=== PATIENT | male | born 1950 | race Caucasian/White ===

== ENCOUNTER 2019-03-30 11:37 | Emergency (ER) | payer MEDICARE, OTHER, SELFPAY ==
[2019-03-30 11:43] VITALS: BP 136/87; PULSE 103; RESP 16; TEMP 36.3; O2SAT 99; BMI 23.7
--- NOTE | 2019-03-30 11:50 | RAD_ITS ---
STUDY: X-RAY CHEST REASON FOR EXAM: Male, 68 years old. Right-sided chest pain with diminished breath sounds. History of pneumothorax. TECHNIQUE: AP portable upright inspiratory and expiratory. COMPARISON: None. FINDINGS: The lungs are clear and expanded. No effusion or pneumothorax. Normal cardiomediastinal silhouette, suhail and pleural margins. No acute osseous or upper abdominal process. RAD/Chest Insp/Exp 2 View IMPRESSION: No acute cardiopulmonary process. Electronically Signed: Delfin Ngo MD at 12:40 EDT Tel , Service support ,
--- NOTE | 2019-03-30 11:51 | ED.VIS.GEN ---
History of Present Illness Chief Complaint: Shortness of Breath Detail of Chief Complaint: Right-sided chest pain since Saturday Informant: Patient Onset: Days - Onset Saturday Context: Sudden Onset Timing: Continuous - burning sensation right side of chest lateral sternum Quality: Burning Location: Right Current Severity: Mild Maximum Severity: Moderate Worsened by: Activity Relieved by: Nothing Associated Symptoms: Dyspnea Narrative: Patient is an elderly gentleman who presents because of right-sided chest pain that started abruptly on Saturday. Patient now complains of a burning sensation which he localizes to the fourth fifth intercostal space on the right. He does report shortness of breath with dyspnea on exertion. He has history of 100% pneumothorax in the left 1982 and more recently 40% pneumothorax on the right. He has not seen a cardiothoracic surgeon for either pneumothorax. There is no history of trauma. Patient states he coughed and reports coughing prior to pneumothorax on left and prior on right. He does report rhinorrhea, which is chronic secondary to allergies. He denies leg pain, swelling discoloration. He denies history of PE or DVT. He denies constitutional symptoms. He denies GI symptoms. He denies rash. Prior similar symptoms: Yes - Pneumothorax Recent Illness/Hospitalization: No - Past Medical History (1) History of pneumothorax Status: Acute Past Medical History - Allergies and Home Meds Allergies/Adverse Reactions: Allergies amoxapine Allergy (Verified 03/30/19 11:43) Other albuterol Adverse Reaction (Verified 03/30/19 11:43) Other amitriptyline [From Elavil] Adverse Reaction (Verified 03/30/19 11:43) Other buspirone Adverse Reaction (Verified 03/30/19 11:43) Other duloxetine [From Cymbalta] Adverse Reaction (Verified 03/30/19 11:43) Other fluticasone [From Advair Diskus] Adverse Reaction (Verified 03/30/19 11:40) Other HEART PALPITATIONS gabapentin Adverse Reaction (Verified 03/30/19 11:43) Other gemfibrozil Adverse Reaction (Verified 03/30/19 11:43) Other hydroxyzine Adverse Reaction (Verified 03/30/19 11:43) Other naproxen Adverse Reaction (Verified 03/30/19 11:43) Other nortriptyline Adverse Reaction (Verified 03/30/19 11:43) Other salmeterol [From Advair Diskus] Adverse Reaction (Verified 03/30/19 11:40) Other HEART PALPITATIONS sertraline [From Zoloft] Adverse Reaction (Verified 03/30/19 11:43) Other tiotropium [From Spiriva with HandiHaler] Adverse Reaction (Verified 03/30/19 11:43) Other trazodone Adverse Reaction (Verified 03/30/19 11:43) Other zolpidem [From Ambien] Adverse Reaction (Verified 03/30/19 11:43) Other SLEEP WALKING Primary Care Physician: Juvenal Chatman MD [Primary Care Provider] - Prior records reviewed: No Surgical History: noncontributory Lives: Spouse/ Significant Other Smoking Status: Former smoker Alcohol: None Review of Systems General: Denies: Chills, Fever, Subjective, Sweats Eyes: Denies: Visual changes - bilaterally, Diplopia ENT: Reports: Rhinorrhea. Denies: Bilateral ear pain, Sore throat Cardiovascular: Reports: Chest pain. Denies: Palpitations, Heart racing Respiratory: Reports: Dyspnea, Cough, Dyspnea on exertion. Denies: Sputum, Orthopnea, Paroxysmal nocturnal dyspnea Gastrointestinal: Denies: Abdominal pain, Nausea, Vomiting, Diarrhea, Melena, Hematochezia Genitourinary: Denies: Dysuria, Hematuria, Frequency Musculoskeletal: Denies: Back pain, Extremity Pain Skin: Denies: Rash, Wounds Neurological: Denies: Headache, Weakness, Numbness Allergy: Denies: Uticaria, Swelling of the mouth Physical Exam Vital Signs/Narrative: Vital Signs Temp Pulse Resp BP Pulse Ox 03/30/19 11:43 97.4 F L 103 H 16 136/87 H 99 General: Well nourished, Well developed, No Acute Distress Head: Normocephalic, Atraumatic Eyes: Perrl, EOMI. Negative for: Pale conjunctiva, Scleral icterus, - ENT: Moist mucous membranes, No rhinorrhea Neck: Supple, Nontender, No lymphadenopathy, No JVD Cardiovascular: Regular rate, Regular rhythm, No murmurs, Normal S1, Normal S2 Respiratory: No distress, CTA bilaterally, Chest nontender, Diminished - Breath sounds diminished on the right especially apex. Abdomen: Soft, Nontender, Nondistended, Normal bowel sounds, No masses. Negative for: Hepatomegaly, Splenomegaly Extremities: Nontender, No edema Skin: Normal color, No rash Neurological: Alert, Oriented x3, Cranial nerves II-XII grossly intact, Normal Strength, Normal Sensation Psychological: Normal affect, Normal Mood Diagnostic/Tx/Re-eval Chest X-Ray - ED: 2 View, Read by ED Physician Inspiratory and expiratory views were obtained. There is no evidence of pneumothorax per my interpretation on the inspiratory expiratory view. Therefore will discharge to home Impressions Chest X-Ray 03/30/19 11:50 IMPRESSION: No acute cardiopulmonary process. Electronically Signed: Delfin Ngo MD at 12:40 EDT Tel , Service support , 03/30/19 11:50 Chest Insp/Exp 2 View [RAD] Routine 03/30/19 14:46 CTA Chest W/WO Contrast [CT] Stat Laboratory Results 03/30/19 03/30/19 13:15 14:16 D-Dimer Quant (PE/DVT) Cancelled 2.46 H* - Medical Decision Making With prior history of pneumothorax, dyspnea with decreased breath sounds on the right and expiratory next Tory x-ray was obtained to evaluate for pneumothorax. Since there is no oxygenation for his chest discomfort or shortness of breath a d-dimer was obtained because he is tachycardic and is not PERC negative. D-dimer is elevated even after correction for age. Therefore CTA was ordered to evaluate for pulmonary embolus. ED Disposition - Plan for ED Patient: Diagnosis: Dyspnea, Sinus tachycardia seen on cardiac monitor technician, Right-sided chest pain Referrals: Juvenal Chatman MD [Primary Care Provider] -
--- NOTE | 2019-03-30 11:55 | ED.DCSUM_ITS ---
History of Present Illness Chief Complaint: Shortness of Breath Detail of Chief Complaint: Right-sided chest pain since Saturday Informant: Patient Onset: Days - Onset Saturday Context: Sudden Onset Timing: Continuous - burning sensation right side of chest lateral sternum Quality: Burning Location: Right Current Severity: Mild Maximum Severity: Moderate Worsened by: Activity Relieved by: Nothing Associated Symptoms: Dyspnea Narrative: Patient is an elderly gentleman who presents because of right-sided chest pain that started abruptly on Saturday. Patient now complains of a burning sensation which he localizes to the fourth fifth intercostal space on the right. He does report shortness of breath with dyspnea on exertion. He has history of 100% pneumothorax in the left 1982 and more recently 40% pneumothorax on the right. He has not seen a cardiothoracic surgeon for either pneumothorax. There is no history of trauma. Patient states he coughed and reports coughing prior to pneumothorax on left and prior on right. He does report rhinorrhea, which is chronic secondary to allergies. He denies leg pain, swelling discoloration. He denies history of PE or DVT. He denies constitutional symptoms. He denies GI symptoms. He denies rash. Prior similar symptoms: Yes - Pneumothorax Recent Illness/Hospitalization: No - Past Medical History (1) History of pneumothorax Status: Acute Past Medical History - Allergies and Home Meds Allergies/Adverse Reactions: Allergies amoxapine Allergy (Verified 03/30/19 11:43) Other albuterol Adverse Reaction (Verified 03/30/19 11:43) Other amitriptyline [From Elavil] Adverse Reaction (Verified 03/30/19 11:43) Other buspirone Adverse Reaction (Verified 03/30/19 11:43) Other duloxetine [From Cymbalta] Adverse Reaction (Verified 03/30/19 11:43) Other fluticasone [From Advair Diskus] Adverse Reaction (Verified 03/30/19 11:40) Other HEART PALPITATIONS gabapentin Adverse Reaction (Verified 03/30/19 11:43) Other gemfibrozil Adverse Reaction (Verified 03/30/19 11:43) Other hydroxyzine Adverse Reaction (Verified 03/30/19 11:43) Other naproxen Adverse Reaction (Verified 03/30/19 11:43) Other nortriptyline Adverse Reaction (Verified 03/30/19 11:43) Other salmeterol [From Advair Diskus] Adverse Reaction (Verified 03/30/19 11:40) Other HEART PALPITATIONS sertraline [From Zoloft] Adverse Reaction (Verified 03/30/19 11:43) Other tiotropium [From Spiriva with HandiHaler] Adverse Reaction (Verified 03/30/19 11:43) Other trazodone Adverse Reaction (Verified 03/30/19 11:43) Other zolpidem [From Ambien] Adverse Reaction (Verified 03/30/19 11:43) Other SLEEP WALKING Primary Care Physician: Juvenal Chatman MD [Primary Care Provider] - Prior records reviewed: No Surgical History: noncontributory Lives: Spouse/ Significant Other Smoking Status: Former smoker Alcohol: None Review of Systems General: Denies: Chills, Fever, Subjective, Sweats Eyes: Denies: Visual changes - bilaterally, Diplopia ENT: Reports: Rhinorrhea. Denies: Bilateral ear pain, Sore throat Cardiovascular: Reports: Chest pain. Denies: Palpitations, Heart racing Respiratory: Reports: Dyspnea, Cough, Dyspnea on exertion. Denies: Sputum, Orthopnea, Paroxysmal nocturnal dyspnea Gastrointestinal: Denies: Abdominal pain, Nausea, Vomiting, Diarrhea, Melena, Hematochezia Genitourinary: Denies: Dysuria, Hematuria, Frequency Musculoskeletal: Denies: Back pain, Extremity Pain Skin: Denies: Rash, Wounds Neurological: Denies: Headache, Weakness, Numbness Allergy: Denies: Uticaria, Swelling of the mouth Physical Exam Vital Signs/Narrative: Vital Signs Temp Pulse Resp BP Pulse Ox 03/30/19 11:43 97.4 F L 103 H 16 136/87 H 99 General: Well nourished, Well developed, No Acute Distress Head: Normocephalic, Atraumatic Eyes: Perrl, EOMI. Negative for: Pale conjunctiva, Scleral icterus, - ENT: Moist mucous membranes, No rhinorrhea Neck: Supple, Nontender, No lymphadenopathy, No JVD Cardiovascular: Regular rate, Regular rhythm, No murmurs, Normal S1, Normal S2 Respiratory: No distress, CTA bilaterally, Chest nontender, Diminished - Breath sounds diminished on the right especially apex. Abdomen: Soft, Nontender, Nondistended, Normal bowel sounds, No masses. Negative for: Hepatomegaly, Splenomegaly Extremities: Nontender, No edema Skin: Normal color, No rash Neurological: Alert, Oriented x3, Cranial nerves II-XII grossly intact, Normal Strength, Normal Sensation Psychological: Normal affect, Normal Mood Diagnostic/Tx/Re-eval Chest X-Ray - ED: 2 View, Read by ED Physician Inspiratory and expiratory views were obtained. There is no evidence of pneumothorax per my interpretation on the inspiratory expiratory view. Therefore will discharge to home Impressions Chest X-Ray 03/30/19 11:50 IMPRESSION: No acute cardiopulmonary process. Electronically Signed: Delfin Ngo MD at 12:40 EDT Tel , Service support , 03/30/19 11:50 Chest Insp/Exp 2 View [RAD] Routine 03/30/19 14:46 CTA Chest W/WO Contrast [CT] Stat Laboratory Results 03/30/19 03/30/19 13:15 14:16 D-Dimer Quant (PE/DVT) Cancelled 2.46 H* - Medical Decision Making With prior history of pneumothorax, dyspnea with decreased breath sounds on the right and expiratory next Tory x-ray was obtained to evaluate for pneumothorax. Since there is no oxygenation for his chest discomfort or shortness of breath a d-dimer was obtained because he is tachycardic and is not PERC negative. D- dimer is elevated even after correction for age. Therefore CTA was ordered to evaluate for pulmonary embolus. ED Disposition - Plan for ED Patient: Diagnosis: Dyspnea, Sinus tachycardia seen on surveillance system monitor, Right-sided chest pain Referrals: Juvenal Chatman MD [Primary Care Provider] -
[2019-03-30 14:27] VITALS: BP 154/89; PULSE 70; O2SAT 99
[2019-03-30 14:44] LABS: D-Dimer Quantitative (DVT/PE) 2.46 FEU/ug/m (0.27-0.49)
--- NOTE | 2019-03-30 14:46 | CT_ITS ---
We are attempting to reach Cornel Kaye MD to discuss findings. An addendum with communication details will be sent when the communication is complete. STUDY: CTA CHEST REASON FOR EXAM: Male, 68 years old. SOB, elevated d-dimer. COPD, emphysema. RADIATION DOSAGE (If Supplied By Facility): CTDIvol = ( 8.28 ) mGy, DLP = ( 381.35 ) mGycm TECHNIQUE: The examination was performed with the intravenous administration of 100mL IV Isovue 370. Post-processing of the angiographic images was performed, with multiplanar reformation and 3D reconstruction. Individualized dose optimization techniques were used for this CT. COMPARISON: None. FINDINGS: The heart and pericardium are normal. The aorta is normal in caliber, with no aneurysm or dissection. There is no mediastinal mass or adenopathy. There is no hilar or axillary adenopathy. Acute pulmonary emboli are demonstrated in segmental and subsegmental arteries of the right middle and lower lobes. Acute emboli are demonstrated in subsegmental arteries of the left lower lobe. There is no pleural effusion. There is mild apical pleural thickening, greater on the right. There is no pulmonary consolidation. Minimal cystic changes are noted in the right lung base. Mild paraseptal emphysema is noted in the lung apices. There is moderate pancreatic atrophy. The visualized abdomen is otherwise unremarkable. There is no osseous abnormality. CT/CTA Chest W/WO Contrast IMPRESSION: 1. Moderate bilateral pulmonary emboli, greater on the right. 2. Mild chronic changes are noted above. Electronically Signed: Kellie Garcia MD at 17:14 EDT Tel , Service support ,
[2019-03-30 16:10] LABS: Anion Gap 4 (5-15); BUN 12 mg/dL (7-18); BUN/Creat Ratio 9.8 RATIO (10-20); Calcium,Total 8.9 mg/dL (8.5-10.1); Chloride 106 mmol/L (98-107); Creatinine, Serum 1.22 mg/dL (0.70-1.30); EST Glomerular Filtration Rate 63 mL/min (>60); Est Glom Filt Rate - Afr Amer 76 mL/min (>60); Estimated Creatinine Clearance 68.31 ml/min; Glucose 93 mg/dL (74-106); Potassium 4.2 mmol/L (3.5-5.1); Sodium Level 140 mmol/L (136-145)
[2019-03-30 16:37] VITALS: BP 132/61; PULSE 87; O2SAT 99
--- NOTE | 2019-03-30 16:48 | EKG12_ITS ---
Test Reason : CP Blood Pressure : / mmHG Vent. Rate : 102 BPM Atrial Rate : 102 BPM P-R Int : 150 ms QRS Dur : 092 ms QT Int : 362 ms P-R-T Axes : 047 019 068 degrees QTc Int : 471 ms Sinus tachycardia Nonspecific ST and T wave abnormality Abnormal ECG Confirmed by RD QUIGLEY ([id number]), editor map RUY ZHANG ([id number]) on 04/03/2019 10:51:33 AM Referred By: ARLENE Confirmed By:RD QUIGLEY
[2019-03-30] MEDS: Rivaroxaban 15 MG Tablet PO (17:10)
[2019-03-30 17:13] LABS: Absolute Neutrophil Count 6.7 X10^3/uL (2.0-7.7); Basophil# 0.02 X10^3/uL; Basophil% 0.2 % (0-1); Eosinophil# 0.17 X10^3/uL; Eosinophils% 1.8 % (0-5); Hematocrit 40.1 % (40-54); Hemoglobin 13.2 g/dl (13.0-16.5); Lymphocyte % 20.5 % (19-41); Mean Corp Hgb Conc 32.9 g/gl (32-36); Mean Corpuscular Hgb 29.9 pg (27.0-32.0); Mean Corpuscular Volume 90.7 fL (80-94); Mean Platelet Vol. 10.2 fl (6.2-12.0); Monocyte% 5.4 % (0-10); Neutrophil # 6.65 X10^3/uL (2.7-7.7); Platelet Count 239 K/mm3 (150-450); RBC Distribution Width CV 13.7 % (11.6-14.6); RBC Distribution Width SD 45.3 fl (35.1-43.9); Red Blood Count 4.42 M/mm3 (4.6-6.2); White Blood Count 9.3 K/mm3 (4.4-11.0)
[2019-03-30 17:14] LABS: POSITIVE COUNT NO; POSITIVE DIFFERENTIAL NO; POSITIVE MORPHOLOGY NO
--- NOTE | 2019-03-30 17:41 | ED.DEP ---
ED Disposition - Plan for ED Patient: Disposition: Home or Assisted Living Diagnosis: Dyspnea, Sinus tachycardia seen on laboratory monitor, Right-sided chest pain Instructions: Discharge Instructions for Pulmonary Embolism Prescriptions: Rivaroxaban [Xarelto] 15 mg PO BID #42 tablet Referrals: Juvenal Chatman MD [Primary Care Provider] - 1 Week
[2019-03-30 17:54] VITALS: BP 149/78; PULSE 80; O2SAT 97
--- NOTE | 2019-04-01 12:15 | CASEMGMT ---
Case Management ER DC F/u Call: Called patient on listed cell to follow up, answered and states that he is currently in the hospital as he returned d/t not feeling good. CC: CP, Michele Alvaradot PE DC'd on Xarelto. Jessica Mcmullen, ISABELCM
[2019-04-06 16:06] LABS: Protein C Antigen 108 % (60-150); Protein C, Functional 114 % (73-180)
[2019-04-07 10:04] LABS: Anti-Cardiolipin Ab, IgG, Qn < 9 GPL U/mL (0-14); Anti-Cardiolipin Ab, IgM, Qn < 9 MPL U/mL (0-12); Anti-Thrombin 3 AG, Immunol 115 % (72-124); Antithrombin 3 Function 110 % (75-135); Beta-2-Glycoprotein I IgA <9 (0-25); Beta-2-Glycoprotein I IgG <9 (0-20); Beta-2-Glycoprotein I IgM <9 (0-32)
== END 2019-03-30 17:54 | disposition home or self-care (01) ==
PROVIDERS: Emergency Medicine; Emergency Provider Emergency Medicine; Family Provider Family Medicine; PCP Family Medicine
DX: R06.00 Dyspnea, unspecified (principal); R00.0 Tachycardia, unspecified; R07.89 Other chest pain; Z87.891 Personal history of nicotine dependence
CPT/HCPCS: 71046; 71275; 80048; 81240; 81241; 84484; 85025; 85300; 85301; 85302; 85303; 85379; 86146; 86147; 93005; 96360; 96361; 99284; J7030; Q9967

== ENCOUNTER 2019-04-01 07:37 | Inpatient (IN) | payer MEDICARE, OTHER, SELFPAY ==
[2019-04-01] VITALS (12 sets, daily range): BP systolic 117–181; BP diastolic 62–110; PULSE 60–103; RESP 12–32; TEMP 36.5–37.3; O2SAT 94–99; BMI 24.1; BMI 23.1
--- NOTE | 2019-04-01 07:43 | EKG12_ITS ---
Test Reason : SOB Blood Pressure : / mmHG Vent. Rate : 087 BPM Atrial Rate : 087 BPM P-R Int : 176 ms QRS Dur : 094 ms QT Int : 388 ms P-R-T Axes : 062 -02 049 degrees QTc Int : 466 ms Normal sinus rhythm Normal ECG Confirmed by RD QUIGLEY [id number]), film editor supervisor RUY ZHANG ([id number]) on 04/03/2019 11:15:49 AM Referred By: SOM Confirmed By:RD QUIGLEY
--- NOTE | 2019-04-01 07:43 | RAD_ITS ---
STUDY: X-RAY CHEST REASON FOR EXAM: Male, 68 years old. Chest pain. TECHNIQUE: Single AP portable view of the chest. COMPARISON: Comparison is made with prior study dated March 30, 2019. FINDINGS: EKG electrodes are seen. There now is evidence of increased markings at the lung bases with areas of confluence suggestive of bibasilar atelectasis and/or early infiltrates. Blunting of both costophrenic angles. Normal size heart. Normal mediastinum and suhail. Normal visualized pulmonary arteries. There is atherosclerotic tortuosity of the aortic arch and descending thoracic aorta. Normal visualized thoracic spine. Normal visualized ribs, clavicles, and shoulders. There is no demonstrated abnormality of the visualized soft tissue structures of the upper abdomen. RAD/Chest 1 View (Portable) IMPRESSION: Increased markings at the lung bases suggestive of bibasilar atelectasis and/or early infiltrates. Blunting of both costophrenic angles. Electronically Signed: John Dao, at 8:24 EDT , Service support ,
--- NOTE | 2019-04-01 07:46 | ED.VISSUMM ---
- ER Visit Summary Date of Service: 04/01/19 Chief Complaint: Right-sided chest pain, recent PE diagnosis History of Present Illness: The patient is a 68 M who presents with right-sided chest pain. 2 days ago he was seen here and was diagnosed with bilateral pulmonary emboli. He was started on Xarelto and was discharged home. For the last 18 hours he has had an increase of pain on the right side. This pain is worse with breathing. He does admit to some shortness of breath with this. [place] at home did not help with his pain. He does have a history of a pneumothorax remotely. Physical Examination: Vital signs reviewed. HEENT exam unremarkable. Heart is regular rhythm and tachycardic. Lungs are clear bilaterally with equal sounds. He does have right-sided chest tenderness to palpation. Abdomen soft nontender. Extremities reveal no edema. Peripheral pulses are equal. His neurologic exam is normal. Test Results: EKG sinus rhythm with rate of 102. No ST changes. Chest x-ray reveals bilateral atelectasis. His white blood count is 11.6, hemoglobin 12.8. Creatinine is 1.37 with a GFR 55. Troponin is still less than 0.015 Emergency Department Course and Treatment: The patient was given morphine and he feels improved. I feel he should be admitted for pain control today. I will give him a dose of Lovenox in the emergency department as well. Patient will be admitted to observation for pain control Treatment Plan: [] Disposition: Admit Impression: Bilateral pulmonary emboli, chest pain This note was generated with [employer] dictation software. It may contain incorrect words, spelling, and punctuation that were not noted in review of the chart prior to signing ED Disposition - Plan for ED Patient: Referrals: Juvenal Chatman MD [Primary Care Provider] -
[2019-04-01] MEDS: Ondansetron 4 MG/2 ML Vial IV (07:50)
[2019-04-01] MEDS: Morphine 4 MG/ML Syringe IV ×3 (07:52→19:27)
[2019-04-01 07:54] LABS: Absolute Lymphocyte Count 3.04 X10^3/ul (0.83-4.51); Absolute Neutrophil Count 7.3 X10^3/uL (2.0-7.7); Basophil# 0.03 X10^3/uL; Basophil% 0.3 % (0-1); Eosinophil# 0.27 X10^3/uL; Eosinophils% 2.3 % (0-5); Hematocrit 39.5 % (40-54); Hemoglobin 12.8 g/dl (13.0-16.5); Lymphocyte # 3.04 X10^3/ul (4.0); Lymphocyte % 26.3 % (19-41); Mean Corp Hgb Conc 32.4 g/gl (32-36); Mean Corpuscular Hgb 29.4 pg (27.0-32.0); Mean Corpuscular Volume 90.6 fL (80-94); Mean Platelet Vol. 9.4 fl (6.2-12.0); Monocyte# 0.95 X10^3/uL; Monocyte% 8.2 % (0-10); Neutrophil # 7.26 X10^3/uL (2.7-7.7); Neutrophil % 62.8 % (47-70); Platelet Count 264 K/mm3 (150-450); RBC Distribution Width CV 13.8 % (11.6-14.6); RBC Distribution Width SD 45.2 fl (35.1-43.9); Red Blood Count 4.36 M/mm3 (4.6-6.2); White Blood Count 11.6 K/mm3 (4.4-11.0)
[2019-04-01 07:59] LABS: POSITIVE COUNT NO; POSITIVE DIFFERENTIAL NO; POSITIVE MORPHOLOGY NO
[2019-04-01 08:09] LABS: Anion Gap 7 (5-15); BUN 15 mg/dL (7-18); BUN/Creat Ratio 10.9 RATIO (10-20); Calcium,Total 8.7 mg/dL (8.5-10.1); Chloride 106 mmol/L (98-107); Creatinine, Serum 1.37 mg/dL (0.70-1.30); EST Glomerular Filtration Rate 55 mL/min (>60); Est Glom Filt Rate - Afr Amer 67 mL/min (>60); Estimated Creatinine Clearance 60.83 ml/min; Glucose 118 mg/dL (74-106); Potassium 3.5 mmol/L (3.5-5.1); Sodium Level 140 mmol/L (136-145)
[2019-04-01] MEDS: Enoxaparin 100 MG/ML Syringe 85 MG SC (08:48)
--- NOTE | 2019-04-01 08:50 | HP.PCM_ITS ---
Problem List (1) Bilateral pulmonary embolism Status: Acute (2) GERD (gastroesophageal reflux disease) Status: Chronic (3) Allergic rhinitis Status: Chronic (4) Essential (primary) hypertension Status: Chronic (5) History of pneumothorax Status: Chronic History of Present Illness Date of Admission: 04/01/19 Chief Complaint: Chest discomfort The patient is a 68 year old M diagnosed with bilateral pulmonary embolism 2 days prior to his admission who presented with chest discomfort. Patient was apparently discharged from the emergency department on Xarelto after he presented with chest discomfort imaging studies demonstrated bilateral pulmonary embolism. Patient states since being discharged he has continued to experience chest pain which is worsened with breathing in both lungs. He also felt that his breathing was labored. He was scheduled to follow-up with his primary care physician on the morning of his presentation however in view of his persistent discomfort and difficulty breathing he presented to the emergency department. In the ED imaging studies obtained demonstrated Increased markings at the lung bases suggestive of bibasilar atelectasis and/or early infiltrates. Blunting of both costophrenic angles. Decision was made to admit patient for symptomatic treatment in the hospital. Past Medical History Past Medical History (Chronic Problems): Chronic Problems History of pneumothorax (Chronic) GERD (gastroesophageal reflux disease) (Chronic) Allergic rhinitis (Chronic) Essential (primary) hypertension (Chronic) Allergies amoxapine Allergy (Verified 04/01/19 07:42) Other albuterol Adverse Reaction (Verified 04/01/19 07:42) Other amitriptyline [From Elavil] Adverse Reaction (Verified 04/01/19 07:42) Other buspirone Adverse Reaction (Verified 04/01/19 07:42) Other duloxetine [From Cymbalta] Adverse Reaction (Verified 04/01/19 07:42) Other fluticasone [From Advair Diskus] Adverse Reaction (Verified 04/01/19 07:42) Other HEART PALPITATIONS gabapentin Adverse Reaction (Verified 04/01/19 07:42) Other gemfibrozil Adverse Reaction (Verified 04/01/19 07:42) Other hydroxyzine Adverse Reaction (Verified 04/01/19 07:42) Other naproxen Adverse Reaction (Verified 04/01/19 07:42) Other nortriptyline Adverse Reaction (Verified 04/01/19 07:42) Other salmeterol [From Advair Diskus] Adverse Reaction (Verified 04/01/19 07:42) Other HEART PALPITATIONS sertraline [From Zoloft] Adverse Reaction (Verified 04/01/19 07:42) Other tiotropium [From Spiriva with HandiHaler] Adverse Reaction (Verified 04/01/19 07:42) Other trazodone Adverse Reaction (Verified 04/01/19 07:42) Other zolpidem [From Ambien] Adverse Reaction (Verified 04/01/19 07:42) Other SLEEP WALKING Home Medications: Ambulatory Orders Medication Instructions Recorded Rivaroxaban [Xarelto] 15 mg PO BID #42 tablet 03/30/19 Cholecalciferol (VIT D3) [Vitamin 1,000 unit PO DAILY 04/01/19 D] Diltiazem HCl [Diltiazem 24Hr ER] 180 mg PO DAILY 04/01/19 Folic Acid 1 mg PO DAILY 04/01/19 Hydrocodone/Acetaminophen [[place] 1 each PO Q4H PRN 04/01/19 5-325 Tablet] Loratadine [Claritin] 10 mg PO DAILY 04/01/19 Montelukast [Singulair] 10 mg PO DAILY 04/01/19 [place]-3 Fatty Acids/Fish Oil [Fish 1 cap PO DAILY 04/01/19 Oil 1,000 mg Capsule] Ranitidine [Zantac] 150 mg PO BID 04/01/19 Saw [place] 500 mg PO DAILY 04/01/19 Surgical History: noncontributory Smoking Status: Never smoker - *Family History Paternal History Items: DVT Review of Systems Constitutional: Reports: Fatigue. Denies: Anorexia, Chills, Fever, Night Sweats, Weight Change HEENT: Denies: Head Aches, Sinus Congestion, Sinus Drainage Cardiovascular: Reports: Chest Pain. Denies: Orthopnea Respiratory: Reports: Pleuritic Pain, Shortness of Breath. Denies: Shortness of breath at rest Gastrointestinal: Denies: Abdominal Pain, Hematemesis, Hematochezia, Nausea, Melena, Vomiting Genitourinary: Denies: Dysuria, Frequency, Hematuria, Urgency Musculoskeletal: Denies: Joint Pain, Joint Tenderness Skin: Denies: Rash Neurological: Denies: Focal weakness, Numbness, Tingling Psychiatric: Denies: Homicidal Ideations, Suicidal Ideations Hematologic/ Lymphatic: Denies: Easy Bruising, Easy Bleeding VTE Information - Inpt Only VTE Present on Admission: No VTE Mechan Device Prophylaxis: Knee High KARSON Hose VTE Pharm Prophylaxis ordered?: Yes Patient Problems: Active and Suspected Problems Bilateral pulmonary embolism (Acute) Objective: GENERAL: Appears to be in some discomfort HEENT: Atraumatic; moist oral mucosa EYES; Anicteric, Normal Conjunctiva NECK; supple, normal thyroid, no distended JVD. RESPIRATORY: Diminished to auscultation bilaterally, CARDIOVASCULAR: Regular S1 S2, no audible murmurs GI: soft, non-tender, normoactive bowel sounds, : No Renal angle tenderness; EXTREMITIES: No edema, no clubbing, no cyanosis. MUSCULOSKELETAL: No Joint Tenderness; no muscle waisting NEURO: Awake; no lateralizing signs. SKIN: No Rash PSYCH; Normal affect - Physical Exam Vital Signs Temp Pulse Resp BP Pulse Ox 97.7 F L 91 17 151/92 H 98 04/01/19 07:38 04/01/19 08:35 04/01/19 08:35 04/01/19 08:35 04/01/19 08:35 Oxygen Flow Rate (L/min) 2 Oxygen Delivery Method Nasal Cannula Weight: 85.275 kg Body Mass Index (BMI) 24.1 Laboratory Tests Past 24 Hrs 04/01/19 04/01/19 07:45 07:45 WBC 11.6 H RBC 4.36 L Hgb 12.8 L Hct 39.5 L MCV 90.6 MCH 29.4 MCHC 32.4 RDW 13.8 RDW Differential 45.2 H Plt Count 264 MPV 9.4 Immature Gran % (Auto) 0.100 Neut % (Auto) 62.8 Lymph % (Auto) 26.3 [place] % (Auto) 8.2 Eos % (Auto) 2.3 Baso % (Auto) 0.3 Absolute Neuts (auto) 7.3 Absolute Lymphs (auto) 3.04 Total Counted Not Reportable Sodium 140 Potassium 3.5 Chloride 106 Carbon Dioxide 27.0 Anion Gap 7 BUN 15 Creatinine 1.37 H Estim Creat Clear Calc 60.83 Est GFR (MDRD) Af Amer 67 Est GFR (MDRD) Non-Af 55 L BUN/Creatinine Ratio 10.9 Glucose 118 H Calcium 8.7 Troponin I < 0.015 Assessment/Plan All Active Problems Bilateral pulmonary embolism (Acute) Patient is a 68-year-old gentleman diagnosed bilateral pulmonary embolism 2 days prior to his admission resented with significant pleuritic chest pain 1. Pleuritic chest pain do suspect pulmonary infarction from patient bilateral pulmonary embolism. Patient has been admitted to monitored bed did continue with his systemic anticoagulation Xarelto initiated following his diagnosis 2 days prior to his admission. In addition patient was placed on supplemental oxygen titrated to keep saturation greater than 90 and did encourage the use of incentive spirometry. Did discuss with the patient that since his PE was unprovoked he will need to be on systemic anticoagulation indefinitely. Patient also stated he is up-to-date with with his age-appropriate cancer screening 2. Recently diagnosed bilateral pulmonary embolism. Did request for echo to assess for RV function 3. GERD patient is on PPI 4. Hypertension patient is on Cardizem 5. Allergic rhinitis Code Visit OBS E&M: 04253 Initial observation care L3
--- NOTE | 2019-04-01 08:50 | PCM.PN.HOSP ---
Vitals/I&O's: Vital Signs Temp Pulse Resp BP Pulse Ox 97.7 F L 91 17 151/92 H 98 04/01/19 07:38 04/01/19 08:35 04/01/19 08:35 04/01/19 08:35 04/01/19 08:35 Oxygen Flow Rate (L/min) 2 Oxygen Delivery Method Nasal Cannula Weight: 85.275 kg Body Mass Index (BMI) 24.1 Laboratory Results 04/01/19 07:45: WBC 11.6 H, RBC 4.36 L, Hgb 12.8 L, Hct 39.5 L, MCV 90.6, MCH 29.4, MCHC 32.4, RDW 13.8, RDW Differential 45.2 H, Plt Count 264, MPV 9.4, Immature Gran % (Auto) 0.100, Neut % (Auto) 62.8, Lymph % (Auto) 26.3, [place] % (Auto) 8.2, Eos % (Auto) 2.3, Baso % (Auto) 0.3, Absolute Neuts (auto) 7.3, Absolute Lymphs (auto) 3.04, Total Counted Not Reportable 04/01/19 07:45: Sodium 140, Potassium 3.5, Chloride 106, Carbon Dioxide 27.0, Anion Gap 7, BUN 15, Creatinine 1.37 H, Estim Creat Clear Calc 60.83, Est GFR (MDRD) Af Amer 67, Est GFR (MDRD) Non-Af 55 L, BUN/Creatinine Ratio 10.9, Glucose 118 H, Calcium 8.7, Troponin I < 0.015 Medical Necessity - Tobacco Use Smoking Status: Never smoker Assessment/Plan All Active Problems History of pneumothorax (Acute)
--- NOTE | 2019-04-01 09:40 | ECHOD_ITS ---
Reason For Study: Emboli Procedure This was a 2D Doppler, Color Flow transthoracic echocardiogram. Technically difficult study, Patient was unable to lay flat or on left side for testing due to pain. Patient was scanned sitting up. Exam performed portable in patient room. Left Ventricle Mild concentric left ventricular hypertrophy. The estimated ejection fraction is 50 %. Unable to assess diastolic dysfunction due to arrhythmia. There is mild global hypokinesis of the left ventricle. Right Ventricle Normal size and thickness. Normal systolic function. Mitral Valve The mitral valve is structurally normal. No prolapse or stenosis seen. Tricuspid Valve Normal tricuspid valve. Trivial tricuspid valve insufficiency. Unable to estimate RV systolic pressure/pulmonary artery pressure due to technically difficult study. Aortic Valve Trisinus/trileaflet aortic valve. Trivial aortic valve insufficiency. Pulmonic Valve Normal pulmonic valve. Great Vessels Normal aortic root. Normal arch. Inferior vena cava collapse with sniff. Normal inferior vena cava. Pericardium/Pleural No pericardial effusion. MMode/2D Measurements & Calculations LVIDd: 4.7 cm IVSd: 1.5 cm LVIDs: 3.5 cm LVPWd: 1.3 cm FS: 24.8 % Time Measurements MV dec time: 0.20 sec Doppler Measurements & Calculations MV E max abran: 46.2 cm/sec Lat Peak E' Abran: 10.1 cm/sec Med Peak E' Abran: 7.4 cm/sec MV A max abran: 52.1 cm/sec E/E' lat: 4.6 E/E' med: 6.2 MV E/A: 0.89 Ao V2 max: 132.2 cm/sec LV V1 max: 87.8 cm/sec PA V2 max: 51.8 cm/sec Ao max P.0 mmHg LV V1 max P.3 mmHg Ao V2 mean: 86.5 cm/sec LV V1 mean P.5 mmHg Ao mean P.5 mmHg LV V1 mean: 55.0 cm/sec Ao V2 VTI: 20.9 cm LV V1 VTI: 15.4 cm Interpretation Summary Mild concentric left ventricular hypertrophy. The estimated ejection fraction is 50 %. Unable to assess diastolic dysfunction due to arrhythmia. There is mild global hypokinesis of the left ventricle. Trivial tricuspid valve insufficiency. Unable to estimate RV systolic pressure/pulmonary artery pressure due to technically difficult study. Trivial aortic valve insufficiency. There is no comparison study available. The study was technically difficult. Ordering Physician: Christopher Epperson Performed By: Earl Valdez RCS
[2019-04-01] MEDS: Ketorolac 15 MG/ML Vial IV ×2 (11:00→18:26)
[2019-04-01] MEDS: 0.9% NaCl Peripheral Flush Adult/Peds IV ×2 (18:26→19:27)
[2019-04-01] MEDS: Rivaroxaban 15 MG Tablet PO (18:26)
[2019-04-01] MEDS: Famotidine 20 MG Tablet PO (21:20)
[2019-04-02] VITALS (9 sets, daily range): BP systolic 123–132; BP diastolic 67–74; PULSE 57–80; RESP 16–18; TEMP 36.7–37.3; O2SAT 93–97
[2019-04-02] MEDS: Ketorolac 15 MG/ML Vial IV ×5 (00:10→23:03)
[2019-04-02] MEDS: 0.9% NaCl Peripheral Flush Adult/Peds IV ×8 (00:11→23:05)
[2019-04-02 06:48] LABS: Hematocrit 34.5 % (40-54); Mean Corp Hgb Conc 31.9 g/gl (32-36); Mean Corpuscular Hgb 29.1 pg (27.0-32.0); Mean Corpuscular Volume 91.3 fL (80-94); Platelet Count 199 K/mm3 (150-450); RBC Distribution Width CV 13.7 % (11.6-14.6); RBC Distribution Width SD 44.9 fl (35.1-43.9); Red Blood Count 3.78 M/mm3 (4.6-6.2); White Blood Count 7.9 K/mm3 (4.4-11.0)
[2019-04-02 06:50] LABS: Scan Indicated on CBC? Y/N NO
[2019-04-02 06:56] LABS: Anion Gap 7 (5-15); BUN 16 mg/dL (7-18); BUN/Creat Ratio 13.8 RATIO (10-20); Calcium,Total 8.3 mg/dL (8.5-10.1); Chloride 107 mmol/L (98-107); Creatinine, Serum 1.16 mg/dL (0.70-1.30); EST Glomerular Filtration Rate 67 mL/min (>60); Est Glom Filt Rate - Afr Amer 81 mL/min (>60); Estimated Creatinine Clearance 71.23 ml/min; Glucose 104 mg/dL (74-106); Potassium 3.9 mmol/L (3.5-5.1); Sodium Level 141 mmol/L (136-145)
[2019-04-02] MEDS: Morphine 2 MG/ML Syringe IV (07:23)
[2019-04-02] MEDS: Famotidine 20 MG Tablet PO ×2 (09:03→21:21)
[2019-04-02] MEDS: dilTIAZem CD 180 MG Capsule PO (09:04)
[2019-04-02] MEDS: Montelukast 10 MG Tablet PO (09:04)
[2019-04-02] MEDS: Loratadine 10 MG Tablet PO (09:04)
[2019-04-02] MEDS: Rivaroxaban 15 MG Tablet PO ×2 (09:04→18:17)
[2019-04-02] MEDS: Folic Acid 1 MG Tablet PO (09:04)
--- NOTE | 2019-04-02 09:21 | PCM.PN.HOSP ---
Patient Problems: Active and Suspected Problems Bilateral pulmonary embolism (Acute) Subjective: Patient is a 68-year-old gentleman diagnosed bilateral pulmonary embolism 2 days prior to his admission presented with significant pleuritic chest pain. Patient admitted to monitored bed where he has since been managed. Seen this a.m. still complains of significant pleuritic chest pain. Did discuss with patient the plan to wean off morphine and transition to oral pain meds Objective: GENERAL: Patient is cooperative HEENT: Atraumatic; moist oral mucosa EYES; Anicteric, Normal Conjunctiva NECK; supple, normal thyroid, no distended JVD. RESPIRATORY: Diminished to auscultation bilaterally, CARDIOVASCULAR: Regular S1 S2, no audible murmurs GI: soft, non-tender, normoactive bowel sounds, : No Renal angle tenderness; EXTREMITIES: No edema, no clubbing, no cyanosis. MUSCULOSKELETAL: No Joint Tenderness; no muscle waisting NEURO: Awake; no lateralizing signs. SKIN: No Rash PSYCH; Normal affect Vitals/I&O's: Vital Signs Temp Pulse Resp BP Pulse Ox 98.1 F 71 16 123/67 H 97 04/02/19 09:01 04/02/19 09:01 04/02/19 09:01 04/02/19 09:01 04/02/19 09:01 Oxygen Flow Rate (L/min) 2 Oxygen Delivery Method Nasal Cannula Weight: 81.5 kg Body Mass Index (BMI) 23.1 Intake and Output for Last 24 Hours 03/31/19 04/01/19 04/02/19 23:59 23:59 23:59 Intake Total 960 / 960 240 / 240 Balance 960 / 960 240 / 240 Laboratory Results 04/01/19 10:35: Troponin I < 0.015 04/01/19 13:40: Troponin I < 0.015 04/02/19 06:20: Sodium 141, Potassium 3.9, Chloride 107, Carbon Dioxide 27.0, Anion Gap 7, BUN 16, Creatinine 1.16, Estim Creat Clear Calc 71.23, Est GFR (MDRD) Af Amer 81, Est GFR (MDRD) Non-Af 67, BUN/Creatinine Ratio 13.8, Glucose 104, Calcium 8.3 L 04/02/19 06:20: WBC 7.9, RBC 3.78 L, Hgb 11.0 L, Hct 34.5 L, MCV 91.3, MCH 29.1, MCHC 31.9 L, RDW 13.7, RDW Differential 44.9 H, Plt Count 199, MPV 10.0 Current Medications Acetaminophen (Tylenol) 650 mg PO Q6H PRN PRN PRN Reason: Mild Pain (scale 0-3)/T>100.7 Al Hydroxide/Mg Hydroxide (Mylanta Ii) 30 ml PO Q6H PRN PRN PRN Reason: Gastric Burning Cholecalciferol (Vitamin D) 1,000 unit PO DAILY [facility] Last Admin: 04/02/19 09:04 Dose: 1,000 unit Diltiazem HCl (Cardizem Cd) 180 mg PO DAILY [facility] Last Admin: 04/02/19 09:04 Dose: 180 mg Docusate Sodium (Colace) 200 mg PO BID PRN PRN PRN Reason: Constipation Famotidine (Pepcid) 20 mg PO BID [facility] Last Admin: 04/02/19 09:03 Dose: 20 mg [facility] ([facility]) [facility] Last Admin: 04/02/19 09:04 Dose: 1 mg Guaifenesin (Robitussin) 20 ml PO Q4H PRN PRN PRN Reason: COUGH Ketorolac Tromethamine (Toradol) 15 mg IV Q6 [facility] Stop: 04/06/19 10:14 Last Admin: 04/02/19 06:20 Dose: 15 mg Loratadine (Claritin) 10 mg PO DAILY [facility] Last Admin: 04/02/19 09:04 Dose: 10 mg Melatonin (Melatonin) 3 mg PO QHS PRN PRN PRN Reason: INSOMNIA Montelukast Sodium (Singulair) 10 mg PO DAILY [facility] Last Admin: 04/02/19 09:04 Dose: 10 mg Morphine Sulfate () 2 - 4 mg IV Q3H PRN PRN PRN Reason: Severe Pain (pain scale 6-10) Last Admin: 04/02/19 07:23 Dose: 4 mg Morphine Sulfate () 2 - 4 mg IV Q3H PRN PRN PRN Reason: Severe Pain (pain scale 6-10) Last Admin: 04/01/19 19:27 Dose: 4 mg Ondansetron HCl (Zofran) 4 mg IV Q8H PRN PRN PRN Reason: Nausea Oxycodone HCl (Oxyir) 5 mg PO Q4H PRN PRN PRN Reason: Moderate Pain (pain scale 4-5) Rivaroxaban (Xarelto) 15 mg PO BIDCM [facility] Last Admin: 04/02/19 09:04 Dose: 15 mg Sodium Chloride () 5 - 15 ml IV UD PRN PRN Reason: SALINE FLUSH Last Admin: 04/02/19 07:24 Dose: 10 ml Medical Necessity - Tobacco Use Smoking Status: Never smoker Assessment/Plan All Active Problems Bilateral pulmonary embolism (Acute) Patient is a 68-year-old gentleman diagnosed bilateral pulmonary embolism 2 days prior to his admission presented with significant pleuritic chest pain 1. Pleuritic chest pain do suspect pulmonary infarction from patient bilateral pulmonary embolism. Patient has been admitted to monitored bed did continue with his systemic anticoagulation Xarelto initiated following his diagnosis 2 days prior to his admission. In addition patient was placed on supplemental oxygen titrated to keep saturation greater than 90 and did encourage the use of incentive spirometry. Did discuss with the patient that since his PE was unprovoked he will need to be on systemic anticoagulation indefinitely. Patient also stated he is up-to-date with with his age-appropriate cancer screening 2. Recently diagnosed bilateral pulmonary embolism. Did request for echo to assess for RV function echo demonstrated EF of 50% with no RV dysfunction 3. GERD patient is on PPI 4. Hypertension patient is on Cardizem 5. Allergic rhinitis Code Visit Inpatient E&M: 20750 Subs Hosp L2
--- NOTE | 2019-04-02 09:39 | CASEMGMT ---
SW let patient know his Healthcare LW is not on file. He does not have a Healthcare POA and is not interested in completing one at this time. Amita LEÓN MSW
[2019-04-02] MEDS: HYDROcodone Bitartrate/Apap 5/325 Tablet PO (18:18)
[2019-04-03 03:00] VITALS: BP 122/70; PULSE 62; PULSE 65; RESP 16; TEMP 36.6; O2SAT 95
[2019-04-03] MEDS: 0.9% NaCl Peripheral Flush Adult/Peds IV ×3 (05:47→05:50)
[2019-04-03] MEDS: Ketorolac 15 MG/ML Vial IV (05:47)
[2019-04-03 08:03] VITALS: PULSE 84
[2019-04-03] MEDS: HYDROcodone Bitartrate/Apap 5/325 Tablet PO (08:33)
[2019-04-03] MEDS: Folic Acid 1 MG Tablet PO (08:35)
[2019-04-03] MEDS: Rivaroxaban 15 MG Tablet PO (08:35)
[2019-04-03] MEDS: Famotidine 20 MG Tablet PO (08:35)
[2019-04-03] MEDS: Loratadine 10 MG Tablet PO (08:36)
[2019-04-03] MEDS: dilTIAZem CD 180 MG Capsule PO (08:36)
[2019-04-03] MEDS: Montelukast 10 MG Tablet PO (08:36)
[2019-04-03 09:00] VITALS: BP 147/79; PULSE 78; RESP 18; TEMP 36.8; O2SAT 95
--- NOTE | 2019-04-03 09:41 | PCM.DC ---
- Discharge Diagnoses Current Active Problems: Current Active and Chronic Problems Bilateral pulmonary embolism (Acute) GERD (gastroesophageal reflux disease) (Chronic) Allergic rhinitis (Chronic) Essential (primary) hypertension (Chronic) You will use the following diet at home:: No restrictions Allergies/Adverse Reactions: Allergies amoxapine Allergy (Verified 04/01/19 07:42) Other albuterol Adverse Reaction (Verified 04/01/19 11:01) palpitations amitriptyline [From Elavil] Adverse Reaction (Verified 04/01/19 07:42) Other buspirone Adverse Reaction (Verified 04/01/19 07:42) Other duloxetine [From Cymbalta] Adverse Reaction (Verified 04/01/19 07:42) Other fluticasone [From Advair Diskus] Adverse Reaction (Verified 04/01/19 07:42) Other HEART PALPITATIONS gabapentin Adverse Reaction (Verified 04/01/19 07:42) Other gemfibrozil Adverse Reaction (Verified 04/01/19 07:42) Other hydroxyzine Adverse Reaction (Verified 04/01/19 07:42) Other naproxen Adverse Reaction (Verified 04/01/19 07:42) Other nortriptyline Adverse Reaction (Verified 04/01/19 07:42) Other salmeterol [From Advair Diskus] Adverse Reaction (Verified 04/01/19 07:42) Other HEART PALPITATIONS sertraline [From Zoloft] Adverse Reaction (Verified 04/01/19 07:42) Other tiotropium [From Spiriva with HandiHaler] Adverse Reaction (Verified 04/01/19 07:42) Other trazodone Adverse Reaction (Verified 04/01/19 07:42) Other zolpidem [From Ambien] Adverse Reaction (Verified 04/01/19 07:42) Other SLEEP WALKING Medications to take at Discharge Rivaroxaban [Xarelto] 15 mg PO BID #42 tablet 03/30/19 Cholecalciferol (VIT D3) [Vitamin D3] 1,000 unit PO DAILY 04/01/19 Diltiazem HCl [Diltiazem 24Hr ER] 180 mg PO DAILY 04/01/19 Folic Acid 1 mg PO DAILY 04/01/19 Hydrocodone/Acetaminophen [[place] 5-325 Tablet] 1 each PO Q4H PRN 04/01/19 Loratadine [Claritin] 10 mg PO DAILY 04/01/19 Montelukast [Singulair] 10 mg PO DAILY 04/01/19 [place]-3 Fatty Acids/Fish Oil [Fish Oil 1,000 mg Capsule] 1 cap PO DAILY 04/01/19 Ranitidine [Zantac] 150 mg PO BID 04/01/19 Saw [place] 500 mg PO DAILY 04/01/19 Primary Care Physician: Juvenal Chatman MD [Primary Care Provider] - Please follow up with your Primary Care Physician in: in 3-5 days Test Results: Test results from this visit will be discussed in further detail at your follow-up appointment, if applicable. Proposed Discharge Date: 04/03/19
--- NOTE | 2019-04-03 09:45 | DS.PCM_ITS ---
Discharge Date and Diagnosis - Problem List Patient Problems: Active and Suspected Problems Bilateral pulmonary embolism (Acute) Date of Admission: 04/01/19 Date of Discharge: 04/03/19 - Primary Discharge Diagnosis Active and Suspected Problems Bilateral pulmonary embolism (Acute) - Secondary Discharge Diagnosis Chronic Problems History of pneumothorax (Chronic) GERD (gastroesophageal reflux disease) (Chronic) Allergic rhinitis (Chronic) Essential (primary) hypertension (Chronic) Hospital Course and Treatment Imaging Results: Clinical Impression(s) from Imaging Studies Chest X-Ray 04/01/19 07:43 IMPRESSION: Increased markings at the lung bases suggestive of bibasilar atelectasis and/or early infiltrates. Blunting of both costophrenic angles. Electronically Signed: John Ayalaneelima, at 8:24 EDT , Service support , Summary of Care Provided: Patient is a 68-year-old gentleman diagnosed bilateral pulmonary embolism 2 days prior to his admission presented with significant pleuritic chest pain 1. Pleuritic chest pain do suspect pulmonary infarction from patient bilateral pulmonary embolism. Patient has been admitted to monitored bed did continue with his systemic anticoagulation Xarelto initiated following his diagnosis 2 days prior to his admission. In addition patient was placed on supplemental oxygen titrated to keep saturation greater than 90 and did encourage the use of incentive spirometry. Did discuss with the patient that since his PE was unprovoked he will need to be on systemic anticoagulation indefinitely. Patient also stated he is up-to-date with with his age-appropriate cancer screening. Patient was discharged home after improvement in his symptoms. He was instructed to follow-up with his primary care physician within 3 to 5 days for subsequent care. 2. Recently diagnosed bilateral pulmonary embolism. Did request for echo to assess for RV function echo demonstrated EF of 50% with no RV dysfunction 3. GERD patient is on PPI 4. Hypertension patient is on Cardizem 5. Allergic rhinitis Patient Problems: Active and Suspected Problems Bilateral pulmonary embolism (Acute) Objective: GENERAL: Patient is cooperative HEENT: Atraumatic; moist oral mucosa EYES; Anicteric, Normal Conjunctiva NECK; supple, normal thyroid, no distended JVD. RESPIRATORY: Diminished to auscultation bilaterally, CARDIOVASCULAR: Regular S1 S2, no audible murmurs GI: soft, non-tender, normoactive bowel sounds, NEURO: Awake; no lateralizing signs. SKIN: No Rash PSYCH; Normal affect - Physical Exam Vital Signs Temp Pulse Resp BP Pulse Ox 98 F 84 16 122/70 H 95 04/03/19 03:00 04/03/19 08:03 04/03/19 03:00 04/03/19 03:00 04/03/19 03:00 Oxygen Flow Rate (L/min) 2 Oxygen Delivery Method Room Air Weight: 81.5 kg Body Mass Index (BMI) 23.1 Intake and Output for Last 24 Hours 04/01/19 04/02/19 04/03/19 23:59 23:59 23:59 Intake Total 960 / 960 240 / 240 Balance 960 / 960 240 / 240 Discharge Diet: No Restrictions Discharge Activity: May not drive while taking narcotic pain medications. Home Medications: Medications to take at Discharge Rivaroxaban [Xarelto] 15 mg PO BID #42 tablet 03/30/19 Cholecalciferol (VIT D3) [Vitamin D3] 1,000 unit PO DAILY 04/01/19 Diltiazem HCl [Diltiazem 24Hr ER] 180 mg PO DAILY 04/01/19 Folic Acid 1 mg PO DAILY 04/01/19 Hydrocodone/Acetaminophen [[place] 5-325 Tablet] 1 each PO Q4H PRN 04/01/19 Loratadine [Claritin] 10 mg PO DAILY 04/01/19 Montelukast [Singulair] 10 mg PO DAILY 04/01/19 [place]-3 Fatty Acids/Fish Oil [Fish Oil 1,000 mg Capsule] 1 cap PO DAILY 04/01/19 Ranitidine [Zantac] 150 mg PO BID 04/01/19 Saw [place] 500 mg PO DAILY 04/01/19 Primary Care Physician: Juvenal Chatman MD [Primary Care Provider] - Please follow up with your Primary Care Physician in: in 3-5 days Disposition: Home Minutes spent on discharge:: 35 Patient Condition:: Stable Medical Necessity - Tobacco Use Smoking Status: Never smoker Meaningful Use Info Meaningful Use Diagnoses (Choose all that apply): VTE - VTE Anticoag overlap given w/in hospital stay or rx'd at dc?: No Pt receive overlap for 5 days?: No Reason overlap not ordered, prescribed, or given for 5 days: Treatment Not Indicated Code Visit Inpatient E&M: 05620 Disch Hosp
--- NOTE | 2019-04-03 09:45 | CASEMGMT ---
RN CM VBA DEVELOPER CM to room to meet with patient for initial transition planning/care coordination assessment. RN TEDDY introduced self and role at [facility]. Pt voices understanding and consents to assessment at this time. Pt resting in bed in no distress at this time. Pt is A/O at this time and answers all questions appropriately. Care providers, pharmacy, and demographics verified/updated at this time. PCP: Compa Specialists: Agata--pulmonology, Knapic-ortho, Johanne, Rodneyl Preferred Pharmacy: [facility] Claudia Insurance: [facility], MMO Prescription Benefit: [employer] Rx. Was just started on Xarelto a couple days prior to admission. States utilized the Xarelto prescription savings card. Denies concers with [id number] cost. Living Will/HPOA: Pt states he thinks he has completed these but he is not sure, as he does not recall having the paperwork for it @ home. Made aware SW can assist with completing new paperwork, but he declines at this time. Provided Social Service rac card with number to call if chooses in the future to utilize [facility] social work for advanced directive completion. Educated patient that, if patient so chooses, can come back to [facility] and meet with a SW as an outpatient to complete health care advanced directives. Patient expresses understanding. LNOK: Living Arrangements: Lives with in ranch-style home. States is independent w/ADL's. and pt share home mgmt tasks. Transportation: Pt states drives self and states no transportation concerns at this time. can transport d/c. DME: States does have an old portable oxygen tank from years ago but does not have current order for oxygen. Denies needs for DME. HHC/SNF: Denies history of either. Denies needs for HHC and no needs identified. Pt wishes to return home and states has no concerns with going home at time of discharge. CM to follow for discharge planning/needs. Pt voices no further concerns/needs at this time. Advised pt to ask for CM if any further questions/concerns/needs arise. Voices understanding. PLAN: Home with spousal support and discharge plans in place. Chrissie FOSTER RN, CM
== END 2019-04-03 10:56 | disposition home or self-care (01) | DRG 176 ==
LOC: ED 08:13 → PCU 08:56
PROVIDERS: Student in an Organized Health Care Education/Training Program; Admitting Provider Internal Medicine; Emergency Provider Emergency Medicine; Family Provider Family Medicine; PCP Family Medicine; Visit Provider Internal Medicine
DX: I26.99 Other pulmonary embolism without acute cor pulmonale (principal); K21.9 Gastro-esophageal reflux disease without esophagitis; J30.9 Allergic rhinitis, unspecified; I10 Essential (primary) hypertension; Z79.01 Long term (current) use of anticoagulants
CPT/HCPCS: 36415; 71045; 71046; 71275; 80048; 81240; 81241; 84484; 85025; 85027; 85300; 85301; 85302; 85303; 85379; 86146; 86147; 93005; 93306; 96360; 96361; 99251; 99283; 99284; J7030; Q9957; Q9967; A4216; G0463; J2405

== ENCOUNTER 2019-09-11 12:14 | Emergency (ER) | payer MEDICARE, OTHER, SELFPAY ==
[2019-05-07 13:06] VITALS: BMI 23.7
[2019-09-11 12:15] VITALS: BP 132/88; PULSE 95; RESP 16; TEMP 36.9; O2SAT 100; BMI 23.1
--- NOTE | 2019-09-11 12:48 | CT_ITS ---
STUDY: CTA CHEST REASON FOR EXAM: Male, 69 years old. Shortness of breath, pulmonary embolus RADIATION DOSAGE (If Supplied By Facility): CTDIvol = ( 8.66 ) mGy, DLP = ( 270.97 ) mGycm TECHNIQUE: The examination was performed with the intravenous administration of IV Isovue 370 100. Post-processing of the angiographic images was performed, with multiplanar reformation and 3D reconstruction. Individualized dose optimization techniques were used for this CT. COMPARISON: 03/30/2019 FINDINGS: Normal enhancement of the main pulmonary artery and right and left pulmonary arteries. Normal enhancement of the bilateral peripheral pulmonary arteries. There is no demonstrated pulmonary embolism. Normal thoracic aorta and visualized great vessels. There is no demonstrated aortic dissection. Normal heart and pericardium. Normal mediastinum. Normal hilar regions. Normal visualized trachea and bronchi. The lungs are well expanded. Mild bilateral apical scarring. Mild emphysematous changes. No noncalcified nodule or mass. Normal pleura. Normal chest wall structures. Normal osseous structures. Normal visualized upper abdomen. CT/CTA Chest W/WO Contrast IMPRESSION: Normal CTA chest examination, without a demonstrated pulmonary embolism or arterial dissection. Electronically Signed: Delfin Carlson MD at 14:49 EDT Tel , Service support ,
--- NOTE | 2019-09-11 12:48 | EKG12_ITS ---
Test Reason : SOB Blood Pressure : / mmHG Vent. Rate : 076 BPM Atrial Rate : 076 BPM P-R Int : 166 ms QRS Dur : 094 ms QT Int : 400 ms P-R-T Axes : 059 013 065 degrees QTc Int : 450 ms Normal sinus rhythm Normal ECG Confirmed by SILVINA BROWN, SERGEI ([id number]), film and video editor TERRY COLINDRES ([id number]) on 09/18/2019 11:15:22 AM Referred By: SUGAR Confirmed By:SERGEI COOL MD
[2019-09-11 13:16] LABS: Absolute Lymphocyte Count 2.27 X10^3/uL (0.83-4.51); Absolute Neutrophil Count 4.9 X10^3/uL (2.0-7.7); Basophil# 0.04 X10^3/uL; Basophil% 0.5 % (0-1); Eosinophil# 0.17 X10^3/uL; Eosinophils% 2.2 % (0-5); Hematocrit 38.5 % (40-54); Hemoglobin 12.4 g/dL (13.0-16.5); Lymphocyte # 2.27 X10^3/ul (4.0); Lymphocyte % 29.5 % (19-41); Mean Corp Hgb Conc 32.2 g/dL (32-36); Mean Corpuscular Hgb 29.5 pg (27.0-32.0); Mean Corpuscular Volume 91.7 fL (80-94); Mean Platelet Vol. 9.5 fl (6.2-12.0); Monocyte# 0.33 X10^3/uL; Monocyte% 4.3 % (0-10); NRBC Flagged by Analyzer 0 % (0-5); Neutrophil # 4.88 X10^3/uL (2.7-7.7); Neutrophil % 63.4 % (47-70); Platelet Count 219 K/mm3 (150-450); RBC Distribution Width CV 13.8 % (11.6-14.6); RBC Distribution Width SD 46.3 fl (35.1-43.9); White Blood Count 7.7 K/mm3 (4.4-11.0)
--- NOTE | 2019-09-11 13:21 | ED.DCSUM_ITS ---
- ER Visit Summary Date of Service: 09/11/19 Chief Complaint: Pain History of Present Illness: The patient is a 69 M with right anterior and inferior chest pain. Symptoms have been going on for about 5 days. Associated with shortness of breath. He had similar pain in March when he was diagnosed with a pulmonary embolism. He has been compliant with Xarelto. He denies any history of cardiac disease. He has a remote history of collapsed lungs. No other chest procedures or surgeries. No history of aortic disease. Physical Examination: Afebrile vital signs unremarkable. Patient alert and oriented. No acute distress. Speaking, sitting, moving comfortably. Heart regular rate and rhythm. Lungs clear. Right anterior and inferior chest wall tender to palpation without other abnormalities. Abdomen is soft and nontender. Skin appears unremarkable. Test Results: EKG shows sinus rhythm at a rate of 76. No sign of acute ischemia or infarction pattern. Laboratory studies and CT are pending. Emergency Department Course and Treatment: Patient was referred to the ED by his PCP for concern of recurrent or refractory PE. Patient does not have trauma. Does not have ACS symptoms. Nothing to suggest aortic disease. Nothing to suggest GI or pathology. Will check EKG, labs, CT. He declined pain meds while awaiting results. Hemoglobin 12.4, potassium 5.5. This was hemolyzed. His potassiums have always been normal and he has no EKG changes. Troponin normal. CTA normal. Patient has atypical chest wall pain. No evidence of PE or aortic disease. No symptoms of ACS. I believe he is appropriate for outpatient care. Is given a short course of [place]. Follow-up with his doctor. Treatment Plan: As above Disposition: Discharge Impression: 1. Chest wall pain This note was generated with [employer] software. It may contain incorrect words, spelling, and punctuation that were not noted in review of the chart prior to signing ED Disposition - Plan for ED Patient: Referrals: Juvenal Chatman MD [Primary Care Provider] -
[2019-09-11 13:27] VITALS: BP 135/74; PULSE 72; RESP 20; O2SAT 98
[2019-09-11 13:28] LABS: International Normalized Ratio 1.9; Prothrombin Time (Protime)PT. 21.5 SECONDS (11.7-14.9)
[2019-09-11 13:29] LABS: Partial Thromboplast Time 36.4 Seconds (24.1-36.2)
[2019-09-11 13:37] LABS: Anion Gap 4 (5-15); BUN 16 mg/dL (7-18); BUN/Creat Ratio 13.1 RATIO (10-20); Chloride 107 mmol/L (98-107); Creatinine, Serum 1.22 mg/dL (0.70-1.30); EST Glomerular Filtration Rate 63 mL/min (>60); Est Glom Filt Rate - Afr Amer 76 mL/min (>60); Estimated Creatinine Clearance 66.92 ml/min; Glucose 103 mg/dL (74-106); Potassium 5.5 mmol/L (3.5-5.1); Sodium Level 139 mmol/L (136-145)
--- NOTE | 2019-09-11 15:05 | DCINST.ED_ITS ---
ED Disposition - Plan for ED Patient: Instructions: CHEST PAIN, Uncertain Cause Prescriptions: Hydrocodone Bitart/Apap 5-325 [[place] 5MG-325MG] 1 tab PO Q6H PRN PRN 3 Days #12 tab PRN Reason: Pain Prescription Printed Referrals: Juvenal Chatman MD [Primary Care Provider] -
[2019-09-11 15:23] VITALS: BP 172/92; PULSE 74; RESP 16; O2SAT 98
== END 2019-09-11 15:28 | disposition home or self-care (01) ==
LOC: ED 12:57
PROVIDERS: Emergency Provider Emergency Medicine; Family Provider Family Medicine; PCP Family Medicine
DX: R07.89 Other chest pain (principal); R06.00 Dyspnea, unspecified; J44.9 Chronic obstructive pulmonary disease, unspecified; I48.91 Unspecified atrial fibrillation; Z86.711 Personal history of pulmonary embolism; Z79.01 Long term (current) use of anticoagulants; Z79.899 Other long term (current) drug therapy; Z87.891 Personal history of nicotine dependence
CPT/HCPCS: 71275; 80048; 84484; 85025; 85610; 85730; 93005; 99283; Q9967; A4216

== ENCOUNTER 2020-07-06 19:27 | Emergency (ER) | payer MEDICARE, OTHER, SELFPAY ==
[2019-11-26 13:15] VITALS: BMI 23.8
[2020-07-06 19:29] VITALS: BP 138/95; PULSE 90; RESP 18; TEMP 36.5; O2SAT 100; BMI 23.0
--- NOTE | 2020-07-06 20:37 | CT_ITS ---
STUDY: CTA CHEST REASON FOR EXAM: Male, 69 years old. SOB, HX PE, ELEVATED D-DIMER, AFIB, ASTHMA, COPD RADIATION DOSAGE (If Supplied By Facility): CTDIvol = ( 11.65 ) mGy, DLP = ( 356.23 ) mGycm TECHNIQUE: The examination was performed with the intravenous administration of 100 ML ISOVUE 370. Post-processing of the angiographic images was performed, with multiplanar reformation and 3D reconstruction. Individualized dose optimization techniques were used for this CT. COMPARISON: 09/11/2019 FINDINGS: Normal enhancement of the main pulmonary artery and right and left pulmonary arteries. Normal enhancement of the bilateral peripheral pulmonary arteries. There is no demonstrated pulmonary embolism. Minor atherosclerotic changes of the aorta without evidence for aneurysm There is no demonstrated aortic dissection. Normal heart and pericardium. Normal mediastinum. Normal hilar regions. Normal visualized trachea and bronchi. The lungs are well expanded. There are minor emphysematous changes. There is no focal infiltration or pulmonary nodule There is pleural parenchymal scarring in the right upper lobe with calcification and to lesser extent in left pulmonary apex. There is no pleural effusion or pneumothorax. Normal chest wall structures. Normal osseous structures. Normal visualized upper abdomen. No significant change since prior exam CT/CTA Chest W/WO Contrast IMPRESSION: Chronic pleural parenchymal scarring in the pulmonary apices more severe on the right. Minor emphysematous changes. No focal infiltration. No evidence for pulmonary embolus Electronically Signed: Juvenal Ocasio MD at 22:06 EDT , Service support ,
[2020-07-06 21:25] LABS: Absolute Lymphocyte Count 2.79 X10^3/uL (0.83-4.51); Absolute Neutrophil Count 4.7 X10^3/uL (2.0-7.7); Basophil# 0.05 X10^3/uL; Basophil% 0.6 % (0-1); Eosinophil# 0.26 X10^3/uL; Eosinophils% 3.2 % (0-5); Hematocrit 34.2 % (40-54); Lymphocyte # 2.79 X10^3/ul (4.0); Lymphocyte % 33.9 % (19-41); Mean Corp Hgb Conc 32.2 g/dL (32-36); Mean Corpuscular Hgb 30.5 pg (27.0-32.0); Mean Corpuscular Volume 94.7 fL (80-94); Mean Platelet Vol. 10.2 fl (6.2-12.0); Monocyte# 0.44 X10^3/uL; Monocyte% 5.3 % (0-10); NRBC Flagged by Analyzer 0 % (0-5); Neutrophil # 4.66 X10^3/uL (2.7-7.7); Neutrophil % 56.6 % (47-70); Platelet Count 238 K/mm3 (150-450); RBC Distribution Width CV 13.6 % (11.6-14.6); RBC Distribution Width SD 47.5 fl (35.1-43.9); Red Blood Count 3.61 M/mm3 (4.6-6.2); White Blood Count 8.2 K/mm3 (4.4-11.0)
[2020-07-06 21:34] LABS: Anion Gap 5 (5-15); BUN 21 mg/dL (7-18); BUN/Creat Ratio 13.8 RATIO (10-20); Calcium,Total 8.7 mg/dL (8.5-10.1); Chloride 110 mmol/L (98-107); Creatinine, Serum 1.52 mg/dL (0.70-1.30); EST Glomerular Filtration Rate 49 mL/min (>60); Est Glom Filt Rate - Afr Amer 59 mL/min (>60); Estimated Creatinine Clearance 53.49 ml/min; Glucose 91 mg/dL (74-106); Potassium 3.9 mmol/L (3.5-5.1); Sodium Level 144 mmol/L (136-145)
--- NOTE | 2020-07-06 22:43 | ED.DCSUM_ITS ---
- ER Visit Summary Date of Service: 07/06/20 Chief Complaint: Shortness of breath History of Present Illness: The patient is a 69 M who presents with shortness of breath that is been getting worse over the past 5 to 6 days. Patient states it is worse with any exertion. Patient states he was weeding his garden today when he noted some shortness of breath. Patient states it gets better with rest. Patient states he contacted his primary care physician who did an outpatient d- dimer which was elevated. Patient has a history of prior pulmonary embolism and was on Xarelto for a year but is not currently on Xarelto. Patient describes the pain is sharp. Patient states that his pain lasts only a few minutes. Patient states it is worse over the right upper chest area. Patient denies any fevers or chills. Physical Examination: Vital signs are stable. Patient is afebrile. Patient is in no acute distress. Oral mucosa is pink and moist. Neck is supple. Trachea is midline. There is no JVD. Heart was regular rate and rhythm. Lungs are clear and equal bilaterally. Abdomen is soft. Bowel sounds are normal. There is no tenderness. Cranial nerves II through XII are intact. There are no focal motor or sensory deficits noted. Test Results: CTA of the chest was obtained. There is no evidence of pulmonary embolism. There is chronic scarring in the pulmonary apices, more severe on the right. This was interpreted by the radiologist and reviewed by myself. CBC and basic metabolic profile were obtained. There is a mild anemia with a hemoglobin of 11.0 and hematocrit 34.2. Creatinine was slightly elevated at 1.52. Emergency Department Course and Treatment: Patient was given IV fluids. Patient was advised of his findings. Patient was instructed to follow-up with his primary care physician in 5 to 7 days. Patient understood and was agreeable with the plan. All questions were answered. Disposition: Discharge home Impression: Dyspnea This note was generated with [employer] dictation software. It may contain incorrect words, spelling, and punctuation that were not noted in review of the chart prior to signing ED Disposition - Plan for ED Patient: Disposition: Home or Assisted Living Diagnosis: Dyspnea Instructions: ED Dyspnea Referrals: Juvenal Chatman MD [Primary Care Provider] - 5-7 Days
[2020-07-06] MEDS: 0.9% Normal Saline 1,000 ML 1000 ML IV (23:25)
[2020-07-06 23:26] VITALS: BP 122/65; PULSE 90; RESP 18; O2SAT 97
[2020-07-07 00:19] VITALS: BP 124/76; PULSE 62; RESP 19; O2SAT 100
== END 2020-07-07 00:20 | disposition home or self-care (01) ==
PROVIDERS: Emergency Provider Emergency Medicine; PCP Family Medicine
DX: R06.09 Other forms of dyspnea (principal); I48.91 Unspecified atrial fibrillation; J44.9 Chronic obstructive pulmonary disease, unspecified; Z79.01 Long term (current) use of anticoagulants; Z86.711 Personal history of pulmonary embolism; R79.89 Other specified abnormal findings of blood chemistry
CPT/HCPCS: 71275; 80048; 85025; 96361; 96374; 99285; J7030; Q9967

== ENCOUNTER → 2020-07-29 17:35 | Outpatient (CLI) | payer MEDICARE, OTHER, SELFPAY ==
[2020-07-06 19:29] VITALS: BMI 23.0
== END ==
PROVIDERS: PCP Family Medicine; Visit Provider Family Medicine
DX: Z20.828 Contact with and (suspected) exposure to other viral communicable diseases (principal)
CPT/HCPCS: 87635; C9803; U0003

== ENCOUNTER → 2020-08-12 05:55 | Outpatient (CLI) | payer MEDICARE, OTHER, SELFPAY ==
--- NOTE | 2020-08-12 12:35 | STRESSREP_ITS ---
Stress Test Report Date: 08-12-2020 Procedure: Pharmacologic stress nuclear imaging study Indications: Shortness of breath/dyspnea on exertion; paroxysmal atrial fibrillation; history of thromboembolic disease/pulmonary emboli; history of pneumothorax Consent: Per the patient Procedure: The patient underwent pharmacologic (Regadenoson) evaluation with a peak heart rate of 110 beats per minute (72%predicted maximal heart rate) and a peak blood pressure of 158/90 mmHg. The baseline ECG demonstrated normal sinus rhythm. The peak pharmacologic ECG demonstrated no obvious ECG changes. There were no cardiac dysrhythmias pretest, during pharmacologic infusion, or recovery. There was no complaint of chest discomfort during pharmacologic infusion or recovery. The examination was discontinued secondary to completion of protocol. Impression: 1. Pharmacologic (Regadenoson) evaluation 2. Peak pharmacologic ECG with no obvious ECG changes. 3. There were no cardiac dysrhythmias pretest, during pharmacologic infusion, or recovery. 4. Nuclear images pending Myocardial perfusion imaging study: Technique: The patient was injected with 11.9 millicuries of technetium 99m Cardiolite and subsequently rest SPECT Cardiolite nuclear imaging was obtained in the horizontal long, vertical long, and short axis views. The patient underwent pharmacologic (Regadenoson) evaluation with a peak heart rate of 110 beats per minute (72% percent predicted maximal heart rate) and a peak blood pressure of 158/90 mmHg. The patient was injected with 32.1 millicuries of technetium 99m Cardiolite and subsequently stress SPECT Cardiolite nuclear imaging was obtained in the horizontal long, vertical long, and short axis views. A gated Cardiolite study at peak stress was obtained. Interpretation: Rest and stress SPECT Cardiolite nuclear imaging status post realignment, normalization, and attenuation correction demonstrate the appearance of an element of body motion during image acquisition, at rest the appearance of extracardiac/gastrointestinal tracer uptake near the inferior segments, at rest the appearance of a small area of diminished tracer uptake in the distal inferior/inferoapical segments, and status post stress the appearance of relative uniform tracer uptake and myocardial perfusion appearing within normal limits. There is end systolic thickening and brightening. The gated Cardiolite study demonstrates myocardial thickening and inward wall motion. The reported LVEF is 60%. Impression: 1. Rest and stress SPECT current nuclear imaging demonstrate an element of body motion during image acquisition and an element of extracardiac/gastrointestinal tracer uptake near the inferior segments at rest with the appearance of an area of diminished tracer uptake in the distal inferior/inferoapical segments at rest which appears to improve/normalize following stress appearing compatible with shifting soft tissue attenuation/motion artifact with no myocardial perfusion changes considered diagnostic for associated stress-induced myocardial ischemia. 2. The gated Cardiolite study reports an LVEF of 60%. This note was generated with [employer] software. It may contain incorrect words, spelling, and punctuation that were not noted in checking the note before signing.
== END ==
PROVIDERS: PCP Family Medicine; Referring Provider Family Medicine; Visit Provider Family Medicine
DX: R06.02 Shortness of breath (principal)
CPT/HCPCS: 78452; 93017; A9500; A4216; J2785

== ENCOUNTER 2021-09-19 11:45 | Inpatient (IN) | payer MEDICARE, OTHER, SELFPAY ==
[2021-09-19] VITALS (18 sets, daily range): BP systolic 121–183; BP diastolic 83–127; PULSE 76–147; RESP 12–24; TEMP 36.6–36.9; O2SAT 82–100; BMI 22.9; BMI 22.6
--- NOTE | 2021-09-19 12:31 | EKG12_ITS ---
Test Reason : SOB Blood Pressure : / mmHG Vent. Rate : 107 BPM Atrial Rate : 107 BPM P-R Int : 188 ms QRS Dur : 092 ms QT Int : 372 ms P-R-T Axes : 062 018 053 degrees QTc Int : 496 ms Sinus tachycardia Nonspecific ST abnormality Abnormal ECG Confirmed by YONATHAN BROWN, JYOTI ([id number]), health editor RUY ZHANG ([id number]) on 09/20/2021 1:53:53 PM Referred By: ASHLEY Confirmed By:JYOTI MCMANUS MD
--- NOTE | 2021-09-19 12:31 | RAD_ITS ---
STUDY: X-RAY CHEST REASON FOR EXAM: Male, 71 years old. Chest pain. Extreme shortness of breath. TECHNIQUE: Single AP portable view of the chest. COMPARISON: Comparison is made with prior study dated 04/01/2019. FINDINGS: EKG electrodes are seen. There is hyperinflation of the lungs consistent with chronic obstructive lung disease (COPD). There is no demonstrated pleural abnormality. Normal size heart. Normal mediastinum and suhail. Normal visualized pulmonary arteries. There is atherosclerotic calcification of the aortic arch with tortuosity. Normal visualized thoracic spine. Normal visualized ribs, clavicles, and shoulders. There is no demonstrated abnormality of the visualized soft tissue structures of the upper abdomen. RAD/Chest 1 View (Portable) IMPRESSION: Hyperinflation. The lungs are clear. Electronically Signed: John Dao MD at 13:18 EDT , Service support ,
--- NOTE | 2021-09-19 12:31 | CT_ITS ---
STUDY: CTA CHEST REASON FOR EXAM: Male, 71 years old. Dyspnea RADIATION DOSAGE (If Supplied By Facility): CTDIvol = ( 10.57 ) mGy, DLP = ( 396.97 ) mGycm TECHNIQUE: The examination was performed with the intravenous administration of IV 100mL Isovue-370. Post-processing of the angiographic images was performed, with multiplanar reformation and 3D reconstruction. Individualized dose optimization techniques were used for this CT. COMPARISON: Comparison is made with prior study dated 07/06/2020. FINDINGS: There are multiple bilateral pulmonary emboli worse in the left hemithorax. Pulmonary emboli are also seen in the distal portion of the left pulmonary artery as it bifurcates into the left upper and left lower lobe pulmonary arterial branches. Normal thoracic aorta and visualized great vessels. There is no demonstrated aortic dissection. Normal heart and pericardium. Normal mediastinum. Normal hilar regions. Normal visualized trachea and bronchi. Hyperinflation. Mild degree of emphysematous changes with mild scarring in the anterior portion of the right middle lobe. Normal pleura. Normal chest wall structures. Normal osseous structures. Normal visualized upper abdomen. CT/CTA Chest W/WO Contrast IMPRESSION: Diffuse bilateral pulmonary emboli. Electronically Signed: John Dao MD at 13:32 EDT , Service support ,
--- NOTE | 2021-09-19 12:33 | EDS_ITS ---
HPI History of Present Illness Chief Complaint: Shortness of Breath Narrative Narrative: 71-year-old male presenting with shortness of breath. He states he was at home and had just just finished showering that he walked out and felt a sinking feeling and felt like he could not catch his breath. This did improve and then returned. Patient states that his pulse ox was in the 60s at home. When he arrived he was 81% on room air. He denied any chest pain, fever chills. Patient just had his Covid booster on Saturday. Patient states he was otherwise well prior to this. He denies any cardiac history. He does admit to a history of pneumothorax x2 as well as bilateral pulmonary emboli. Patient states that he is no longer on any blood thinners but has not been for years. He does state that he is on diltiazem for history of A. fib which was distant. He has not had a recurrence of this. Patient states that he did notice his heart rate was in the 150s when he was at home. [facility] Medical History (Updated 09/19/21 @ 14:[address] Zo Mejia, DO) Asthma COPD (chronic obstructive pulmonary disease) Essential hypertension History of pilonidal cyst IBS (irritable bowel syndrome) Home Medications cholecalciferol (vitamin D3) 1,000 unit PO DAILY 04/01/19 [History Last Taken 09/19/21] hydrocodone-acetaminophen 1 ea PO Q4H PRN 04/01/19 [History Last Taken 2 Days Ago ~09/17/21] loratadine 10 mg PO DAILY 04/01/19 [History Last Taken 09/19/21] montelukast 10 mg PO DAILY 04/01/19 [History Last Taken 09/19/21] folic acid 800 mcg tablet 0.8 mg PO DAILY 05/07/19 [History Last Taken 09/19/21] ascorbic acid (vitamin C) 1,000 mg tablet,extended release 1,000 mg PO DAILY tab 08/29/20 [History Last Taken 09/19/21] aspirin 81 mg tablet,delayed release 81 mg PO DAILY 08/29/20 [History Last Taken 09/19/21] fluticasone propionate 50 mcg/actuation nasal spray,suspension 1 spray INTRANASAL DAILY PRN 08/29/20 [History Last Taken 09/18/21] losartan 100 mg tablet 100 mg PO DAILY #90 tab 04/14/21 [Rx Last Taken 09/19/21] diltiazem HCl 180 mg capsule,extended release 24 hr 180 mg PO DAILY 06/26/21 [History Last Taken 09/19/21] ferrous sulfate 325 mg (65 mg iron) tablet 325 mg PO DAILY 06/26/21 [History Last Taken 09/19/21] hyoscyamine sulfate 0.125 mg sublingual tablet 0.125 mg SUBLINGUAL DAILY PRN 06/26/21 [History Last Taken Unknown] omega-3 fatty acids [[place] 3] 1,000 mg PO DAILY 09/19/21 [History Last Taken 09/19/21] Allergy/AdvReac Type Severity Reaction Status Date / Time albuterol AdvReac palpitation Verified 08/29/20 08:42 s amitriptyline [From Elavil] AdvReac Other Verified 08/29/20 08:42 amoxapine AdvReac Other Verified 09/19/21 12:00 buspirone AdvReac Other Verified 08/29/20 08:42 duloxetine [From Cymbalta] AdvReac Other Verified 08/29/20 08:42 fluticasone AdvReac Other Verified 08/29/20 08:42 [From Advair Diskus] gabapentin AdvReac Other Verified 08/29/20 08:42 gemfibrozil AdvReac Other Verified 08/29/20 08:42 hydroxyzine AdvReac Other Verified 08/29/20 08:42 naproxen AdvReac Other Verified 08/29/20 08:42 nortriptyline AdvReac Other Verified 08/29/20 08:42 salmeterol AdvReac Other Verified 08/29/20 08:42 [From Advair Diskus] sertraline [From Zoloft] AdvReac Other Verified 08/29/20 08:42 tiotropium AdvReac Other Verified 08/29/20 08:42 [From Spiriva with HandiHaler] trazodone AdvReac Other Verified 08/29/20 08:42 zolpidem [From Ambien] AdvReac Other Verified 08/29/20 08:42 Family History Mother Colon cancer Alzheimer disease Father Cancer Prostate Grandfather Colon cancer Grandfather Myocardial infarction Surgical History History of arthroscopy of right knee History of bilateral cataract extraction History of cholecystectomy History of shoulder surgery Social History Smoking Status: Former smoker alcohol intake: current details: rare substance use type: does not use caffeine: No ROS ROS ED Constitutional Constitutional ED: Denies chills or fever(s) Eyes Eyes: Denies blurry vision or diplopia ENT ENT ED: Denies rhinorrhea or sore throat Cardiovascular Cardiovascular: Reports racing heartbeat; Denies chest pain Respiratory/Chest Respiratory/Chest: Reports cough and dyspnea; Denies sputum Gastrointestinal Gastrointestinal: Denies abdominal pain, nausea or vomiting Genitourinary Genitourinary ED: Denies dysuria or hematuria Musculoskeletal Musculoskeletal: Denies arthralgias or myalgias Integumentary Denies Abrasions or rash Neurologic Neurologic: Denies headache(s) or paresthesias EXAM Physical Exam Const Vital Signs: 09/19/21 11:46 09/19/21 11:48 09/19/21 11:52 Temperature 98.5 F 98.5 F Temperature Source Oral Oral Pulse Rate 121 H 121 H Respiratory Rate 24 H 24 H 24 H Respiratory Effort Respiratory Depth Respiratory Pattern Blood Pressure 183/110 H 183/110 H Blood Pressure Mean 134 134 Pulse Ox 82 99 99 Oxygen Delivery Method Room Air Nasal Cannula Nasal Cannula Oxygen Flow Rate (L/min) 3 3 09/19/21 12:01 09/19/21 12:30 09/19/21 12:49 Temperature Temperature Source Pulse Rate 118 H 147 H Respiratory Rate 13 21 H Respiratory Effort Short of Breath Respiratory Depth Normal Respiratory Pattern Normal Blood Pressure 166/103 H 177/102 H Blood Pressure Mean 124 127 Pulse Ox 95 83 Oxygen Delivery Method Nasal Cannula Nasal Cannula Nasal Cannula Oxygen Flow Rate (L/min) 3 09/19/21 12:54 09/19/21 13:12 09/19/21 14:15 Temperature 98.2 F Temperature Source Oral Pulse Rate 120 H 128 H Respiratory Rate 16 17 Respiratory Effort Respiratory Depth Respiratory Pattern Blood Pressure 142/86 H 145/127 H Blood Pressure Mean 104 133 Pulse Ox 99 98 99 Oxygen Delivery Method Nasal Cannula Nasal Cannula Nasal Cannula Oxygen Flow Rate (L/min) 2 3 3 09/19/21 14:25 Temperature Temperature Source Pulse Rate 102 H Respiratory Rate 12 Respiratory Effort Respiratory Depth Respiratory Pattern Blood Pressure 146/84 H Blood Pressure Mean 104 Pulse Ox 100 Oxygen Delivery Method Nasal Cannula Oxygen Flow Rate (L/min) 3 Positive well nourished General Appearance ED: NAD; Negative for pallor HEENT Reports moist mucous membranes atraumatic Eyes PERRL and EOMs intact bilaterally Neck no lymphadenopathy and supple Resp normal respiratory effort and clear to auscultation bilaterally Resp Narrative: Each with symmetric breath sounds and chest wall rise. Cardio regular rate Rate: tachycardic GI non-tender and non-distended Palpation: soft Neuro oriented x3 and CN's II-XII intact bilaterally Sensorium / Orientation: alert Psych mental status grossly normal Thought Process: normal thought process Skin General Skin Exam: Negative for jaundice or pallor MDM MDM MDM Narrative Medical decision making narrative: Patient presenting with shortness of breath. He did not have any chest pain. He does state that he had a sinking feeling before he became short of breath. On arrival he was 81% on room air. He is placed on 2 L. He did ambulate again to the bathroom without oxygen and dropped to the low 80s. I did obtain an EKG which is sinus tachycardia with a rate of [address] depressions V3 through V6 as well as lead aVF. There is no ST elevation. Chest x-ray on my interpretation shows no acute cardiopulmonary process and the radiologist does agree. Given that the patient has history of pulmonary emboli which were unprovoked and he is not anticoagulated I did obtain a CTA of the chest which shows diffuse pulmonary emboli bilaterally as interpreted by the radiologist. Patient's troponin is 81. Since he is hypoxic I will check another troponin and speak to the hospitalist about admission due to the pulmonary emboli. Patient will be started on a heparin drip. Hospitalist will follow up on second troponin and Covid test on admission. Impression: 1. Multiple bilateral pulmonary emboli 2. Dyspnea 3. Hypoxia Lab Data Attestation: I reviewed the patient's lab results. Labs: Laboratory Results - last 24 hr 09/19/21 09/19/21 09/19/21 12:00 12:00 14:08 WBC 6.5 RBC 3.88 L Hgb 11.9 L Hct 36.4 L MCV 93.8 MCH 30.7 MCHC 32.7 RDW Std Deviation 46.7 H RDW Coeff of Mendel 13.7 Plt Count 163 MPV 9.7 Immature Gran % (Auto) 0.200 Neut % (Auto) 56.6 Lymph % (Auto) 29.5 [place] % (Auto) 8.1 Eos % (Auto) 5.1 H Baso % (Auto) 0.5 Absolute Neuts (auto) 3.7 Absolute Lymphs (auto) 1.92 Nucleated RBC % 0 PT 12.8 INR 1.0 APTT 28.9 Sodium 142 Potassium 3.4 L Chloride 106 Carbon Dioxide 26.0 Anion Gap 10 BUN 16 Creatinine 1.56 H Estim Creat Clear Calc 50.54 Est GFR (MDRD) Af Amer 57 L Est GFR (MDRD) Non-Af 47 L BUN/Creatinine Ratio 10.3 Glucose 105 Calcium 8.9 Troponin I High Sens 81 H Radiography Diagnostic Testing: Clinical Impression(s) from Imaging Studies Chest CTA 09/19/21 12:31 IMPRESSION: Diffuse bilateral pulmonary emboli. Electronically Signed: John Dao MD at 13:32 EDT , Service support , Chest X-Ray 09/19/21 12:31 IMPRESSION: Hyperinflation. The lungs are clear. Electronically Signed: John Dao MD at 13:18 EDT , Service support , Discharge Plan Triage Chief Complaint: Shortness of Breath ED Provider: Mike Villalba Dx/Rx/DC Orders Prescriptions: No Action folic acid 800 mcg tablet 0.8 mg PO DAILY RF: 0 aspirin [Adult Low Dose Aspirin] 81 mg tablet,delayed release (DR/EC) 81 mg PO DAILY RF: 0 ascorbic acid (vitamin C) 1,000 mg tablet extended release 1,000 mg PO DAILY RF: 0 fluticasone propionate [Flonase Allergy Relief] 50 mcg/actuation spray,suspension 1 spray INTRANASAL DAILY PRN (Reason: ALLERGIES) RF: 0 diltiazem HCl 180 mg capsule,extended release 24hr 180 mg PO DAILY RF: 0 ferrous sulfate [FeroSul] 325 mg (65 mg iron) tablet 325 mg PO DAILY RF: 0 hydrocodone-acetaminophen 1 EACH tablet 1 ea PO Q4H PRN (Reason: pain ) RF: 0 montelukast 10 MG tablet 10 mg PO DAILY RF: 0 loratadine 10 MG tablet 10 mg PO DAILY RF: 0 cholecalciferol (vitamin D3) 1,000 UNIT tablet 1,000 unit PO DAILY RF: 0 hyoscyamine sulfate 0.125 mg tablet, sublingual 0.125 mg sublingual DAILY PRN (Reason: ESOPHOGEAL SPASMS) RF: 0 [place] 3 Capsule 1,000 mg PO DAILY RF: 0 losartan 100 mg tablet 100 mg PO DAILY Qty: 90 RF: 3 Primary Care Provider: Juvenal Chatman
[2021-09-19 12:42] LABS: Absolute Lymphocyte Count 1.92 X10^3/uL (0.83-4.51); Absolute Neutrophil Count 3.7 X10^3/uL (2.0-7.7); Basophil# 0.03 X10^3/uL; Basophil% 0.5 % (0-1); Eosinophil# 0.33 X10^3/uL; Eosinophils% 5.1 % (0-5); Hematocrit 36.4 % (40-54); Hemoglobin 11.9 g/dL (13.0-16.5); Lymphocyte # 1.92 X10^3/ul (0.83-4.51); Lymphocyte % 29.5 % (19-41); Mean Corp Hgb Conc 32.7 g/dL (32-36); Mean Corpuscular Hgb 30.7 pg (27.0-32.0); Mean Corpuscular Volume 93.8 fL (80-94); Mean Platelet Vol. 9.7 fl (6.2-12.0); Monocyte# 0.53 X10^3/uL; Monocyte% 8.1 % (0-10); NRBC Flagged by Analyzer 0 % (0-5); Neutrophil # 3.69 X10^3/uL (2.7-7.7); Neutrophil % 56.6 % (47-70); Platelet Count 163 K/mm3 (150-450); RBC Distribution Width CV 13.7 % (11.6-14.6); RBC Distribution Width SD 46.7 fl (35.1-43.9); Red Blood Count 3.88 M/mm3 (4.6-6.2); White Blood Count 6.5 K/mm3 (4.4-11.0)
[2021-09-19 12:54] LABS: Anion Gap 10 (5-15); BUN 16 mg/dL (7-18); BUN/Creat Ratio 10.3 RATIO (10-20); Calcium,Total 8.9 mg/dL (8.5-10.1); Chloride 106 mmol/L (98-107); Creatinine, Serum 1.56 mg/dL (0.70-1.30); EST Glomerular Filtration Rate 47 mL/min (>60); Est Glom Filt Rate - Afr Amer 57 mL/min (>60); Estimated Creatinine Clearance 50.54 ml/min; Glucose 105 mg/dL (74-106); Potassium 3.4 mmol/L (3.5-5.1); Sodium Level 142 mmol/L (136-145); Troponin-I HS 81 pg/mL (3.0-78.0)
--- NOTE | 2021-09-19 14:14 | ECHOD_ITS ---
Reason For Study: PE Procedure This was a 2D Doppler, Color Flow transthoracic echocardiogram. The study was technically difficult. Exam performed portable in patient room. Left Ventricle Based upon the 2D echocardiographic images obtained there appears to be grossly normal left ventricular size, wall motion, and systolic function. The estimated ejection fraction is 55 %. Unable to assess diastolic dysfunction. Right Ventricle Based upon the 2D echocardiographic images obtained there appears to be grossly normal right ventricular size, wall motion, and systolic function. Atria Normal left atrium. Normal right atrium. No doppler evidence for ASD. Mitral Valve There is no mitral annular calcification. Normal mitral valve. Tricuspid Valve Normal tricuspid valve. Mild tricuspid valve insufficiency. Right ventricular systolic pressure estimated to be 46 mmHg. Aortic Valve The aortic valve is not well visualized. Pulmonic Valve The pulmonic valve is not well visualized. Great Vessels The aortic root is not well visualized. Pericardium/Pleural No pericardial effusion. MMode/2D Measurements & Calculations LVIDd: 4.5 cm IVSd: 1.2 cm LVIDs: 2.9 cm LVPWd: 1.2 cm FS: 35.2 % Doppler Measurements & Calculations TR max samantha: 327.0 cm/sec TR max P.8 mmHg ECHO/Echo Complete Interpretation Summary The study was technically difficult. Based upon the 2D echocardiographic images obtained there appears to be grossly normal left ventricular size, wall motion, and systolic function. The estimated ejection fraction is 55 %. Mild tricuspid valve insufficiency. Right ventricular systolic pressure estimated to be 46 mmHg. Unable to assess diastolic dysfunction. Ordering Physician: Zo Mejia Referring Physician: Juvenal Chatman Performed By: Earl Valdez RCS
[2021-09-19] MEDS: Heparin Injection (Vial) 5,000 UNIT/ML VIAL 6000 UNIT IV (14:27)
--- NOTE | 2021-09-19 14:28 | PCM.HP.STD ---
HPI - General General Date of Admission: 09/19/21 Date of Service: 09/19/21 Chief Complaint: Shortness HPI Narrative SANTI ALDANA, is a 71 M who presented to the emergency department [facility] on 09/19/2021 with a chief complaint of shortness of breath. The patient states that he had been feeling well and this morning when he is ambulating to the bathroom became acutely short of breath and felt horrible with a sinking feeling and felt like he could not catch his breath. He recollects that about 2 weeks ago he had some left calf pain which he chalked up to musculoskeletal strain. He has not had any recent extensive travel but did last week drive approximately 2 hours into [facility] and back home in the same day. He just recently had his Covid booster on Saturday. The squad was called and on arrival his oxygen saturations were 81% on room air. He denies any chest pain, fever, or chills. He has had no cough or sputum production. He does have a previous history of pneumothorax x2 as well as bilateral pulmonary emboli back in 2018 for which she was treated with Xarelto for a year and followed by Dr. Barber who took him off his anticoagulation. He is not clear whether or not a hypercoagulable work-up was performed at that time. In the emergency department he was afebrile. His heart rate was anywhere from 10 2-1 40 with exertion. His blood pressure was elevated with a max of 180/110 but upon my evaluation was 146/84. The patient is on antihypertensives at baseline. His respiratory rate was 12 and his sats were 100% on 3 L nasal cannula. He did ambulate to the bathroom on room air while he was in the emergency department and he desaturated into the 70s. His CBC shows a mild stable anemia. His BMP shows hypokalemia with an elevated serum creatinine at 1.56 but I am unclear what his current baseline is. Troponin was obtained and was 81. Given his symptoms a CTA of the chest was performed and multiple bilateral pulmonary emboli that is worse on the left than the right and pulmonary emboli are also seen in the distal portion of the left pulmonary artery as it bifurcates into the upper and lower left lobe of the pulmonary artery arterial branch. In the emergency department he was started on heparin drip and request for admission was made. [facility] Medical History (Updated 09/19/21 @ 14:[address] Zo Mejia, DO) Asthma COPD (chronic obstructive pulmonary disease) Essential hypertension History of pilonidal cyst IBS (irritable bowel syndrome) Home Medications cholecalciferol (vitamin D3) 1,000 unit PO DAILY 04/01/19 [History Last Taken Unknown] hydrocodone-acetaminophen 1 ea PO Q4H PRN 04/01/19 [History Last Taken 04/01/19 06:30] loratadine 10 mg PO DAILY 04/01/19 [History Last Taken 04/01/19 07:00] montelukast 10 mg PO DAILY 04/01/19 [History Last Taken 04/01/19 07:00] folic acid 800 mcg tablet 0.8 mg PO DAILY 05/07/19 [History Last Taken Unknown] ascorbic acid (vitamin C) 1,000 mg tablet,extended release 1,000 mg PO DAILY tab 08/29/20 [History Last Taken Unknown] aspirin 81 mg tablet,delayed release 81 mg PO DAILY 08/29/20 [History Last Taken Unknown] fluticasone propionate 50 mcg/actuation nasal spray,suspension 1 spray INTRANASAL DAILY PRN 08/29/20 [History Last Taken Unknown] losartan 100 mg tablet 100 mg PO DAILY #90 tab 04/14/21 [Rx Last Taken Unknown] diltiazem HCl 180 mg capsule,extended release 24 hr 180 mg PO DAILY 06/26/21 [History Last Taken Unknown] ferrous sulfate 325 mg (65 mg iron) tablet 325 mg PO DAILY 06/26/21 [History Last Taken Unknown] hyoscyamine sulfate 0.125 mg sublingual tablet 0.125 mg SUBLINGUAL DAILY PRN 06/26/21 [History Last Taken Unknown] omega-3 fatty acids [[place] 3] 1,000 mg PO DAILY 09/19/21 [History Last Taken 09/19/21] Allergy/AdvReac Type Severity Reaction Status Date / Time albuterol AdvReac palpitation Verified 08/29/20 08:42 s amitriptyline [From Elavil] AdvReac Other Verified 08/29/20 08:42 amoxapine AdvReac Other Verified 09/19/21 12:00 buspirone AdvReac Other Verified 08/29/20 08:42 duloxetine [From Cymbalta] AdvReac Other Verified 08/29/20 08:42 fluticasone AdvReac Other Verified 08/29/20 08:42 [From Advair Diskus] gabapentin AdvReac Other Verified 08/29/20 08:42 gemfibrozil AdvReac Other Verified 08/29/20 08:42 hydroxyzine AdvReac Other Verified 08/29/20 08:42 naproxen AdvReac Other Verified 08/29/20 08:42 nortriptyline AdvReac Other Verified 08/29/20 08:42 salmeterol AdvReac Other Verified 08/29/20 08:42 [From Advair Diskus] sertraline [From Zoloft] AdvReac Other Verified 08/29/20 08:42 tiotropium AdvReac Other Verified 08/29/20 08:42 [From Spiriva with HandiHaler] trazodone AdvReac Other Verified 08/29/20 08:42 zolpidem [From Ambien] AdvReac Other Verified 08/29/20 08:42 Family History Mother Colon cancer Alzheimer disease Father Cancer Prostate Grandfather Colon cancer Grandfather Myocardial infarction Surgical History History of arthroscopy of right knee History of bilateral cataract extraction History of cholecystectomy History of shoulder surgery Social History Smoking Status: Former smoker alcohol intake: current details: rare substance use type: does not use caffeine: No ROS Constitutional Constitutional: Denies anorexia, change in weight, chills, fatigue, fever(s), malaise, night sweats, weakness or other Eyes Eyes: Denies blurry vision, change in eye color, change in vision, discharge from eye(s), double vision, erythema, eye pain, loss of vision or other ENT HEENT: Denies abnormal hearing, dysphagia, ear pain, epistaxis, headache(s), hearing loss, nasal congestion, nasal discharge, post nasal drip, sinus pressure, sore throat or other Cardiovascular Cardiovascular: Reports rapid heart rate; Denies chest pain, claudication, dyspnea on exertion, edema, lightheadedness, orthopnea, palpitations, paroxysmal nocturnal dyspnea, syncope or other Respiratory/Chest Respiratory/Chest: Reports dyspnea, shortness of breath at rest and shortness of breath with exertion; Denies cough, excessive phlegm production, hemoptysis, productive cough, wheezing or other Gastrointestinal Gastrointestinal: Denies abdominal pain, coffee ground emesis, constipation, diarrhea, dyspepsia, hematemesis, hematochezia, loose stools, melena, nausea, vomiting or other Genitourinary Genitourinary: Denies burning urination, difficulty urinating, dysuria, hematuria, nocturia, urinary frequency, urinary hesitancy, urinary incontinence, urinary urgency or other Musculoskeletal Musculoskeletal: Denies arthralgias, back pain, joint pain, joint stiffness, joint swelling, myalgias, neck pain or other Neurologic Neurologic: Denies abnormal gait, abnormal speech, confusion, disequilibrium, dizziness, focal weakness, headache(s), numbness, paresthesias, seizure-like activity, seizures, syncope, tingling, tremor(s) or other Psychiatric Psychiatric: Denies anxiety, depression, homicidal ideation, suicidal ideation or other Endocrine Endocrinology: Denies change in body appearance, cold intolerance, excessive sweating, heat intolerance, polydipsia, polyuria or other Hematologic/Lymphatic Hematologic/Lymphatic: Reports other Details: History of pulmonary emboli ; Denies anemia, easy bleeding, easy bruising or lymphadenopathy Allergic/Immunologic Allergic/Immunologic: Denies rhinitis, hives, eczemia, asthma or other Vital Signs Vital Signs Vital Signs: 09/19/21 11:46 09/19/21 11:48 09/19/21 11:52 Temperature 98.5 F 98.5 F Temperature Source Oral Oral Pulse Rate 121 H 121 H Respiratory Rate 24 H 24 H 24 H Respiratory Effort Respiratory Depth Respiratory Pattern Blood Pressure 183/110 H 183/110 H Blood Pressure Mean 134 134 Pulse Ox 82 99 99 Oxygen Delivery Method Room Air Nasal Cannula Nasal Cannula Oxygen Flow Rate (L/min) 3 3 09/19/21 12:01 09/19/21 12:30 09/19/21 12:49 Temperature Temperature Source Pulse Rate 118 H 147 H Respiratory Rate 13 21 H Respiratory Effort Short of Breath Respiratory Depth Normal Respiratory Pattern Normal Blood Pressure 166/103 H 177/102 H Blood Pressure Mean 124 127 Pulse Ox 95 83 Oxygen Delivery Method Nasal Cannula Nasal Cannula Nasal Cannula Oxygen Flow Rate (L/min) 3 09/19/21 12:54 09/19/21 13:12 09/19/21 14:15 Temperature 98.2 F Temperature Source Oral Pulse Rate 120 H 128 H Respiratory Rate 16 17 Respiratory Effort Respiratory Depth Respiratory Pattern Blood Pressure 142/86 H 145/127 H Blood Pressure Mean 104 133 Pulse Ox 99 98 99 Oxygen Delivery Method Nasal Cannula Nasal Cannula Nasal Cannula Oxygen Flow Rate (L/min) 2 3 3 09/19/21 14:25 Temperature Temperature Source Pulse Rate 102 H Respiratory Rate 12 Respiratory Effort Respiratory Depth Respiratory Pattern Blood Pressure 146/84 H Blood Pressure Mean 104 Pulse Ox 100 Oxygen Delivery Method Nasal Cannula Oxygen Flow Rate (L/min) 3 Weight Weight: 81.1 kg Body Mass Index (BMI) 22.9 Physical Exam Const alert, oriented x3, no apparent distress and average body habitus Constitutional Narrative: Very pleasant older white male sitting up in the bed, appears comfortable at this time, nontoxic, at bedside General Appearance: cooperative HEENT normocephalic, head/scalp atraumatic, hearing grossly normal bilaterally and moist oral mucous membranes Eyes PERRL, EOMs intact bilaterally and conjunctivae normal Eyes Narrative: No scleral icterus Neck no lymphadenopathy, supple and no JVD Neck Narrative: Trachea midline, no thyroid enlargement Resp normal respiratory effort, no retractions, no use of accessory muscles and clear to auscultation bilaterally Resp Narrative: Mildly tachypneic with conversation Auscultation: Negative for crackles, rales, rhonchi or wheezes Cardio regular rhythm, S1 normal heart sound, S2 normal heart sound, no murmurs, no rub, no gallops, no clicks and no JVD Cardio Narrative: Tachycardic GI normal to inspection, nondistended, normoactive bowel sounds, soft to palpation, non-tender and non-distended Extremity normal to inspection and no clubbing, cyanosis or edema Peripheral Pulses: Yes pulses 2+ throughout Skin no wounds, skin turgor normal, no jaundice, no petechiae and no mottling Skin Narrative: Scattered seborrheic keratoses on back Neuro oriented x3, CN's II-XII intact bilaterally, moves all extremities and no focal motor deficits Sensorium / Orientation: awake, alert, oriented to person, oriented to place and oriented to time Motor Exam: strength 5/5 throughout Psych affect normal Mood & Affect: depressed Results Lab / Micro Data Attestation: I reviewed the patient's lab results. Result Diagrams: 09/19/21 12:00 09/19/21 12:00 Labs: Laboratory Results - last 24 hr 09/19/21 12:00: WBC 6.5, RBC 3.88 L, Hgb 11.9 L, Hct 36.4 L, MCV 93.8, MCH 30.7, MCHC 32.7, RDW Std Deviation 46.7 H, RDW Coeff of Mendel 13.7, Plt Count 163, MPV 9.7, Immature Gran % (Auto) 0.200, Neut % (Auto) 56.6, Lymph % (Auto) 29.5, Dewitt % (Auto) 8.1, Eos % (Auto) 5.1 H, Baso % (Auto) 0.5, Absolute Neuts (auto) 3.7, Absolute Lymphs (auto) 1.92, Nucleated RBC % 0 09/19/21 12:00: Sodium 142, Potassium 3.4 L, Chloride 106, Carbon Dioxide 26.0, Anion Gap 10, BUN 16, Creatinine 1.56 H, Estim Creat Clear Calc 50.54, Est GFR (MDRD) Af Amer 57 L, Est GFR (MDRD) Non-Af 47 L, BUN/Creatinine Ratio 10.3, Glucose 105, Calcium 8.9, Troponin I High Sens 81 H Radiology Impression Chest CTA 09/19/21 12:31 IMPRESSION: Diffuse bilateral pulmonary emboli. Electronically Signed: John Dao MD at 13:32 EDT , Service support , Chest X-Ray 09/19/21 12:31 IMPRESSION: Hyperinflation. The lungs are clear. Electronically Signed: John Dao MD at 13:18 EDT , Service support , Assessment & Plan Assessment/Plan (1) Bilateral pulmonary embolism: (2) Tachycardia: (3) Hypokalemia: (4) CKD (chronic kidney disease) stage 3, GFR 30-59 ml/min: (5) Acute respiratory failure with hypoxia: PLAN: Acute hypoxic respiratory failure secondary to acute bilateral pulmonary emboli -Start heparin drip -Check echocardiogram -Cycle troponins--> Suspect mild elevation is related to RV strain with PE -Supplemental oxygen currently at 3 L with significant desaturations upon ambulation -Would recommend conversion to Eliquis prior to discharge -Patient has followed with Dr. Barber previously for this Sinus tachycardia -Secondary to PE -Monitor on telemetry -Continue home diltiazem -Monitor for PE as patient does have a history of PAF PAF -Continue diltiazem -Patient follows with Dr. Hunt as an outpatient -Last echo was from 2019 and showed an EF of 50% with mild LVH and mild global hypokinesis of the LV, RV pressures and pulmonary artery pressures were unable to be assessed at that time History of pneumothorax -Stable at this time -No signs of pneumothorax on CTA of the chest Hypertension -Continue home medication except for losartan which is on hold secondary to kidney injury -Clear if this is acute or chronic Suspected CKD stage III -Baseline serum creatinine is unknown -Continue to monitor -We will hold losartan at this time and reevaluate -If stable would restart losartan tomorrow Seasonal allergies -Continue as needed nasal sprays DVT prophylaxis -Full anticoagulation with heparin CODE STATUS -Full code Charges/Coding Visit Charges Inpatient E&M: 34583 Init Hosp L3
[2021-09-19] MEDS: HEPARIN/D5w 25,000 UNITS 25,000 UNITS/250 ML IV.SOLN. 12 UNITS IV (14:31)
[2021-09-19 14:40] LABS: Prothrombin Time (Protime)PT. 12.8 SECONDS (11.7-14.9)
[2021-09-19 14:41] LABS: Partial Thromboplast Time 28.9 Seconds (24.1-36.2)
[2021-09-19 15:13] LABS: Troponin-I HS 479 pg/mL (3.0-78.0)
--- NOTE | 2021-09-19 15:17 | NURSING ---
PCU NSTEMI, SOB ACE
--- NOTE | 2021-09-19 16:05 | PCS.PANDOC ---
PANDEMIC DOCUMENTATION INITIATED: Date: 07/10/2021 Time: 190
[2021-09-19] MEDS: 0.9% Normal Saline 1,000 ML 75 ML IV (16:29)
[2021-09-19 17:53] LABS: Troponin-I HS 752 pg/mL (3.0-78.0)
[2021-09-19] MEDS: guaiFENesin 10 ML UDC (200MG/10ML) PO (20:16)
--- NOTE | 2021-09-19 21:12 | CON.PCM.CA_ITS ---
Assessment & Plan Assessment/Plan (1) Abnormal cardiac enzyme level: PLAN: The patient does have abnormal cardiac enzymes. Status post review of the patient's case, at the present time, this may be a secondary event related to his acute bilateral pulmonary emboli. The patient's cardiac enzyme profile can be followed as well as his ECG. His echocardiogram is already been performed and the report is as noted above. At the present time the patient will continue medical therapy for his underlying pulmonary emboli. (2) PAF (paroxysmal atrial fibrillation): PLAN: The patient does have a history of paroxysmal atrial fibrillation. He has been on medical management with aspirin therapy and rate limiting therapy as he has had no obvious recurrence of his atrial dysrhythmia since approximately 2015. He will continue to be monitored for any obvious recurrence during this episode of his bilateral pulmonary emboli. (3) Bilateral pulmonary embolism: PLAN: The etiology of his recurrent bilateral pulmonary emboli is unclear at this time. He states he has been evaluated in the past by hematology with respect to any obvious genetic etiologies. To the best of his knowledge this was unremarkable. At the present time he will continue to be monitored based upon his presentation with respect to his symptoms and his objective findings of tachycardia and hypoxemia. He will continue therapy with his IV anticoagulant therapy. Eventually he will be altered to oral anticoagulant therapy. He will continue O2 support as needed. He may need additional evaluation and care by hematology especially if there is no other obvious etiology to explain his recurrent pulmonary emboli. Depending upon his pulmonary case he may also need input from pulmonology. Addt'l Comments The patient's case was discussed and reviewed with the patient and Dr. Mejia. The patient denies symptoms considered classic for angina pectoris, CHF / pulmonary edema (with respect to orthopnea / PND), ongoing palpitations, or near syncope / syncope. HPI Consult Data Date of Consult: 09/19/21 HPI Narrative HPI Narrative: SANTI ALDANA, is a 71 year old white male who presents for cardiovascular consultation based upon concerns of abnormal cardiac enzyme s/troponin I levels in the setting of acute pulmonary emboli superimposed upon a history of paroxysmal atrial fibrillation, pulmonary disease with a history of pneumothoraces, and a history of bilateral pulmonary embolism. The patient states that he was in his usual state of health until recently. He notes last week he received his third COVID-19 vaccination/booster . He notes that the day following (09-16-2021) he felt somewhat off . The following day he felt as if he was back to his normal. He notes yesterday based upon his chronic seasonal cough that occurs at this time of the year he presented to his [facility] urgent care center for evaluation. He notes that a chest x-ray was performed and he was told it was unremarkable. He received his usual cough suppressant/codeine supplement. He noted this day, after getting up and ready for the day that he had the sudden onset of a smothering sensation. He states he knew at that time, based on past experience, that he may have developed a pulmonary emboli. He has a home O2 monitor and noted that his heart rate was elevated well above 100 bpm and his oxygenation level was in the 60s. His brought him to the hospital for further evaluation. There he was evaluated by the emergency department staff and found to have evidence of diffuse bilateral pulmonary emboli. His laboratory studies demonstrated that his troponin I level was initially elevated at 81 and has subsequently increased to 752. His ECG demonstrated sinus rhythm with subtle nonspecific ST segment abnormalities. He had a transthoracic echocardiogram with the results as noted below. He was placed on IV heparin and O2 supplements. He was transferred to the PCU for further evaluation and care. He denies any ongoing chest discomfort which he states he felt with his previous pulmonary emboli a somewhat sharp discomfort. There is been no orthopnea or PND or peripheral pitting edema. He denies any obvious recurrence of his atrial dysrhythmia/fibrillation. There has been no near syncope or syncope. He states he has had no recent long periods of immobility. He does not recall any obvious injuries to his lower extremities. He does not recall any other new diagnoses. He states recently after attending a family event he did feel some discomfort, after walking around, and his left lower extremity which he attributed to musculoskeletal discomfort. At the present time he states he is feeling better other than his chronic cough. [facility] Medical History (Updated 09/19/21 @ 21:[address] Leland Hunt MD) Asthma COPD (chronic obstructive pulmonary disease) Essential hypertension History of pilonidal cyst IBS (irritable bowel syndrome) PAF (paroxysmal atrial fibrillation) Home Medications cholecalciferol (vitamin D3) 1,000 unit PO DAILY 04/01/19 [History Last Taken 09/19/21] hydrocodone-acetaminophen 1 ea PO Q4H PRN 04/01/19 [History Last Taken 2 Days Ago ~09/17/21] loratadine 10 mg PO DAILY 04/01/19 [History Last Taken 09/19/21] montelukast 10 mg PO DAILY 04/01/19 [History Last Taken 09/19/21] folic acid 800 mcg tablet 0.8 mg PO DAILY 05/07/19 [History Last Taken 09/19/21] ascorbic acid (vitamin C) 1,000 mg tablet,extended release 1,000 mg PO DAILY tab 08/29/20 [History Last Taken 09/19/21] aspirin 81 mg tablet,delayed release 81 mg PO DAILY 08/29/20 [History Last Taken 09/19/21] fluticasone propionate 50 mcg/actuation nasal spray,suspension 1 spray INTRANASAL DAILY PRN 08/29/20 [History Last Taken 09/18/21] losartan 100 mg tablet 100 mg PO DAILY #90 tab 04/14/21 [Rx Last Taken 09/19/21] diltiazem HCl 180 mg capsule,extended release 24 hr 180 mg PO DAILY 06/26/21 [History Last Taken 09/19/21] ferrous sulfate 325 mg (65 mg iron) tablet 325 mg PO DAILY 06/26/21 [History Last Taken 09/19/21] hyoscyamine sulfate 0.125 mg sublingual tablet 0.125 mg SUBLINGUAL DAILY PRN 06/26/21 [History Last Taken Unknown] omega-3 fatty acids [[place] 3] 1,000 mg PO DAILY 09/19/21 [History Last Taken 09/19/21] Allergy/AdvReac Type Severity Reaction Status Date / Time albuterol AdvReac palpitation Verified 08/29/20 08:42 s amitriptyline [From Elavil] AdvReac Other Verified 08/29/20 08:42 amoxapine AdvReac Other Verified 09/19/21 12:00 buspirone AdvReac Other Verified 08/29/20 08:42 duloxetine [From Cymbalta] AdvReac Other Verified 08/29/20 08:42 fluticasone AdvReac Other Verified 08/29/20 08:42 [From Advair Diskus] gabapentin AdvReac Other Verified 08/29/20 08:42 gemfibrozil AdvReac Other Verified 08/29/20 08:42 hydroxyzine AdvReac Other Verified 08/29/20 08:42 naproxen AdvReac Other Verified 08/29/20 08:42 nortriptyline AdvReac Other Verified 08/29/20 08:42 salmeterol AdvReac Other Verified 08/29/20 08:42 [From Advair Diskus] sertraline [From Zoloft] AdvReac Other Verified 08/29/20 08:42 tiotropium AdvReac Other Verified 08/29/20 08:42 [From Spiriva with HandiHaler] trazodone AdvReac Other Verified 08/29/20 08:42 zolpidem [From Ambien] AdvReac Other Verified 08/29/20 08:42 Family History Mother Colon cancer Alzheimer disease Father Cancer Prostate Grandfather Colon cancer Grandfather Myocardial infarction Surgical History History of arthroscopy of right knee History of bilateral cataract extraction History of cholecystectomy History of shoulder surgery Social History Smoking Status: Former smoker alcohol intake: current details: rare substance use type: does not use caffeine: No ROS Constitutional Constitutional: Reports as per HPI Eyes Eyes: Reports as per HPI ENT HEENT: Reports as per HPI Cardiovascular Cardiovascular: Reports dyspnea Respiratory/Chest Respiratory/Chest: Reports cough and dyspnea Gastrointestinal Gastrointestinal: Reports as per HPI Genitourinary Genitourinary: Reports as per HPI Musculoskeletal Musculoskeletal: Reports as per HPI Integumentary Integumentary: Reports as per HPI Neurologic Neurologic: Reports as per HPI Physical Exam Narrative This is a 71-year-old white male who appears to be resting comfortably at the moment in no acute distress. Const alert, oriented x3 and no apparent distress Orientation / Consciousness: awake HEENT normocephalic, head/scalp atraumatic and hearing grossly normal bilaterally Eyes PERRL and EOMs intact bilaterally Neck full ROM, supple and no JVD Resp normal respiratory effort and clear to auscultation bilaterally Cardio regular rate, regular rhythm, S1 normal heart sound and S2 normal heart sound GI normal to inspection, nondistended, normoactive bowel sounds Extremity no pedal edema Skin no rashes or lesions noted Neuro oriented x3, moves all extremities, no focal motor deficits and no sensory deficits noted Psych mental status grossly normal Risk Stratification Risk Stratification Applicable: Yes Age >/= 65: Yes >/= 3 CAD Risk Factors (HTN, HLD, DM, family hx of CAD, or current smoker): No Aspirin Use in the Past 7 Days: Yes Severe Angina (>/= episodes in 24 hours): No EKG ST Changes >/= 0.5mm: No Positive Cardiac Marker: Yes EZEQUIEL Risk Stratification Score: 3 EZEQUIEL % Risk: 13% Risk Objective Data Vital Signs: Vital Signs Temp Pulse Resp BP Pulse Ox 98.3 F 92 16 135/83 H 96 09/19/21 15:52 09/19/21 19:10 09/19/21 16:10 09/19/21 15:52 09/19/21 16:10 Oxygen Flow Rate (L/min) 2 Oxygen Delivery Method Room Air Weight: 176 lb 12.972 oz Body Mass Index (BMI) 22.6 Intake & Output: Intake and Output for Last 24 Hours 09/17/21 09/18/21 09/19/21 23:59 23:59 23:59 Intake Total 420 / 420 Balance 420 / 420 Lab / Micro Data Result Diagrams: 09/19/21 12:00 09/19/21 12:00 Labs: Laboratory Results - last 24 hr 09/19/21 12:00: WBC 6.5, RBC 3.88 L, Hgb 11.9 L, Hct 36.4 L, MCV 93.8, MCH 30.7, MCHC 32.7, RDW Std Deviation 46.7 H, RDW Coeff of Mendel 13.7, Plt Count 163, MPV 9.7, Immature Gran % (Auto) 0.200, Neut % (Auto) 56.6, Lymph % (Auto) 29.5, Granite % (Auto) 8.1, Eos % (Auto) 5.1 H, Baso % (Auto) 0.5, Absolute Neuts (auto) 3.7, Absolute Lymphs (auto) 1.92, Nucleated RBC % 0 09/19/21 12:00: Sodium 142, Potassium 3.4 L, Chloride 106, Carbon Dioxide 26.0, Anion Gap 10, BUN 16, Creatinine 1.56 H, Estim Creat Clear Calc 50.54, Est GFR (MDRD) Af Amer 57 L, Est GFR (MDRD) Non-Af 47 L, BUN/Creatinine Ratio 10.3, Glucose 105, Calcium 8.9, Troponin I High Sens 81 H 09/19/21 14:08: PT 12.8, INR 1.0, APTT 28.9 09/19/21 14:35: Troponin I High Sens 479 H* 09/19/21 16:25: Troponin I High Sens 752 H* Micro: Microbiology 09/19/21 12:06 Nasal Secretion SARS-CoV-2 Antigen (Rapid) - Final Cardiology Labs/Tests 09/19/21 12:00: WBC 6.5, RBC 3.88 L, Hgb 11.9 L, Hct 36.4 L, MCV 93.8, MCH 30.7, MCHC 32.7, Plt Count 163, MPV 9.7, Immature Gran % (Auto) 0.200, Neut % (Auto) 56.6, Lymph % (Auto) 29.5, Granite % (Auto) 8.1, Eos % (Auto) 5.1 H, Baso % (Auto) 0.5, Absolute Neuts (auto) 3.7, Nucleated RBC % 0 09/19/21 12:00: Sodium 142, Potassium 3.4 L, Chloride 106, Carbon Dioxide 26.0, Anion Gap 10, BUN 16, Creatinine 1.56 H, Est GFR (MDRD) Af Amer 57 L, Est GFR (MDRD) Non-Af 47 L, BUN/Creatinine Ratio 10.3, Glucose 105, Calcium 8.9 09/19/21 14:08: PT 12.8, INR 1.0, APTT 28.9 Rhythm: Sinus rhythm/sinus tachycardia EKG: As noted above ECHO: As noted below Stress Test: 08-12-2020 Stress Test Report Date: 08-12-2020 Procedure: Pharmacologic stress nuclear imaging study Indications: Shortness of breath/dyspnea on exertion; paroxysmal atrial fibrillation; history of thromboembolic disease/pulmonary emboli; history of pneumothorax Consent: Per the patient Procedure: The patient underwent pharmacologic (Regadenoson) evaluation with a peak heart rate of 110 beats per minute (72%predicted maximal heart rate) and a peak blood pressure of 158/90 mmHg. The baseline ECG demonstrated normal sinus rhythm. The peak pharmacologic ECG demonstrated no obvious ECG changes. There were no cardiac dysrhythmias pretest, during pharmacologic infusion, or recovery. There was no complaint of chest discomfort during pharmacologic infusion or recovery. The examination was discontinued secondary to completion of protocol. Impression: 1. Pharmacologic (Regadenoson) evaluation 2. Peak pharmacologic ECG with no obvious ECG changes. 3. There were no cardiac dysrhythmias pretest, during pharmacologic infusion, or recovery. 4. Nuclear images pending Myocardial perfusion imaging study: Technique: The patient was injected with 11.9 millicuries of technetium 99m Cardiolite and subsequently rest SPECT Cardiolite nuclear imaging was obtained in the horizontal long, vertical long, and short axis views. The patient underwent pharmacologic (Regadenoson) evaluation with a peak heart rate of 110 beats per minute (72% percent predicted maximal heart rate) and a peak blood pressure of 158/90 mmHg. The patient was injected with 32.1 millicuries of technetium 99m Cardiolite and subsequently stress SPECT Cardiolite nuclear imaging was obtained in the horizontal long, vertical long, and short axis views. A gated Cardiolite study at peak stress was obtained. Interpretation: Rest and stress SPECT Cardiolite nuclear imaging status post realignment, normalization, and attenuation correction demonstrate the appearance of an element of body motion during image acquisition, at rest the appearance of extracardiac/gastrointestinal tracer uptake near the inferior segments, at rest the appearance of a small area of diminished tracer uptake in the distal inferior/inferoapical segments, and status post stress the appearance of relative uniform tracer uptake and myocardial perfusion appearing within normal limits. There is end systolic thickening and brightening. The gated Cardiolite study demonstrates myocardial thickening and inward wall motion. The reported LVEF is 60%. Impression: 1. Rest and stress SPECT current nuclear imaging demonstrate an element of body motion during image acquisition and an element of extracardiac/gastrointestinal tracer uptake near the inferior segments at rest with the appearance of an area of diminished tracer uptake in the distal inferior/inferoapical segments at rest which appears to improve/normalize following stress appearing compatible with shifting soft tissue attenuation/motion artifact with no myocardial perfusion changes considered diagnostic for associated stress-induced myocardial ischemia. 2. The gated Cardiolite study reports an LVEF of 60%. Radiography Diagnostic Testing: Radiology Impression Chest CTA 09/19/21 12:31 IMPRESSION: Diffuse bilateral pulmonary emboli. Electronically Signed: John Dao MD at 13:32 EDT , Service support , Chest X-Ray 09/19/21 12:31 IMPRESSION: Hyperinflation. The lungs are clear. Electronically Signed: John Dao MD at 13:18 EDT , Service support , Echocardiogram 09/19/21 14:14 Interpretation Summary The study was technically difficult. Based upon the 2D echocardiographic images obtained there appears to be grossly normal left ventricular size, wall motion, and systolic function. The estimated ejection fraction is 55 %. Mild tricuspid valve insufficiency. Right ventricular systolic pressure estimated to be 46 mmHg. Unable to assess diastolic dysfunction. Ordering Physician: Zo Mejia Referring Physician: Juvenal Chatman Performed By: Earl Valdez RCS
[2021-09-19 21:39] LABS: Partial Thromboplast Time 166.4 Seconds (24.1-36.2)
[2021-09-20] VITALS (12 sets, daily range): BP systolic 126–145; BP diastolic 74–89; PULSE 63–85; RESP 16–18; TEMP 36.8; O2SAT 91–98
[2021-09-20 05:54] LABS: Absolute Lymphocyte Count 2.94 X10^3/uL (0.83-4.51); Absolute Neutrophil Count 3.4 X10^3/uL (2.0-7.7); Basophil# 0.03 X10^3/uL; Basophil% 0.4 % (0-1); Eosinophil# 0.41 X10^3/uL; Eosinophils% 5.7 % (0-5); Hematocrit 31.3 % (40-54); Hemoglobin 10.3 g/dL (13.0-16.5); Lymphocyte # 2.94 X10^3/ul (0.83-4.51); Lymphocyte % 40.6 % (19-41); Mean Corp Hgb Conc 32.9 g/dL (32-36); Mean Corpuscular Hgb 30.7 pg (27.0-32.0); Mean Corpuscular Volume 93.4 fL (80-94); Mean Platelet Vol. 9.1 fl (6.2-12.0); Monocyte% 6.9 % (0-10); NRBC Flagged by Analyzer 0 % (0-5); Neutrophil # 3.35 X10^3/uL (2.7-7.7); Neutrophil % 46.1 % (47-70); Platelet Count 166 K/mm3 (150-450); RBC Distribution Width CV 13.6 % (11.6-14.6); RBC Distribution Width SD 46.7 fl (35.1-43.9); Red Blood Count 3.35 M/mm3 (4.6-6.2); White Blood Count 7.3 K/mm3 (4.4-11.0)
--- NOTE | 2021-09-20 05:55 | EKG12_ITS ---
Test Reason : AM Blood Pressure : / mmHG Vent. Rate : 068 BPM Atrial Rate : 068 BPM P-R Int : 176 ms QRS Dur : 100 ms QT Int : 442 ms P-R-T Axes : 061 033 062 degrees QTc Int : 469 ms Normal sinus rhythm Normal ECG When compared with ECG of 19-SEP-2021 11:59, MANUAL COMPARISON REQUIRED, DATA IS UNCONFIRMED Confirmed by YONATHAN BROWN, JYOTI ([id number]), advertising editor RUY ZHANG ([id number]) on 09/20/2021 1:54:09 PM Referred By: PEDRITO Confirmed By:JYOTI MCMANUS MD
[2021-09-20 06:04] LABS: Partial Thromboplast Time 80.5 Seconds (24.1-36.2)
[2021-09-20 06:11] LABS: Anion Gap 7 (5-15); BUN 15 mg/dL (7-18); BUN/Creat Ratio 11.8 RATIO (10-20); Calcium,Total 8.1 mg/dL (8.5-10.1); Chloride 108 mmol/L (98-107); Cholesterol 170 mg/dL (200); Creatinine, Serum 1.27 mg/dL (0.70-1.30); EST Glomerular Filtration Rate 60 mL/min (>60); Est Glom Filt Rate - Afr Amer 72 mL/min (>60); Glucose 101 mg/dL (74-106); High Density Lipoprotein 34 mg/dL; Magnesium 1.8 mg/dL (1.6-2.6); Phosphorus 3.1 mg/dL (2.5-4.9); Potassium 3.6 mmol/L (3.5-5.1); Sodium Level 142 mmol/L (136-145); Triglycerides 136 mg/dL; Very Low Density Lipoprotein 27 mg/dL (5-40)
--- NOTE | 2021-09-20 08:57 | PCM.PN.CARD ---
Subjective Subjective The patient is awake and alert. He denies any ongoing symptoms of chest discomfort. He states his breathing is stable at rest. He states he felt a brief palpitation during the night. Objective Data Vital Signs: Vital Signs Temp Pulse Resp BP Pulse Ox 98.2 F 74 16 141/89 H 97 09/20/21 08:41 09/20/21 08:41 09/20/21 08:41 09/20/21 08:41 09/20/21 08:41 Oxygen Flow Rate (L/min) 1 Oxygen Delivery Method Nasal Cannula Weight: 176 lb 12.972 oz Body Mass Index (BMI) 22.6 Intake & Output: Intake and Output for Last 24 Hours 09/18/21 09/19/21 09/20/21 23:59 23:59 23:59 Intake Total 846.4 / 846.4 1297.15 / 1297.15 Output Total 475 / 475 350 / 350 Balance 371.4 / 371.4 947.15 / 947.15 Lab / Micro Data Result Diagrams: 09/20/21 05:47 09/20/21 05:47 Labs: Laboratory Results - last 24 hr 09/19/21 12:00: WBC 6.5, RBC 3.88 L, Hgb 11.9 L, Hct 36.4 L, MCV 93.8, MCH 30.7, MCHC 32.7, RDW Std Deviation 46.7 H, RDW Coeff of Mendel 13.7, Plt Count 163, MPV 9.7, Immature Gran % (Auto) 0.200, Neut % (Auto) 56.6, Lymph % (Auto) 29.5, [place] % (Auto) 8.1, Eos % (Auto) 5.1 H, Baso % (Auto) 0.5, Absolute Neuts (auto) 3.7, Absolute Lymphs (auto) 1.92, Nucleated RBC % 0 09/19/21 12:00: Sodium 142, Potassium 3.4 L, Chloride 106, Carbon Dioxide 26.0, Anion Gap 10, BUN 16, Creatinine 1.56 H, Estim Creat Clear Calc 50.54, Est GFR (MDRD) Af Amer 57 L, Est GFR (MDRD) Non-Af 47 L, BUN/Creatinine Ratio 10.3, Glucose 105, Calcium 8.9, Troponin I High Sens 81 H 09/19/21 14:08: PT 12.8, INR 1.0, APTT 28.9 09/19/21 14:35: Troponin I High Sens 479 H* 09/19/21 16:25: Troponin I High Sens 752 H* 09/19/21 20:35: APTT 166.4 H* 09/20/21 05:47: WBC 7.3, RBC 3.35 L, Hgb 10.3 L, Hct 31.3 L, MCV 93.4, MCH 30.7, MCHC 32.9, RDW Std Deviation 46.7 H, RDW Coeff of Mendel 13.6, Plt Count 166, MPV 9.1, Immature Gran % (Auto) 0.300, Neut % (Auto) 46.1 L, Lymph % (Auto) 40.6, [place] % (Auto) 6.9, Eos % (Auto) 5.7 H, Baso % (Auto) 0.4, Absolute Neuts (auto) 3.4, Absolute Lymphs (auto) 2.94, Nucleated RBC % 0 09/20/21 05:47: Sodium 142, Potassium 3.6, Chloride 108 H, Carbon Dioxide 27.0, Anion Gap 7, BUN 15, Creatinine 1.27, Estim Creat Clear Calc 61.40, Est GFR (MDRD) Af Amer 72, Est GFR (MDRD) Non-Af 60, BUN/Creatinine Ratio 11.8, Glucose 101, Calcium 8.1 L, Phosphorus 3.1, Magnesium 1.8, Triglycerides 136, Cholesterol 170, LDL Cholesterol 109, VLDL Cholesterol 27, HDL Cholesterol 34 L 09/20/21 05:47: APTT 80.5 H Micro: Microbiology 09/19/21 12:06 Nasal Secretion SARS-CoV-2 Antigen (Rapid) - Final Cardiology Labs/Tests 09/19/21 12:00: WBC 6.5, RBC 3.88 L, Hgb 11.9 L, Hct 36.4 L, MCV 93.8, MCH 30.7, MCHC 32.7, Plt Count 163, MPV 9.7, Immature Gran % (Auto) 0.200, Neut % (Auto) 56.6, Lymph % (Auto) 29.5, [place] % (Auto) 8.1, Eos % (Auto) 5.1 H, Baso % (Auto) 0.5, Absolute Neuts (auto) 3.7, Nucleated RBC % 0 09/19/21 12:00: Sodium 142, Potassium 3.4 L, Chloride 106, Carbon Dioxide 26.0, Anion Gap 10, BUN 16, Creatinine 1.56 H, Est GFR (MDRD) Af Amer 57 L, Est GFR (MDRD) Non-Af 47 L, BUN/Creatinine Ratio 10.3, Glucose 105, Calcium 8.9 09/19/21 14:08: PT 12.8, INR 1.0, APTT 28.9 09/19/21 20:35: APTT 166.4 H* 09/20/21 05:47: WBC 7.3, RBC 3.35 L, Hgb 10.3 L, Hct 31.3 L, MCV 93.4, MCH 30.7, MCHC 32.9, Plt Count 166, MPV 9.1, Immature Gran % (Auto) 0.300, Neut % (Auto) 46.1 L, Lymph % (Auto) 40.6, [place] % (Auto) 6.9, Eos % (Auto) 5.7 H, Baso % (Auto) 0.4, Absolute Neuts (auto) 3.4, Nucleated RBC % 0 09/20/21 05:47: Sodium 142, Potassium 3.6, Chloride 108 H, Carbon Dioxide 27.0, Anion Gap 7, BUN 15, Creatinine 1.27, Est GFR (MDRD) Af Amer 72, Est GFR (MDRD) Non-Af 60, BUN/Creatinine Ratio 11.8, Glucose 101, Calcium 8.1 L, Phosphorus 3.1, Magnesium 1.8, Triglycerides 136, Cholesterol 170, LDL Cholesterol 109, VLDL Cholesterol 27, HDL Cholesterol 34 L 09/20/21 05:47: APTT 80.5 H Rhythm: Sinus rhythm; a brief episode appearing compatible with an ectopic atrial tachycardia EKG: Sinus rhythm; no acute ECG changes Radiography Diagnostic Testing: Radiology Impression Chest CTA 09/19/21 12:31 IMPRESSION: Diffuse bilateral pulmonary emboli. Electronically Signed: John Dao MD at 13:32 EDT , Service support , Chest X-Ray 09/19/21 12:31 IMPRESSION: Hyperinflation. The lungs are clear. Electronically Signed: John Dao MD at 13:18 EDT , Service support , Echocardiogram 09/19/21 14:14 Interpretation Summary The study was technically difficult. Based upon the 2D echocardiographic images obtained there appears to be grossly normal left ventricular size, wall motion, and systolic function. The estimated ejection fraction is 55 %. Mild tricuspid valve insufficiency. Right ventricular systolic pressure estimated to be 46 mmHg. Unable to assess diastolic dysfunction. Ordering Physician: Zo Mejia Referring Physician: Juvenal Chatman Performed By: Earl Valdez RCS Physical Exam Narrative This is a 71-year-old white male who appears to be resting comfortably at the moment in no acute distress. Const alert, oriented x3 and no apparent distress Orientation / Consciousness: awake HEENT normocephalic, head/scalp atraumatic and hearing grossly normal bilaterally Eyes PERRL and EOMs intact bilaterally Neck full ROM, supple and no JVD Resp normal respiratory effort and clear to auscultation bilaterally Cardio regular rate, regular rhythm, S1 normal heart sound and S2 normal heart sound GI normal to inspection, nondistended, normoactive bowel sounds Extremity no pedal edema Skin no rashes or lesions noted Neuro oriented x3, moves all extremities, no focal motor deficits and no sensory deficits noted Psych mental status grossly normal Assessment & Plan Assessment/Plan (1) Abnormal cardiac enzyme level: PLAN: The patient does have abnormal cardiac enzymes. Status post review of the patient's case, at the present time, this may be a secondary event related to his acute bilateral pulmonary emboli. A follow-up troponin I level is pending. His follow-up ECG has demonstrated no acute ECG changes. His echocardiogram is as previously noted. At the present time the patient will continue medical therapy for his underlying pulmonary emboli. (2) PAF (paroxysmal atrial fibrillation): PLAN: The patient does have a history of paroxysmal atrial fibrillation. He has been on medical management with aspirin therapy and rate limiting therapy as he has had no obvious recurrence of his atrial dysrhythmia since approximately 2015. He appears to have had 1 brief episode appearing compatible with an ectopic atrial tachycardia. It is unclear whether this is related to his acute event versus his chronic cardiovascular history. At the moment he will continue his current medical therapy and telemetry monitoring. (3) Bilateral pulmonary embolism: PLAN: The etiology of his recurrent bilateral pulmonary emboli is unclear at this time. He states he has been evaluated in the past by hematology with respect to any obvious genetic etiologies. To the best of his knowledge this was unremarkable. At the present time he will continue to be monitored based upon his presentation with respect to his symptoms and his objective findings of tachycardia and hypoxemia. He will continue therapy with his IV anticoagulant therapy. Eventually he will be altered to oral anticoagulant therapy. He will continue O2 support as needed. He may need additional evaluation and care by hematology especially if there is no other obvious etiology to explain his recurrent pulmonary emboli. Depending upon his pulmonary case he may also need input from pulmonology.
[2021-09-20 09:01] LABS: Troponin-I HS 514 pg/mL (3.0-78.0)
[2021-09-20] MEDS: dilTIAZem CD 180 MG Capsule PO (09:06)
[2021-09-20] MEDS: Loratadine 10 MG Tablet PO (09:06)
[2021-09-20] MEDS: Folic Acid 1 MG Tablet PO (09:06)
[2021-09-20] MEDS: Aspirin E.C. 81 MG Tablet PO (09:06)
[2021-09-20] MEDS: Ferrous Sulfate 325 MG Tablet PO (09:06)
[2021-09-20] MEDS: Cholecalciferol (VIT D3) 25 MCG TABLET (1,000 UNITS) PO (09:07)
[2021-09-20] MEDS: Ascorbic Acid 500 MG Tablet 1000 MG PO (09:07)
[2021-09-20] MEDS: Montelukast 10 MG Tablet PO (09:07)
[2021-09-20] MEDS: guaiFENesin 10 ML UDC (200MG/10ML) PO ×2 (09:17→19:38)
[2021-09-20] MEDS: Losartan Potassium 100 MG Tablet PO (11:01)
--- NOTE | 2021-09-20 12:00 | CASEMGMT ---
RN CM MANAGER REQUIREMENTS CM to room to meet with patient for initial transition planning/care coordination assessment. ISABEL ESPINAL introduced self and role at [facility]. Pt voices understanding and consents to assessment at this time. Pt resting in bed in no distress at this time. Pt is A/O at this time and answers all questions appropriately. Care providers, pharmacy, and demographics verified/updated at this time. PCP: Dr Chatman Specialists: Dr Hunt-cardiology, Dr Stover-dermatology Preferred Pharmacy: [facility] Retail Insurance: [facility], MMO Prescription Benefit: Yes Living Will/HPOA: Does not have LW. Has HPOA, who is his , Jacqui LNOK: , Jacqui Living Arrangements: Lives w/his in one-story home w/finished basement. One step to enter home. Denies difficulty w/stairs. Independent. /pt do a lot of traveling and have went on 5 vacations this year. Transportation: Pt states drives self and states no transportation concerns at this time. also drives. DME: Has a pulse ox and BP machine. Pt also has a portable oxygen tank he got several years ago from [employer] years ago, but has never used it. HHC/SNF: No history of either Pt wishes to return home and states has no concerns with going home at time of discharge. CM to follow for any discharge planning/needs. Pt voices no concerns/needs at this time. Advised pt to ask for CM if any questions/concerns/needs arise. Voices understanding. PLAN: Home w/spousal support and discharge plans in place. Chrissie FOSTER RN, CM
[2021-09-20 12:59] LABS: Partial Thromboplast Time > 250.0 Seconds (24.1-36.2)
--- NOTE | 2021-09-20 13:55 | PCM.PN.HOSP ---
Subjective Subjective Doing well, denies any significant shortness of breath when at rest, but he does have some shortness of breath with ambulation. He denies any chest pain, he does get the intermittent pain that he normally has from his pleurisy whenever he coughs Objective Data Objective Data Vital Signs: Vital Signs Temp Pulse Resp BP Pulse Ox 98.2 F 74 16 141/89 H 91 09/20/21 08:41 09/20/21 08:55 09/20/21 08:41 09/20/21 08:41 09/20/21 09:53 Oxygen Flow Rate (L/min) 1 Oxygen Delivery Method Nasal Cannula Weight: 176 lb 12.972 oz Body Mass Index (BMI) 22.6 Intake & Output: Intake and Output for Last 24 Hours 09/19/21 09/20/21 09/21/21 03:59 03:59 03:59 Intake Total 846.4 / 846.4 2071.95 / 2071.95 Output Total 475 / 475 350 / 350 Balance 371.4 / 371.4 1721.95 / 1721.95 Lab / Micro Data Result Diagrams: 09/20/21 05:47 09/20/21 05:47 Labs: Laboratory Results - last 24 hr 09/19/21 14:08: PT 12.8, INR 1.0, APTT 28.9 09/19/21 14:35: Troponin I High Sens 479 H* 09/19/21 16:25: Troponin I High Sens 752 H* 09/19/21 20:35: APTT 166.4 H* 09/20/21 05:47: WBC 7.3, RBC 3.35 L, Hgb 10.3 L, Hct 31.3 L, MCV 93.4, MCH 30.7, MCHC 32.9, RDW Std Deviation 46.7 H, RDW Coeff of Mendel 13.6, Plt Count 166, MPV 9.1, Immature Gran % (Auto) 0.300, Neut % (Auto) 46.1 L, Lymph % (Auto) 40.6, [place] % (Auto) 6.9, Eos % (Auto) 5.7 H, Baso % (Auto) 0.4, Absolute Neuts (auto) 3.4, Absolute Lymphs (auto) 2.94, Nucleated RBC % 0 09/20/21 05:47: Sodium 142, Potassium 3.6, Chloride 108 H, Carbon Dioxide 27.0, Anion Gap 7, BUN 15, Creatinine 1.27, Estim Creat Clear Calc 61.40, Est GFR (MDRD) Af Amer 72, Est GFR (MDRD) Non-Af 60, BUN/Creatinine Ratio 11.8, Glucose 101, Calcium 8.1 L, Phosphorus 3.1, Magnesium 1.8, Triglycerides 136, Cholesterol 170, LDL Cholesterol 109, VLDL Cholesterol 27, HDL Cholesterol 34 L 09/20/21 05:47: APTT 80.5 H 09/20/21 05:47: Troponin I High Sens 514 H* 09/20/21 12:13: APTT > 250.0 H* Micro: Microbiology 09/19/21 12:06 Nasal Secretion SARS-CoV-2 Antigen (Rapid) - Final Radiography Diagnostic Testing: Radiology Impression Echocardiogram 09/19/21 14:14 Interpretation Summary The study was technically difficult. Based upon the 2D echocardiographic images obtained there appears to be grossly normal left ventricular size, wall motion, and systolic function. The estimated ejection fraction is 55 %. Mild tricuspid valve insufficiency. Right ventricular systolic pressure estimated to be 46 mmHg. Unable to assess diastolic dysfunction. Ordering Physician: Zo Mejia Referring Physician: Juvenal Chatman Performed By: Earl Valdez RCS Physical Exam Const alert, oriented x3 and no apparent distress General Appearance: cooperative HEENT normocephalic and moist oral mucous membranes Eyes PERRL, EOMs intact bilaterally and conjunctivae normal Neck supple and no JVD Resp normal respiratory effort, no retractions, no use of accessory muscles and clear to auscultation bilaterally Auscultation: Negative for crackles, rales, rhonchi or wheezes Cardio regular rate, regular rhythm, S1 normal heart sound, S2 normal heart sound and no murmurs GI soft to palpation, non-tender and non-distended; Negative for hepatosplenomegaly Extremity no clubbing, cyanosis or edema Skin no rashes or lesions noted Neuro no focal motor deficits and no sensory deficits noted Psych affect normal Appearance: appropriate Assessment & Plan Assessment/Plan (1) Bilateral pulmonary embolism: (2) Tachycardia: (3) Hypokalemia: (4) CKD (chronic kidney disease) stage 3, GFR 30-59 ml/min: (5) Acute respiratory failure with hypoxia: PLAN: 1. 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 Paroxysmal A. fib/HTN -Blood pressure stable -We will continue with his home Cardizem and losartan 3. History of pneumothorax and pleurisy -Stable no issues at this time DVT: Xarelto Charges/Coding Visit Charges Inpatient E&M: 17464 Subs Hosp L2
[2021-09-20] MEDS: Rivaroxaban 15 MG Tablet PO (16:12)
[2021-09-21] VITALS (7 sets, daily range): BP systolic 117–134; BP diastolic 69–88; PULSE 55–82; RESP 16–17; TEMP 36.3–36.9; O2SAT 94–98
[2021-09-21 06:25] LABS: Absolute Lymphocyte Count 2.92 X10^3/uL (0.83-4.51); Absolute Neutrophil Count 3.9 X10^3/uL (2.0-7.7); Basophil# 0.03 X10^3/uL; Basophil% 0.4 % (0-1); Eosinophil# 0.52 X10^3/uL; Eosinophils% 6.5 % (0-5); Hematocrit 31.7 % (40-54); Hemoglobin 10.4 g/dL (13.0-16.5); Lymphocyte # 2.92 X10^3/ul (0.83-4.51); Lymphocyte % 36.6 % (19-41); Mean Corp Hgb Conc 32.8 g/dL (32-36); Mean Corpuscular Hgb 30.4 pg (27.0-32.0); Mean Corpuscular Volume 92.7 fL (80-94); Mean Platelet Vol. 9.2 fl (6.2-12.0); Monocyte# 0.56 X10^3/uL; NRBC Flagged by Analyzer 0 % (0-5); Neutrophil # 3.92 X10^3/uL (2.7-7.7); Neutrophil % 49.1 % (47-70); Platelet Count 162 K/mm3 (150-450); RBC Distribution Width CV 13.3 % (11.6-14.6); Red Blood Count 3.42 M/mm3 (4.6-6.2)
[2021-09-21 06:51] LABS: Anion Gap 5 (5-15); BUN 16 mg/dL (7-18); BUN/Creat Ratio 11.3 RATIO (10-20); Calcium,Total 8.4 mg/dL (8.5-10.1); Chloride 108 mmol/L (98-107); Creatinine, Serum 1.41 mg/dL (0.70-1.30); EST Glomerular Filtration Rate 53 mL/min (>60); Est Glom Filt Rate - Afr Amer 64 mL/min (>60); Glucose 97 mg/dL (74-106); Potassium 3.6 mmol/L (3.5-5.1); Sodium Level 140 mmol/L (136-145)
[2021-09-21] MEDS: Folic Acid 1 MG Tablet PO (08:04)
[2021-09-21] MEDS: Rivaroxaban 15 MG Tablet PO (08:04)
[2021-09-21] MEDS: Ferrous Sulfate 325 MG Tablet PO (08:04)
[2021-09-21] MEDS: Aspirin E.C. 81 MG Tablet PO (08:04)
[2021-09-21] MEDS: Loratadine 10 MG Tablet PO (08:14)
[2021-09-21] MEDS: Fluticasone 0.05% 1 SPRAY NASAL.SRY NASAL (08:14)
--- NOTE | 2021-09-21 08:32 | PCM.PN.CARD ---
Subjective Subjective The patient states he is feeling better. He is able to be without O2 nasal cannula support at this time. He denies any ongoing chest discomfort. He states he still has his chronic intermittent sensation of brief palpitations. Objective Data Vital Signs: Vital Signs Temp Pulse Resp BP Pulse Ox 97.9 F 82 16 134/79 H 96 09/21/21 07:59 09/21/21 07:59 09/21/21 07:59 09/21/21 07:59 09/21/21 07:59 Oxygen Flow Rate (L/min) 1 Oxygen Delivery Method Room Air Weight: 176 lb 12.972 oz Body Mass Index (BMI) 22.6 Intake & Output: Intake and Output for Last 24 Hours 09/19/21 09/20/21 09/21/21 23:59 23:59 23:59 Intake Total 846.4 / 846.4 2882.78 / 2882.78 60 / 60 Output Total 475 / 475 500 / 500 Balance 371.4 / 371.4 2382.78 / 2382.78 60 / 60 Lab / Micro Data Result Diagrams: 09/21/21 06:15 09/21/21 06:15 Labs: Laboratory Results - last 24 hr 09/20/21 05:47: Troponin I High Sens 514 H* 09/20/21 12:13: APTT > 250.0 H* 09/21/21 06:15: WBC 8.0, RBC 3.42 L, Hgb 10.4 L, Hct 31.7 L, MCV 92.7, MCH 30.4, MCHC 32.8, RDW Std Deviation 46.0 H, RDW Coeff of Mendel 13.3, Plt Count 162, MPV 9.2, Immature Gran % (Auto) 0.400, Neut % (Auto) 49.1, Lymph % (Auto) 36.6, [place] % (Auto) 7.0, Eos % (Auto) 6.5 H, Baso % (Auto) 0.4, Absolute Neuts (auto) 3.9, Absolute Lymphs (auto) 2.92, Nucleated RBC % 0 09/21/21 06:15: Sodium 140, Potassium 3.6, Chloride 108 H, Carbon Dioxide 27.0, Anion Gap 5, BUN 16, Creatinine 1.41 H, Estim Creat Clear Calc 55.30, Est GFR (MDRD) Af Amer 64, Est GFR (MDRD) Non-Af 53 L, BUN/Creatinine Ratio 11.3, Glucose 97, Calcium 8.4 L Cardiology Labs/Tests 09/20/21 12:13: APTT > 250.0 H* 09/21/21 06:15: WBC 8.0, RBC 3.42 L, Hgb 10.4 L, Hct 31.7 L, MCV 92.7, MCH 30.4, MCHC 32.8, Plt Count 162, MPV 9.2, Immature Gran % (Auto) 0.400, Neut % (Auto) 49.1, Lymph % (Auto) 36.6, [place] % (Auto) 7.0, Eos % (Auto) 6.5 H, Baso % (Auto) 0.4, Absolute Neuts (auto) 3.9, Nucleated RBC % 0 09/21/21 06:15: Sodium 140, Potassium 3.6, Chloride 108 H, Carbon Dioxide 27.0, Anion Gap 5, BUN 16, Creatinine 1.41 H, Est GFR (MDRD) Af Amer 64, Est GFR (MDRD) Non-Af 53 L, BUN/Creatinine Ratio 11.3, Glucose 97, Calcium 8.4 L Rhythm: Sinus rhythm; one brief episode appearing compatible with an ectopic atrial rhythm/tachycardia Physical Exam Narrative This is a 71-year-old white male who appears to be resting comfortably at the moment in no acute distress. Const alert, oriented x3 and no apparent distress Orientation / Consciousness: awake HEENT normocephalic, head/scalp atraumatic and hearing grossly normal bilaterally Eyes PERRL and EOMs intact bilaterally Neck full ROM, supple and no JVD Resp normal respiratory effort and clear to auscultation bilaterally Cardio regular rate, regular rhythm, S1 normal heart sound and S2 normal heart sound GI normal to inspection, nondistended, normoactive bowel sounds Extremity no pedal edema Skin no rashes or lesions noted Neuro oriented x3, moves all extremities, no focal motor deficits and no sensory deficits noted Psych mental status grossly normal Assessment & Plan Assessment/Plan (1) Abnormal cardiac enzyme level: PLAN: The patient does have abnormal cardiac enzymes. His troponin I level has decreased. Status post review of the patient's case, at the present time, this appears to be secondary event related to his acute bilateral pulmonary emboli. His follow-up ECG has demonstrated no acute ECG changes. His echocardiogram is as previously noted. At the present time the patient will continue medical therapy for his underlying pulmonary emboli. (2) PAF (paroxysmal atrial fibrillation): PLAN: The patient does have a history of paroxysmal atrial fibrillation. He has been on medical management with aspirin therapy and rate limiting therapy as he has had no obvious recurrence of his atrial dysrhythmia since approximately 2016. He appears to have had 2 brief episode appearing compatible with an ectopic atrial tachycardia. It is unclear whether this is related to his acute event versus his chronic cardiovascular history. At the moment he will continue his current medical therapy and telemetry monitoring. (3) Bilateral pulmonary embolism: PLAN: The etiology of his recurrent bilateral pulmonary emboli is unclear at this time. He states he has been evaluated in the past by hematology with respect to any obvious genetic etiologies. To the best of his knowledge this was unremarkable. At the present time he will continue to be monitored based upon his presentation with respect to his symptoms and his objective findings of tachycardia and hypoxemia. He has been changed to oral anticoagulant therapy. Addt'l Comments Overall, the present time, the patient will continue his evaluation care for his recurrent acute pulmonary emboli. It does not appear he requires additional cardiac diagnostic studies/intervention at this time. The patient's case was discussed and reviewed with Dr. Paul. This note was generated using a voice recognition system and there may be incorrect words, spelling or punctuation that were not noted when reviewing the office note prior to saving.
[2021-09-21] MEDS: dilTIAZem CD 180 MG Capsule PO (10:02)
[2021-09-21] MEDS: Losartan Potassium 100 MG Tablet PO (10:02)
[2021-09-21] MEDS: Ascorbic Acid 500 MG Tablet 1000 MG PO (10:02)
[2021-09-21] MEDS: Cholecalciferol (VIT D3) 25 MCG TABLET (1,000 UNITS) PO (10:02)
[2021-09-21] MEDS: Montelukast 10 MG Tablet PO (10:02)
--- NOTE | 2021-09-21 10:02 | CASEMGMT ---
Addendum entered by Flavia Davidson 09/21/21 11:37: Per Kathy, pt has already utilized a Xarelto coupon card and pt's cost is $415.69, which is deductible and next script will be $47. Pt/ updated, voice understanding and no further concerns/needs. Candida HALL CM Addendum entered by Flavia Davidson 09/21/21 10:39: Pt to be sent home on Xarelto and med e-scribed to [facility] retail pharmacy. Call to Jeni in pharmacy and she will call this ISABEL ESPINAL back with co-pay and apply Xarelto card. CM to follow. Candida HALL CM Original Note: Pt does not qualify for home oxygen. Candida HALL CM
--- NOTE | 2021-09-21 10:30 | PCM.DC ---
Discharge Instructions Diet Discharge Diet: Low fat / Low cholesterol Activity Discharge Activity: Return to Normal Activity Dressing / Incision Call your doctor if you observe: Fever of 101 or Higher, Shortness of breath, Dizziness, Fainting spells, Swelling in the ankles, Chest pain and Increased palpitations (irregular heartbeat) Follow Up Care Test Results: Test results from this visit will be discussed in further detail at your follow-up appointment, if applicable. Discharge Plan Admission Admit Date/Time: 09/19/21 14:09 Attending Provider: Dane Paul Primary Care Provider: Juvenal Chatman Consulting Providers: Leland Hunt Discharge Orders/Prescriptions Prescriptions: New Xarelto DVT-PE Treat 30d Start 15 mg (42)- 20 mg (9) tablets,dose pack See Rx Instructions .ROUTE .COMPLEX Qty: 51 RF: 0 Continued folic acid 800 mcg tablet 0.8 mg PO DAILY RF: 0 ascorbic acid (vitamin C) 1,000 mg tablet extended release 1,000 mg PO DAILY RF: 0 fluticasone propionate [Flonase Allergy Relief] 50 mcg/actuation spray,suspension 1 spray INTRANASAL DAILY PRN (Reason: ALLERGIES) RF: 0 diltiazem HCl 180 mg capsule,extended release 24hr 180 mg PO DAILY RF: 0 ferrous sulfate [FeroSul] 325 mg (65 mg iron) tablet 325 mg PO DAILY RF: 0 hydrocodone-acetaminophen 1 EACH tablet 1 ea PO Q4H PRN (Reason: pain ) RF: 0 montelukast 10 MG tablet 10 mg PO DAILY RF: 0 loratadine 10 MG tablet 10 mg PO DAILY RF: 0 cholecalciferol (vitamin D3) 1,000 UNIT tablet 1,000 unit PO DAILY RF: 0 hyoscyamine sulfate 0.125 mg tablet, sublingual 0.125 mg sublingual DAILY PRN (Reason: ESOPHOGEAL SPASMS) RF: 0 omega-3 fatty acids Capsule 1,000 mg PO DAILY RF: 0 losartan 100 mg tablet 100 mg PO DAILY Qty: 90 RF: 3 Discontinued aspirin [Adult Low Dose Aspirin] 81 mg tablet,delayed release (DR/EC) 81 mg PO DAILY RF: 0 Referrals / Follow Up: Juvenal Chatman MD [Primary Care Provider] - Within 1 Week Bonita Barber MD [STAFF PHYSICIAN] - 09/22/21 Disposition Disposition (needs filled in before D/C Order can be placed): Home, Self Care
--- NOTE | 2021-09-21 10:36 | PCM.DC.SUM ---
Providers Date of Admission: 09/19/21 Primary Care Physician: Dr. Juvenal Chatman MD Consultations 09/19/21 15:50 Consult: Cardiology Routine Consulting Provider: Leland Hunt Reason for Consult: Troponin elevation EMERGENT Consult: No MD Notified: Yes Date Notified: 09/19/21 Time Notified: 15:55 Method of Notification: Text Reason For Visit: PULMONARY EMBOLISM Diagnosis Discharge Diagnosis (1) Abnormal cardiac enzyme level: Status: Acute Code(s): R74.8 - Abnormal levels of other serum enzymes (2) PAF (paroxysmal atrial fibrillation): Status: Acute Code(s): I48.0 - Paroxysmal atrial fibrillation (3) Bilateral pulmonary embolism: Status: Acute Code(s): I26.99 - Other pulmonary embolism without acute cor pulmonale Medications at Discharge Home Medications cholecalciferol (vitamin D3) 1,000 unit PO DAILY 04/01/19 hydrocodone-acetaminophen 1 ea PO Q4H PRN 04/01/19 loratadine 10 mg PO DAILY 04/01/19 montelukast 10 mg PO DAILY 04/01/19 folic acid 800 mcg tablet 0.8 mg PO DAILY 05/07/19 ascorbic acid (vitamin C) 1,000 mg tablet,extended release 1,000 mg PO DAILY tab 08/29/20 fluticasone propionate 50 mcg/actuation nasal spray,suspension 1 spray INTRANASAL DAILY PRN 08/29/20 losartan 100 mg tablet 100 mg PO DAILY #90 tab 04/14/21 diltiazem HCl 180 mg capsule,extended release 24 hr 180 mg PO DAILY 06/26/21 ferrous sulfate 325 mg (65 mg iron) tablet 325 mg PO DAILY 06/26/21 hyoscyamine sulfate 0.125 mg sublingual tablet 0.125 mg SUBLINGUAL DAILY PRN 06/26/21 omega-3 fatty acids 1,000 mg PO DAILY 09/19/21 rivaroxaban [Xarelto DVT-PE Treat 30d Start] See Rx Instructions .ROUTE .COMPLEX #51 tab 09/21/21 Hospital Course Operations None Procedures 2-D Echocardiogram Summary of Care Provided Minutes Spent on Discharge: 45 Hospital Course: Per HPI: SANTI ALDANA, is a 71 M who presented to the emergency department [facility] on 09/19/2021 with a chief complaint of shortness of breath. The patient states that he had been feeling well and this morning when he is ambulating to the bathroom became acutely short of breath and felt horrible with a sinking feeling and felt like he could not catch his breath. He recollects that about 2 weeks ago he had some left calf pain which he chalked up to musculoskeletal strain. He has not had any recent extensive travel but did last week drive approximately 2 hours into [facility] and back home in the same day. He just recently had his Covid booster on Saturday. The squad was called and on arrival his oxygen saturations were 81% on room air. He denies any chest pain, fever, or chills. He has had no cough or sputum production. He does have a previous history of pneumothorax x2 as well as bilateral pulmonary emboli back in 2018 for which she was treated with Xarelto for a year and followed by Dr. Barber who took him off his anticoagulation. He is not clear whether or not a hypercoagulable work-up was performed at that time. In the emergency department he was afebrile. His heart rate was anywhere from 10 2-1 40 with exertion. His blood pressure was elevated with a max of 180/110 but upon my evaluation was 146/84. The patient is on antihypertensives at baseline. His respiratory rate was 12 and his sats were 100% on 3 L nasal cannula. He did ambulate to the bathroom on room air while he was in the emergency department and he desaturated into the 70s. His CBC shows a mild stable anemia. His BMP shows hypokalemia with an elevated serum creatinine at 1.56 but I am unclear what his current baseline is. Troponin was obtained and was 81. Given his symptoms a CTA of the chest was performed and multiple bilateral pulmonary emboli that is worse on the left than the right and pulmonary emboli are also seen in the distal portion of the left pulmonary artery as it bifurcates into the upper and lower left lobe of the pulmonary artery arterial branch. In the emergency department he was started on heparin drip and request for admission was made. Hospital Course: 1. 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 He expressed understanding of the risk benefits going home and would like to go home today. He will be started on the Xarelto dosing pack and I told him to expel the first 2 doses of the bubble pack since he has had this here in the hospital. He will need to follow-up with Dr. Barber tomorrow which she already has an appointment for. 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 In discussion with cardiology, we can stop his aspirin now that he is on Xarelto. 2. Paroxysmal A. fib/HTN -Blood pressure stable -We will continue with his home Cardizem and losartan 3. History of pneumothorax and pleurisy -Stable no issues at this time Physical Exam Const alert, oriented x3 and no apparent distress General Appearance: cooperative HEENT normocephalic and moist oral mucous membranes Eyes PERRL, EOMs intact bilaterally and conjunctivae normal Neck supple and no JVD Resp normal respiratory effort, no retractions, no use of accessory muscles and clear to auscultation bilaterally Auscultation: Negative for crackles, rales, rhonchi or wheezes Cardio regular rate, regular rhythm, S1 normal heart sound, S2 normal heart sound and no murmurs GI soft to palpation, non-tender and non-distended; Negative for hepatosplenomegaly Extremity no clubbing, cyanosis or edema Skin no rashes or lesions noted Neuro no focal motor deficits and no sensory deficits noted Psych affect normal Appearance: appropriate Weight / BMI Weight Weight: 176 lb 12.972 oz Body Mass Index (BMI) 22.6 ABG / Lab / Microbiology Data Result Diagrams: 09/21/21 06:15 09/21/21 06:15 Laboratory: Laboratory Results - last 24 hr 09/20/21 12:13: APTT > 250.0 H* 09/21/21 06:15: WBC 8.0, RBC 3.42 L, Hgb 10.4 L, Hct 31.7 L, MCV 92.7, MCH 30.4, MCHC 32.8, RDW Std Deviation 46.0 H, RDW Coeff of Mendel 13.3, Plt Count 162, MPV 9.2, Immature Gran % (Auto) 0.400, Neut % (Auto) 49.1, Lymph % (Auto) 36.6, [place] % (Auto) 7.0, Eos % (Auto) 6.5 H, Baso % (Auto) 0.4, Absolute Neuts (auto) 3.9, Absolute Lymphs (auto) 2.92, Nucleated RBC % 0 09/21/21 06:15: Sodium 140, Potassium 3.6, Chloride 108 H, Carbon Dioxide 27.0, Anion Gap 5, BUN 16, Creatinine 1.41 H, Estim Creat Clear Calc 55.30, Est GFR (MDRD) Af Amer 64, Est GFR (MDRD) Non-Af 53 L, BUN/Creatinine Ratio 11.3, Glucose 97, Calcium 8.4 L Microbiology: Microbiology 09/19/21 12:06 Nasal Secretion SARS-CoV-2 Antigen (Rapid) - Final D/C Instructions Discharge Diet: Low fat / Low cholesterol Call your doctor if you observe: Fever of 101 or Higher, Shortness of breath, Dizziness, Fainting spells, Swelling in the ankles, Chest pain and Increased palpitations (irregular heartbeat) Meaningful Use Info Meaningful Use Diagnoses (Choose all that apply): None applicable Discharge Plan Admission Admit Date/Time: 09/19/21 14:09 Attending Provider: Dane Paul Primary Care Provider: Juvenal Chatman Consulting Providers: Leland Hunt Discharge Orders/Prescriptions Prescriptions: New Xarelto DVT-PE Treat 30d Start 15 mg (42)- 20 mg (9) tablets,dose pack See Rx Instructions .ROUTE .COMPLEX Qty: 51 RF: 0 Continued folic acid 800 mcg tablet 0.8 mg PO DAILY RF: 0 ascorbic acid (vitamin C) 1,000 mg tablet extended release 1,000 mg PO DAILY RF: 0 fluticasone propionate [Flonase Allergy Relief] 50 mcg/actuation spray,suspension 1 spray INTRANASAL DAILY PRN (Reason: ALLERGIES) RF: 0 diltiazem HCl 180 mg capsule,extended release 24hr 180 mg PO DAILY RF: 0 ferrous sulfate [FeroSul] 325 mg (65 mg iron) tablet 325 mg PO DAILY RF: 0 hydrocodone-acetaminophen 1 EACH tablet 1 ea PO Q4H PRN (Reason: pain ) RF: 0 montelukast 10 MG tablet 10 mg PO DAILY RF: 0 loratadine 10 MG tablet 10 mg PO DAILY RF: 0 cholecalciferol (vitamin D3) 1,000 UNIT tablet 1,000 unit PO DAILY RF: 0 hyoscyamine sulfate 0.125 mg tablet, sublingual 0.125 mg sublingual DAILY PRN (Reason: ESOPHOGEAL SPASMS) RF: 0 omega-3 fatty acids Capsule 1,000 mg PO DAILY RF: 0 losartan 100 mg tablet 100 mg PO DAILY Qty: 90 RF: 3 Discontinued aspirin [Adult Low Dose Aspirin] 81 mg tablet,delayed release (DR/EC) 81 mg PO DAILY RF: 0 Referrals / Follow Up: Juvenal Chatman MD [Primary Care Provider] - Within 1 Week Bonita Barber MD [STAFF PHYSICIAN] - 09/22/21 Disposition Disposition (needs filled in before D/C Order can be placed): Home, Self Care Charges/Coding Visit Charges Inpatient E&M: 48854 Disch Hosp
== END 2021-09-21 12:02 | disposition home or self-care (01) | DRG 175 ==
LOC: ED 12:40 → PCU 15:14
PROVIDERS: Internal Medicine Cardiovascular Disease; Admitting Provider Internal Medicine; Emergency Provider Student in an Organized Health Care Education/Training Program; PCP Family Medicine; Visit Provider Family Medicine
DX: I26.99 Other pulmonary embolism without acute cor pulmonale (principal); J96.01 Acute respiratory failure with hypoxia; I48.0 Paroxysmal atrial fibrillation; R74.8 Abnormal levels of other serum enzymes; E87.6 Hypokalemia; J44.9 Chronic obstructive pulmonary disease, unspecified; K58.9 Irritable bowel syndrome, unspecified; I12.9 Hypertensive chronic kidney disease with stage 1 through stage 4 chronic kidney disease, or unspecified chronic kidney disease; N18.30 Chronic kidney disease, stage 3 unspecified; F02.80 Dementia in other diseases classified elsewhere, unspecified severity, without behavioral disturbance, psychotic disturbance, mood disturbance, and anxiety; G30.9 Alzheimer's disease, unspecified; D64.9 Anemia, unspecified; Z86.711 Personal history of pulmonary embolism; Z79.01 Long term (current) use of anticoagulants; Z87.891 Personal history of nicotine dependence; Z79.82 Long term (current) use of aspirin; Z80.0 Family history of malignant neoplasm of digestive organs; Z82.49 Family history of ischemic heart disease and other diseases of the circulatory system; Z90.49 Acquired absence of other specified parts of digestive tract; Z98.41 Cataract extraction status, right eye; Z98.42 Cataract extraction status, left eye
CPT/HCPCS: 36415; 71045; 71275; 80048; 80061; 83735; 84100; 84484; 85025; 85610; 85730; 87426; 93005; 93306; 97161; 99251; 99285; J7030; Q9957; Q9967; A4216; G0463; J3490

== ENCOUNTER → 2022-05-25 | Outpatient (CLI) | payer MEDICARE, OTHER, SELFPAY ==
--- NOTE | 2022-05-25 12:55 | ECHOCS_ITS ---
Reason For Study: PHTN Procedure This was a 2D Doppler, Color Flow transthoracic echocardiogram. The study was technically difficult. Contrast injection was performed. Exam performed in department. Left Ventricle Normal LV size. Apical false tendon noted. Left ventricular systolic function is normal. The estimated ejection fraction is 60 %. No evidence for diastolic dysfunction. No regional wall motion abnormalities noted. Right Ventricle Normal RV size. Normal systolic function. Atria Normal left atrium. Normal right atrium. No doppler evidence for ASD. Mitral Valve There is no mitral annular calcification. Normal mitral valve. Trivial mitral valve insufficiency. Tricuspid Valve Normal tricuspid valve. Mild tricuspid valve insufficiency. Right ventricular systolic pressure estimated to be 39 mmHg. Aortic Valve Trisinus/trileaflet aortic valve. Normal aortic valve. Trivial aortic valve insufficiency. Pulmonic Valve The pulmonic valve is not well visualized. Trivial pulmonic valve insufficiency. Great Vessels Normal sized aortic root. Pericardium/Pleural No pericardial effusion. Medication 22 gauge I.V. with prn adaptor inserted into right arm. Diluted definity 2ml given slow IV push to enhance endocardial definition. MMode/2D Measurements & Calculations LVIDd: 4.7 cm IVSd: 1.4 cm Ao root diam: 3.8 cm LVIDs: 3.4 cm LVPWd: 1.2 cm FS: 27.3 % LAV(MOD-sp4): 17.5 ml LA A4 area: 10.3 cm2 RA A4 area: 17.2 cm2 Doppler Measurements & Calculations MV E max abran: 45.9 cm/sec Lat Peak E' Abran: 4.5 cm/sec Med Peak E' Abran: 7.9 cm/sec MV A max abran: 75.1 cm/sec E/E' lat: 10.2 E/E' med: 5.8 MV E/A: 0.61 Ao V2 max: 151.5 cm/sec LV V1 max: 96.5 cm/sec PA V2 max: 101.1 cm/sec Ao max P.2 mmHg LV V1 max P.7 mmHg TR max abran: 247.0 cm/sec TR max P.4 mmHg ECHO/Echo Complete W/ Contrast Interpretation Summary The study was technically difficult. Contrast injection was performed. Left ventricular systolic function is normal. The estimated ejection fraction is 60 %. Apical false tendon noted. Trivial mitral valve insufficiency. Mild tricuspid valve insufficiency. Trivial aortic valve insufficiency. Trivial pulmonic valve insufficiency. Right ventricular systolic pressure estimated to be 39 mmHg. No evidence for diastolic dysfunction. Ordering Physician: Leland Hunt Referring Physician: Leland Hunt Performed By: Latasha Cedeño RCS
== END | disposition home or self-care (01) ==
LOC: CVS 12:55
PROVIDERS: PCP Family Medicine; Referring Provider Internal Medicine Cardiovascular Disease; Visit Provider Internal Medicine Cardiovascular Disease
DX: I26.99 Other pulmonary embolism without acute cor pulmonale (principal); I27.20 Pulmonary hypertension, unspecified
CPT/HCPCS: 93306; Q9957; A4216; C8929

== ENCOUNTER → 2022-07-16 | Outpatient (CLI) | payer MEDICARE, OTHER, SELFPAY ==
--- NOTE | 2022-07-16 12:33 | STRESSREP ---
Stress Test Report Date: 07-16-2022 Procedure: Pharmacologic stress nuclear imaging study Indications: Chest pain Consent: Per the patient Procedure: The patient underwent pharmacologic (Regadenoson 0.4mg ) evaluation with a peak heart rate of 106 beats per minute (70%predicted maximal heart rate) and a peak blood pressure of 140/72 mmHg. The baseline ECG demonstrated sinus rhythm; poor R wave progression. The peak pharmacologic ECG demonstrated no obvious ECG changes. There were no cardiac dysrhythmias pretest, during pharmacologic infusion, or recovery. There was no complaint of chest discomfort during pharmacologic infusion or recovery. The examination was discontinued secondary to completion of protocol. Impression: 1. Pharmacologic (Regadenoson) evaluation 2. Peak pharmacologic ECG with no obvious ECG changes. 3. There were no cardiac dysrhythmias pretest, during pharmacologic infusion, or recovery. 4. Nuclear images pending Myocardial perfusion imaging study: Technique: The patient was injected with 11.3 millicuries of technetium 99m Cardiolite and subsequently rest SPECT Cardiolite nuclear imaging was obtained in the horizontal long, vertical long, and short axis views. The patient underwent pharmacologic (Regadenoson) evaluation with a peak heart rate of 106 beats per minute (70% percent predicted maximal heart rate) and a peak blood pressure of 140/72 mmHg. The patient was injected with 32.9 millicuries of technetium 99m Cardiolite and subsequently stress SPECT Cardiolite nuclear imaging was obtained in the horizontal long, vertical long, and short axis views. A gated Cardiolite study at peak stress was obtained. Interpretation: Rest and stress SPECT Cardiolite nuclear imaging status post realignment, normalization, and attenuation correction demonstrate extracardiac/gastrointestinal tracer uptake near the inferior segments and otherwise appears to demonstrate relative uniform tracer uptake and myocardial perfusion appearing within normal limits. There is end systolic thickening and brightening. The gated Cardiolite study demonstrates myocardial thickening and inward wall motion. The reported LVEF is 65%. Impression: 1. Rest and stress SPECT Cardiolite nuclear imaging demonstrate relative uniform tracer uptake and myocardial perfusion appearing within normal limits. 2. The gated Cardiolite study reports an LVEF of 65%. This note was generated with [email or web address] software. It may contain incorrect words, spelling, and punctuation that were not noted in checking the note before signing.
== END | disposition home or self-care (01) ==
LOC: CVS 06:46
PROVIDERS: PCP Family Medicine; Referring Provider Internal Medicine Cardiovascular Disease; Visit Provider Internal Medicine Cardiovascular Disease
DX: R07.9 Chest pain, unspecified (principal)
CPT/HCPCS: 78452; 93017; A9500; A4216; J2785

== ENCOUNTER 2024-06-25 16:37 | Emergency (ER) | payer MEDICARE, OTHER, SELFPAY ==
[2024-06-25 16:37] VITALS: BP 144/80; PULSE 111; RESP 18; TEMP 37.2; O2SAT 97; BMI 22.6
[2024-06-25] MEDS: 0.9% Normal Saline (1000mL) 1,000 ML 1000 ML IV (17:28)
[2024-06-25] MEDS: Ondansetron 4 MG/2 ML Vial IV (17:28)
--- NOTE | 2024-06-25 17:29 | RAD_ITS ---
STUDY: X-RAY CHEST REASON FOR EXAM: Male, 73 years old. Cough, shortness of breath TECHNIQUE: PA and lateral COMPARISON: September 19. FINDINGS: The lungs are mildly hyperinflated but clear. There is no demonstrated pleural abnormality. Normal size heart. Normal mediastinum and suhail. Normal visualized pulmonary arteries. Normal visualized aortic arch and descending thoracic aorta. Normal visualized thoracic spine. Normal visualized ribs, clavicles, and shoulders. There is no demonstrated abnormality of the visualized soft tissue structures of the upper abdomen. RAD/Chest PA and Lateral IMPRESSION: Mild hyperinflation. No acute cardiopulmonary pathology Electronically Signed: Juvenal Ocasio MD at 18:43 EDT ,
[2024-06-25 17:42] LABS: Anion Gap 7 (5-15); BUN 18 mg/dL (7-18); BUN/Creat Ratio 11.5 RATIO (10-20); Calcium,Total 8.7 mg/dL (8.5-10.1); Chloride 110 mmol/L (98-107); Creatinine, Serum 1.57 mg/dL (0.70-1.30); EST Glomerular Filtration Rate 46 mL/min (>60); Est Glom Filt Rate - Afr Amer 56 mL/min (>60); Estimated Creatinine Clearance 48.16 ml/min; Glucose 116 mg/dL (74-106); Potassium 3.4 mmol/L (3.5-5.1); Sodium Level 141 mmol/L (136-145)
[2024-06-25 17:50] LABS: Absolute Lymphocyte Count 0.96 X10^3/uL (0.83-4.51); Absolute Neutrophil Count 10.8 X10^3/uL (2.0-7.7); Basophil# 0.03 X10^3/uL; Basophil% 0.2 % (0-1); Eosinophil# 0.08 X10^3/uL; Eosinophils% 0.6 % (0-5); Hematocrit 34.9 % (40-54); Hemoglobin 11.3 g/dL (13.0-16.5); Lymphocyte # 0.96 X10^3/ul (0.83-4.51); Lymphocyte % 7.5 % (19-41); Mean Corp Hgb Conc 32.4 g/dL (32-36); Mean Corpuscular Hgb 30.7 pg (27.0-32.0); Mean Corpuscular Volume 94.8 fL (80-94); Mean Platelet Vol. 10.3 fl (6.2-12.0); NRBC Flagged by Analyzer 0 % (0-5); Neutrophil # 10.76 X10^3/uL (2.7-7.7); Neutrophil % 84.4 % (47-70); Platelet Count 169 K/mm3 (150-450); RBC Distribution Width CV 13.6 % (11.6-14.6); RBC Distribution Width SD 47.3 fl (35.1-43.9); Red Blood Count 3.68 M/mm3 (4.6-6.2); White Blood Count 12.8 K/mm3 (4.4-11.0)
--- NOTE | 2024-06-25 18:03 | EDS_ITS ---
HPI History of Present Illness Chief Complaint: General Illness [facility] Medical History Asthma CKD (chronic kidney disease) stage 3, GFR 30-59 ml/min COPD (chronic obstructive pulmonary disease) Essential hypertension History of pilonidal cyst IBS (irritable bowel syndrome) Non-STEMI (non-ST elevated myocardial infarction) (09/19/21) PAF (paroxysmal atrial fibrillation) Home Medications ?Medication ?Instructions ?Recorded ?Last Taken ?Type cholecalciferol (vitamin D3) 25 1,000 unit PO DAILY 04/01/19 09/19/21 History mcg (1,000 unit) tablet hydrocodone-acetaminophen 5-325mg 1 ea PO Q4H PRN pain 04/01/19 2 Days Ago History 5mg-325mg ~09/17/21 loratadine 10 mg tablet 10 mg PO DAILY allergies 04/01/19 09/19/21 History folic acid 800 mcg tablet 0.8 mg PO DAILY 05/07/19 09/19/21 History ascorbic acid (vitamin C) 1,000 mg 1,000 mg PO DAILY 08/29/20 09/19/21 History tablet,extended release fluticasone propionate 50 1 spray intranasal DAILY PRN 08/29/20 09/18/21 History mcg/actuation nasal ALLERGIES spray,suspension (Flonase Allergy Relief) diltiazem HCl 180 mg 180 mg PO DAILY 06/26/21 09/19/21 History capsule,extended release 24 hr ferrous sulfate 325 mg (65 mg 325 mg PO DAILY 06/26/21 09/19/21 History iron) tablet (FeroSul) hyoscyamine sulfate 0.125 mg 0.125 mg sublingual DAILY PRN 06/26/21 Unknown Hist ory sublingual tablet ESOPHOGEAL SPASMS omega-3 fatty acids 1,000 mg PO DAILY SUPPLEMENT 09/19/21 09/19/21 History losartan 100 mg tablet 100 mg PO DAILY #90 tabs 04/11/22 Unknown Rx rivaroxaban 20 mg tablet (Xarelto) 20 mg PO DAILY 05/11/22 Unknown History atorvastatin 10 mg tablet 10 mg PO DAILY 07/10/23 Unknown History amoxicillin 875 mg-potassium 875 mg PO Q12H #13 TABLETS 06/25/24 Unknown Rx clavulanate 125 mg tablet azithromycin 250 mg tablet 250 mg PO DAILY #4 TABLETS 06/25/24 Unknown Rx Allergy/AdvReac Type Severity Reaction Status Date / Time albuterol AdvReac palpitation Verified 06/25/24 16:38 s amitriptyline (From Elavil) AdvReac Other Verified 06/25/24 16:38 amoxapine AdvReac Other Verified 06/25/24 16:38 buspirone AdvReac Other Verified 06/25/24 16:38 duloxetine (From Cymbalta) AdvReac Other Verified 06/25/24 16:38 fluticasone (From Advair AdvReac Other Verified 06/25/24 16:38 Diskus) gabapentin AdvReac Other Verified 06/25/24 16:38 gemfibrozil AdvReac Other Verified 06/25/24 16:38 hydroxyzine AdvReac Other Verified 06/25/24 16:38 naproxen AdvReac Other Verified 06/25/24 16:38 nortriptyline AdvReac Other Verified 06/25/24 16:38 salmeterol (From Advair AdvReac Other Verified 06/25/24 16:38 Diskus) sertraline (From Zoloft) AdvReac Other Verified 06/25/24 16:38 tiotropium (From Spiriva AdvReac Other Verified 06/25/24 16:38 with HandiHaler) trazodone AdvReac Other Verified 06/25/24 16:38 zolpidem (From Ambien) AdvReac Other Verified 06/25/24 16:38 Family History Mother Colon cancer Alzheimer disease Father Cancer Prostate Grandfather Colon cancer Grandfather Myocardial infarction Surgical History History of arthroscopy of right knee History of bilateral cataract extraction History of cholecystectomy History of shoulder surgery Social History Smoking Status: Former smoker alcohol intake: current details: rare substance use type: does not use caffeine: No EXAM Physical Exam Const Vital Signs: 06/25/24 16:37 06/25/24 16:48 Temperature 99.0 F Temperature Source Oral Pulse Rate 111 H Respiratory Rate 18 Respiratory Effort Short of Breath Blood Pressure 144/80 H Blood Pressure Mean 101 Pulse Ox 97 Oxygen Delivery Method Room Air [facility] [place] MDM Lab Data Labs: Laboratory Results - last 24 hr 06/25/24 17:15 WBC 12.8 H RBC 3.68 L Hgb 11.3 L Hct 34.9 L MCV 94.8 H MCH 30.7 MCHC 32.4 RDW Std Deviation 47.3 H RDW Coeff of Mendel 13.6 Plt Count 169 MPV 10.3 Immature Gran % (Auto) 0.300 Neut % (Auto) 84.4 H Lymph % (Auto) 7.5 L [place] % (Auto) 7.0 Eos % (Auto) 0.6 Baso % (Auto) 0.2 Absolute Neuts (auto) 10.8 H Absolute Lymphs (auto) 0.96 Nucleated RBC % 0 Sodium 141 Potassium 3.4 L Chloride 110 H Carbon Dioxide 24.0 Anion Gap 7 BUN 18 Creatinine 1.57 H Estim Creat Clear Calc 48.16 Est GFR (MDRD) Af Amer 56 L Est GFR (MDRD) Non-Af 46 L BUN/Creatinine Ratio 11.5 Glucose 116 H Calcium 8.7 Curb 65 score is 1. Patient to the low risk. 30-day mortality is 2.7%. Port score is 72. Risk classification 2. Both of these would indicate outpatient therapy is appropriate. Patient started on Augmentin and azithromycin. Radiography Chest X-Ray - ED: 2 View and Read by ED Physician (Infiltrate right lower lobe. This is changed from prior. There is no lateral on the prior. There appears to be infiltrate retrocardiac on the lateral.) Discharge Plan Triage Chief Complaint: General Illness Other Complaint: Nausea/Vomiting ED Provider: Cornel Kaye Dx/Rx/DC Orders Clinical Impression: Community acquired pneumonia, Essential hypertension, History of non-ST elevation myocardial infarction (NSTEMI), Sinus tachycardia, Personal history of pneumonia (recurrent), Anticoagulant long-term use Instructions: ED Pneumonia (Adult) Prescriptions: New azithromycin 250 mg tablet 250 mg PO DAILY Qty: 4 0RF amoxicillin-pot clavulanate 875-125 mg tablet 875 mg PO Q12H Qty: 13 0RF No Action folic acid 800 mcg tablet 0.8 mg PO DAILY ascorbic acid (vitamin C) 1,000 mg tablet extended release 1,000 mg PO DAILY fluticasone propionate [Flonase Allergy Relief] 50 mcg/actuation spray,suspension 1 spray INTRANASAL DAILY PRN (Reason: ALLERGIES) Rx Instructions: administer into each nostril diltiazem HCl 180 mg capsule,extended release 24hr 180 mg PO DAILY ferrous sulfate [FeroSul] 325 mg (65 mg iron) tablet 325 mg PO DAILY Xarelto 20 mg tablet 20 mg PO DAILY Rx Instructions: must administer with evening meal atorvastatin 10 mg tablet 10 mg PO DAILY hydrocodone-acetaminophen 1 EACH tablet 1 ea PO Q4H PRN (Reason: pain ) loratadine 10 MG tablet 10 mg PO DAILY cholecalciferol (vitamin D3) 1,000 UNIT tablet 1,000 unit PO DAILY hyoscyamine sulfate 0.125 mg tablet, sublingual 0.125 mg sublingual DAILY PRN (Reason: ESOPHOGEAL SPASMS) omega-3 fatty acids Capsule 1,000 mg PO DAILY losartan 100 mg tablet 100 mg PO DAILY Qty: 90 3RF Primary Care Provider: Juvenal Chatman Referrals: Juvenal Chatman MD [Primary Care Provider] - 3-5 Days Print Language: Albanian Disposition Disposition: Home, Self Care
[2024-06-25 18:21] VITALS: BP 155/74; PULSE 99; RESP 17; TEMP 36; O2SAT 95
[2024-06-25] MEDS: Amox/Clavulanate 875 MG Tablet PO (18:22)
[2024-06-25] MEDS: Azithromycin 250 MG Tablet 500 MG PO (18:22)
== END 2024-06-25 18:29 | disposition home or self-care (01) ==
PROVIDERS: Emergency Provider Emergency Medicine; PCP Family Medicine; Visit Provider Emergency Medicine
DX: J18.9 Pneumonia, unspecified organism (principal); J44.9 Chronic obstructive pulmonary disease, unspecified; I48.0 Paroxysmal atrial fibrillation; N18.30 Chronic kidney disease, stage 3 unspecified; I12.9 Hypertensive chronic kidney disease with stage 1 through stage 4 chronic kidney disease, or unspecified chronic kidney disease; Z79.01 Long term (current) use of anticoagulants; Z87.891 Personal history of nicotine dependence; I25.2 Old myocardial infarction; R00.0 Tachycardia, unspecified; Z87.01 Personal history of pneumonia (recurrent); Z90.49 Acquired absence of other specified parts of digestive tract
CPT/HCPCS: 99285; 71046; 80048; 85025; J7030; A4216; J2405

== ENCOUNTER 2024-06-27 02:21 | Inpatient (IN) | payer MEDICARE, OTHER, SELFPAY ==
[2024-06-27] VITALS (41 sets, daily range): BP systolic 87–142; BP diastolic 55–81; PULSE 76–127; RESP 14–31; TEMP 35.7–37.5; O2SAT 89–98; BMI 22.9; BMI 23.2
--- NOTE | 2024-06-27 02:33 | EKG12_ITS ---
Test Reason : DYSRHYTHMIA Blood Pressure : / mmHG Vent. Rate : 116 BPM Atrial Rate : 116 BPM P-R Int : 150 ms QRS Dur : 094 ms QT Int : 342 ms P-R-T Axes : 053 012 070 degrees QTc Int : 475 ms Sinus tachycardia Nonspecific ST abnormality Abnormal ECG Confirmed by Wu Evans ([id number]), social media editor MIKE JARA ([id number]) on 06/29/2024 2:11:32 PM Referred By: CECILE Confirmed By:Wu Evans
--- NOTE | 2024-06-27 02:35 | EX.ED.DYSGE1 ---
HPI History of Present Illness Chief Complaint: General Illness Informant: patient Narrative Narrative: 73-year-old male presents generalized weakness to the point where he laid on the floor for 20 minutes and was unable to get up tonight. Spouse was unable to help him EMS was called to bring him here. He states he was here 2 days ago, for some cough and nausea, he was diagnosed clinically with pneumonia prescribed Augmentin and azithromycin. States the next day was pretty good but this past day he has been dry heaving uncontrollably, occasional vomiting no blood or bilious emesis or abdominal pain, and getting occasional chest discomfort with vomiting that is bilateral anterior parasternal. No pleuritic discomfort when resting right now. He is not out of breath right now. He had some subjective fevers and when he measured it was up to about 99 but nothing higher. No diarrhea. He states all day and night tonight, he has just felt very wiped out and so weak now that he cannot get up. In addition, patient is saying he is having pain in his left hip. He states it did not start until he was transported to the [facility] by EMS and he suddenly started having it. He did not feel like they injured him. It is posterior left proximal thigh, close to where it joins the buttock and/or the ischial tuberosity. [facility] Medical History Non-STEMI (non-ST elevated myocardial infarction) (09/19/21) PAF (paroxysmal atrial fibrillation) CKD (chronic kidney disease) stage 3, GFR 30-59 ml/min History of pilonidal cyst IBS (irritable bowel syndrome) Essential hypertension Asthma COPD (chronic obstructive pulmonary disease) Home Medications ?Medication ?Instructions ?Recorded ?Last Taken ?Type cholecalciferol (vitamin D3) 25 1,000 unit PO DAILY 04/01/19 09/19/21 History mcg (1,000 unit) tablet hydrocodone-acetaminophen 5-325mg 1 ea PO Q4H PRN pain 04/01/19 2 Days Ago History 5mg-325mg ~09/17/21 loratadine 10 mg tablet 10 mg PO DAILY allergies 04/01/19 09/19/21 History ascorbic acid (vitamin C) 1,000 mg 1,000 mg PO DAILY 08/29/20 09/19/21 History tablet,extended release fluticasone propionate 50 1 spray intranasal DAILY PRN 08/29/20 09/18/21 History mcg/actuation nasal ALLERGIES spray,suspension (Flonase Allergy Relief) diltiazem HCl 180 mg 180 mg PO DAILY 06/26/21 09/19/21 History capsule,extended release 24 hr ferrous sulfate 325 mg (65 mg 325 mg PO DAILY 06/26/21 09/19/21 History iron) tablet (FeroSul) hyoscyamine sulfate 0.125 mg 0.125 mg sublingual DAILY PRN 06/26/21 Unknown History sublingual tablet ESOPHOGEAL SPASMS losartan 100 mg tablet 100 mg PO DAILY #90 tabs 04/11/22 Unknown Rx rivaroxaban 20 mg tablet (Xarelto) 20 mg PO DAILY 05/11/22 Unknown History atorvastatin 10 mg tablet 10 mg PO DAILY 07/10/23 Unknown History amoxicillin 875 mg-potassium 875 mg PO Q12H #13 TABLETS 06/25/24 Unknown Rx clavulanate 125 mg tablet azithromycin 250 mg tablet 250 mg PO DAILY #4 TABLETS 06/25/24 Unknown Rx Allergy/AdvReac Type Severity Reaction Status Date / Time albuterol AdvReac palpitation Verified 06/27/24 02:26 s amitriptyline (From Elavil) AdvReac Other Verified 06/27/24 02:26 amoxapine AdvReac Other Verified 06/27/24 02:26 buspirone AdvReac Other Verified 06/27/24 02:26 duloxetine (From Cymbalta) AdvReac Other Verified 06/27/24 02:26 fluticasone (From Advair AdvReac Other Verified 06/27/24 02:26 Diskus) gabapentin AdvReac Other Verified 06/27/24 02:26 gemfibrozil AdvReac Other Verified 06/27/24 02:26 hydroxyzine AdvReac Other Verified 06/27/24 02:26 naproxen AdvReac Other Verified 06/27/24 02:26 nortriptyline AdvReac Other Verified 06/27/24 02:26 salmeterol (From Advair AdvReac Other Verified 06/27/24 02:26 Diskus) sertraline (From Zoloft) AdvReac Other Verified 06/27/24 02:26 tiotropium (From Spiriva AdvReac Other Verified 06/27/24 02:26 with HandiHaler) trazodone AdvReac Other Verified 06/27/24 02:26 zolpidem (From Ambien) AdvReac Other Verified 06/27/24 02:26 Family History Mother Colon cancer Alzheimer disease Father Cancer Prostate Grandfather Colon cancer Grandfather Myocardial infarction Surgical History History of bilateral cataract extraction History of shoulder surgery History of arthroscopy of right knee History of cholecystectomy Social History Smoking Status: Former smoker alcohol intake: current details: rare substance use type: does not use caffeine: No ROS ROS ED Constitutional Constitutional ED: Reports fatigue, fever(s), subjective and weakness; Denies chills Eyes Eyes: Denies change in vision or diplopia ENT ENT ED: Denies rhinorrhea or sore throat Cardiovascular Cardiovascular: Reports as per HPI and chest pain; Denies palpitations Respiratory/Chest Respiratory/Chest: Reports cough; Denies dyspnea Gastrointestinal Gastrointestinal: Reports nausea and vomiting; Denies abdominal pain or diarrhea Genitourinary Genitourinary ED: Denies dysuria or hematuria Musculoskeletal Musculoskeletal: Denies back pain or neck pain Integumentary Denies abscess or rash Neurologic Neurologic: Denies headache(s), paresthesias or weakness Psychiatric Psychiatric: Denies suicidal thoughts EXAM Physical Exam Const Vital Signs: 06/27/24 02:22 06/27/24 02:25 06/27/24 02:25 Temperature 96.3 F L 96.3 F L Temperature Source Temporal Temporal Pulse Rate 127 H 127 H Respiratory Rate 26 H 26 H Respiratory Effort Short of Breath Respiratory Pattern Tachypnea Blood Pressure 129/65 H 129/65 H Blood Pressure Mean 86 86 Pulse Ox 92 93 Oxygen Delivery Method Room Air Room Air Oxygen Flow Rate (L/min) 06/27/24 02:29 06/27/24 02:43 06/27/24 02:45 Temperature Temperature Source Pulse Rate 115 H Respiratory Rate 26 H Respiratory Effort Short of Breath Respiratory Pattern Tachypnea Blood Pressure Blood Pressure Mean Pulse Ox 91 90 Oxygen Delivery Method Room Air Room Air Oxygen Flow Rate (L/min) 06/27/24 02:45 06/27/24 03:00 06/27/24 03:03 Temperature Temperature Source Pulse Rate 112 H 110 H Respiratory Rate 25 H 18 Respiratory Effort Respiratory Pattern Blood Pressure 140/67 H 142/67 H Blood Pressure Mean 87 87 Pulse Ox 91 Oxygen Delivery Method Oxygen Flow Rate (L/min) 06/27/24 03:13 06/27/24 03:15 06/27/24 03:16 Temperature Temperature Source Pulse Rate 107 H Respiratory Rate 20 H Respiratory Effort Respiratory Pattern Blood Pressure 135/67 H Blood Pressure Mean 84 Pulse Ox 89 90 95 Oxygen Delivery Method Room Air Nasal Cannula Oxygen Flow Rate (L/min) 2 06/27/24 03:25 06/27/24 03:30 06/27/24 03:45 Temperature 96.8 F L Temperature Source Temporal Pulse Rate 110 H 111 H 109 H Respiratory Rate 31 H 28 H 27 H Respiratory Effort Respiratory Pattern Blood Pressure 138/68 H 131/68 H 124/60 H Blood Pressure Mean 91 85 78 Pulse Ox 98 95 95 Oxygen Delivery Method Nasal Cannula Oxygen Flow Rate (L/min) 2 06/27/24 04:00 06/27/24 04:15 06/27/24 04:15 Temperature Temperature Source Pulse Rate 112 H 114 H Respiratory Rate 23 H 24 H Respiratory Effort Respiratory Pattern Blood Pressure 130/68 H 122/62 H 122/62 H Blood Pressure Mean 86 79 79 Pulse Ox 92 Oxygen Delivery Method Oxygen Flow Rate (L/min) 06/27/24 04:30 06/27/24 04:32 06/27/24 04:45 Temperature 98.5 F Temperature Source Oral Pulse Rate 114 H 112 H 107 H Respiratory Rate 21 H 26 H 24 H Respiratory Effort Respiratory Pattern Blood Pressure 119/61 119/61 Blood Pressure Mean 77 80 Pulse Ox 93 96 Oxygen Delivery Method Nasal Cannula Oxygen Flow Rate (L/min) 2 06/27/24 05:00 06/27/24 05:04 06/27/24 05:15 Temperature Temperature Source Pulse Rate 114 H 107 H Respiratory Rate 18 22 H Respiratory Effort Respiratory Pattern Blood Pressure 127/70 H Blood Pressure Mean 85 Pulse Ox 95 94 Oxygen Delivery Method Oxygen Flow Rate (L/min) 06/27/24 05:44 Temperature 98.3 F Temperature Source Pulse Rate 119 H Respiratory Rate 25 H Respiratory Effort Respiratory Pattern Blood Pressure 99/59 L Blood Pressure Mean 72 Pulse Ox 97 Oxygen Delivery Method Oxygen Flow Rate (L/min) Positive well nourished and well developed Constitutional Narrative: Appears ill but in no distress. Keenly alert. General Appearance ED: well developed and NAD HEENT Reports moist mucous membranes normocephalic and atraumatic Eyes PERRL and EOMs intact bilaterally Neck full ROM and supple Resp normal respiratory effort and clear to auscultation bilaterally Resp Narrative: Diminished, symmetric, otherwise clear Cardio regular rate, regular rhythm and no murmurs Rate: tachycardic GI non-tender and non-distended Auscultation: normoactive bowel sounds Palpation: soft; Negative for mass Back/Spine no CVA tenderness General Back: other FROM Extremity normal to inspection Extremity Narrative: Tender posterior left proximal thigh near the ischial tuberosity. No tenderness at the greater trochanter. With flexing at the thigh he has pain, posteriorly. Not necessarily in the groin. He states it feels deep. When I bring his knee back down and extend the thigh back down to neutral he has no pain with that maneuver. Internal/external rotation does create more pain. General Extremety ED: Yes tenderness; Negative for edema or pulses abnormal General Extremity: Negative for edema or pulses abnormal Neuro oriented x3, CN's II-XII intact bilaterally and no sensory deficits noted Sensorium / Orientation: awake and alert Motor Exam: strength 5/5 throughout Psych mental status grossly normal Skin no rashes or lesions noted and no wounds Sepsis Attestation Sepsis Alert: Yes Sepsis Attestation: Agree w/Sepsis Date exam was performed: 06/27/24 Time exam was performed: 04:18 Possible Source of Sepsis: Pulmonary, GI tract/intra-abdominal and Genitourinary Sepsis Organ Dysfunction Criteria Present: Creatinine > 2.0 mg/dL, Lactic Acid > 2 mmol/L and Serum CO2 < 20 mmol/L (on BMP) Fluid Resuscitation Fluid resuscitation indicated?: Yes Fluid Resuscitation ordered: 30 ml/kg fluid bolus ordered Sepsis Note Date exam was performed: 06/27/24 Time exam was performed: 05:30 Sepsis Attestation: Sepsis re-evaluation was performed (alert, cap refill 2-3 sec, MAP 71, no resp distress; developed no hypotension) MDM MDM MDM Narrative Medical decision making narrative: Patient is tachycardic, little tachypneic but his lungs are fairly clear he has an occasional dry cough here, does not appear to be in distress. Initially not hypoxic dropped his oxygen saturations down to 89% at which point the nurses put him on 2L cannula to keep him up into the 90s. He is not on home oxygen. Differential includes dehydration due to vomiting, electrolyte/metabolic disturbance and/or renal insufficiency/failure, sepsis, development of worsening pneumonia and/or pleural effusion, subendocardial ischemia from hypoxemia, or other infection such as urinary. Patient does not seem to be confused or encephalopathic. While obtaining workup give him a liter of IV fluids and some IV Zofran. He now appears to have leukopenia which he did not have before, acute renal insufficiency compared with labs yesterday, troponin is within normal limits, and a low bicarb. Given this I am more suspicious of sepsis because I suspect metabolic acidosis here. At this point I sent a lactate. That is pending. I reviewed his x-ray, 2 views on my interpretation I think appears to be a mild right lower lobe pneumonia, as my colleague who saw the patient yesterday interpreted the x-ray. Radiology both times interprets the x-ray as negative. His lactic acid returns at 5.0. Reviewing old labs, he did not have a lactate drawn yesterday, however his bicarb is normal at 24, suggesting that he did not have an acute metabolic acidosis. I did not have blood cultures drawn since there is a national shortage of blood culture bottles, and he already started antibiotics. However, RN already obtained one prior to starting any new antibiotics, so later I ordered it. I ordered 30 cc/kg IV fluid bolus total, he is already received 1 L. He is less tachycardic, he is still nauseated and will be treated with Reglan, his blood pressure is stable. I am waiting for COVID/influenza/RSV to return as well as urinalysis. If those do not show source of infection, further diagnostics may be indicated. Given his left hip pain, obtained three-view x-ray series of the left hip and pelvis, on my interpretation it is negative for acute fracture/bony abnormality. The viral swabs are negative in the urine appears to be infected. I discussed this with the patient and asked him if he had any urinary symptoms. He states he is making less of a stream of urine for the past 8 to 10 days, and states he was having a little bit, maybe, of dysuria for the past week or so. Given this I am administering IV Rocephin 1 g. He is getting the rest of his fluid bolus. Plan is for admission. Patient was mildly hypoxic without acute infectious etiology; he already had history of pulmonary emboli and he is anticoagulated on rivaroxaban, he has COPD which may be responsible for his borderline oxygen saturations on its own, so I do not think we need to perform emergent CTA looking for new PE. History & Record Review Additional record(s) reviewed:: Prior ED visit and Prior labs Lab Data Attestation: I reviewed the patient's lab results. Labs: Laboratory Results - last 24 hr 06/27/24 06/27/24 06/27/24 02:15 03:20 04:10 WBC 1.9 L RBC 3.75 L Hgb 11.3 L Hct 35.0 L MCV 93.3 MCH 30.1 MCHC 32.3 RDW Std Deviation 47.7 H RDW Coeff of Mendel 13.8 Plt Count 133 L MPV 11.6 Immature Gran % (Auto) 0.500 Neut % (Auto) 76.4 H Lymph % (Auto) 20.4 [place] % (Auto) 1.1 Eos % (Auto) 1.1 Baso % (Auto) 0.5 Absolute Neuts (auto) 1.4 L Absolute Lymphs (auto) 0.38 L Nucleated RBC % 0 Differential Comment SCANNED Diff Path Review May foll Sodium 139 Potassium 3.4 L Chloride 105 Carbon Dioxide 16.0 L Anion Gap 18 H BUN 19 H Creatinine 2.16 H Estim Creat Clear Calc 35.46 Est GFR (MDRD) Af Amer 39 L Est GFR (MDRD) Non-Af 32 L BUN/Creatinine Ratio 8.8 L Glucose 148 H Lactic Acid 5.0 H* Calcium 8.8 Troponin I High Sens 59 Urine Color Ronit Urine Clarity Sl. Cloudy Urine pH 5.0 Ur Specific [place] 1.020 Urine Protein 100 H Urine Glucose (UA) Normal Urine Ketones Negative Urine Occult Blood 250 H Urine Nitrite Negative Urine Bilirubin 1 H Urine Urobilinogen 4 H Ur Leukocyte Esterase 500 H Urine RBC 0-5 SEEN Urine WBC 10-25 SEEN Ur Squamous Epith Cells 0 SEEN Urine Bacteria 2+ Hyaline Casts 0 SEEN Urine Mucus 0 SEEN Radiography Diagnostic Testing: Clinical Impression(s) from Imaging Studies Chest X-Ray 06/27/24 03:00 IMPRESSION: No evidence of active intrathoracic disease. Electronically Signed: Jessika Tobias MD at 4:14 EDT , Hip/Pelvis X-Ray 06/27/24 05:00 IMPRESSION: No evidence of fracture. Electronically Signed: Jessika Tobias MD at 6:09 EDT , Rhythm Strip Rhythm Strip: Sinus Tach Rate: 120 Ectopy: None EKG Initial EKG: Attestation: I personally reviewed and interpreted this EKG as follows: Interpretation: No Acute Injury Pattern and Sinus Tachycardia Management Discussion w/another healthcare provider: Hospitalist Critical Care Time Critical Care Time: Yes Critical care time (excluding procedures): 30-74 minutes (33 min), Including time spent:, Discussing w/Patient &/or Family/Member Service Representative, Discussing w/Consultants, Arranging Admission or Transfer and Performing Direct Patient Care at Bedside Discharge Plan Dx/Rx/DC Orders Clinical Impression: Sepsis, FILIPPO (acute kidney injury), Acute UTI, Acute pain of left hip Disposition Disposition: [facility] Discharge Date/Time: 06/27/24 06:06
[2024-06-27 02:42] LABS: Absolute Lymphocyte Count 0.38 X10^3/uL (0.83-4.51); Absolute Neutrophil Count 1.4 X10^3/uL (2.0-7.7); Basophil# 0.01 X10^3/uL; Basophil% 0.5 % (0-1); Eosinophil# 0.02 X10^3/uL; Eosinophils% 1.1 % (0-5); Hemoglobin 11.3 g/dL (13.0-16.5); Lymphocyte # 0.38 X10^3/ul (0.83-4.51); Lymphocyte % 20.4 % (19-41); Mean Corp Hgb Conc 32.3 g/dL (32-36); Mean Corpuscular Hgb 30.1 pg (27.0-32.0); Mean Corpuscular Volume 93.3 fL (80-94); Mean Platelet Vol. 11.6 fl (6.2-12.0); Monocyte# 0.02 X10^3/uL; Monocyte% 1.1 % (0-10); NRBC Flagged by Analyzer 0 % (0-5); Neutrophil # 1.42 X10^3/uL (2.7-7.7); Neutrophil % 76.4 % (47-70); POSITIVE DIFFERENTIAL YES; Platelet Count 133 K/mm3 (150-450); RBC Distribution Width CV 13.8 % (11.6-14.6); RBC Distribution Width SD 47.7 fl (35.1-43.9); Red Blood Count 3.75 M/mm3 (4.6-6.2); White Blood Count 1.9 K/mm3 (4.4-11.0)
[2024-06-27] MEDS: 0.9% Normal Saline (1000mL) 1,000 ML 999 ML IV ×3 (02:43→06:02)
[2024-06-27 02:44] LABS: Differential Indicated SCAN CRITERIA MET
[2024-06-27] MEDS: Ondansetron 4 MG/2 ML Vial IV ×2 (02:44→07:48)
--- NOTE | 2024-06-27 03:00 | RAD_ITS ---
INDICATION: chest pain, cough, vomiting EXAMINATION/TECHNIQUE: X-RAY - XR Chest 2 Views COMPARISON: 06/25/2024 FINDINGS: LINES/DEVICES: None. LUNGS: No consolidation. No pneumothorax. MEDIASTINUM: Unremarkable. CARDIAC SILHOUETTE: Not enlarged. BONES AND SOFT TISSUES: No acute abnormalities. RAD/Chest PA and Lateral IMPRESSION: No evidence of active intrathoracic disease. Electronically Signed: Jessika Tobias MD at 4:14 EDT ,
[2024-06-27 03:02] LABS: Anion Gap 18 (5-15); BUN 19 mg/dL (7-18); BUN/Creat Ratio 8.8 RATIO (10-20); Calcium,Total 8.8 mg/dL (8.5-10.1); Chloride 105 mmol/L (98-107); Creatinine, Serum 2.16 mg/dL (0.70-1.30); EST Glomerular Filtration Rate 32 mL/min (>60); Est Glom Filt Rate - Afr Amer 39 mL/min (>60); Estimated Creatinine Clearance 35.46 ml/min; Glucose 148 mg/dL (74-106); Potassium 3.4 mmol/L (3.5-5.1); Sodium Level 139 mmol/L (136-145); Troponin-I HS 59 pg/mL (3.0-78.0)
[2024-06-27 03:28] LABS: Differential Comment SCANNED
[2024-06-27 04:23] LABS: Mucous, Urine 0 SEEN /hpf (<or=2+); Squamous Epithelial Cells - UA 0 SEEN /hpf (0-5)
[2024-06-27 04:24] LABS: Color, Urine Amber (Yellow); Glucose, Dipstick Normal (Normal); Ketone-Dipstick Negative (Negative); Leukocyte Esterase-Dipstick 500 /ul (Negative); Nitrite-Dipstick Negative (Negative); Occult Blood-Urine 250 /ul (Negative); Protein-Dipstick 100 mg/dl (Negative); Urine Clarity Sl. Cloudy (Clear); Urine Urobilinogen 4 mg/dl (Normal)
[2024-06-27 04:30] LABS: Urine Bilirubin Dipstick 1 mg/dL (Negative)
[2024-06-27] MEDS: Metoclopramide 10 MG/2 ML Vial 5 MG IV (04:32)
[2024-06-27] MEDS: Ceftriaxone 1 GM/50 ML BAG IV ×2 (04:45→07:44)
[2024-06-27 04:50] LABS: Bacteria 2+ /hpf (None Seen); Hyaline Cast 0 SEEN /lpf (0-5); Red Blood Cells-Urine 0-5 SEEN /hpf (0-5); White Blood Cells 10-25 SEEN /hpf (0-5)
--- NOTE | 2024-06-27 05:00 | RAD_ITS ---
INDICATION: pain EXAMINATION/TECHNIQUE: X-RAY - XR Hip Unilateral with Pelvis when performed; 2-3 Views COMPARISON: FINDINGS: No fracture demonstrated. Femoral heads are normal in contour. No dislocation at the hips. Mild degenerative changes at the hips, symmetric bilaterally. RAD/HIP, UNI W/ Pelvis 2-3 Views IMPRESSION: No evidence of fracture. Electronically Signed: Jessika Tobias MD at 6:09 EDT ,
--- NOTE | 2024-06-27 06:15 | CT_ITS ---
INDICATION: pneumonia. sepsis EXAMINATION: CT CHEST WITHOUT CONTRAST - CT Chest W/O Contrast Injection TECHNIQUE: Helically acquired images were obtained of the chest. The protocol utilizes one or more of the following dose reduction techniques: automated exposure control, adjustment of mA and/or kV according to patient size,and/or use of iterative reconstruction technique. IV Contrast dosage and agent: None. RADIATION DOSAGE (If Supplied By Facility): CTDIvol = ( 11.24 ) mGy, DLP = ( 474.82 ) mGycm COMPARISON: FINDINGS: LUNGS: Dependent atelectasis in the lower lobes. Reticular opacities in the right upper lobe and right middle lobe not definitely changed compared to prior likely scarring. No consolidation. LARGE AIRWAYS: Unremarkable. PLEURA: Minimal right pleural effusion. No pneumothorax. MEDIASTINUM: Unremarkable. HEART: Not enlarged. CORONARY ARTERIES: Coronary artery calcification is not seen. AORTA/VESSELS: No aortic aneurysm. ESOPHAGUS: Unremarkable. UPPER ABDOMEN: No acute findings. BONES/SOFT TISSUES: No acute abnormality. OTHER/LINES: None. CT/Chest without Contrast IMPRESSION: . Minimal right pleural effusion and dependent atelectasis. No consolidation. Electronically Signed: Jessika Tobias MD at 8:17 EDT ,
--- NOTE | 2024-06-27 06:26 | HP.PCM.HOS_ITS ---
HPI - General General Date of Admission: 06/27/24 Date of Service: 06/27/24 Chief Complaint: malaise HPI Narrative SANTI ALDANA, is a 73 M who presents with progressive malaise. This is a 73-year-old male with a history of paroxysmal atrial fibrillation and PE, who presented here on the first with general illness type symptoms. He had a chest x-ray that was read as normal but there was concern that this was a pneumonia as the patient was discharged with antibiotics. Patient was taking antibiotics but despite that just felt very weak and ill he was in his bathroom where he just felt very weak and then gradually lowered himself to the floor and called EMS. He stated that he did not fall but after getting into the ambulance he is having left hip pain. Patient has not been eating or drinking much during this time and has had, over the past week, some urinary frequency and low stream. The patient underwent a workup again and his chest x-ray again did not show anything acute and a urinalysis was concentrated but did show some white cells and some bacteria. Patient received ceftriaxone in the emergency room. Patient also received 30 cc/kg of IV fluid. Patient was never hypotensive, however. FOR[facility]LY [facility] Medical History Non-STEMI (non-ST elevated myocardial infarction) (09/19/21) PAF (paroxysmal atrial fibrillation) CKD (chronic kidney disease) stage 3, GFR 30-59 ml/min History of pilonidal cyst IBS (irritable bowel syndrome) Essential hypertension Asthma COPD (chronic obstructive pulmonary disease) Home Medications ?Medication ?Instructions ?Recorded ?Last Taken ?Type cholecalciferol (vitamin D3) 25 1,000 unit PO DAILY 04/01/19 09/19/21 History mcg (1,000 unit) tablet hydrocodone-acetaminophen 5-325mg 1 ea PO Q4H PRN pain 04/01/19 2 Days Ago History 5mg-325mg ~09/17/21 loratadine 10 mg tablet 10 mg PO DAILY allergies 04/01/19 09/19/21 History ascorbic acid (vitamin C) 1,000 mg 1,000 mg PO DAILY 08/29/20 09/19/21 History tablet,extended release fluticasone propionate 50 1 spray intranasal DAILY PRN 08/29/20 09/18/21 History mcg/actuation nasal ALLERGIES spray,suspension (Flonase Allergy Relief) diltiazem HCl 180 mg 180 mg PO DAILY 06/26/21 09/19/21 History capsule,extended release 24 hr ferrous sulfate 325 mg (65 mg 325 mg PO DAILY 06/26/21 09/19/21 History iron) tablet (FeroSul) hyoscyamine sulfate 0.125 mg 0.125 mg sublingual DAILY PRN 06/26/21 Unknown History sublingual tablet ESOPHOGEAL SPASMS losartan 100 mg tablet 100 mg PO DAILY #90 tabs 04/11/22 Unknown Rx rivaroxaban 20 mg tablet (Xarelto) 20 mg PO DAILY 05/11/22 Unknown History atorvastatin 10 mg tablet 10 mg PO DAILY 07/10/23 Unknown History amoxicillin 875 mg-potassium 875 mg PO Q12H #13 TABLETS 06/25/24 Unknown Rx clavulanate 125 mg tablet azithromycin 250 mg tablet 250 mg PO DAILY #4 TABLETS 06/25/24 Unknown Rx Allergy/AdvReac Type Severity Reaction Status Date / Time albuterol AdvReac palpitation Verified 06/27/24 02:26 s amitriptyline (From Elavil) AdvReac Other Verified 06/27/24 02:26 amoxapine AdvReac Other Verified 06/27/24 02:26 buspirone AdvReac Other Verified 06/27/24 02:26 duloxetine (From Cymbalta) AdvReac Other Verified 06/27/24 02:26 fluticasone (From Advair AdvReac Other Verified 06/27/24 02:26 Diskus) gabapentin AdvReac Other Verified 06/27/24 02:26 gemfibrozil AdvReac Other Verified 06/27/24 02:26 hydroxyzine AdvReac Other Verified 06/27/24 02:26 naproxen AdvReac Other Verified 06/27/24 02:26 nortriptyline AdvReac Other Verified 06/27/24 02:26 salmeterol (From Advair AdvReac Other Verified 06/27/24 02:26 Diskus) sertraline (From Zoloft) AdvReac Other Verified 06/27/24 02:26 tiotropium (From Spiriva AdvReac Other Verified 06/27/24 02:26 with HandiHaler) trazodone AdvReac Other Verified 06/27/24 02:26 zolpidem (From Ambien) AdvReac Other Verified 06/27/24 02:26 Family History Mother Colon cancer Alzheimer disease Father Cancer Prostate Grandfather Colon cancer Grandfather Myocardial infarction Surgical History History of bilateral cataract extraction History of shoulder surgery History of arthroscopy of right knee History of cholecystectomy Social History Smoking Status: Former smoker alcohol intake: current details: rare substance use type: does not use caffeine: No ROS ROS Narrative Has been having some nausea and vomiting. Denies any diarrhea, denies rash, no sore throat or rhinitis. All review of systems were negative except as mentioned above in the history of present illness and the other review of systems. Vital Signs Vital Signs Vital Signs: 06/27/24 02:22 06/27/24 02:25 06/27/24 02:25 Temperature 35.7 C L 35.7 C L Temperature Source Temporal Temporal Pulse Rate 127 H 127 H Respiratory Rate 26 H 26 H Respiratory Effort Short of Breath Respiratory Pattern Tachypnea Blood Pressure 129/65 H 129/65 H Blood Pressure Mean 86 86 Pulse Ox 92 93 Oxygen Delivery Method Room Air Room Air Oxygen Flow Rate (L/min) 06/27/24 02:29 06/27/24 02:43 06/27/24 02:45 Temperature Temperature Source Pulse Rate 115 H Respiratory Rate 26 H Respiratory Effort Short of Breath Respiratory Pattern Tachypnea Blood Pressure Blood Pressure Mean Pulse Ox 91 90 Oxygen Delivery Method Room Air Room Air Oxygen Flow Rate (L/min) 06/27/24 02:45 06/27/24 03:00 06/27/24 03:03 Temperature Temperature Source Pulse Rate 112 H 110 H Respiratory Rate 25 H 18 Respiratory Effort Respiratory Pattern Blood Pressure 140/67 H 142/67 H Blood Pressure Mean 87 87 Pulse Ox 91 Oxygen Delivery Method Oxygen Flow Rate (L/min) 06/27/24 03:13 06/27/24 03:15 06/27/24 03:16 Temperature Temperature Source Pulse Rate 107 H Respiratory Rate 20 H Respiratory Effort Respiratory Pattern Blood Pressure 135/67 H Blood Pressure Mean 84 Pulse Ox 89 90 95 Oxygen Delivery Method Room Air Nasal Cannula Oxygen Flow Rate (L/min) 2 06/27/24 03:25 06/27/24 03:30 06/27/24 03:45 Temperature 36.0 C L Temperature Source Temporal Pulse Rate 110 H 111 H 109 H Respiratory Rate 31 H 28 H 27 H Respiratory Effort Respiratory Pattern Blood Pressure 138/68 H 131/68 H 124/60 H Blood Pressure Mean 91 85 78 Pulse Ox 98 95 95 Oxygen Delivery Method Nasal Cannula Oxygen Flow Rate (L/min) 2 06/27/24 04:00 06/27/24 04:15 06/27/24 04:15 Temperature Temperature Source Pulse Rate 112 H 114 H Respiratory Rate 23 H 24 H Respiratory Effort Respiratory Pattern Blood Pressure 130/68 H 122/62 H 122/62 H Blood Pressure Mean 86 79 79 Pulse Ox 92 Oxygen Delivery Method Oxygen Flow Rate (L/min) 06/27/24 04:30 06/27/24 04:32 06/27/24 04:45 Temperature 36.9 C Temperature Source Oral Pulse Rate 114 H 112 H 107 H Respiratory Rate 21 H 26 H 24 H Respiratory Effort Respiratory Pattern Blood Pressure 119/61 119/61 Blood Pressure Mean 77 80 Pulse Ox 93 96 Oxygen Delivery Method Nasal Cannula Oxygen Flow Rate (L/min) 2 06/27/24 05:00 06/27/24 05:04 06/27/24 05:15 Temperature Temperature Source Pulse Rate 114 H 107 H Respiratory Rate 18 22 H Respiratory Effort Respiratory Pattern Blood Pressure 127/70 H Blood Pressure Mean 85 Pulse Ox 95 94 Oxygen Delivery Method Oxygen Flow Rate (L/min) 06/27/24 05:44 06/27/24 06:01 Temperature 36.8 C 36.8 C Temperature Source Oral Pulse Rate 119 H 118 H Respiratory Rate 25 H 25 H Respiratory Effort Respiratory Pattern Blood Pressure 99/59 L 130/70 H Blood Pressure Mean 72 90 Pulse Ox 97 95 Oxygen Delivery Method Room Air Oxygen Flow Rate (L/min) Weight Weight: 81.1 kg Body Mass Index (BMI) 22.9 Physical Exam Narrative - Physical Exam General: Alert, Oriented x3, Cooperative HEENT: Atraumatic, PERRLA, EOMI, Normocephalic Oral: Moist Mucosa, No Gingival or Mucosal Lesions/ Ulcerations Neck: Supple, No JVD, Negative Carotid Bruits Lungs: Clear to auscultation, Normal air movement Cardiovascular: Regular rate, Normal S1, Normal S2, No murmurs Abdomen: Bowel Sounds Present, Soft, Non Tender, Non-Distended, No Hepato- splenomegaly Extremities: No clubbing, No cyanosis, No edema, Capillary Refill Less than 3 Seconds Skin: No rashes, No breakdown Musculoskeletal: Patient had some tenderness just below his left hip and had some left lower paraspinal muscle tenderness. Neurological: Neuro grossly intact Psych/Mental Status: Normal Affect, Appropriate Results Lab / Micro Data Attestation: I reviewed the patient's lab results. 06/27/24 02:15 06/27/24 02:15 Labs: Laboratory Results - last 24 hr 06/27/24 02:15: WBC 1.9 L, RBC 3.75 L, Hgb 11.3 L, Hct 35.0 L, MCV 93.3, MCH 30.1, MCHC 32.3, RDW Std Deviation 47.7 H, RDW Coeff of Mendel 13.8, Plt Count 133 L, MPV 11.6, Immature Gran % (Auto) 0.500, Neut % (Auto) 76.4 H, Lymph % (Auto) 20.4, [place] % (Auto) 1.1, Eos % (Auto) 1.1, Baso % (Auto) 0.5, Absolute Neuts (auto) 1.4 L, Absolute Lymphs (auto) 0.38 L, Nucleated RBC % 0, Differential Comment SCANNED, Diff Path Review March, Sodium 139, Potassium 3.4 L, Chloride 105, Carbon Dioxide 16.0 L, Anion Gap 18 H, BUN 19 H, Creatinine 2.16 H , Estim Creat Clear Calc 35.46, Est GFR (MDRD) Af Amer 39 L, Est GFR (MDRD) Non- Af 32 L, BUN/Creatinine Ratio 8.8 L, Glucose 148 H, Calcium 8.8, Troponin I High Sens 59 06/27/24 03:20: Lactic Acid 5.0 H* 06/27/24 04:10: Urine Color Ronit, Urine Clarity Sl. Cloudy, Urine pH 5.0, Ur Specific [place] 1.020, Urine Protein 100 H, Urine Glucose (UA) Normal, Urine Ketones Negative, Urine Occult Blood 250 H, Urine Nitrite Negative, Urine Bilirubin 1 H, Urine Urobilinogen 4 H, Ur Leukocyte Esterase 500 H, Urine RBC 0- 5 SEEN, Urine WBC 10-25 SEEN, Ur Squamous Epith Cells 0 SEEN, Urine Bacteria 2+, Hyaline Casts 0 SEEN, Urine Mucus 0 SEEN Micro: Microbiology 06/27/24 03:30 Mucosa - Nose SARS-CoV-2, Influenza & RSV (PCR) - Final Rhythm Strip Rhythm Strip: Sinus Tach Rate: 120 Ectopy: None Imaging Radiology Impression Chest X-Ray 06/27/24 03:00 IMPRESSION: No evidence of active intrathoracic disease. Electronically Signed: Jessika Tobias MD at 4:14 EDT , Hip/Pelvis X-Ray 06/27/24 05:00 IMPRESSION: No evidence of fracture. Electronically Signed: Jessika Tobias MD at 6:09 EDT , Assessment & Plan Assessment/Plan (1) Sepsis: PLAN: Present on admission. qSOFA score of 2 for systolic blood pressure less than 100 and respiratory rate greater than 22. Additionally patient had endorgan damage with severe lactic acidosis of 5 and FILIPPO and leukopenia with a white count of 1.9 (his white count on the first was 12.8) may be a urinary source though the urinalysis was not completely convincing. Patient did have some upper respiratory symptoms with a cough so we will check a CT to better evaluate that. In the meantime, continue with antibiotics with ceftriaxone and azithromycin. Follow-up cultures. Check urinary antigens Streptococcus Legionella, check sputum culture. Patient was evaluated after his 30 cc/kg bolus of IV fluids and his blood pressure is 130/70. Admitted the patient to the intensive care unit for just closer monitoring. If the patient remains well for the next several hours his status could be de-escalated. No need for pressor agents at present. (2) FILIPPO (acute kidney injury): PLAN: Likely a combination of sepsis and likely decreased oral intake. IV fluids and monitor. (3) Acute UTI: PLAN: Suspected though the urine was concentrated Follow-up cultures Continue with ceftriaxone (4) Acute pain of left hip: PLAN: No fracture on x-ray. Patient did not have this before he lowered himself to the ground and EMS arrival. Therefore I do not feel that this is septic arthritis. This is more likely a musculoskeletal strain likely from getting moved onto the cot from EMS. Pain control with acetaminophen, oxycodone and Lidoderm patch. Additionally has some left lower paraspinal muscle tenderness. PLAN: Plan Chronic conditions * Paroxysmal atrial fibrillation: Patient is anticoagulated on rivaroxaban. Patient takes diltiazem. That will be continued but with hold parameters in place. * Hypertension: Holding off on losartan given his sepsis and FILIPPO for now. * History of pulmonary emboli. Continue with rivaroxaban. VTE prophylaxis: Not indicated as he is already anticoagulated CODE STATUS: Addressed with the patient. He wishes to be full code. Sepsis Attestation Sepsis Alert: Yes Sepsis Attestation: Agree w/Sepsis Date exam was performed: 06/27/24 Time exam was performed: 06:36 Possible Source of Sepsis: Pulmonary and Genitourinary Sepsis Organ Dysfunction Criteria Present: Creatinine > 2.0 mg/dL and Lactic Acid > 2 mmol/L Fluid Resuscitation Fluid resuscitation indicated?: Yes Fluid Resuscitation ordered: 30 ml/kg fluid bolus ordered Amount of fluid ordered: 2,000 Sepsis Note Date exam was performed: 06/27/24 Time exam was performed: 06:37 Sepsis Attestation: Sepsis re-evaluation was performed Response to fluids: Fluid responsive hypotension Charges/Coding Visit Charges Inpatient E&M: 98879 Init Hosp L3
[2024-06-27 07:25] LABS: Lactic Acid 3.9 mmol/L (0.4-1.9)
[2024-06-27 07:38] LABS: Reflex Lactate? Y
[2024-06-27] MEDS: 0.9% Normal Saline (1000mL) 1,000 ML 150 ML IV ×3 (07:42→21:20)
[2024-06-27] MEDS: Azithromycin 500 MG in Dextrose 5%-Water (250mL Bag) 250 ML 250 MG IV (08:27)
[2024-06-27] MEDS: Rivaroxaban 20 MG Tablet PO (10:50)
[2024-06-27 10:59] LABS: Reflex Lactate? Y
--- NOTE | 2024-06-27 12:00 | CASEMGMT ---
RN CM Face to Face with patient for initial transition planning/care coordination assessment. RN CM introduced self and role at [facility]. Patient lying in bed, alert and oriented. Patient willing to participate in assessment and is able to answer all questions appropriately. Care providers, pharmacy, and demographics verified. Lace: 9 Strata: 2 PCP: Compa Specialists: SHELLY, arts and crafts instructor Preferred Pharmacy: [facility] Insurance: [facility], MMO Prescription Benefit: yes Living Will/HPOA: yes, Jacqui Duff LNOK: Living Arrangements: Patient lives with in a single story home with no steps to enter. Patient states he is independent at home. Transportation: self, DME/HHC: Patient has grab bars at home. No previous HHC or SNF Patient wishes to discharge home, denies need for home health at this time. Patient states he has no further needs or concerns at this time. CM to follow for discharge planning needs that may arise. Disposition Plan: Patient to discharge home with family support and follow-up plans in place. Flavia FOSTER, RN, CM
--- NOTE | 2024-06-27 14:00 | SEPSISATNOTE ---
Sepsis Attestation Sepsis Alert: Yes Sepsis Attestation: Agree w/Sepsis Date exam was performed: 06/27/24 Time exam was performed: 09:30 Possible Source of Sepsis: Genitourinary Sepsis Organ Dysfunction Criteria Present: Creatinine > 2.0 mg/dL and Lactic Acid > 2 mmol/L Fluid Resuscitation Fluid resuscitation indicated?: Yes Fluid Resuscitation ordered: 30 ml/kg fluid bolus ordered Sepsis Note Date exam was performed: 06/27/24 Time exam was performed: 09:30 Response to fluids: Non Fluid responsive hypotension
--- NOTE | 2024-06-27 14:03 | PCM.PROGNOTE ---
Subjective Subjective Patient seen and examined. He had no active complaints. He denied any fever, chills, cough, chest pain, palpitations, dizziness and review of systems is otherwise negative. Objective Data Objective Data Vital Signs: Vital Signs Temp Pulse Resp BP Pulse Ox O2 Del Method O2 Flow Rate 99.5 F H 96 18 95/62 94 Nasal Cannula 2 06/27/24 07:00 06/27/24 11:00 06/27/24 11:00 06/27/24 11:00 06/27/24 11:00 06/27/24 11:00 06/27/24 11:00 Oxygen Flow Rate (L/min) 2 Oxygen Delivery Method Nasal Cannula Weight: 180 lb 12.465 oz Body Mass Index (BMI) 23.2 Intake & Output: Intake and Output for Last 24 Hours 06/25/24 06/26/24 06/27/24 23:59 23:59 23:59 Intake Total 2855.0 / 2855.0 Output Total 450 / 450 Balance 2405.0 / 2405.0 Lab / Micro Data 06/27/24 02:15 06/27/24 02:15 Labs: Laboratory Results - last 24 hr 06/27/24 02:15: WBC 1.9 L, RBC 3.75 L, Hgb 11.3 L, Hct 35.0 L, MCV 93.3, MCH 30.1, MCHC 32.3, RDW Std Deviation 47.7 H, RDW Coeff of Mendel 13.8, Plt Count 133 L, MPV 11.6, Immature Gran % (Auto) 0.500, Neut % (Auto) 76.4 H, Lymph % (Auto) 20.4, [place] % (Auto) 1.1, Eos % (Auto) 1.1, Baso % (Auto) 0.5, Absolute Neuts (auto) 1.4 L, Absolute Lymphs (auto) 0.38 L, Nucleated RBC % 0, Differential Comment SCANNED, Diff Path Review March, Sodium 139, Potassium 3.4 L, Chloride 105, Carbon Dioxide 16.0 L, Anion Gap 18 H, BUN 19 H, Creatinine 2.16 H, Estim Creat Clear Calc 35.46, Est GFR (MDRD) Af Amer 39 L, Est GFR (MDRD) Non-Af 32 L, BUN/Creatinine Ratio 8.8 L, Glucose 148 H, Calcium 8.8, Troponin I High Sens 59 06/27/24 03:20: Lactic Acid 5.0 H* 06/27/24 04:10: Urine Color Ronit, Urine Clarity Sl. Cloudy, Urine pH 5.0, Ur Specific [place] 1.020, Urine Protein 100 H, Urine Glucose (UA) Normal, Urine Ketones Negative, Urine Occult Blood 250 H, Urine Nitrite Negative, Urine Bilirubin 1 H, Urine Urobilinogen 4 H, Ur Leukocyte Esterase 500 H, Urine RBC 0-5 SEEN, Urine WBC 10-25 SEEN, Ur Squamous Epith Cells 0 SEEN, Urine Bacteria 2+, Hyaline Casts 0 SEEN, Urine Mucus 0 SEEN 06/27/24 06:50: Lactic Acid 3.9 H* Micro: Microbiology 06/27/24 07:00 Urine, Clean Catch Legionella Antigen - Final 06/27/24 07:00 Urine, Clean Catch Streptococcus pneumoniae Antigen (M - Final 06/27/24 03:30 Mucosa - Nose SARS-CoV-2, Influenza & RSV (PCR) - Final Radiography Diagnostic Testing: Radiology Impression Chest X-Ray 06/27/24 03:00 IMPRESSION: No evidence of active intrathoracic disease. Electronically Signed: Jessika Tobias MD at 4:14 EDT Reading Location ID and State: [facility] / [place] Tel , Service support , Hip/Pelvis X-Ray 06/27/24 05:00 IMPRESSION: No evidence of fracture. Electronically Signed: Jessika Tobias MD at 6:09 EDT Reading Location ID and State: [facility] / [place] Tel , Service support , Chest CT 06/27/24 06:15 IMPRESSION: . Minimal right pleural effusion and dependent atelectasis. No consolidation. Electronically Signed: Jessika Tobias MD at 8:17 EDT Reading Location ID and State: [facility] / [place] Tel , Service support , Rhythm Strip Rhythm Strip: Sinus Tach Rate: 120 Ectopy: None Physical Exam Const alert, oriented x3 and no apparent distress General Appearance: cooperative and well developed HEENT normocephalic, head/scalp atraumatic, moist oral mucous membranes and oropharynx normal Eyes PERRL and EOMs intact bilaterally Neck no lymphadenopathy, supple and no JVD Lymph Lymphatic: no lymphadenopathy noted and no lymphedema noted Resp Resp Narrative: diminished breath sounds bibasally, no wheezes or crackles. On room air. Cardio regular rate, regular rhythm, S1 normal heart sound, S2 normal heart sound and no murmurs GI normal to inspection, nondistended, normoactive bowel sounds, soft to palpation, non-tender and non-distended Extremity normal capillary refill, no clubbing, cyanosis or edema and no calf tenderness General Extremity: no tenderness to palpation of joints or extremities Skin General Skin Exam: no breakdown Neuro CN's II-XII intact bilaterally, no focal motor deficits and no sensory deficits noted Motor Exam: strength 5/5 throughout and general weakness Psych thought process normal, cooperative and affect normal Appearance: appropriate Assessment & Plan Assessment/Plan (1) Acute UTI: (2) Sepsis: (3) FILIPPO (acute kidney injury): PLAN: Plan #Septic shock due to probable UTI Patient was hypotensive on admission and also had severe lactic acidosis and FILIPPO as well as leukopenia. Patient did admit to some urinary symptoms and said he had had burning with urination. He denied any shortness of breath. Urinalysis does show 2+ bacteria. Was started on IV ceftriaxone and azithromycin. Blood cultures sputum cultures and urine for strep and Legionella are pending. Chest x-ray showed minimal right pleural effusion and dependent atelectasis but no consolidation. Blood pressure initially responded to fluids but patient is hypotensive again. Currently on normal saline at 150 cc/h. If patient remains hypotensive will initiate on vasopressors. Consult critical care In light of no evidence of pneumonia will DC azithromycin. Broaden antibiotics to IV Zosyn in light of patient's persistent hypotension. #FILIPPO: Likely prerenal due to septic shock. Will hydrate with fluids and monitor. #UTI: Patient admits to frequency and dysuria. Currently on IV ceftriaxone. Urine cultures ordered. #Left hip pain: Patient states this is new onset. X-ray showed no evidence of any fracture. This may be musculoskeletal. PT OT on board. #History of paroxysmal A-fib: Currently on Xarelto at [facility]. Will hold Cardizem due to hypotension. #Hypertension: On losartan which is held due to sepsis and FILIPPO. 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 CODE STATUS: Full code Charges/Coding Visit Charges Inpatient E&M: 44772 Subs Hosp L3
[2024-06-27] MEDS: Piperacil/Tazobactam 3.375 GM in 0.9% Normal Saline (50mL MB+) 50 ML IV ×2 (15:10→21:11)
--- NOTE | 2024-06-27 17:46 | CON.PCM.CC_ITS ---
HPI Consult Data Date of Consult: 06/27/24 HPI Narrative HPI Narrative: SANTI ALDANA, is a 73 M who presents [facility] Medical History Non-STEMI (non-ST elevated myocardial infarction) (09/19/21) PAF (paroxysmal atrial fibrillation) CKD (chronic kidney disease) stage 3, GFR 30-59 ml/min History of pilonidal cyst IBS (irritable bowel syndrome) Essential hypertension Asthma COPD (chronic obstructive pulmonary disease) Home Medications ?Medication ?Instructions ?Recorded ?Last Taken ?Type cholecalciferol (vitamin D3) 25 1,000 unit PO DAILY 04/01/19 09/19/21 History mcg (1,000 unit) tablet hydrocodone-acetaminophen 5-325mg 1 ea PO Q4H PRN pain 04/01/19 2 Days Ago History 5mg-325mg ~09/17/21 loratadine 10 mg tablet 10 mg PO DAILY allergies 04/01/19 09/19/21 History ascorbic acid (vitamin C) 1,000 mg 1,000 mg PO DAILY 08/29/20 09/19/21 History tablet,extended release fluticasone propionate 50 1 spray intranasal DAILY PRN 08/29/20 09/18/21 History mcg/actuation nasal ALLERGIES spray,suspension (Flonase Allergy Relief) diltiazem HCl 180 mg 180 mg PO DAILY 06/26/21 09/19/21 History capsule,extended release 24 hr ferrous sulfate 325 mg (65 mg 325 mg PO DAILY 06/26/21 09/19/21 History iron) tablet (FeroSul) hyoscyamine sulfate 0.125 mg 0.125 mg sublingual DAILY PRN 06/26/21 Unknown History sublingual tablet ESOPHOGEAL SPASMS losartan 100 mg tablet 100 mg PO DAILY #90 tabs 04/11/22 Unknown Rx rivaroxaban 20 mg tablet (Xarelto) 20 mg PO DAILY 05/11/22 Unknown History atorvastatin 10 mg tablet 10 mg PO DAILY 07/10/23 Unknown History amoxicillin 875 mg-potassium 875 mg PO Q12H #13 TABLETS 06/25/24 Unknown Rx clavulanate 125 mg tablet azithromycin 250 mg tablet 250 mg PO DAILY #4 TABLETS 06/25/24 Unknown Rx Allergy/AdvReac Type Severity Reaction Status Date / Time albuterol AdvReac palpitation Verified 06/27/24 02:26 s amitriptyline (From Elavil) AdvReac Other Verified 06/27/24 02:26 amoxapine AdvReac Other Verified 06/27/24 02:26 buspirone AdvReac Other Verified 06/27/24 02:26 duloxetine (From Cymbalta) AdvReac Other Verified 06/27/24 02:26 fluticasone (From Advair AdvReac Other Verified 06/27/24 02:26 Diskus) gabapentin AdvReac Other Verified 06/27/24 02:26 gemfibrozil AdvReac Other Verified 06/27/24 02:26 hydroxyzine AdvReac Other Verified 06/27/24 02:26 naproxen AdvReac Other Verified 06/27/24 02:26 nortriptyline AdvReac Other Verified 06/27/24 02:26 salmeterol (From Advair AdvReac Other Verified 06/27/24 02:26 Diskus) sertraline (From Zoloft) AdvReac Other Verified 06/27/24 02:26 tiotropium (From Spiriva AdvReac Other Verified 06/27/24 02:26 with HandiHaler) trazodone AdvReac Other Verified 06/27/24 02:26 zolpidem (From Ambien) AdvReac Other Verified 06/27/24 02:26 Family History Mother Colon cancer Alzheimer disease Father Cancer Prostate Grandfather Colon cancer Grandfather Myocardial infarction Surgical History History of bilateral cataract extraction History of shoulder surgery History of arthroscopy of right knee History of cholecystectomy Social History Smoking Status: Former smoker alcohol intake: current details: rare substance use type: does not use caffeine: No Objective Data Objective Data Vital Signs: Vital Signs Last response 3 Temperature 36.9 C 06/27/24 12:00 Temperature Source Temporal 06/27/24 12:00 Pulse Rate 84 06/27/24 17:00 Respiratory Rate 18 06/27/24 17:00 Respiratory Effort Non-Labored 06/27/24 16:59 Respiratory Depth Normal 06/27/24 16:59 Respiratory Pattern Normal 06/27/24 16:59 Blood Pressure 93/64 06/27/24 17:00 Blood Pressure Mean 73 06/27/24 17:00 Blood Pressure Source Monitor 06/27/24 17:00 Blood Pressure Position Semi-Fowlers 06/27/24 17:00 Blood Pressure Location Left Arm 06/27/24 17:00 Pulse Ox 96 06/27/24 17:00 Oxygen Delivery Method Nasal Cannula 06/27/24 17:00 Oxygen Flow Rate (L/min) 2 06/27/24 17:00 I&O: I&O Last 24 Hours 3 06/26/24 06/27/24 06/27/24 23:59 11:59 23:59 Intake Total 2855.0 / 3855.0 1000 / 3855.0 Output Total 450 / 625 175 / 625 Balance 2405.0 / 3230.0 825 / 3230.0 I&O: Total Stay 3 06/27/24 02:21 thru 06/27/24 16:58 Intake Total 3855.0 Output Total 625 Balance 3230.0 Current Meds Ordered / Administered: Current meds ordered / Administered 3 Generic Name Dose Route Start Last Admin Trade Name Khadarq PRN Reason Stop Dose Admin Acetaminophen 1,000 mg 06/27/24 14:00 06/27/24 15:01 Acetaminophen 500 Mg Tablet PO Not Given Q8 [facility] Ascorbic Acid 1,000 mg 06/27/24 10:00 06/27/24 09:14 Ascorbic Acid 500 Mg Tablet PO Not Given DAILY [facility] Atorvastatin Calcium 10 mg 06/27/24 22:00 Atorvastatin Calcium 10 Mg Tablet PO 2200 [facility] Cholecalciferol 25 mcg 06/27/24 10:00 06/27/24 09:14 Cholecalciferol (Vit D3) 25 Mcg Tablet (1,000 Units) PO Not Given DAILY [facility] Diltiazem HCl 180 mg 06/27/24 10:00 06/27/24 09:13 Diltiazem Cd 180 Mg Capsule PO Not Given DAILY [facility] Protocol Ferrous Sulfate 325 mg 06/27/24 08:00 06/27/24 09:12 Ferrous Sulfate 325 Mg [facility] Fluticasone Propionate 1 spray 06/27/24 06:40 Fluticasone 0.05% 1 [place] Nasal.Sry NASAL DAILY PRN ALLERGIES Hyoscyamine Sulfate 0.125 mg 06/27/24 06:40 Hyoscyamine Sulfate 0.125 Mg Tablet SL/PO DAILY PRN PRN ESOPHOGEAL SPASMS Sodium Chloride 1,000 mls @ 150 mls/hr 06/27/24 06:40 06/27/24 14:45 IV 150 mls/hr .Q6H40M EZ Administration Piperacillin Sod/Tazobactam 50 mls @ 12.5 mls/hr 06/27/24 14:15 06/27/24 15:10 Sod 3.375 gm/ Sodium Chloride IV 12.5 mls/hr Q8 EZ Administration Norepinephrine Bitartrate 8 mg 250 mls @ 9.375 mls/hr 06/27/24 15:00 06/27/24 17:07 / Sodium Chloride CONT INF Not Given .[id number] [facility] Protocol 5 MCG/MIN Lidocaine 1 patch 06/27/24 10:00 06/27/24 10:58 Lidocaine 5% Patch TOPICAL Not Given DAILY [facility] Protocol Loratadine 10 mg 06/27/24 10:00 06/27/24 09:13 Loratadine 10 Mg Tablet PO Not Given DAILY [facility] Morphine Sulfate 2 - 4 mg 06/27/24 06:40 Morphine 2 Mg/Ml Syringe IV Q3H PRN PRN Pain Score 6-10 Morphine Sulfate 2 - 4 mg 06/27/24 06:48 Morphine 4 Mg/Ml Syringe IV Q3H PRN PRN Pain Score 6-10 Ondansetron HCl 4 mg 06/27/24 06:40 06/27/24 07:48 Ondansetron 4 Mg/2 Ml Vial IV 4 mg Q8H PRN PRN Administration NAUSEA/VOMITING Oxycodone HCl 5 mg 06/27/24 06:40 Oxycodone 5 Mg Tablet PO Q4H PRN PRN Pain Score 4-10 Prochlorperazine Edisylate 5 mg 06/27/24 06:40 Prochlorperazine 10 Mg/2 Ml Vial IV Q4H PRN PRN Breakthrough Nausea/Vomiting Rivaroxaban 20 mg 06/28/24 08:00 Rivaroxaban 20 Mg Tablet PO DAILYCM [facility] Sodium Chloride 10 - 40 ml 06/27/24 06:51 0.9% Saline Lock 10 Ml Syringe IV UD PRN SALINE FLUSH Lab / Micro Data 06/27/24 02:15 06/27/24 02:15 Labs: Laboratory Results - last 24 hr 06/27/24 02:15: WBC 1.9 L, RBC 3.75 L, Hgb 11.3 L, Hct 35.0 L, MCV 93.3, MCH 30.1, MCHC 32.3, RDW Std Deviation 47.7 H, RDW Coeff of Mendel 13.8, Plt Count 133 L, MPV 11.6, Immature Gran % (Auto) 0.500, Neut % (Auto) 76.4 H, Lymph % (Auto) 20.4, [place] % (Auto) 1.1, Eos % (Auto) 1.1, Baso % (Auto) 0.5, Absolute Neuts (auto) 1.4 L, Absolute Lymphs (auto) 0.38 L, Nucleated RBC % 0, Differential Comment SCANNED, Diff Path Review March, Sodium 139, Potassium 3.4 L, Chloride 105, Carbon Dioxide 16.0 L, Anion Gap 18 H, BUN 19 H, Creatinine 2.16 H , Estim Creat Clear Calc 35.46, Est GFR (MDRD) Af Amer 39 L, Est GFR (MDRD) Non- Af 32 L, BUN/Creatinine Ratio 8.8 L, Glucose 148 H, Calcium 8.8, Troponin I High Sens 59 06/27/24 03:20: Lactic Acid 5.0 H* 06/27/24 04:10: Urine Color Ronit, Urine Clarity Sl. Cloudy, Urine pH 5.0, Ur Specific [place] 1.020, Urine Protein 100 H, Urine Glucose (UA) Normal, Urine Ketones Negative, Urine Occult Blood 250 H, Urine Nitrite Negative, Urine Bilirubin 1 H, Urine Urobilinogen 4 H, Ur Leukocyte Esterase 500 H, Urine RBC 0- 5 SEEN, Urine WBC 10-25 SEEN, Ur Squamous Epith Cells 0 SEEN, Urine Bacteria 2+, Hyaline Casts 0 SEEN, Urine Mucus 0 SEEN 06/27/24 06:50: Lactic Acid 3.9 H* Micro: Microbiology 06/27/24 07:00 Urine, Clean Catch Legionella Antigen - Final 06/27/24 07:00 Urine, Clean Catch Streptococcus pneumoniae Antigen (M - Final 06/27/24 03:30 Mucosa - Nose SARS-CoV-2, Influenza & RSV (PCR) - Final Rhythm Strip Rhythm Strip: Sinus Tach Rate: 120 Ectopy: None Imaging Radiology Impression Chest X-Ray 06/27/24 03:00 IMPRESSION: No evidence of active intrathoracic disease. Electronically Signed: Jessika Tobias MD at 4:14 EDT , Hip/Pelvis X-Ray 06/27/24 05:00 IMPRESSION: No evidence of fracture. Electronically Signed: Jessika Tobias MD at 6:09 EDT , Chest CT 06/27/24 06:15 IMPRESSION: . Minimal right pleural effusion and dependent atelectasis. No consolidation. Electronically Signed: Jessika Tobias MD at 8:17 EDT , Assessment and Plan . Assessment and plan: 73 yo chronically ill man admitted 06/27/24 w/ generalized weakness, subjected fever, suspected sepsis syndrome. PMH of chronic PAF, ASCVD, CKD, h/o VTED, former tobacco use and suspected COPD. Noted tachycardia in the ED, marginal BP. He required 2 LPM O2. Chest imaging unremarkable. UA - modest pyuria. Other lab significant for leukopenia, modest lactic acidosis, elevated creatinine. He has received IVF and IV ABX. Currently in the ICU. NS infusing. HD stable - no vasopressors required. He feels better - NAD and does not appear ill/toxic. EXAM GEN NAD VS as above HEENT MM dry NECK supple COR RRR CHEST CTA ABD soft, NT EXT no edema SKIN w/d MICHAEL NF A/P 1. Suspected sepsis syndrome 2. Hypovolemia 3. Pyuria 4. CKD 5. Mild lactic acidosis 6. H/O VTED and chronic A/C 7. ASCVD, PAF, possible COPD 8. Leukopenia -volume expansion -empiric ABX -f/u CX -DOAC -CBC, CMP am -follow lactate Critical Care Time: 60 min The entirety of this encounter was done via Telemedicine
--- NOTE | 2024-06-27 18:20 | CON.PCM.CC_ITS ---
HPI Consult Data Date of Consult: 06/27/24 HPI Narrative HPI Narrative: SANTI ALDANA, is a 73 M who presents [facility] Medical History Non-STEMI (non-ST elevated myocardial infarction) (09/19/21) PAF (paroxysmal atrial fibrillation) CKD (chronic kidney disease) stage 3, GFR 30-59 ml/min History of pilonidal cyst IBS (irritable bowel syndrome) Essential hypertension Asthma COPD (chronic obstructive pulmonary disease) Home Medications ?Medication ?Instructions ?Recorded ?Last Taken ?Type cholecalciferol (vitamin D3) 25 1,000 unit PO DAILY 04/01/19 09/19/21 History mcg (1,000 unit) tablet hydrocodone-acetaminophen 5-325mg 1 ea PO Q4H PRN pain 04/01/19 2 Days Ago History 5mg-325mg ~09/17/21 loratadine 10 mg tablet 10 mg PO DAILY allergies 04/01/19 09/19/21 History ascorbic acid (vitamin C) 1,000 mg 1,000 mg PO DAILY 08/29/20 09/19/21 History tablet,extended release fluticasone propionate 50 1 spray intranasal DAILY PRN 08/29/20 09/18/21 History mcg/actuation nasal ALLERGIES spray,suspension (Flonase Allergy Relief) diltiazem HCl 180 mg 180 mg PO DAILY 06/26/21 09/19/21 History capsule,extended release 24 hr ferrous sulfate 325 mg (65 mg 325 mg PO DAILY 06/26/21 09/19/21 History iron) tablet (FeroSul) hyoscyamine sulfate 0.125 mg 0.125 mg sublingual DAILY PRN 06/26/21 Unknown History sublingual tablet ESOPHOGEAL SPASMS losartan 100 mg tablet 100 mg PO DAILY #90 tabs 04/11/22 Unknown Rx rivaroxaban 20 mg tablet (Xarelto) 20 mg PO DAILY 05/11/22 Unknown History atorvastatin 10 mg tablet 10 mg PO DAILY 07/10/23 Unknown History amoxicillin 875 mg-potassium 875 mg PO Q12H #13 TABLETS 06/25/24 Unknown Rx clavulanate 125 mg tablet azithromycin 250 mg tablet 250 mg PO DAILY #4 TABLETS 06/25/24 Unknown Rx Allergy/AdvReac Type Severity Reaction Status Date / Time albuterol AdvReac palpitation Verified 06/27/24 02:26 s amitriptyline (From Elavil) AdvReac Other Verified 06/27/24 02:26 amoxapine AdvReac Other Verified 06/27/24 02:26 buspirone AdvReac Other Verified 06/27/24 02:26 duloxetine (From Cymbalta) AdvReac Other Verified 06/27/24 02:26 fluticasone (From Advair AdvReac Other Verified 06/27/24 02:26 Diskus) gabapentin AdvReac Other Verified 06/27/24 02:26 gemfibrozil AdvReac Other Verified 06/27/24 02:26 hydroxyzine AdvReac Other Verified 06/27/24 02:26 naproxen AdvReac Other Verified 06/27/24 02:26 nortriptyline AdvReac Other Verified 06/27/24 02:26 salmeterol (From Advair AdvReac Other Verified 06/27/24 02:26 Diskus) sertraline (From Zoloft) AdvReac Other Verified 06/27/24 02:26 tiotropium (From Spiriva AdvReac Other Verified 06/27/24 02:26 with HandiHaler) trazodone AdvReac Other Verified 06/27/24 02:26 zolpidem (From Ambien) AdvReac Other Verified 06/27/24 02:26 Family History Mother Colon cancer Alzheimer disease Father Cancer Prostate Grandfather Colon cancer Grandfather Myocardial infarction Surgical History History of bilateral cataract extraction History of shoulder surgery History of arthroscopy of right knee History of cholecystectomy Social History Smoking Status: Former smoker alcohol intake: current details: rare substance use type: does not use caffeine: No Objective Data Objective Data Vital Signs: Vital Signs Last response 3 Temperature 36.9 C 06/27/24 12:00 Temperature Source Temporal 06/27/24 12:00 Pulse Rate 85 06/27/24 18:00 Respiratory Rate 16 06/27/24 18:00 Respiratory Effort Non-Labored 06/27/24 16:59 Respiratory Depth Normal 06/27/24 16:59 Respiratory Pattern Normal 06/27/24 16:59 Blood Pressure 94/62 06/27/24 18:00 Blood Pressure Mean 72 06/27/24 18:00 Blood Pressure Source Monitor 06/27/24 18:00 Blood Pressure Position Supine 06/27/24 18:00 Blood Pressure Location Left Arm 06/27/24 18:00 Pulse Ox 96 06/27/24 18:00 Oxygen Delivery Method Room Air 06/27/24 18:00 Oxygen Flow Rate (L/min) 2 06/27/24 17:00 I&O: I&O Last 24 Hours 3 06/26/24 06/27/24 06/27/24 23:59 11:59 23:59 Intake Total 2855.0 / 3855.0 1000 / 3855.0 Output Total 450 / 825 375 / 825 Balance 2405.0 / 3030.0 625 / 3030.0 I&O: Total Stay 3 06/27/24 02:21 thru 06/27/24 18:00 Intake Total 3855.0 Output Total 825 Balance 3030.0 Current Meds Ordered / Administered: Current meds ordered / Administered 3 Generic Name Dose Route Start Last Admin Trade Name Freq PRN Reason Stop Dose Admin Acetaminophen 1,000 mg 06/27/24 14:00 06/27/24 15:01 Acetaminophen 500 Mg Tablet PO Not Given Q8 [facility] Ascorbic Acid 1,000 mg 06/27/24 10:00 06/27/24 09:14 Ascorbic Acid 500 Mg Tablet PO Not Given DAILY [facility] Atorvastatin Calcium 10 mg 06/27/24 22:00 Atorvastatin Calcium 10 Mg Tablet PO 2200 [facility] Cholecalciferol 25 mcg 06/27/24 10:00 06/27/24 09:14 Cholecalciferol (Vit D3) 25 Mcg Tablet (1,000 Units) PO Not Given DAILY [facility] Diltiazem HCl 180 mg 06/27/24 10:00 06/27/24 09:13 Diltiazem Cd 180 Mg Capsule PO Not Given DAILY [facility] Protocol Ferrous Sulfate 325 mg 06/27/24 08:00 06/27/24 09:12 Ferrous Sulfate 325 Mg Tablet [facility] Fluticasone Propionate 1 spray 06/27/24 06:40 Fluticasone 0.05% 1 [place] Nasal.Sry NASAL DAILY PRN ALLERGIES Hyoscyamine Sulfate 0.125 mg 06/27/24 06:40 Hyoscyamine Sulfate 0.125 Mg Tablet SL/PO DAILY PRN PRN ESOPHOGEAL SPASMS Sodium Chloride 1,000 mls @ 150 mls/hr 06/27/24 06:40 06/27/24 14:45 IV 150 mls/hr .Q6H40M EZ Administration Piperacillin Sod/Tazobactam 50 mls @ 12.5 mls/hr 06/27/24 14:15 06/27/24 15:10 Sod 3.375 gm/ Sodium Chloride IV 12.5 mls/hr Q8 EZ Administration Norepinephrine Bitartrate 8 mg 250 mls @ 9.375 mls/hr 06/27/24 15:00 06/27/24 17:07 / Sodium Chloride CONT INF Not Given .[id number] [facility] Protocol 5 MCG/MIN Lidocaine 1 patch 06/27/24 10:00 06/27/24 10:58 Lidocaine 5% Patch TOPICAL Not Given DAILY [facility] Protocol Loratadine 10 mg 06/27/24 10:00 06/27/24 09:13 Loratadine 10 Mg Tablet PO Not Given DAILY [facility] Morphine Sulfate 2 - 4 mg 06/27/24 06:40 Morphine 2 Mg/Ml Syringe IV Q3H PRN PRN Pain Score 6-10 Morphine Sulfate 2 - 4 mg 06/27/24 06:48 Morphine 4 Mg/Ml Syringe IV Q3H PRN PRN Pain Score 6-10 Ondansetron HCl 4 mg 06/27/24 06:40 06/27/24 07:48 Ondansetron 4 Mg/2 Ml Vial IV 4 mg Q8H PRN PRN Administration NAUSEA/VOMITING Oxycodone HCl 5 mg 06/27/24 06:40 Oxycodone 5 Mg Tablet PO Q4H PRN PRN Pain Score 4-10 Prochlorperazine Edisylate 5 mg 06/27/24 06:40 Prochlorperazine 10 Mg/2 Ml Vial IV Q4H PRN PRN Breakthrough Nausea/Vomiting Rivaroxaban 20 mg 06/28/24 08:00 Rivaroxaban 20 Mg Tablet PO DAILYCM [facility] Sodium Chloride 10 - 40 ml 06/27/24 06:51 0.9% Saline Lock 10 Ml Syringe IV UD PRN SALINE FLUSH Lab / Micro Data 06/27/24 02:15 06/27/24 02:15 Labs: Laboratory Results - last 24 hr 06/27/24 02:15: WBC 1.9 L, RBC 3.75 L, Hgb 11.3 L, Hct 35.0 L, MCV 93.3, MCH 30.1, MCHC 32.3, RDW Std Deviation 47.7 H, RDW Coeff of Mendel 13.8, Plt Count 133 L, MPV 11.6, Immature Gran % (Auto) 0.500, Neut % (Auto) 76.4 H, Lymph % (Auto) 20.4, [place] % (Auto) 1.1, Eos % (Auto) 1.1, Baso % (Auto) 0.5, Absolute Neuts (auto) 1.4 L, Absolute Lymphs (auto) 0.38 L, Nucleated RBC % 0, Differential Comment SCANNED, Diff Path Review March, Sodium 139, Potassium 3.4 L, Chloride 105, Carbon Dioxide 16.0 L, Anion Gap 18 H, BUN 19 H, Creatinine 2.16 H , Estim Creat Clear Calc 35.46, Est GFR (MDRD) Af Amer 39 L, Est GFR (MDRD) Non- Af 32 L, BUN/Creatinine Ratio 8.8 L, Glucose 148 H, Calcium 8.8, Troponin I High Sens 59 06/27/24 03:20: Lactic Acid 5.0 H* 06/27/24 04:10: Urine Color Ronit, Urine Clarity Sl. Cloudy, Urine pH 5.0, Ur Specific [place] 1.020, Urine Protein 100 H, Urine Glucose (UA) Normal, Urine Ketones Negative, Urine Occult Blood 250 H, Urine Nitrite Negative, Urine Bilirubin 1 H, Urine Urobilinogen 4 H, Ur Leukocyte Esterase 500 H, Urine RBC 0- 5 SEEN, Urine WBC 10-25 SEEN, Ur Squamous Epith Cells 0 SEEN, Urine Bacteria 2+, Hyaline Casts 0 SEEN, Urine Mucus 0 SEEN 06/27/24 06:50: Lactic Acid 3.9 H* Micro: Microbiology 06/27/24 07:00 Urine, Clean Catch Legionella Antigen - Final 06/27/24 07:00 Urine, Clean Catch Streptococcus pneumoniae Antigen (M - Final 06/27/24 03:30 Mucosa - Nose SARS-CoV-2, Influenza & RSV (PCR) - Final Rhythm Strip Rhythm Strip: Sinus Tach Rate: 120 Ectopy: None Imaging Radiology Impression Chest X-Ray 06/27/24 03:00 IMPRESSION: No evidence of active intrathoracic disease. Electronically Signed: Jessika Tobias MD at 4:14 EDT , Hip/Pelvis X-Ray 06/27/24 05:00 IMPRESSION: No evidence of fracture. Electronically Signed: Jessika Tobias MD at 6:09 EDT , Chest CT 06/27/24 06:15 IMPRESSION: . Minimal right pleural effusion and dependent atelectasis. No consolidation. Electronically Signed: Jessika Tobias MD at 8:17 EDT , Assessment and Plan . Assessment and plan: Critical Care Time: The entirety of this encounter was done via Telemedicine
[2024-06-27] MEDS: oxyCODONE 5 MG Tablet PO (21:15)
[2024-06-27] MEDS: Atorvastatin Calcium 10 MG Tablet PO (21:15)
[2024-06-28] VITALS (18 sets, daily range): BP systolic 104–143; BP diastolic 60–76; PULSE 73–101; RESP 14–93; TEMP 36.5–36.9; O2SAT 16–97; BMI 24.0
[2024-06-28] MEDS: 0.9% Normal Saline (1000mL) 1,000 ML 150 ML IV ×2 (04:01→10:12)
[2024-06-28] MEDS: Piperacil/Tazobactam 3.375 GM in 0.9% Normal Saline (50mL MB+) 50 ML IV (05:11)
[2024-06-28] MEDS: 0.9% Saline Lock 10 ML Syringe IV ×3 (05:13→21:28)
[2024-06-28 05:27] LABS: Absolute Lymphocyte Count 1.84 X10^3/uL (0.83-4.51); Absolute Neutrophil Count 16.7 X10^3/uL (2.0-7.7); Basophil# 0.06 X10^3/uL; Basophil% 0.3 % (0-1); Eosinophil# 0.57 X10^3/uL; Eosinophils% 2.8 % (0-5); Hematocrit 28.6 % (40-54); Hemoglobin 9.3 g/dL (13.0-16.5); Lymphocyte # 1.84 X10^3/ul (0.83-4.51); Mean Corp Hgb Conc 32.5 g/dL (32-36); Mean Corpuscular Hgb 30.6 pg (27.0-32.0); Mean Corpuscular Volume 94.1 fL (80-94); Mean Platelet Vol. 10.9 fl (6.2-12.0); Monocyte# 0.76 X10^3/uL; Monocyte% 3.7 % (0-10); NRBC Flagged by Analyzer 0 % (0-5); Neutrophil # 16.73 X10^3/uL (2.7-7.7); Neutrophil % 82.2 % (47-70); POSITIVE COUNT YES; POSITIVE MORPHOLOGY YES; Platelet Count 76 K/mm3 (150-450); RBC Distribution Width CV 14.2 % (11.6-14.6); RBC Distribution Width SD 49.2 fl (35.1-43.9); Red Blood Count 3.04 M/mm3 (4.6-6.2); White Blood Count 20.4 K/mm3 (4.4-11.0)
[2024-06-28 06:12] LABS: ALB/GLOB Ratio 0.6 RATIO (0.9-2.4); AST(SGOT) 280 U/L (15-37); Alanine Aminotransfer ALT/SGPT 29 U/L (16-61); Alkaline Phosphatase 46 U/L (45-117); Anion Gap 7 (5-15); BUN 31 mg/dL (7-18); BUN/Creat Ratio 11.6 RATIO (10-20); Calcium,Total 7.2 mg/dL (8.5-10.1); Chloride 112 mmol/L (98-107); Creatinine, Serum 2.67 mg/dL (0.70-1.30); EST Glomerular Filtration Rate 25 mL/min (>60); Est Glom Filt Rate - Afr Amer 30 mL/min (>60); Estimated Creatinine Clearance 29.01 ml/min; Globulin 3.1 g/dL (2.2-4.2); Glucose 84 mg/dL (74-106); Potassium 3.6 mmol/L (3.5-5.1); Protein, Total 5.1 g/dL (6.4-8.2); Sodium Level 140 mmol/L (136-145)
[2024-06-28 06:23] LABS: Differential Indicated SCAN CRITERIA MET
[2024-06-28 06:45] LABS: Differential Comment SCANNED; Platelet Estimate SLT DEC (ADEQ)
[2024-06-28] MEDS: Ondansetron 4 MG/2 ML Vial IV ×2 (07:10→21:28)
[2024-06-28] MEDS: proCHLORPERazine 10 MG/2 ML Vial 5 MG IV (07:56)
[2024-06-28] MEDS: Rivaroxaban 20 MG Tablet PO (10:27)
[2024-06-28] MEDS: dilTIAZem CD 180 MG Capsule PO (10:28)
[2024-06-28] MEDS: Metoclopramide 10 MG/2 ML Vial IV (12:50)
--- NOTE | 2024-06-28 12:59 | PCM.PN.TICU ---
Objective Data Objective Data Vital Signs: Vital Signs Last response Temperature 36.9 C 06/28/24 12:00 Temperature Source Oral 06/28/24 12:00 Pulse Rate 94 06/28/24 12:00 Respiratory Rate 20 H 06/28/24 12:00 Respiratory Effort Normal, Non-Labored 06/28/24 04:00 Respiratory Depth Normal 06/28/24 04:00 Respiratory Pattern Normal 06/28/24 04:00 Blood Pressure 138/75 H 06/28/24 12:00 Blood Pressure Mean 96 06/28/24 12:00 Blood Pressure Source Monitor 06/28/24 12:00 Blood Pressure Position Semi-Fowlers 06/28/24 12:00 Blood Pressure Location Left Arm 06/28/24 12:00 Pulse Ox 96 06/28/24 12:00 Oxygen Delivery Method Room Air 06/28/24 12:00 Oxygen Flow Rate (L/min) 2 06/27/24 17:00 I&O: I&O Last 24 Hours 06/27/24 06/28/24 06/28/24 23:59 11:59 23:59 Intake Total 2037.5 / 4892.5 2107.5 / 2147.5 40 / 2147.5 Output Total 625 / 1075 500 / 650 150 / 650 Balance 1412.5 / 3817.5 1607.5 / 1497.5 -110 / 1497.5 I&O: Total Stay 06/27/24 02:21 thru 06/28/24 12:00 Intake Total 7040.0 Output Total 1725 Balance 5315.0 Current Meds Ordered / Administered: Current meds ordered / Administered Generic Name Dose Route Start Last Admin Trade Name Khadarq PRN Reason Stop Dose Admin Acetaminophen 1,000 mg 06/27/24 14:00 06/28/24 05:10 Acetaminophen 500 Mg Tablet PO Not Given Q8 EZ Ascorbic Acid 1,000 mg 06/27/24 10:00 06/27/24 09:14 Ascorbic Acid 500 Mg Tablet PO Not Given DAILY [facility] Atorvastatin Calcium 10 mg 06/27/24 22:00 06/27/24 21:15 Atorvastatin Calcium 10 Mg Tablet PO 10 mg 2200 EZ Administration Cholecalciferol 25 mcg 06/27/24 10:00 06/27/24 09:14 Cholecalciferol (Vit D3) 25 Mcg Tablet (1,000 Units) PO Not Given DAILY [facility] Diltiazem HCl 180 mg 06/27/24 10:00 06/28/24 10:28 Diltiazem Cd 180 Mg Capsule PO 180 mg DAILY [facility] Administration Protocol Ferrous Sulfate 325 mg 06/27/24 08:00 06/27/24 09:12 Ferrous Sulfate 325 Mg [facility] Fluticasone Propionate 1 spray 06/27/24 06:40 Fluticasone 0.05% 1 [place] Nasal.Sry NASAL DAILY PRN ALLERGIES Hyoscyamine Sulfate 0.125 mg 06/27/24 06:40 Hyoscyamine Sulfate 0.125 Mg Tablet SL/PO DAILY PRN PRN ESOPHOGEAL SPASMS Sodium Chloride 1,000 mls @ 150 mls/hr 06/27/24 06:40 06/28/24 10:12 IV 150 mls/hr .Q6H40M EZ Administration Norepinephrine Bitartrate 8 mg 250 mls @ 9.375 mls/hr 06/27/24 15:00 06/27/24 17:07 / Sodium Chloride CONT INF Not Given .[id number] [facility] Protocol 5 MCG/MIN Cefepime HCl 1 gm/ Sodium 50 mls @ 100 mls/hr 06/29/24 18:00 Chloride IV Q24 [facility] Lidocaine 1 patch 06/27/24 10:00 06/27/24 10:58 Lidocaine 5% Patch TOPICAL Not Given DAILY [facility] Protocol Loratadine 10 mg 06/27/24 10:00 06/27/24 09:13 Loratadine 10 Mg Tablet PO Not Given DAILY [facility] Metoclopramide HCl 10 mg 06/28/24 18:00 Metoclopramide 10 Mg/2 Ml Vial IV Q6H PRN PRN NAUSEA/VOMITING Morphine Sulfate 2 - 4 mg 06/27/24 06:40 Morphine 2 Mg/Ml Syringe IV Q3H PRN PRN Pain Score 6-10 Morphine Sulfate 2 - 4 mg 06/27/24 06:48 Morphine 4 Mg/Ml Syringe IV Q3H PRN PRN Pain Score 6-10 Ondansetron HCl 4 mg 06/27/24 06:40 06/28/24 07:10 Ondansetron 4 Mg/2 Ml Vial IV 4 mg Q8H PRN PRN Administration NAUSEA/VOMITING Oxycodone HCl 5 mg 06/27/24 06:40 06/27/24 21:15 Oxycodone 5 Mg Tablet PO 5 mg Q4H PRN PRN Administration Pain Score 4-10 Rivaroxaban 20 mg 06/28/24 08:00 06/28/24 10:27 Rivaroxaban 20 Mg Tablet PO 20 mg DAILYCM EZ Administration Sodium Chloride 10 - 40 ml 06/27/24 06:51 06/28/24 10:29 0.9% Saline Lock 10 Ml Syringe IV 20 ml UD PRN Administration SALINE FLUSH Lab / Micro Data 06/28/24 05:15 06/28/24 05:15 Labs: Laboratory Results - last 24 hr 06/28/24 05:15: WBC 20.4 H, RBC 3.04 L, Hgb 9.3 L, Hct 28.6 L, MCV 94.1 H, MCH 30.6, MCHC 32.5, RDW Std Deviation 49.2 H, RDW Coeff of Mendel 14.2, Plt Count 76 L, MPV 10.9, Immature Gran % (Auto) 2.000 H, Neut % (Auto) 82.2 H, Lymph % (Auto) 9.0 L, [place] % (Auto) 3.7, Eos % (Auto) 2.8, Baso % (Auto) 0.3, Absolute Neuts (auto) 16.7 H, Absolute Lymphs (auto) 1.84, Nucleated RBC % 0, Differential Comment SCANNED, Platelet Estimate SLT DEC, Sodium 140, Potassium 3.6, Chloride 112 H, Carbon Dioxide 21.0, Anion Gap 7, BUN 31 H, Creatinine 2.67 H, Estim Creat Clear Calc 29.01, Est GFR (MDRD) Af Amer 30 L, Est GFR (MDRD) Non-Af 25 L, BUN/Creatinine Ratio 11.6, Glucose 84, Calcium 7.2 L, Total Bilirubin 1.30 H, AST 280 H, ALT 29, Alkaline Phosphatase 46, Total Protein 5.1 L, Albumin 2.0 L, Globulin 3.1, Albumin/Globulin Ratio 0.6 L Rhythm Strip Rhythm Strip: Sinus Tach Rate: 120 Ectopy: None Assessment and Plan . Assessment and plan: HPI 73 yo chronically ill man admitted 06/27/24 w/ generalized weakness, subjected fever, suspected sepsis syndrome. PMH of chronic PAF, ASCVD, CKD, h/o VTED, former tobacco use and suspected COPD. Noted tachycardia in the ED, marginal BP. He required 2 LPM O2. Chest imaging unremarkable. UA - modest pyuria. Other lab significant for leukopenia, modest lactic acidosis, elevated creatinine. He has received IVF and IV ABX. Currently in the ICU. NS infusing. HD stable - no vasopressors required. He feels better - NAD and does not appear ill/toxic. 06/28/24 He feels poorly today - nausea is main issue No fever Breathing RA comfortably No vasopressors CX NGTD, Viral panel (-) WBC up to 20K, PLT falling Creat remains elevated - UOP fair EXAM GEN Nlooks uncomfortable VS as above HEENT MMM NECK supple COR RRR CHEST CTA ABD soft, NT EXT no edema SKIN w/d MICHAEL NF A/P 1. Suspected sepsis syndrome - source (?) 2. Hypovolemia 3. Pyuria 4. CKD 5. Mild lactic acidosis 6. H/O VTED and chronic A/C 7. ASCVD, PAF, possible COPD 8. Leukopenia - WBC elevated now 9. Nausea 10. Falling PLT -volume expansion - change to D5-LR -empiric ABX for now -f/u CX --> NGTD -DOAC -add lipase to am labs 06/29 -follow PLT, renal function Critical Care Time: 50 min The entirety of this encounter was done via Telemedicine
--- NOTE | 2024-06-28 13:26 | PCM.PN.HOSP ---
Reason for Visit Reason for Visit: Diagnoses Sepsis, unspecified organism (06/27/24) Pain in left hip (06/27/24) Acute kidney failure, unspecified (06/27/24) Urinary tract infection, site not specified (06/27/24) Objective Data Objective Data Vital Signs: Vital Signs Temp Pulse Resp BP Pulse Ox O2 Del Method O2 Flow Rate 98.4 F 94 20 H 138/75 H 96 Room Air 2 06/28/24 12:00 06/28/24 12:00 06/28/24 12:00 06/28/24 12:00 06/28/24 12:00 06/28/24 12:00 06/27/24 17:00 Oxygen Flow Rate (L/min) 2 Oxygen Delivery Method Room Air Weight: 187 lb 9.814 oz Body Mass Index (BMI) 24.0 Intake & Output: Intake and Output for Last 24 Hours 06/26/24 06/27/24 06/28/24 23:59 23:59 23:59 Intake Total 4892.5 / 4892.5 2147.5 / 2147.5 Output Total 1075 / 1075 650 / 650 Balance 3817.5 / 3817.5 1497.5 / 1497.5 Lab / Micro Data 06/28/24 05:15 06/28/24 05:15 Labs: Laboratory Results - last 24 hr 06/28/24 05:15: WBC 20.4 H, RBC 3.04 L, Hgb 9.3 L, Hct 28.6 L, MCV 94.1 H, MCH 30.6, MCHC 32.5, RDW Std Deviation 49.2 H, RDW Coeff of Mendel 14.2, Plt Count 76 L, MPV 10.9, Immature Gran % (Auto) 2.000 H, Neut % (Auto) 82.2 H, Lymph % (Auto) 9.0 L, [place] % (Auto) 3.7, Eos % (Auto) 2.8, Baso % (Auto) 0.3, Absolute Neuts (auto) 16.7 H, Absolute Lymphs (auto) 1.84, Nucleated RBC % 0, Differential Comment SCANNED, Platelet Estimate SLT DEC, Sodium 140, Potassium 3.6, Chloride 112 H, Carbon Dioxide 21.0, Anion Gap 7, BUN 31 H, Creatinine 2.67 H, Estim Creat Clear Calc 29.01, Est GFR (MDRD) Af Amer 30 L, Est GFR (MDRD) Non-Af 25 L, BUN/Creatinine Ratio 11.6, Glucose 84, Calcium 7.2 L, Total Bilirubin 1.30 H, AST 280 H, ALT 29, Alkaline Phosphatase 46, Total Protein 5.1 L, Albumin 2.0 L, Globulin 3.1, Albumin/Globulin Ratio 0.6 L Micro: Microbiology 06/27/24 07:00 Urine, Clean Catch Legionella Antigen - Final 06/27/24 07:00 Urine, Clean Catch Streptococcus pneumoniae Antigen (M - Final 06/27/24 03:30 Mucosa - Nose SARS-CoV-2, Influenza & RSV (PCR) - Final Rhythm Strip Rhythm Strip: Sinus Tach Rate: 120 Ectopy: None Physical Exam Narrative Seen and examined. Patient is having nausea since morning mainly dry heaving. No actual vomiting. No fever. BP better than yesterday. Physical exam General: Alert, Oriented x3, Cooperative HEENT: Atraumatic, PERRLA, EOMI, Normocephalic Oral: No Gingival or Mucosal Lesions/ Ulcerations Neck: Supple, No JVD, Negative Carotid Bruits Chest wall/Lungs: Air entry diminished in bilateral lung bases. No crepitation/rhonchi Cardiovascular: Regular rate, Regular Rhythm, Normal S1, Normal S2, No M/G/R Abdomen: Bowel Sounds Present, Soft, Non Tender, Non-Distended : No dysuria. No renal angle tenderness. No suprapubic tenderness. Extremities: No edema, Capillary Refill Less than 3 Seconds Skin: No rashes, No breakdown Musculoskeletal: No Tenderness to Palpation of Joints or Extremities. Degenerative arthritis of hips joints. Neurological: Cranial nerves II-XII grossly intact, DTR 2+/4. No acute focal neurological deficit. Psych/Mental Status: Flat affect. Assessment & Plan Assessment/Plan (1) Acute UTI: (2) Sepsis: (3) FILIPPO (acute kidney injury): PLAN: Plan #Septic shock due to probable UTI Patient was hypotensive on admission and also had severe lactic acidosis and FILIPPO as well as leukopenia. Patient did admit to some urinary symptoms and said he had had burning with urination. He denied any shortness of breath. Urinalysis does show 2+ bacteria. Was started on IV ceftriaxone and azithromycin. Blood cultures sputum cultures and urine for strep and Legionella are negative. Chest x-ray showed minimal right pleural effusion and dependent atelectasis but no consolidation. Blood pressure initially responded to fluids but patient is hypotensive again. Currently on normal saline at 150 cc/h. Patient did not require vasopressor yesterday and today BP is better. Transformation Architect consulted. In light of no evidence of pneumonia will DC azithromycin. 06/28 Leukocytosis worsened. Immature granulocyte 2% indicating left shift. Neutrophil 82%. Bands present. Platelet count also decreased, thrombocytopenia. IV antibiotic was broadened to Zosyn but changed to IV cefepime because of increasing creatinine. Zosyn known to cause pseudo increasing creatinine. MRSA nasal screen. ID consulted. #FILIPPO: Likely prerenal due to septic shock. On IV fluid normal saline 150 mill per hour 06/28: Creatinine further increased to 2.67, BUN 31, BUN/creatinine ratio 11.6. Recycling Crew Supervisor consulted. Renal and bladder ultrasound ordered #UTI: Patient admits to frequency and dysuria. Burning micturition is getting better. Urine cultures ordered. #Left hip pain: Patient states this is new onset. X-ray showed no evidence of any fracture. This may be musculoskeletal. PT OT on board. #History of paroxysmal A-fib: Currently on Xarelto at [facility]. Cardizem on hold due to hypotension. #Hypertension: On losartan which is held due to sepsis and FILIPPO. 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 CODE STATUS: Full code Charges/Coding Visit Charges Inpatient E&M: 85[address] [facility] [place] Hosp L3
[2024-06-28] MEDS: ChlorproMAZINE 50 MG/2 ML Ampul IM (14:42)
[2024-06-28] MEDS: Dextrose 5%-Lactated Ringers 1,000 ML 125 ML IV ×2 (14:45→22:35)
[2024-06-28 15:10] LABS: CPK Total, Creatine Kinase 8528 U/L (39-308)
--- NOTE | 2024-06-28 15:39 | PN.RENAL_ITS ---
Subjective Subjective consult noted -chart reviewed, full note to follow -scr 1.4mg/dL on presentation, up to 2.6mg/dL today -was transiently hypotensive, sbp 90's -will obtain renal ultrasoun, check urinary indices -agree with volume expansion -avoid nephrotoxins -keep MAP >65 thanks please call [phone] with any concerns. Objective Data Objective Data Vital Signs: Vital Signs Temp Pulse Resp BP Pulse Ox O2 Del Method O2 Flow Rate 98.4 F 94 20 H 138/75 H 96 Room Air 2 06/28/24 12:00 06/28/24 15:00 06/28/24 12:00 06/28/24 12:00 06/28/24 12:00 06/28/24 12:00 06/27/24 17:00 Oxygen Flow Rate (L/min) 2 Oxygen Delivery Method Room Air Weight: 85.1 kg Body Mass Index (BMI) 24.0 Intake & Output: Intake and Output for Last 24 Hours 06/26/24 06/27/24 06/28/24 23:59 23:59 23:59 Intake Total 4892.5 / 4892.5 2835.0 / 2835.0 Output Total 1075 / 1075 750 / 750 Balance 3817.5 / 3817.5 2085.0 / 2085.0 Lab / Micro Data 06/28/24 05:15 06/28/24 05:15 Labs: Laboratory Results - last 24 hr 06/28/24 05:15: WBC 20.4 H, RBC 3.04 L, Hgb 9.3 L, Hct 28.6 L, MCV 94.1 H, MCH 30.6, MCHC 32.5, RDW Std Deviation 49.2 H, RDW Coeff of Mendel 14.2, Plt Count 76 L , MPV 10.9, Immature Gran % (Auto) 2.000 H, Neut % (Auto) 82.2 H, Lymph % (Auto) 9.0 L, [place] % (Auto) 3.7, Eos % (Auto) 2.8, Baso % (Auto) 0.3, Absolute Neuts (auto) 16.7 H, Absolute Lymphs (auto) 1.84, Nucleated RBC % 0, Differential Comment SCANNED, Platelet Estimate SLT DEC, Sodium 140, Potassium 3.6, Chloride 112 H, Carbon Dioxide 21.0, Anion Gap 7, BUN 31 H, Creatinine 2.67 H, Estim Creat Clear Calc 29.01, Est GFR (MDRD) Af Amer 30 L, Est GFR (MDRD) Non-Af 25 L, BUN/Creatinine Ratio 11.6, Glucose 84, Calcium 7.2 L, Total Bilirubin 1.30 H, A ST 280 H, ALT 29, Alkaline Phosphatase 46, Total Creatine Kinase 8528 H, Total Protein 5.1 L, Albumin 2.0 L, Globulin 3.1, Albumin/Globulin Ratio 0.6 L Micro: Microbiology 06/28/24 12:20 Nasal Secretion MRSA (PCR) - Final 06/27/24 07:00 Urine, Clean Catch Legionella Antigen - Final 06/27/24 07:00 Urine, Clean Catch Streptococcus pneumoniae Antigen (M - Final 06/27/24 03:30 Mucosa - Nose SARS-CoV-2, Influenza & RSV (PCR) - Final Rhythm Strip Rhythm Strip: Sinus Tach Rate: 120 Ectopy: None
[2024-06-28 16:52] LABS: Urine Sodium 27 mmol/L (Not Establ.)
[2024-06-28] MEDS: Cefepime HCl 1 GM in 0.9% Normal Saline (50mL MB+) 50 ML IV (17:22)
[2024-06-28] MEDS: Atorvastatin Calcium 10 MG Tablet PO (21:09)
[2024-06-28] MEDS: Acetaminophen 500 MG Tablet 1000 MG PO (21:09)
[2024-06-29] VITALS: BP 117/70; PULSE 72; RESP 15; TEMP 36.6; O2SAT 93
[2024-06-29 04:20] VITALS: BP 152/82; PULSE 93; RESP 20; TEMP 36.8; O2SAT 96
[2024-06-29 04:24] LABS: Absolute Lymphocyte Count 1.73 X10^3/uL (0.83-4.51); Absolute Neutrophil Count 14.1 X10^3/uL (2.0-7.7); Basophil# 0.04 X10^3/uL; Basophil% 0.2 % (0-1); Eosinophil# 0.91 X10^3/uL; Eosinophils% 5.2 % (0-5); Hematocrit 28.1 % (40-54); Hemoglobin 9.2 g/dL (13.0-16.5); Lymphocyte # 1.73 X10^3/ul (0.83-4.51); Lymphocyte % 9.8 % (19-41); Mean Corp Hgb Conc 32.7 g/dL (32-36); Mean Corpuscular Hgb 30.4 pg (27.0-32.0); Mean Corpuscular Volume 92.7 fL (80-94); Mean Platelet Vol. 11.1 fl (6.2-12.0); Monocyte# 0.71 X10^3/uL; NRBC Flagged by Analyzer 0 % (0-5); Neutrophil # 14.08 X10^3/uL (2.7-7.7); Neutrophil % 79.8 % (47-70); POSITIVE COUNT YES; Platelet Count 91 K/mm3 (150-450); RBC Distribution Width SD 47.8 fl (35.1-43.9); Red Blood Count 3.03 M/mm3 (4.6-6.2); White Blood Count 17.6 K/mm3 (4.4-11.0)
[2024-06-29 04:37] LABS: Anion Gap 7 (5-15); BUN 33 mg/dL (7-18); BUN/Creat Ratio 9.7 RATIO (10-20); Calcium,Total 7.1 mg/dL (8.5-10.1); Chloride 114 mmol/L (98-107); Creatinine, Serum 3.41 mg/dL (0.70-1.30); EST Glomerular Filtration Rate 19 mL/min (>60); Est Glom Filt Rate - Afr Amer 23 mL/min (>60); Estimated Creatinine Clearance 22.77 ml/min; Glucose 174 mg/dL (74-106); Lipase 14 U/L (13-75); Potassium 2.9 mmol/L (3.5-5.1); Sodium Level 141 mmol/L (136-145)
[2024-06-29] MEDS: 0.9% Saline Lock 10 ML Syringe IV (05:16)
[2024-06-29] MEDS: Potassium Chloride Oral Tablet 20 MEQ 60 MEQ PO (05:16)
[2024-06-29 05:17] LABS: Magnesium 1.7 mg/dL (1.6-2.6)
[2024-06-29] MEDS: Dextrose 5%-Lactated Ringers 1,000 ML 125 ML IV (05:52)
[2024-06-29] MEDS: Magnesium Sulfate 2 GM in Dextrose 5%-Water (100mL Bag) 100 ML IV (05:52)
--- NOTE | 2024-06-29 05:55 | US_ITS ---
STUDY: RENAL ULTRASOUND - COMPLETE REASON FOR EXAM: Male, 73 years old. Suspected UTI, Increased Creatinine TECHNIQUE: Ultrasound evaluation of the kidneys was performed with real-time and static mratel-scale imaging. COMPARISON: None. FINDINGS: RIGHT KIDNEY: Normal location of the right kidney, which is normal in size. The right kidney measures 9.6 cm x 4.8 cm x 5.3 cm. There is a normal cortex of the right kidney. The renal cortex measures 1.5 cm. There is no right renal mass or cyst. There are no right renal calculi. There is no right hydronephrosis. DISTAL RIGHT URETER: There is non-visualization of the distal right ureter. There is no demonstrated right ureterovesical junction calculus. There is no demonstrated right ureteral jet. LEFT KIDNEY: Normal location of the left kidney, which is normal in size. The left kidney measures 10 cm x 4.1 cm x 5.7 cm. There is a normal cortex of the left kidney. The renal cortex measures 1.5 cm. There is no left renal mass or cyst. There are no left renal calculi. There is no left hydronephrosis. DISTAL LEFT URETER: There is non-visualization of the distal left ureter. There is no demonstrated left ureterovesical junction calculus. There is no demonstrated left ureteral jet. BLADDER: The distended urinary bladder has a volume of 107 ml. There is a normal wall thickness of the distended urinary bladder. There is no demonstrated mass within the urinary bladder. There are no demonstrated bladder calculi. US/Kidney and Bladder IMPRESSION: Normal ultrasound of the kidneys and urinary bladder. Electronically Signed: John Dao MD at 14:57 EDT ,
[2024-06-29] MEDS: Ferrous Sulfate 325 MG Tablet PO (08:26)
[2024-06-29] MEDS: Loratadine 10 MG Tablet PO (08:26)
[2024-06-29] MEDS: dilTIAZem CD 180 MG Capsule PO (08:26)
[2024-06-29] MEDS: Cholecalciferol (VIT D3) 25 MCG TABLET (1,000 UNITS) PO (08:27)
[2024-06-29] MEDS: Ascorbic Acid 500 MG Tablet 1000 MG PO (08:27)
--- NOTE | 2024-06-29 10:07 | CON.PCM.ID_ITS ---
Assessment & Plan Assessment/Plan (1) Sepsis: PLAN: Suspect urinary source. Ucx pending. FILIPPO on CKD. Neph to see. Cont cefepime. Will follow, thank you (2) FILIPPO (acute kidney injury): HPI Consult Data Date of Consult: 06/29/24 HPI Narrative Reason for Consultation: sepsis HPI Narrative: SANTI ALDANA, is a 73 M with h/o CKD, IBS, COPD, presented 06/27 with two days fatigue, weakness, n/v. Slid to the floor while in the bathroom at home. No unusual foods, no one else sick at home. Last week, had some faint dysuria, weakened urine stream, dark urine. Admitted here, now with worsening FILIPPO. Abx changed from ceftriaxone to zosyn to cefepime. Feeling ok, still some intermittent n/v. No abd pain, no flank pain, no cough or SOB Full ROS performed and neg except as noted above. [facility] Medical History Non-STEMI (non-ST elevated myocardial infarction) (09/19/21) PAF (paroxysmal atrial fibrillation) CKD (chronic kidney disease) stage 3, GFR 30-59 ml/min History of pilonidal cyst IBS (irritable bowel syndrome) Essential hypertension Asthma COPD (chronic obstructive pulmonary disease) Home Medications ?Medication ?Instructions ?Recorded ?Last Taken ?Type cholecalciferol (vitamin D3) 25 1,000 unit PO DAILY 04/01/19 09/19/21 History mcg (1,000 unit) tablet hydrocodone-acetaminophen 5-325mg 1 ea PO Q4H PRN pain 04/01/19 2 Days Ago History 5mg-325mg ~09/17/21 loratadine 10 mg tablet 10 mg PO DAILY allergies 04/01/19 09/19/21 History ascorbic acid (vitamin C) 1,000 mg 1,000 mg PO DAILY 08/29/20 09/19/21 History tablet,extended release fluticasone propionate 50 1 spray intranasal DAILY PRN 08/29/20 09/18/21 History mcg/actuation nasal ALLERGIES spray,suspension (Flonase Allergy Relief) diltiazem HCl 180 mg 180 mg PO DAILY 06/26/21 09/19/21 History capsule,extended release 24 hr ferrous sulfate 325 mg (65 mg 325 mg PO DAILY 06/26/21 09/19/21 History iron) tablet (FeroSul) hyoscyamine sulfate 0.125 mg 0.125 mg sublingual DAILY PRN 06/26/21 Unknown History sublingual tablet ESOPHOGEAL SPASMS losartan 100 mg tablet 100 mg PO DAILY #90 tabs 04/11/22 Unknown Rx rivaroxaban 20 mg tablet (Xarelto) 20 mg PO DAILY 05/11/22 Unknown History atorvastatin 10 mg tablet 10 mg PO DAILY 07/10/23 Unknown History amoxicillin 875 mg-potassium 875 mg PO Q12H #13 TABLETS 06/25/24 Unknown Rx clavulanate 125 mg tablet azithromycin 250 mg tablet 250 mg PO DAILY #4 TABLETS 06/25/24 Unknown Rx diclofenac sodium 1 % topical gel topical knee/shoulder pain 06/29/24 06/24/24 History (Arthritis Pain (diclofenac)) Allergy/AdvReac Type Severity Reaction Status Date / Time albuterol AdvReac palpitation Verified 06/27/24 02:26 s amitriptyline (From Elavil) AdvReac Other Verified 06/27/24 02:26 amoxapine AdvReac Other Verified 06/27/24 02:26 buspirone AdvReac Other Verified 06/27/24 02:26 duloxetine (From Cymbalta) AdvReac Other Verified 06/27/24 02:26 fluticasone (From Advair AdvReac Other Verified 06/27/24 02:26 Diskus) gabapentin AdvReac Other Verified 06/27/24 02:26 gemfibrozil AdvReac Other Verified 06/27/24 02:26 hydroxyzine AdvReac Other Verified 06/27/24 02:26 naproxen AdvReac Other Verified 06/27/24 02:26 nortriptyline AdvReac Other Verified 06/27/24 02:26 salmeterol (From Advair AdvReac Other Verified 06/27/24 02:26 Diskus) sertraline (From Zoloft) AdvReac Other Verified 06/27/24 02:26 tiotropium (From Spiriva AdvReac Other Verified 06/27/24 02:26 with HandiHaler) trazodone AdvReac Other Verified 06/27/24 02:26 zolpidem (From Ambien) AdvReac Other Verified 06/27/24 02:26 Family History Mother Colon cancer Alzheimer disease Father Cancer Prostate Grandfather Colon cancer Grandfather Myocardial infarction Surgical History History of bilateral cataract extraction History of shoulder surgery History of arthroscopy of right knee History of cholecystectomy Social History Smoking Status: Former smoker alcohol intake: current details: rare substance use type: does not use caffeine: No Physical Exam Const alert, oriented x3 and no apparent distress General Appearance: cooperative HEENT normocephalic and head/scalp atraumatic Eyes PERRL and EOMs intact bilaterally Neck supple and No nodes Resp normal air movement and clear to auscultation bilaterally Cardio regular rate, regular rhythm and no murmurs GI soft to palpation, non-tender and non-distended GI Narrative: no flank pain Extremity General Extremity: Negative for edema Skin no rashes or lesions noted Neuro CN's II-XII intact bilaterally Lab / Micro Data Attestation: I reviewed the patient's lab results. 06/29/24 04:15 06/29/24 04:15 Labs: Laboratory Results - last 24 hr 06/28/24 04:10: Ur Random Sodium 27 06/28/24 05:15: Total Creatine Kinase 8528 H 06/29/24 04:15: WBC 17.6 H, RBC 3.03 L, Hgb 9.2 L, Hct 28.1 L, MCV 92.7, MCH 30.4, MCHC 32.7, RDW Std Deviation 47.8 H, RDW Coeff of Mendel 14.0, Plt Count 91 L , MPV 11.1, Immature Gran % (Auto) 1.000 H, Neut % (Auto) 79.8 H, Lymph % (Auto) 9.8 L, [place] % (Auto) 4.0, Eos % (Auto) 5.2 H, Baso % (Auto) 0.2, Absolute Neuts (auto) 14.1 H, Absolute Lymphs (auto) 1.73, Nucleated RBC % 0, Sodium 141, P otassium 2.9 L, Chloride 114 H, Carbon Dioxide 20.0 L, Anion Gap 7, BUN 33 H, C reatinine 3.41 H, Estim Creat Clear Calc 22.77, Est GFR (MDRD) Af Amer 23 L, Est GFR (MDRD) Non-Af 19 L, BUN/Creatinine Ratio 9.7 L, Glucose 174 H, Calcium 7.1 L , Magnesium 1.7, Lipase 14 Micro: Microbiology 06/27/24 04:30 Blood Culture (Wb) - Right Wrist Blood Culture - Preliminary No growth in 48 hours. 06/28/24 12:24 Mucosa - Nasopharyngeal Respiratory Panel (PCR) - Final 06/28/24 12:20 Nasal Secretion MRSA (PCR) - Final Rhythm Strip Rhythm Strip: Sinus Tach Rate: 120 Ectopy: None
[2024-06-29 10:20] VITALS: BP 133/63; PULSE 100; RESP 18; TEMP 36.6; O2SAT 98
--- NOTE | 2024-06-29 10:27 | CASEMGMT ---
Social Work SW spoke w/pt in room in regard to discharge plan. SW printed a list from [facility] of longterm facilities in network w/pt's insurance, in pt's preferred geographic area, and complete w/quality and resource use data. Pt declined list at this time. Pt states if SNF is needed, pt would want TCU. SW explained will make referral and they will review when pt is closer to being medically ready for discharge. SW made referral to TCU, will follow up when pt is closer to being ready for discharge. RYAN Hernandez
--- NOTE | 2024-06-29 11:27 | PCM.CONS.R ---
Assessment & Plan Assessment/Plan (1) FILIPPO (acute kidney injury): PLAN: Acute kidney injury in the setting of urosepsis, decreased circulating volume, hypotension. Originally prerenal azotemia evolving and ATN. Treatment at this time is supportive with IV fluids, antibiotics, avoiding nephrotoxins, volume expansion, labs monitoring. He does not need dialysis at the moment HPI Consult Data Date of Consult: 06/29/24 HPI Narrative Reason for Consultation: Acute kidney injury on CKD 3 HPI Narrative: SANTI ALDANA, is a 73 M who presents to [facility] with urosepsis. Gentleman has CKD 3 at baseline and he is very well aware of it, he has baseline creatinine around 1.4 as of August of last year. Came over to emergency room on 25 June with a chief complaint of extreme weakness, has been diagnosed with pneumonia, given antibiotics and sent home. Unfortunately did not feel good and came back the day before yesterday with extreme weakness, slight dysuria and was diagnosed with urosepsis. Uric acid was elevated 3.9, blood pressure was soft in the 80s, creatinine is on the rise. Urinalysis showed bacteria, urine cultures are pending. He states for the last 4 days he was not able to keep anything down, he has been vomiting and having dry heaves, oral intake was exceptionally poor. Kidney ultrasound is obtained and pending. Urinalysis was consistent with UTI, showing bacteria's, some blood, some protein and white cells. He is WBC count was as high as 26,000. It is down to 17,000 at the moment. Electrolytes are potassium is 2.9, sodium 127. Bicarb of 20 PFSH Medical History Non-STEMI (non-ST elevated myocardial infarction) (09/19/21) PAF (paroxysmal atrial fibrillation) CKD (chronic kidney disease) stage 3, GFR 30-59 ml/min History of pilonidal cyst IBS (irritable bowel syndrome) Essential hypertension Asthma COPD (chronic obstructive pulmonary disease) Home Medications ?Medication ?Instructions ?Recorded ?Last Taken ?Type cholecalciferol (vitamin D3) 25 1,000 unit PO DAILY 04/01/19 09/19/21 History mcg (1,000 unit) tablet hydrocodone-acetaminophen 5-325mg 1 ea PO Q4H PRN pain 04/01/19 2 Days Ago History 5mg-325mg ~09/17/21 loratadine 10 mg tablet 10 mg PO DAILY allergies 04/01/19 09/19/21 History ascorbic acid (vitamin C) 1,000 mg 1,000 mg PO DAILY 08/29/20 09/19/21 History tablet,extended release fluticasone propionate 50 1 spray intranasal DAILY PRN 08/29/20 09/18/21 History mcg/actuation nasal ALLERGIES spray,suspension (Flonase Allergy Relief) diltiazem HCl 180 mg 180 mg PO DAILY 06/26/21 09/19/21 History capsule,extended release 24 hr ferrous sulfate 325 mg (65 mg 325 mg PO DAILY 06/26/21 09/19/21 History iron) tablet (FeroSul) hyoscyamine sulfate 0.125 mg 0.125 mg sublingual DAILY PRN 06/26/21 Unknown History sublingual tablet ESOPHOGEAL SPASMS losartan 100 mg tablet 100 mg PO DAILY #90 tabs 04/11/22 Unknown Rx rivaroxaban 20 mg tablet (Xarelto) 20 mg PO DAILY 05/11/22 Unknown History atorvastatin 10 mg tablet 10 mg PO DAILY 07/10/23 Unknown History amoxicillin 875 mg-potassium 875 mg PO Q12H #13 TABLETS 06/25/24 Unknown Rx clavulanate 125 mg tablet azithromycin 250 mg tablet 250 mg PO DAILY #4 TABLETS 06/25/24 Unknown Rx diclofenac sodium 1 % topical gel topical knee/shoulder pain 06/29/24 06/24/24 History (Arthritis Pain (diclofenac)) Allergy/AdvReac Type Severity Reaction Status Date / Time albuterol AdvReac palpitation Verified 06/27/24 02:26 s amitriptyline (From Elavil) AdvReac Other Verified 06/27/24 02:26 amoxapine AdvReac Other Verified 06/27/24 02:26 buspirone AdvReac Other Verified 06/27/24 02:26 duloxetine (From Cymbalta) AdvReac Other Verified 06/27/24 02:26 fluticasone (From Advair AdvReac Other Verified 06/27/24 02:26 Diskus) gabapentin AdvReac Other Verified 06/27/24 02:26 gemfibrozil AdvReac Other Verified 06/27/24 02:26 hydroxyzine AdvReac Other Verified 06/27/24 02:26 naproxen AdvReac Other Verified 06/27/24 02:26 nortriptyline AdvReac Other Verified 06/27/24 02:26 salmeterol (From Advair AdvReac Other Verified 06/27/24 02:26 Diskus) sertraline (From Zoloft) AdvReac Other Verified 06/27/24 02:26 tiotropium (From Spiriva AdvReac Other Verified 06/27/24 02:26 with HandiHaler) trazodone AdvReac Other Verified 06/27/24 02:26 zolpidem (From Ambien) AdvReac Other Verified 06/27/24 02:26 Family History Mother Colon cancer Alzheimer disease Father Cancer Prostate Grandfather Colon cancer Grandfather Myocardial infarction Surgical History History of bilateral cataract extraction History of shoulder surgery History of arthroscopy of right knee History of cholecystectomy Social History Smoking Status: Former smoker alcohol intake: current details: rare substance use type: does not use caffeine: No ROS Constitutional Constitutional: Reports malaise and weakness Eyes Eyes: Denies blindness, blurry vision, change in vision, discongugate gaze, double vision, dry eyes or loss of vision ENT HEENT: Reports dry mouth; Denies epistaxis, hoarseness, loss taste/smell or nasal congestion Cardiovascular Cardiovascular: Denies chest pain, claudication, diaphoresis, dyspnea on exertion, edema, irregular heart rhythm, leg edema, orthopnea, palpitations or syncope Respiratory/Chest Respiratory/Chest: Reports dyspnea on exertion Gastrointestinal Gastrointestinal: Reports anorexia, dry heaves, nausea and vomiting Genitourinary Genitourinary: Reports change in urinary stream, difficulty urinating, dysuria and urinary frequency Musculoskeletal Musculoskeletal: Denies abnormal gait, arthralgias, joint stiffness, joint swelling, muscle cramps or myalgias Integumentary Integumentary: Denies dry skin, erythema, jaundice, lesions, pruritus, rash or skin ulcer Neurologic Neurologic: Denies abnormal gait, burning sensations, confusion, focal weakness, frequent falls, headache(s), numbness, restless legs, seizures, syncope, tremor(s) or weakness Psychiatric Psychiatric: Denies anxiety, confusion, depression or hallucinations Endocrine Endocrinology: Denies cold intolerance, fatigue, heat intolerance, polydipsia or polyuria Hematologic/Lymphatic Hematologic/Lymphatic: Denies anemia, easy bleeding or easy bruising Physical Exam Const alert, oriented x3, no apparent distress and average body habitus General Appearance: well developed Orientation / Consciousness: oriented to person, oriented to place and oriented to time HEENT normocephalic Head and Scalp: atraumatic External Ear: external ears normal Eyes PERRL Neck no lymphadenopathy Resp no use of accessory muscles and clear to auscultation bilaterally Cardio regular rate Cardio Narrative: Tachycardia GI non-tender Auscultation: normoactive bowel sounds Palpation: soft and no hepatosplenomegaly Skin no rashes or lesions noted Neuro Sensorium / Orientation: awake and alert Motor Exam: muscle tone normal throughout Psych cooperative Lab / Micro Data Attestation: I reviewed the patient's lab results. 06/29/24 04:15 06/29/24 04:15 Labs: Laboratory Results - last 24 hr 06/28/24 04:10: Ur Random Sodium 27 06/28/24 05:15: Total Creatine Kinase 8528 H 06/29/24 04:15: WBC 17.6 H, RBC 3.03 L, Hgb 9.2 L, Hct 28.1 L, MCV 92.7, MCH 30.4, MCHC 32.7, RDW Std Deviation 47.8 H, RDW Coeff of Mendel 14.0, Plt Count 91 L, MPV 11.1, Immature Gran % (Auto) 1.000 H, Neut % (Auto) 79.8 H, Lymph % (Auto) 9.8 L, [place] % (Auto) 4.0, Eos % (Auto) 5.2 H, Baso % (Auto) 0.2, Absolute Neuts (auto) 14.1 H, Absolute Lymphs (auto) 1.73, Nucleated RBC % 0, Sodium 141, Potassium 2.9 L, Chloride 114 H, Carbon Dioxide 20.0 L, Anion Gap 7, BUN 33 H, Creatinine 3.41 H, Estim Creat Clear Calc 22.77, Est GFR (MDRD) Af Amer 23 L, Est GFR (MDRD) Non-Af 19 L, BUN/Creatinine Ratio 9.7 L, Glucose 174 H, Calcium 7.1 L, Magnesium 1.7, Lipase 14 Micro: Microbiology 06/27/24 04:30 Blood Culture (Wb) - Right Wrist Blood Culture - Preliminary No growth in 48 hours. 06/28/24 12:24 Mucosa - Nasopharyngeal Respiratory Panel (PCR) - Final 06/28/24 12:20 Nasal Secretion MRSA (PCR) - Final Rhythm Strip Rhythm Strip: Sinus Tach Rate: 120 Ectopy: None
[2024-06-29] MEDS: Rivaroxaban 20 MG Tablet PO (12:29)
--- NOTE | 2024-06-29 13:17 | PCM.PN.TICU ---
Objective Data Objective Data Vital Signs: Vital Signs Last response Temperature 36.6 C 06/29/24 10:20 Temperature Source Temporal 06/29/24 10:20 Pulse Rate 100 06/29/24 10:20 Pulse Strength Weak (1+) 06/29/24 09:03 Respiratory Rate 18 06/29/24 10:20 Respiratory Effort Normal, Non-Labored 06/29/24 04:15 Respiratory Depth Normal 06/29/24 04:15 Respiratory Pattern Normal 06/29/24 04:15 Blood Pressure 133/63 H 06/29/24 10:20 Blood Pressure Mean 86 06/29/24 10:20 Blood Pressure Source Monitor 06/29/24 10:20 Blood Pressure Position Semi-Fowlers 06/29/24 10:20 Blood Pressure Location Left Arm 06/29/24 10:20 Pulse Ox 98 06/29/24 10:20 Oxygen Delivery Method Room Air 06/29/24 10:20 Oxygen Flow Rate (L/min) 2 06/27/24 17:00 I&O: I&O Last 24 Hours 06/28/24 06/29/24 06/29/24 23:59 11:59 23:59 Intake Total 1856.66 / 4064.16 1214.42 / 1214.42 Output Total 350 / 1150 500 / 500 Balance 1506.66 / 2914.16 714.42 / 714.42 I&O: Total Stay 06/27/24 02:21 thru 06/29/24 09:36 Intake Total 96885.08 Output Total 2425 Balance 7646.08 Current Meds Ordered / Administered: Current meds ordered / Administered Generic Name Dose Route Start Last Admin Trade Name Bhupendra PRN Reason Stop Dose Admin Acetaminophen 1,000 mg 06/27/24 14:00 06/29/24 05:18 Acetaminophen 500 Mg Tablet PO Not Given Q8 EZ Ascorbic Acid 1,000 mg 06/27/24 10:00 06/29/24 08:27 Ascorbic Acid 500 Mg Tablet PO 1,000 mg DAILY EZ Administration Atorvastatin Calcium 10 mg 06/27/24 22:00 06/28/24 21:09 Atorvastatin Calcium 10 Mg Tablet PO 10 mg 2200 EZ Administration Cholecalciferol 25 mcg 06/27/24 10:00 06/29/24 08:27 Cholecalciferol (Vit D3) 25 Mcg Tablet (1,000 Units) PO 25 mcg DAILY [facility] Administration Diltiazem HCl 180 mg 06/27/24 10:00 06/29/24 08:26 Diltiazem Cd 180 Mg Capsule PO 180 mg DAILY [facility] Administration Protocol Ferrous Sulfate 325 mg 06/27/24 08:00 06/29/24 08:26 Ferrous Sulfate 325 Mg Tablet PO 325 mg DAILYCM [facility] Administration Fluticasone Propionate 1 spray 06/27/24 06:40 Fluticasone 0.05% 1 [place] Nasal.Sry NASAL DAILY PRN ALLERGIES Hyoscyamine Sulfate 0.125 mg 06/27/24 06:40 Hyoscyamine Sulfate 0.125 Mg Tablet SL/PO DAILY PRN PRN ESOPHOGEAL SPASMS Cefepime HCl 1 gm/ Sodium 50 mls @ 100 mls/hr 06/28/24 18:00 06/28/24 19:39 Chloride IV Infused QHS [facility] Infusion Lactated Ringer's 1,000 mls @ 60 mls/hr 06/29/24 13:15 IV .[id number] [facility] Lidocaine 1 patch 06/27/24 10:00 06/29/24 12:30 Lidocaine 5% Patch TOPICAL Not Given DAILY [facility] Protocol Loratadine 10 mg 06/27/24 10:00 06/29/24 08:26 Loratadine 10 Mg Tablet PO 10 mg DAILY [facility] Administration Metoclopramide HCl 10 mg 06/28/24 18:00 Metoclopramide 10 Mg/2 Ml Vial IV Q6H PRN PRN NAUSEA/VOMITING Morphine Sulfate 2 - 4 mg 06/27/24 06:40 Morphine 2 Mg/Ml Syringe IV Q3H PRN PRN Pain Score 6-10 Morphine Sulfate 2 - 4 mg 06/27/24 06:48 Morphine 4 Mg/Ml Syringe IV Q3H PRN PRN Pain Score 6-10 Ondansetron HCl 4 mg 06/27/24 06:40 06/28/24 21:28 Ondansetron 4 Mg/2 Ml Vial IV 4 mg Q8H PRN PRN Administration NAUSEA/VOMITING Oxycodone HCl 5 mg 06/27/24 06:40 06/27/24 21:15 Oxycodone 5 Mg Tablet PO 5 mg Q4H PRN PRN Administration Pain Score 4-10 Rivaroxaban 20 mg 06/28/24 08:00 06/29/24 12:29 Rivaroxaban 20 Mg Tablet PO 20 mg DAILYCM EZ Administration Sodium Chloride 10 - 40 ml 06/27/24 06:51 06/29/24 05:16 0.9% Saline Lock 10 Ml Syringe IV 10 ml UD PRN Administration SALINE FLUSH Lab / Micro Data 06/29/24 04:15 06/29/24 04:15 Labs: Laboratory Results - last 24 hr 06/28/24 04:10: Ur Random Sodium 27 06/28/24 05:15: Total Creatine Kinase 8528 H 06/29/24 04:15: WBC 17.6 H, RBC 3.03 L, Hgb 9.2 L, Hct 28.1 L, MCV 92.7, MCH 30.4, MCHC 32.7, RDW Std Deviation 47.8 H, RDW Coeff of Mendel 14.0, Plt Count 91 L, MPV 11.1, Immature Gran % (Auto) 1.000 H, Neut % (Auto) 79.8 H, Lymph % (Auto) 9.8 L, [place] % (Auto) 4.0, Eos % (Auto) 5.2 H, Baso % (Auto) 0.2, Absolute Neuts (auto) 14.1 H, Absolute Lymphs (auto) 1.73, Nucleated RBC % 0, Sodium 141, Potassium 2.9 L, Chloride 114 H, Carbon Dioxide 20.0 L, Anion Gap 7, BUN 33 H, Creatinine 3.41 H, Estim Creat Clear Calc 22.77, Est GFR (MDRD) Af Amer 23 L, Est GFR (MDRD) Non-Af 19 L, BUN/Creatinine Ratio 9.7 L, Glucose 174 H, Calcium 7.1 L, Magnesium 1.7, Lipase 14 Micro: Microbiology 06/27/24 04:30 Blood Culture (Wb) - Right Wrist Blood Culture - Preliminary No growth in 48 hours. 06/28/24 12:24 Mucosa - Nasopharyngeal Respiratory Panel (PCR) - Final 06/28/24 12:20 Nasal Secretion MRSA (PCR) - Final Rhythm Strip Rhythm Strip: Sinus Tach Rate: 120 Ectopy: None Assessment and Plan . Assessment and plan: 1. Sepsis: suspect urinary source. Lactic elevated on admit. Now better. Continue IVFs 2. UTI: culture negative but had received oral antibxs. ID following. Continue cefepime. 3. FILIPPO: Continued increase in Cr despite adequate IVFs(+8L for admit). CK elevated. Repeat now. Renal following. IVFs change to LR 06/28. Decrease rate today. Full urine lytes ordered. 4. Rhabdomyolysis: etiology not clear. Was not on the ground for prolonged period of time. No evidence of focal muscle pain to suggest pyomyositis. No hx of viral syndromes. Repeat CPK pending. On IVFs. Renal following given FILIPPO. 5. CKD 6. Thrombocytopenia: platelets stable. Multi-factorial 7. FEN: oral diet 8. PX: On DOAC. Josiah Tejada MD Critical Care Time: 50 minutes The entirety of this encounter was done via Telemedicine Physical Exam Narrative awake, alert, NAD Pupils:= o/p:clear CV: RRR Chest: CTA B Abd: soft, nt, +bs Ext: no c/e/c Skin: no rashes Neuro: = strength Subjective Subjective no events.
[2024-06-29] MEDS: Lactated Ringers 1,000 ML 60 ML IV (13:20)
--- NOTE | 2024-06-29 13:23 | PN.HOSP_ITS ---
Reason for Visit Reason for Visit: Diagnoses Sepsis, unspecified organism (06/27/24) Pain in left hip (06/27/24) Acute kidney failure, unspecified (06/27/24) Urinary tract infection, site not specified (06/27/24) Objective Data Objective Data Vital Signs: Vital Signs Temp Pulse Resp BP Pulse Ox O2 Del Method O2 Flow Rate 97.8 F 100 18 133/63 H 98 Room Air 2 06/29/24 10:20 06/29/24 10:20 06/29/24 10:20 06/29/24 10:20 06/29/24 10:20 06/29/24 10:20 06/27/24 17:00 Oxygen Flow Rate (L/min) 2 Oxygen Delivery Method Room Air Weight: 187 lb 9.814 oz Body Mass Index (BMI) 24.0 Intake & Output: Intake and Output for Last 24 Hours 06/27/24 06/28/24 06/29/24 23:59 23:59 23:59 Intake Total 4892.5 / 4892.5 3964.16 / 4064.16 2147.75 / 2147.75 Output Total 1075 / 1075 850 / 1150 500 / 500 Balance 3817.5 / 3817.5 3114.16 / 2914.16 1647.75 / 1647.75 Lab / Micro Data 06/29/24 04:15 06/29/24 04:15 Labs: Laboratory Results - last 24 hr 06/28/24 04:10: Ur Random Sodium 27 06/28/24 05:15: Total Creatine Kinase 8528 H 06/29/24 04:15: WBC 17.6 H, RBC 3.03 L, Hgb 9.2 L, Hct 28.1 L, MCV 92.7, MCH 30.4, MCHC 32.7, RDW Std Deviation 47.8 H, RDW Coeff of Mendel 14.0, Plt Count 91 L , MPV 11.1, Immature Gran % (Auto) 1.000 H, Neut % (Auto) 79.8 H, Lymph % (Auto) 9.8 L, [place] % (Auto) 4.0, Eos % (Auto) 5.2 H, Baso % (Auto) 0.2, Absolute Neuts (auto) 14.1 H, Absolute Lymphs (auto) 1.73, Nucleated RBC % 0, Sodium 141, P otassium 2.9 L, Chloride 114 H, Carbon Dioxide 20.0 L, Anion Gap 7, BUN 33 H, C reatinine 3.41 H, Estim Creat Clear Calc 22.77, Est GFR (MDRD) Af Amer 23 L, Est GFR (MDRD) Non-Af 19 L, BUN/Creatinine Ratio 9.7 L, Glucose 174 H, Calcium 7.1 L , Magnesium 1.7, Lipase 14 Micro: Microbiology 06/27/24 04:30 Blood Culture (Wb) - Right Wrist Blood Culture - Preliminary No growth in 48 hours. 06/28/24 12:24 Mucosa - Nasopharyngeal Respiratory Panel (PCR) - Final 06/28/24 12:20 Nasal Secretion MRSA (PCR) - Final 06/27/24 07:00 Urine, Clean Catch Legionella Antigen - Final 06/27/24 07:00 Urine, Clean Catch Streptococcus pneumoniae Antigen (M - Final 06/27/24 03:30 Mucosa - Nose SARS-CoV-2, Influenza & RSV (PCR) - Final Rhythm Strip Rhythm Strip: Sinus Tach Rate: 120 Ectopy: None Physical Exam Narrative Seen and examined. Patient required chlorpromazine because of intractable cough and dry heaving yesterday and got better. Patient feeling very weak and has problem with sitting up. Physical exam General: Alert, Oriented x3, Cooperative HEENT: Atraumatic, PERRLA, EOMI, Normocephalic Oral: No Gingival or Mucosal Lesions/ Ulcerations Neck: Supple, No JVD, Negative Carotid Bruits Chest wall/Lungs: Air entry diminished in bilateral lung bases. No crepitation/rhonchi Cardiovascular: Regular rate, Regular Rhythm, Normal S1, Normal S2, No M/G/R Abdomen: Bowel Sounds Present, Soft, Non Tender, Non-Distended : No dysuria. No renal angle tenderness. No suprapubic tenderness. Extremities: No edema, Capillary Refill Less than 3 Seconds Skin: No rashes, No breakdown Musculoskeletal: No Tenderness to Palpation of Joints or Extremities. Degenerative arthritis of hips joints. Neurological: Cranial nerves II-XII grossly intact, DTR 2+/4. No acute focal neurological deficit. Psych/Mental Status: Flat affect. Assessment & Plan Assessment/Plan (1) Acute UTI: (2) Sepsis: (3) FILIPPO (acute kidney injury): PLAN: Plan #Septic shock due to probable UTI * Patient was hypotensive on admission and also had severe lactic acidosis and FILIPPO as well as leukopenia. * Patient did admit to some urinary symptoms and said he had had burning with urination. He denied any shortness of breath. * Urinalysis does show 2+ bacteria. * Was started on IV ceftriaxone and azithromycin. Blood cultures sputum cultures and urine for strep and Legionella are negative. * Chest x-ray showed minimal right pleural effusion and dependent atelectasis but no consolidation. * Blood pressure initially responded to fluids but patient is hypotensive again. Currently on normal saline at 150 cc/h. * Patient did not require vasopressor yesterday and today BP is better. * Automotive Warranty Administrator consulted. * In light of no evidence of pneumonia will DC azithromycin. 06/28 * Leukocytosis worsened. Immature granulocyte 2% indicating left shift. Neutrophil 82%. Bands present. Platelet count also decreased, thrombocytopenia. * IV antibiotic was broadened to Zosyn but changed to IV cefepime because of increasing creatinine. Zosyn known to cause pseudo increasing creatinine. * MRSA nasal screen. ID consulted. 06/29: Suspected source is UTI. Urine culture pending. Patient being evaluated by ID. Continue cefepime. #FILIPPO: Likely prerenal due to septic shock. On IV fluid normal saline 150 mill per hour 06/28: Creatinine further increased to 2.67, BUN 31, BUN/creatinine ratio 11.6. Senior Ui Developer consulted. Renal and bladder ultrasound ordered 06/29: Patient seen by microsoft dynamics consultant. FILIPPO probably due to decreased circulating volume/hypotension. Does not need hemodialysis. #UTI: Patient admits to frequency and dysuria. Burning micturition is getting better. Urine cultures ordered. #Left hip pain: Patient states this is new onset. X-ray showed no evidence of any fracture. This may be musculoskeletal. PT OT on board. #History of paroxysmal A-fib: Currently on Xarelto at [facility]. Cardizem on hold due to hypotension. #Hypertension: On losartan which is held due to sepsis and FILIPPO. 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 CODE STATUS: Full code Charges/Coding Visit Charges Inpatient E&M: 55687 Subs Hosp L2
[2024-06-29 13:44] LABS: Pathologist Review Reviewed
[2024-06-29 16:45] LABS: CPK Total, Creatine Kinase 3599 U/L (39-308)
[2024-06-29] MEDS: Metoclopramide 10 MG/2 ML Vial IV (17:23)
[2024-06-29 17:33] LABS: Urine Sodium 62 mmol/L (Not Establ.)
[2024-06-29 19:00] VITALS: PULSE 86
[2024-06-29] MEDS: Cefepime HCl 1 GM in 0.9% Normal Saline (50mL MB+) 50 ML IV (20:16)
[2024-06-29] MEDS: Atorvastatin Calcium 10 MG Tablet PO (20:16)
[2024-06-29 22:00] VITALS: BP 151/79; PULSE 86; RESP 20; TEMP 36.8; O2SAT 94
[2024-06-29 23:00] VITALS: PULSE 93
[2024-06-30] VITALS (8 sets, daily range): BP systolic 147–161; BP diastolic 73–99; PULSE 48–93; RESP 15–18; TEMP 36.2–37.3; O2SAT 94–97; BMI 24.7
[2024-06-30] MEDS: Ondansetron 4 MG/2 ML Vial IV ×2 (00:24→08:25)
[2024-06-30] MEDS: Lactated Ringers 1,000 ML 60 ML IV ×2 (05:28→20:50)
[2024-06-30 06:19] LABS: Absolute Lymphocyte Count 1.41 X10^3/uL (0.83-4.51); Absolute Neutrophil Count 9.4 X10^3/uL (2.0-7.7); Basophil# 0.05 X10^3/uL; Basophil% 0.4 % (0-1); Eosinophil# 0.65 X10^3/uL; Eosinophils% 5.3 % (0-5); Hematocrit 29.3 % (40-54); Hemoglobin 9.7 g/dL (13.0-16.5); Lymphocyte # 1.41 X10^3/ul (0.83-4.51); Lymphocyte % 11.5 % (19-41); Mean Corp Hgb Conc 33.1 g/dL (32-36); Mean Corpuscular Hgb 30.5 pg (27.0-32.0); Mean Corpuscular Volume 92.1 fL (80-94); Mean Platelet Vol. 10.9 fl (6.2-12.0); Monocyte% 4.9 % (0-10); NRBC Flagged by Analyzer 0 % (0-5); Neutrophil # 9.44 X10^3/uL (2.7-7.7); Neutrophil % 76.8 % (47-70); Platelet Count 103 K/mm3 (150-450); RBC Distribution Width SD 48.1 fl (35.1-43.9); Red Blood Count 3.18 M/mm3 (4.6-6.2); White Blood Count 12.3 K/mm3 (4.4-11.0)
[2024-06-30 06:51] LABS: Anion Gap 7 (5-15); BUN 27 mg/dL (7-18); BUN/Creat Ratio 7.4 RATIO (10-20); Calcium,Total 7.5 mg/dL (8.5-10.1); Chloride 118 mmol/L (98-107); Creatinine, Serum 3.67 mg/dL (0.70-1.30); EST Glomerular Filtration Rate 17 mL/min (>60); Est Glom Filt Rate - Afr Amer 21 mL/min (>60); Estimated Creatinine Clearance 21.15 ml/min; Glucose 94 mg/dL (74-106); Potassium 3.7 mmol/L (3.5-5.1); Sodium Level 145 mmol/L (136-145)
[2024-06-30 07:10] LABS: CPK Total, Creatine Kinase 1964 U/L (39-308)
[2024-06-30] MEDS: Rivaroxaban 20 MG Tablet PO (09:07)
[2024-06-30] MEDS: Ferrous Sulfate 325 MG Tablet PO (09:07)
[2024-06-30] MEDS: Loratadine 10 MG Tablet PO (09:08)
[2024-06-30] MEDS: dilTIAZem CD 180 MG Capsule PO (09:08)
[2024-06-30] MEDS: Ascorbic Acid 500 MG Tablet 1000 MG PO (09:08)
[2024-06-30] MEDS: Cholecalciferol (VIT D3) 25 MCG TABLET (1,000 UNITS) PO (09:09)
--- NOTE | 2024-06-30 10:26 | PCM.PN.REN ---
Subjective Subjective Following for FILIPPO Patient sitting up in bed. No overnight events. States feeling better overall. Tolerated breakfast this morning without much nausea. Objective Data Objective Data Vital Signs: Vital Signs Temp Pulse Resp BP Pulse Ox O2 Del Method O2 Flow Rate 98.6 F 93 16 147/99 H 97 Room Air 2 06/30/24 10:00 06/30/24 10:00 06/30/24 10:00 06/30/24 10:00 06/30/24 10:00 06/30/24 10:00 06/27/24 17:00 Oxygen Flow Rate (L/min) 2 Oxygen Delivery Method Room Air Weight: 87.2 kg Body Mass Index (BMI) 24.7 Intake & Output: Intake and Output for Last 24 Hours 06/28/24 06/29/24 06/30/24 23:59 23:59 23:59 Intake Total 3964.16 / 4064.16 2677.75 / 2777.75 1408 / 1408 Output Total 850 / 1150 1100 / 1100 200 / 200 Balance 3114.16 / 2914.16 1577.75 / 1677.75 1208 / 1208 Lab / Micro Data 06/30/24 05:35 06/30/24 05:35 Labs: Laboratory Results - last 24 hr 06/27/24 02:15: Diff Path Review Reviewed 06/29/24 15:55: Total Creatine Kinase 3599 H 06/29/24 17:05: Ur Random Sodium 62, Urine Creatinine 34.50 06/30/24 05:35: WBC 12.3 H, RBC 3.18 L, Hgb 9.7 L, Hct 29.3 L, MCV 92.1, MCH 30.5, MCHC 33.1, RDW Std Deviation 48.1 H, RDW Coeff of Mendel 14.0, Plt Count 103 L, MPV 10.9, Immature Gran % (Auto) 1.100 H, Neut % (Auto) 76.8 H, Lymph % (Auto) 11.5 L, [place] % (Auto) 4.9, Eos % (Auto) 5.3 H, Baso % (Auto) 0.4, Absolute Neuts (auto) 9.4 H, Absolute Lymphs (auto) 1.41, Nucleated RBC % 0, Sodium 145, Potassium 3.7, Chloride 118 H, Carbon Dioxide 20.0 L, Anion Gap 7, BUN 27 H, Creatinine 3.67 H, Estim Creat Clear Calc 21.15, Est GFR (MDRD) Af Amer 21 L, Est GFR (MDRD) Non-Af 17 L, BUN/Creatinine Ratio 7.4 L, Glucose 94, Calcium 7.5 L, Total Creatine Kinase 1964 H Micro: Microbiology 06/28/24 04:10 Urine, Clean Catch Urine Culture - Final Presumptive E. coli 06/27/24 04:30 Blood Culture (Wb) - Right Wrist Blood Culture - Preliminary No growth in 48 hours. 06/28/24 12:24 Mucosa - Nasopharyngeal Respiratory Panel (PCR) - Final 06/28/24 12:20 Nasal Secretion MRSA (PCR) - Final 06/27/24 07:00 Urine, Clean Catch Legionella Antigen - Final 06/27/24 07:00 Urine, Clean Catch Streptococcus pneumoniae Antigen (M - Final 06/27/24 03:30 Mucosa - Nose SARS-CoV-2, Influenza & RSV (PCR) - Final Radiography Diagnostic Testing: Radiology Impression Renal Ultrasound 06/29/24 05:55 IMPRESSION: Normal ultrasound of the kidneys and urinary bladder. Electronically Signed: John Dao MD at 14:57 EDT , Rhythm Strip Rhythm Strip: Sinus Tach Rate: 120 Ectopy: None Physical Exam Narrative Alert and oriented x 3, no apparent stress S1, S2, RRR Lung sounds clear Abdomen soft, nontender No pitting edema Assessment & Plan Assessment/Plan (1) FILIPPO (acute kidney injury): PLAN: - FILIPPO superimposed on CKD stage III; acute kidney injury in the setting of urosepsis, decreased circulating volume, hypotension. Originally prerenal azotemia evolving and ATN. Serum creatinine was near baseline, 1.5 mg/dL on admission. Today creatinine 3.6 mg/dL. Will continue with IV fluids for volume expansion. Renal ultrasound no hydro. Blood pressures have improved. Continue holding losartan. Patient is nonoliguric. Appetite was poor with nausea but seems to be improving, continue with antiemetics. No significant uremic symptoms nor hyperkalemia or acidemia therefore no acute indication for ELECTRONICS ASSEMBLER AND TESTER. Patient is nonoliguric. Hopefully serum creatinine will be plateauing and/or improving over the next 24 to 48 hours. Will continue to monitor renal function. Labs ordered for a.m. -CKD stage IIIa; baseline creatinine ranging around 1.4 mg/dL. Discussed with patient importance of avoiding NSAIDs -History of hypertension; blood pressures were low but have improved -ecoli UTI; on IV antibiotics. Blood cx no growth to date - discussed nephrology plan with Dr. Anthony.
--- NOTE | 2024-06-30 13:27 | PN.HOSP_ITS ---
Reason for Visit Reason for Visit: Diagnoses Sepsis, unspecified organism (06/27/24) Pain in left hip (06/27/24) Acute kidney failure, unspecified (06/27/24) Urinary tract infection, site not specified (06/27/24) Objective Data Objective Data Vital Signs: Vital Signs Temp Pulse Resp BP Pulse Ox O2 Del Method O2 Flow Rate 98.6 F 93 16 147/99 H 97 Room Air 2 06/30/24 10:00 06/30/24 10:00 06/30/24 10:00 06/30/24 10:00 06/30/24 10:00 06/30/24 10:00 06/27/24 17:00 Oxygen Flow Rate (L/min) 2 Oxygen Delivery Method Room Air Weight: 192 lb 3.889 oz Body Mass Index (BMI) 24.7 Intake & Output: Intake and Output for Last 24 Hours 06/28/24 06/29/24 06/30/24 23:59 23:59 23:59 Intake Total 3964.16 / 4064.16 2677.75 / 2777.75 1408 / 1408 Output Total 850 / 1150 1100 / 1100 200 / 200 Balance 3114.16 / 2914.16 1577.75 / 1677.75 1208 / 1208 Lab / Micro Data 06/30/24 05:35 06/30/24 05:35 Labs: Laboratory Results - last 24 hr 06/27/24 02:15: Diff Path Review Reviewed 06/29/24 15:55: Total Creatine Kinase 3599 H 06/29/24 17:05: Ur Random Sodium 62, Urine Creatinine 34.50 06/30/24 05:35: WBC 12.3 H, RBC 3.18 L, Hgb 9.7 L, Hct 29.3 L, MCV 92.1, MCH 30.5, MCHC 33.1, RDW Std Deviation 48.1 H, RDW Coeff of Mendel 14.0, Plt Count 103 L, MPV 10.9, Immature Gran % (Auto) 1.100 H, Neut % (Auto) 76.8 H, Lymph % (Auto) 11.5 L, Maverick % (Auto) 4.9, Eos % (Auto) 5.3 H, Baso % (Auto) 0.4, A bsolute Neuts (auto) 9.4 H, Absolute Lymphs (auto) 1.41, Nucleated RBC % 0, Sodium 145, Potassium 3.7, Chloride 118 H, Carbon Dioxide 20.0 L, Anion Gap 7, B UN 27 H, Creatinine 3.67 H, Estim Creat Clear Calc 21.15, Est GFR (MDRD) Af Amer 21 L, Est GFR (MDRD) Non-Af 17 L, BUN/Creatinine Ratio 7.4 L, Glucose 94, C alcium 7.5 L, Total Creatine Kinase 1964 H Micro: Microbiology 06/28/24 04:10 Urine, Clean Catch Urine Culture - Final Presumptive E. coli 06/27/24 04:30 Blood Culture (Wb) - Right Wrist Blood Culture - Preliminary No growth in 48 hours. 06/28/24 12:24 Mucosa - Nasopharyngeal Respiratory Panel (PCR) - Final 06/28/24 12:20 Nasal Secretion MRSA (PCR) - Final 06/27/24 07:00 Urine, Clean Catch Legionella Antigen - Final 06/27/24 07:00 Urine, Clean Catch Streptococcus pneumoniae Antigen (M - Final 06/27/24 03:30 Mucosa - Nose SARS-CoV-2, Influenza & RSV (PCR) - Final Radiography Diagnostic Testing: Radiology Impression Renal Ultrasound 06/29/24 05:55 IMPRESSION: Normal ultrasound of the kidneys and urinary bladder. Electronically Signed: John Dao MD at 14:57 EDT , Rhythm Strip Rhythm Strip: Sinus Tach Rate: 120 Ectopy: None Physical Exam Narrative Seen and examined. Patient states he has a history of esophageal spasm and takes sublingual hyoscyamine before spasm peaks up. Patient feeling very weak and has problem with sitting up. Creatinine is still elevated Physical exam General: Alert, Oriented x3, Cooperative. Fatigue HEENT: Atraumatic, PERRLA, EOMI, Normocephalic Oral: No Gingival or Mucosal Lesions/ Ulcerations Neck: Supple, No JVD, Negative Carotid Bruits Chest wall/Lungs: Air entry diminished in bilateral lung bases. No crepitation/rhonchi Cardiovascular: Regular rate, Regular Rhythm, Normal S1, Normal S2, No M/G/R Abdomen: Bowel Sounds Present, Soft, Non Tender, Non-Distended : No dysuria. No renal angle tenderness. No suprapubic tenderness. Extremities: No edema, Capillary Refill Less than 3 Seconds Skin: No rashes, No breakdown Musculoskeletal: No Tenderness to Palpation of Joints or Extremities. Degenerative arthritis of hips joints. Neurological: Cranial nerves II-XII grossly intact, DTR 2+/4. No acute focal neurological deficit. Psych/Mental Status: Flat affect. Assessment & Plan Assessment/Plan (1) Acute UTI: (2) Sepsis: (3) FILIPPO (acute kidney injury): PLAN: Plan #Septic shock due to probable UTI * Patient was hypotensive on admission and also had severe lactic acidosis and FILIPPO as well as leukopenia. * Patient did admit to some urinary symptoms and said he had had burning with urination. He denied any shortness of breath. * Urinalysis does show 2+ bacteria. * Was started on IV ceftriaxone and azithromycin. Blood cultures sputum cultures and urine for strep and Legionella are negative. * Chest x-ray showed minimal right pleural effusion and dependent atelectasis but no consolidation. * Blood pressure initially responded to fluids but patient is hypotensive again. Currently on normal saline at 150 cc/h. * Patient did not require vasopressor yesterday and today BP is better. * Engineer Remote Control Diesel consulted. * In light of no evidence of pneumonia will DC azithromycin. 06/28 * Leukocytosis worsened. Immature granulocyte 2% indicating left shift. Neutrophil 82%. Bands present. Platelet count also decreased, thrombocytopenia. * IV antibiotic was broadened to Zosyn but changed to IV cefepime because of increasing creatinine. Zosyn known to cause pseudo increasing creatinine. * MRSA nasal screen. ID consulted. 06/29: Suspected source is UTI. Urine culture pending. Patient being evaluated by ID. Continue cefepime. 06/30: Urine culture shows presumptive E. coli less than 1000 colonies below infection level. ID follow-up required. Patient was on IV antibiotic Zosyn prior to his urine culture specimen collection therefore probably had UTI which got treated #FILIPPO: Likely prerenal due to septic shock. On IV fluid normal saline 150 mill per hour 06/28: Creatinine further increased to 2.67, BUN 31, BUN/creatinine ratio 11.6. International Trade Compliance Manager consulted. Renal and bladder ultrasound ordered 06/29: Patient seen by analyst. FILIPPO probably due to decreased circulating volume/hypotension. Does not need hemodialysis. 06/30: Creatinine is still going up from 2.67-3.67. #UTI: Patient admits to frequency and dysuria. Burning micturition is getting better. Urine cultures ordered. #Left hip pain: Patient states this is new onset. X-ray showed no evidence of any fracture. This may be musculoskeletal. PT OT on board. #History of paroxysmal A-fib: Currently on Xarelto at [facility]. Cardizem on hold due to hypotension. #Hypertension: On losartan which is held due to sepsis and FILIPPO. 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 CODE STATUS: Full code Charges/Coding Visit Charges Inpatient E&M: 33653 Subs Hosp L2
--- NOTE | 2024-06-30 15:27 | PCM.PN.TICU ---
Objective Data Objective Data Vital Signs: Vital Signs Last response Temperature 37.0 C 06/30/24 10:00 Temperature Source Temporal 06/30/24 10:00 Pulse Rate 93 06/30/24 10:00 Pulse Strength Normal (2+) 06/30/24 08:14 Respiratory Rate 16 06/30/24 10:00 Respiratory Effort Normal, Non-Labored 06/30/24 02:00 Respiratory Depth Normal 06/30/24 02:00 Respiratory Pattern Normal 06/30/24 02:00 Blood Pressure 147/99 H 06/30/24 10:00 Blood Pressure Mean 115 06/30/24 10:00 Blood Pressure Source Monitor 06/30/24 10:00 Blood Pressure Position Semi-Fowlers 06/30/24 10:00 Blood Pressure Location Left Arm 06/30/24 10:00 Pulse Ox 96 06/30/24 13:48 Oxygen Delivery Method Room Air 06/30/24 10:00 Oxygen Flow Rate (L/min) 2 06/27/24 17:00 I&O: I&O Last 24 Hours 06/29/24 06/30/24 06/30/24 23:59 11:59 23:59 Intake Total 1463.33 / 2777.75 1408 / 1888 480 / 1888 Output Total 600 / 1100 200 / 400 200 / 400 Balance 863.33 / 1677.75 1208 / 1488 280 / 1488 I&O: Total Stay 06/27/24 02:21 thru 06/30/24 12:00 Intake Total 64952.41 Output Total 3425 Balance 9997.41 Current Meds Ordered / Administered: Current meds ordered / Administered Generic Name Dose Route Start Last Admin Trade Name Bhupendra PRN Reason Stop Dose Admin Acetaminophen 1,000 mg 06/27/24 14:00 06/30/24 14:39 Acetaminophen 500 Mg Tablet PO Not Given Q8 [facility] Ascorbic Acid 1,000 mg 06/27/24 10:00 06/30/24 09:08 Ascorbic Acid 500 Mg Tablet PO 1,000 mg DAILY EZ Administration Atorvastatin Calcium 10 mg 06/27/24 22:00 06/29/24 20:16 Atorvastatin Calcium 10 Mg Tablet PO 10 mg 2200 EZ Administration Cholecalciferol 25 mcg 06/27/24 10:00 06/30/24 09:09 Cholecalciferol (Vit D3) 25 Mcg Tablet (1,000 Units) PO 25 mcg DAILY EZ Administration Diltiazem HCl 180 mg 06/27/24 10:00 06/30/24 09:08 Diltiazem Cd 180 Mg Capsule PO 180 mg DAILY [facility] Administration Protocol Ferrous Sulfate 325 mg 06/27/24 08:00 06/30/24 09:07 Ferrous Sulfate 325 Mg Tablet PO 325 mg DAILYCM EZ Administration Fluticasone Propionate 1 spray 06/27/24 06:40 Fluticasone 0.05% 1 [place] Nasal.Sry NASAL DAILY PRN ALLERGIES Hyoscyamine Sulfate 0.125 mg 06/27/24 06:40 Hyoscyamine Sulfate 0.125 Mg Tablet SL/PO DAILY PRN PRN ESOPHOGEAL SPASMS Cefepime HCl 1 gm/ Sodium 50 mls @ 100 mls/hr 06/28/24 18:00 06/29/24 20:50 Chloride IV Infused QHS [facility] Infusion Lactated Ringer's 1,000 mls @ 60 mls/hr 06/29/24 13:15 06/30/24 05:28 IV 60 mls/hr .[id number] [facility] Administration Lidocaine 1 patch 06/27/24 10:00 06/30/24 09:09 Lidocaine 5% Patch TOPICAL Not Given DAILY [facility] Protocol Loratadine 10 mg 06/27/24 10:00 06/30/24 09:08 Loratadine 10 Mg Tablet PO 10 mg DAILY [facility] Administration Metoclopramide HCl 10 mg 06/28/24 18:00 06/29/24 17:23 Metoclopramide 10 Mg/2 Ml Vial IV 10 mg Q6H PRN PRN Administration NAUSEA/VOMITING Morphine Sulfate 2 - 4 mg 06/27/24 06:40 Morphine 2 Mg/Ml Syringe IV Q3H PRN PRN Pain Score 6-10 Morphine Sulfate 2 - 4 mg 06/27/24 06:48 Morphine 4 Mg/Ml Syringe IV Q3H PRN PRN Pain Score 6-10 Ondansetron HCl 4 mg 06/27/24 06:40 06/30/24 08:25 Ondansetron 4 Mg/2 Ml Vial IV 4 mg Q8H PRN PRN Administration NAUSEA/VOMITING Oxycodone HCl 5 mg 06/27/24 06:40 06/27/24 21:15 Oxycodone 5 Mg Tablet PO 5 mg Q4H PRN PRN Administration Pain Score 4-10 Rivaroxaban 20 mg 06/28/24 08:00 06/30/24 09:07 Rivaroxaban 20 Mg Tablet PO 20 mg DAILYCM EZ Administration Sodium Chloride 10 - 40 ml 06/27/24 06:51 06/29/24 05:16 0.9% Saline Lock 10 Ml Syringe IV 10 ml UD PRN Administration SALINE FLUSH Lab / Micro Data 06/30/24 05:35 06/30/24 05:35 Labs: Laboratory Results - last 24 hr 06/29/24 15:55: Total Creatine Kinase 3599 H 06/29/24 17:05: Ur Random Sodium 62, Urine Creatinine 34.50 06/30/24 05:35: WBC 12.3 H, RBC 3.18 L, Hgb 9.7 L, Hct 29.3 L, MCV 92.1, MCH 30.5, MCHC 33.1, RDW Std Deviation 48.1 H, RDW Coeff of Mendel 14.0, Plt Count 103 L, MPV 10.9, Immature Gran % (Auto) 1.100 H, Neut % (Auto) 76.8 H, Lymph % (Auto) 11.5 L, Eagle % (Auto) 4.9, Eos % (Auto) 5.3 H, Baso % (Auto) 0.4, Absolute Neuts (auto) 9.4 H, Absolute Lymphs (auto) 1.41, Nucleated RBC % 0, Sodium 145, Potassium 3.7, Chloride 118 H, Carbon Dioxide 20.0 L, Anion Gap 7, BUN 27 H, Creatinine 3.67 H, Estim Creat Clear Calc 21.15, Est GFR (MDRD) Af Amer 21 L, Est GFR (MDRD) Non-Af 17 L, BUN/Creatinine Ratio 7.4 L, Glucose 94, Calcium 7.5 L, Total Creatine Kinase 1964 H Micro: Microbiology 06/28/24 04:10 Urine, Clean Catch Urine Culture - Final Presumptive E. coli Rhythm Strip Rhythm Strip: Sinus Tach Rate: 120 Ectopy: None Assessment and Plan . Assessment and plan: 1. Sepsis: suspect urinary source. Lactic elevated on admit. Now better. 2. UTI: culture with 1k CFU of E coli but had received oral antibxs. ID following. Continue cefepime. 3. FILIPPO: Continued increase albeit mild in Cr. UOP excellent. CK elevated/now downtrending. Renal following. FENA c/w intrinsic. 4. Rhabdomyolysis: etiology not clear. Was not on the ground for prolonged period of time. No evidence of focal muscle pain to suggest pyomyositis. No hx of viral syndromes. Repeat CPK better, On IVFs. Renal following given FILIPPO. 5. CKD 6. Thrombocytopenia: platelets stable. Multi-factorial 7. FEN: oral diet 8. PX: On DOAC. Tx to floor. Will sign off. Josiah Teajda MD The entirety of this encounter was done via Telemedicine Physical Exam Narrative awake, NAD pupils = o/p:clear CV: rrr Chest: CTA B Abd: soft, nt Ext: no c/c/e Skin: no rashes Subjective Subjective feeling better
[2024-06-30] MEDS: Cefepime HCl 1 GM in 0.9% Normal Saline (50mL MB+) 50 ML IV (20:51)
[2024-06-30] MEDS: Atorvastatin Calcium 10 MG Tablet PO (20:53)
[2024-07-01 04:00] VITALS: BP 134/65; PULSE 50; RESP 95; TEMP 36.8; O2SAT 94
[2024-07-01 04:41] LABS: Anion Gap 7 (5-15); BUN 27 mg/dL (7-18); BUN/Creat Ratio 7.3 RATIO (10-20); Calcium,Total 7.8 mg/dL (8.5-10.1); Chloride 113 mmol/L (98-107); EST Glomerular Filtration Rate 17 mL/min (>60); Est Glom Filt Rate - Afr Amer 21 mL/min (>60); Estimated Creatinine Clearance 20.98 ml/min; Glucose 93 mg/dL (74-106); Potassium 3.8 mmol/L (3.5-5.1); Sodium Level 140 mmol/L (136-145)
[2024-07-01] MEDS: dilTIAZem CD 180 MG Capsule PO (08:40)
[2024-07-01] MEDS: Ferrous Sulfate 325 MG Tablet PO (08:40)
[2024-07-01] MEDS: Ascorbic Acid 500 MG Tablet 1000 MG PO (08:40)
[2024-07-01] MEDS: Rivaroxaban 20 MG Tablet PO (08:40)
[2024-07-01] MEDS: Loratadine 10 MG Tablet PO (08:40)
[2024-07-01 09:00] VITALS: BP 151/86; PULSE 86; RESP 18; TEMP 36.6; O2SAT 99
--- NOTE | 2024-07-01 09:24 | CASEMGMT ---
Social Work SW spoke with PT. Pt did well with therapy and not additional therapy is recommended at [facility]. Referral to TCU cancelled. RNCM luann. LORRAINE Kelley
--- NOTE | 2024-07-01 11:33 | PN.HOSP_ITS ---
Reason for Visit Reason for Visit: Diagnoses Sepsis, unspecified organism (06/27/24) Pain in left hip (06/27/24) Acute kidney failure, unspecified (06/27/24) Urinary tract infection, site not specified (06/27/24) Objective Data Objective Data Vital Signs: Vital Signs Temp Pulse Resp BP Pulse Ox O2 Del Method O2 Flow Rate 97.8 F 86 18 151/86 H 99 Room Air 2 07/01/24 09:00 07/01/24 09:00 07/01/24 09:00 07/01/24 09:00 07/01/24 09:00 07/01/24 09:00 06/27/24 17:00 Oxygen Flow Rate (L/min) 2 Oxygen Delivery Method Room Air Weight: 192 lb 3.889 oz Body Mass Index (BMI) 24.7 Intake & Output: Intake and Output for Last 24 Hours 06/29/24 06/30/24 07/01/24 23:59 23:59 23:59 Intake Total 2677.75 / 2777.75 3350 / 3350 Output Total 1100 / 1100 500 / 500 Balance 1577.75 / 1677.75 2850 / 2850 Lab / Micro Data 06/30/24 05:35 07/01/24 03:40 Labs: Laboratory Results - last 24 hr 07/01/24 03:40: Sodium 140, Potassium 3.8, Chloride 113 H, Carbon Dioxide 20.0 L , Anion Gap 7, BUN 27 H, Creatinine 3.70 H, Estim Creat Clear Calc 20.98, Est GFR (MDRD) Af Amer 21 L, Est GFR (MDRD) Non-Af 17 L, BUN/Creatinine Ratio 7.3 L, Glucose 93, Calcium 7.8 L Micro: Microbiology 06/28/24 04:10 Urine, Clean Catch Urine Culture - Final Presumptive E. coli 06/27/24 04:30 Blood Culture (Wb) - Right Wrist Blood Culture - Preliminary No growth in 48 hours. 06/28/24 12:24 Mucosa - Nasopharyngeal Respiratory Panel (PCR) - Final 06/28/24 12:20 Nasal Secretion MRSA (PCR) - Final 06/27/24 07:00 Urine, Clean Catch Legionella Antigen - Final 06/27/24 07:00 Urine, Clean Catch Streptococcus pneumoniae Antigen (M - Final 06/27/24 03:30 Mucosa - Nose SARS-CoV-2, Influenza & RSV (PCR) - Final Rhythm Strip Rhythm Strip: Sinus Tach Rate: 120 Ectopy: None Physical Exam Narrative Seen and examined. Patient states he has a history of esophageal spasm and takes sublingual hyoscyamine before spasm peaks up. Patient feeling very weak and feels like that he might be unsteady on walking. Creatinine slightly went up. Physical exam General: Alert, Oriented x3, Cooperative. Fatigue HEENT: Atraumatic, PERRLA, EOMI, Normocephalic Oral: No Gingival or Mucosal Lesions/ Ulcerations Neck: Supple, No JVD, Negative Carotid Bruits Chest wall/Lungs: Air entry diminished in bilateral lung bases. No crepitation/rhonchi Cardiovascular: Regular rate, Regular Rhythm, Normal S1, Normal S2, No M/G/R Abdomen: Bowel Sounds Present, Soft, Non Tender, Non-Distended : No dysuria. No renal angle tenderness. No suprapubic tenderness. Extremities: No edema, Capillary Refill Less than 3 Seconds Skin: No rashes, No breakdown Musculoskeletal: No Tenderness to Palpation of Joints or Extremities. Degenerative arthritis of hips joints. Neurological: Cranial nerves II-XII grossly intact, DTR 2+/4. No acute focal neurological deficit. Psych/Mental Status: Flat affect. Assessment & Plan Assessment/Plan (1) Acute UTI: (2) Sepsis: (3) FILIPPO (acute kidney injury): PLAN: Plan #Septic shock due to probable UTI * Patient was hypotensive on admission and also had severe lactic acidosis and FILIPPO as well as leukopenia. * Patient did admit to some urinary symptoms and said he had had burning with urination. He denied any shortness of breath. * Urinalysis does show 2+ bacteria. * Was started on IV ceftriaxone and azithromycin. Blood cultures sputum cultures and urine for strep and Legionella are negative. * Chest x-ray showed minimal right pleural effusion and dependent atelectasis but no consolidation. * Blood pressure initially responded to fluids but patient is hypotensive again. Currently on normal saline at 150 cc/h. * Patient did not require vasopressor yesterday and today BP is better. * Undercoat Sprayer consulted. * In light of no evidence of pneumonia will DC azithromycin. 06/28 * Leukocytosis worsened. Immature granulocyte 2% indicating left shift. Neutrophil 82%. Bands present. Platelet count also decreased, thrombocytopenia. * IV antibiotic was broadened to Zosyn but changed to IV cefepime because of increasing creatinine. Zosyn known to cause pseudo increasing creatinine. * MRSA nasal screen. ID consulted. 06/29: Suspected source is UTI. Urine culture pending. Patient being evaluated by ID. Continue cefepime. 06/30: Urine culture shows presumptive E. coli less than 1000 colonies below infection level. ID follow-up required. Patient was on IV antibiotic Zosyn prior to his urine culture specimen collection therefore probably had UTI which got treated 07/01: On IV cefepime. #FILIPPO: Likely prerenal due to septic shock. On IV fluid normal saline 150 mill per hour 06/28: Creatinine further increased to 2.67, BUN 31, BUN/creatinine ratio 11.6. Staple Processing Machine Operator consulted. Renal and bladder ultrasound ordered 06/29: Patient seen by care companion. FILIPPO probably due to decreased circulating volume/hypotension. Does not need hemodialysis. 06/30: Creatinine is still going up from 2.67-3.67. 07/01: Creatinine went up 3.70. Probably it is stabilizing. # Possible E. coli UTI: Patient admits to frequency and dysuria. Burning micturition is getting better. #Left hip pain: Patient states this is new onset. X-ray showed no evidence of any fracture. This may be musculoskeletal. PT OT on board. 07/01: PT and OT signed off yesterday but today patient feeling very weak, yesterday might be unsteady almost Chloresium on walking therefore PT and OT reconsulted #History of paroxysmal A-fib: Currently on Xarelto at [facility]. Cardizem on hold due to hypotension. #Hypertension: On losartan which is held due to sepsis and FILIPPO. 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 CODE STATUS: Full code Charges/Coding Visit Charges Inpatient E&M: 30721 Subs Hosp L2
--- NOTE | 2024-07-01 12:59 | PCM.PN.ID ---
Physical Exam Narrative Feeling ok, mild nausea, no fever, no abd pain Const alert and no apparent distress General Appearance: cooperative Resp normal air movement and clear to auscultation bilaterally Cardio regular rate and regular rhythm GI soft to palpation, non-tender and non-distended Skin no rashes or lesions noted ID ID: Route of nutrition/ use of supplements: [] Nutritional Intake: [] IV Site: [] Millan Catheter: [] Assessment & Plan Assessment/Plan (1) Sepsis: PLAN: Suspect urinary source. Ucx neg. FILIPPO on CKD. Neph to see. Will finish cefepime today. Will follow as needed, thank you (2) FILIPPO (acute kidney injury):
[2024-07-01] MEDS: Lactated Ringers 1,000 ML 60 ML IV (13:09)
[2024-07-01 14:00] VITALS: BP 139/72; PULSE 84; RESP 16; TEMP 37; O2SAT 97
[2024-07-01] MEDS: Cholecalciferol (VIT D3) 25 MCG TABLET (1,000 UNITS) PO (17:24)
[2024-07-01 20:00] VITALS: BP 155/76; PULSE 72; RESP 18; TEMP 36.3; O2SAT 94
[2024-07-01] MEDS: Atorvastatin Calcium 10 MG Tablet PO (20:55)
[2024-07-02 02:00] VITALS: BP 155/73; PULSE 75; RESP 17; TEMP 36.8; O2SAT 94
[2024-07-02] MEDS: 0.9% Saline Lock 10 ML Syringe IV (05:13)
[2024-07-02] MEDS: Lactated Ringers 1,000 ML 60 ML IV (05:13)
[2024-07-02 05:27] LABS: Absolute Lymphocyte Count 2.05 X10^3/uL (0.83-4.51); Basophil# 0.04 X10^3/uL; Basophil% 0.4 % (0-1); Eosinophil# 0.56 X10^3/uL; Eosinophils% 5.8 % (0-5); Hematocrit 28.5 % (40-54); Hemoglobin 9.3 g/dL (13.0-16.5); Lymphocyte # 2.05 X10^3/ul (0.83-4.51); Lymphocyte % 21.3 % (19-41); Mean Corp Hgb Conc 32.6 g/dL (32-36); Mean Corpuscular Hgb 29.9 pg (27.0-32.0); Mean Corpuscular Volume 91.6 fL (80-94); Mean Platelet Vol. 10.2 fl (6.2-12.0); Monocyte# 0.77 X10^3/uL; NRBC Flagged by Analyzer 0 % (0-5); Neutrophil # 5.99 X10^3/uL (2.7-7.7); Neutrophil % 62.3 % (47-70); Platelet Count 134 K/mm3 (150-450); RBC Distribution Width CV 14.3 % (11.6-14.6); RBC Distribution Width SD 48.2 fl (35.1-43.9); Red Blood Count 3.11 M/mm3 (4.6-6.2); White Blood Count 9.6 K/mm3 (4.4-11.0)
[2024-07-02 05:31] VITALS: BMI 25.4
[2024-07-02 05:42] LABS: Anion Gap 7 (5-15); BUN 28 mg/dL (7-18); BUN/Creat Ratio 7.8 RATIO (10-20); Chloride 111 mmol/L (98-107); EST Glomerular Filtration Rate 18 mL/min (>60); Est Glom Filt Rate - Afr Amer 22 mL/min (>60); Estimated Creatinine Clearance 21.56 ml/min; Glucose 90 mg/dL (74-106); Potassium 3.6 mmol/L (3.5-5.1); Sodium Level 140 mmol/L (136-145)
[2024-07-02 07:47] VITALS: BP 162/74; PULSE 78; RESP 15; TEMP 36.6; O2SAT 95
[2024-07-02] MEDS: Rivaroxaban 20 MG Tablet PO (07:50)
[2024-07-02] MEDS: dilTIAZem CD 180 MG Capsule PO (07:50)
[2024-07-02] MEDS: Ascorbic Acid 500 MG Tablet 1000 MG PO (07:51)
[2024-07-02] MEDS: Ferrous Sulfate 325 MG Tablet PO (07:51)
[2024-07-02] MEDS: Loratadine 10 MG Tablet PO (07:51)
[2024-07-02 08:00] VITALS: PULSE 75
--- NOTE | 2024-07-02 10:57 | DCINST_ITS ---
Discharge Instructions Diet Discharge Diet: Low fat / Low cholesterol and 2000 mg Sodium Diet Activity Discharge Activity: Return to Normal Activity Weight Bearing Status: Weight bearing as tolerated Dressing / Incision Call your doctor if you observe: Fever of 101 or Higher, Coldness, Increased Pain, Numbness or Tingling, Change in Color, Inability to urinate, Inability to have a bowel movement, Shortness of breath, Dizziness, Fainting spells, Swelling in the ankles, Chest pain, Prolonged hiccupping, Increased palpitations (irregular heartbeat) and Calf discomfort Follow Up Care When: IN 2 WEEKS Test Results: Test results from this visit will be discussed in further detail at your follow- up appointment, if applicable. Discharge Plan Admission Admit Date/Time: 06/27/24 06:01 Primary Reason for Your Visit: SEPTIC Shock due to UTI Attending Provider: Valdo Anthony Primary Care Provider: Juvenal Chatman Consulting Providers: Leandro Brown; Yazmin Zuñiga; Prem Loyd; Mina Wallace Discharge Orders/Prescriptions Prescriptions: New hydralazine 50 mg tablet 50 mg PO BID 30 Days Qty: 60 0RF Rx Instructions: Hold for SBP less than 130 mmHg Continued ascorbic acid (vitamin C) 1,000 mg tablet extended release 1,000 mg PO DAILY fluticasone propionate [Flonase Allergy Relief] 50 mcg/actuation spray,suspension 1 spray INTRANASAL DAILY PRN (Reason: ALLERGIES) Rx Instructions: administer into each nostril diltiazem HCl 180 mg capsule,extended release 24hr 180 mg PO DAILY ferrous sulfate [FeroSul] 325 mg (65 mg iron) tablet 325 mg PO DAILY Xarelto 20 mg tablet 20 mg PO DAILY Rx Instructions: must administer with evening meal atorvastatin 10 mg tablet 10 mg PO DAILY hydrocodone-acetaminophen 1 EACH tablet 1 ea PO Q4H PRN (Reason: pain ) loratadine 10 MG tablet 10 mg PO DAILY cholecalciferol (vitamin D3) 1,000 UNIT tablet 1,000 unit PO DAILY hyoscyamine sulfate 0.125 mg tablet, sublingual 0.125 mg sublingual DAILY PRN (Reason: ESOPHOGEAL SPASMS) diclofenac sodium [Arthritis Pain (diclofenac)] 1 % gel topical Held losartan 100 mg tablet 100 mg PO DAILY Qty: 90 3RF Hold Instructions: Hold for 1 month. Discontinued azithromycin 250 mg tablet 250 mg PO DAILY Qty: 4 0RF amoxicillin-pot clavulanate 875-125 mg tablet 875 mg PO Q12H Qty: 13 0RF Referrals / Follow Up: Juvenal Chatman MD [Primary Care Provider] - Within 1 Week Angelita Elmore MD [Med Staff - Consulting] - Within 1 Month Disposition Disposition (needs filled in before D/C Order can be placed): Home, Self Care
[2024-07-02 11:04] VITALS: BP 150/78; PULSE 78; RESP 15; TEMP 36.4; O2SAT 97
--- NOTE | 2024-07-02 11:06 | DS.PCM_ITS ---
Providers Date of Admission: 06/27/24 Date of Discharge: 07/02/24 Primary Care Physician: Dr. Juvenal Chatman MD Consultations 06/28/24 12:30 Consult: Infectious Disease Routine Consulting Provider: Prem Loyd Reason for Consult: SEPSIS, possible UTI, WBC high EMERGENT Consult: No Notified: Yes Date Notified: 06/28/24 Time Notified: 12:32 Method of Notification: Text 06/28/24 13:38 Consult: Nephrology Routine Consulting Provider: Mina Wallace Reason for Consult: FILIPPO, creatinine worsened to 2.67. EMERGENT Consult: No Notified: Yes Date Notified: 06/28/24 Time Notified: 13:38 Method of Notification: Text Reason For Visit: SEPSIS Diagnosis Discharge Diagnosis (1) Sepsis: Status: Acute Code(s): A41.9 - Sepsis, unspecified organism (2) FILIPPO (acute kidney injury): Status: Acute Code(s): N17.9 - Acute kidney failure, unspecified Plan 73-year-old gentleman was admitted with generalized weakness, laying on the floor for 20 minutes and was unable to get up. Prior to that he was patient was in the ED and was diagnosed clinically with pneumonia and was prescribed Augmentin and azithromycin. Patient was found hypotensive due to septic shock admitted in ICU. #Septic shock due to probable UTI * Patient was hypotensive on admission and also had severe lactic acidosis and FILIPPO as well as leukopenia. * Patient did admit to some urinary symptoms and said he had had burning with urination. He denied any shortness of breath. * Urinalysis does show 2+ bacteria. * Was started on IV ceftriaxone and azithromycin. Blood cultures sputum cultures and urine for strep and Legionella are negative. * Chest x-ray showed minimal right pleural effusion and dependent atelectasis but no consolidation. * Blood pressure initially responded to fluids but patient is hypotensive again. Currently on normal saline at 150 cc/h. * Patient did not require vasopressor yesterday and today BP is better. * Energy And Sustainability Manager consulted. * In light of no evidence of pneumonia will DC azithromycin. 06/28 * Leukocytosis worsened. Immature granulocyte 2% indicating left shift. Neutrophil 82%. Bands present. Platelet count also decreased, thrombocytopenia. * IV antibiotic was broadened to Zosyn but changed to IV cefepime because of increasing creatinine. Zosyn known to cause pseudo increasing creatinine. * MRSA nasal screen. ID consulted. 06/29: Suspected source is UTI. Urine culture pending. Patient being evaluated by ID. Continue cefepime. 06/30: Urine culture shows presumptive E. coli less than 1000 colonies below infection level. ID follow-up required. Patient was on IV antibiotic Zosyn prior to his urine culture specimen collection therefore probably had UTI which got treated 07/01: On IV cefepime. 07/02: Septic shock resolved. Patient completed IV cefepime yesterday on 07/01. Had 1 week of IV antibiotic. Had ID follow-up and recommended no further antibiotic treatment. #FILIPPO: Likely prerenal due to septic shock. On IV fluid normal saline 150 mill per hour 06/28: Creatinine further increased to 2.67, BUN 31, BUN/creatinine ratio 11.6. Accounts Payable Bookkeeper consulted. Renal and bladder ultrasound ordered 06/29: Patient seen by email producer. FILIPPO probably due to decreased circulating volume/hypotension. Does not need hemodialysis. 06/30: Creatinine is still going up from 2.67-3.67. 07/01: Creatinine went up 3.70. Probably it is stabilizing. 07/02: BUNs/creatinine better. 28/3.6. Hold losartan for at least 1 month. Alternative antihypertensive medication hydralazine prescription given. Follow- up nephrology in 1 month. Follow-up kidney function/BMP in 1 week with PCP # Possible E. coli UTI: Patient admits to frequency and dysuria. Burning micturition is getting better. 07/02: Burning micturition resolved. Next #Left hip pain: Patient states this is new onset. X-ray showed no evidence of any fracture. This may be musculoskeletal. PT OT on board. 07/01: PT and OT signed off yesterday but today patient feeling very weak, yesterday might be unsteady almost Chloresium on walking therefore PT and OT reconsulted 07/01: Patient can walk comfortably. #History of paroxysmal A-fib: Currently on Xarelto at [facility]. Cardizem on hold due to hypotension. 07/02: Patient stays in normal sinus rhythm. He has follow-up with Stephani Hackett, cardiology, on 07/08. He said probably she will discontinue Xarelto. #Hypertension: On losartan which is held due to sepsis and FILIPPO. 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 CODE STATUS: Full code Discharge medication reconciliation done. Discharge follow-up instructions completed. Discharge process discussed with the patient and all questions were answered to patient's satisfaction. Follow with PCP in 1 to 2 weeks Total time spent, exact 35 minutes on discharge meds reconciliation, examination, coordination of care with nurses and ancillary staff, review of imaging and blood test and discussion with the patient on follow-up instructions. Microbiology Past 72 Hours 06/27/24 04:30 Blood Culture (Wb) - Right Wrist Blood Culture - Final No growth in 5 days. 06/28/24 04:10 Urine, Clean Catch Urine Culture - Final Presumptive E. coli Laboratory Results 07/02/24 05:15: WBC 9.6, RBC 3.11 L, Hgb 9.3 L, Hct 28.5 L, MCV 91.6, MCH 29.9, MCHC 32.6, RDW Std Deviation 48.2 H, RDW Coeff of Mendel 14.3, Plt Count 134 L, MPV 10.2, Immature Gran % (Auto) 2.200 H, Neut % (Auto) 62.3, Lymph % (Auto) 21.3, Vilas % (Auto) 8.0, Eos % (Auto) 5.8 H, Baso % (Auto) 0.4, Absolute Neuts (auto) 6.0, Absolute Lymphs (auto) 2.05, Nucleated RBC % 0, Sodium 140, Potassium 3.6, Chloride 111 H, Carbon Dioxide 22.0, Anion Gap 7, BUN 28 H, Creatinine 3.60 H, Estim Creat Clear Calc 21.56, Est GFR (MDRD) Af Amer 22 L, Est GFR (MDRD) Non-Af 18 L, BUN/Creatinine Ratio 7.8 L, Glucose 90, Calcium 8.0 L Medications at Discharge Home Medications cholecalciferol (vitamin D3) 25 mcg (1,000 unit) tablet 1,000 unit PO DAILY 04/01/19 hydrocodone-acetaminophen 5-325mg 5mg-325mg 1 ea PO Q4H PRN pain 04/01/19 loratadine 10 mg tablet 10 mg PO DAILY allergies 04/01/19 ascorbic acid (vitamin C) 1,000 mg tablet,extended release 1,000 mg PO DAILY 08/29/20 fluticasone propionate 50 mcg/actuation nasal spray,suspension (Flonase Allergy Relief) 1 spray intranasal DAILY PRN ALLERGIES 08/29/20 diltiazem HCl 180 mg capsule,extended release 24 hr 180 mg PO DAILY 06/26/21 ferrous sulfate 325 mg (65 mg iron) tablet (FeroSul) 325 mg PO DAILY 06/26/21 hyoscyamine sulfate 0.125 mg sublingual tablet 0.125 mg sublingual DAILY PRN ESOPHOGEAL SPASMS 06/26/21 losartan 100 mg tablet 100 mg PO DAILY #90 tabs 04/11/22 rivaroxaban 20 mg tablet (Xarelto) 20 mg PO DAILY 05/11/22 atorvastatin 10 mg tablet 10 mg PO DAILY 07/10/23 diclofenac sodium 1 % topical gel (Arthritis Pain (diclofenac)) topical knee/shoulder pain 06/29/24 hydralazine 50 mg tablet 50 mg PO BID 1 month #60 tabs 07/02/24 Physical Exam Narrative Seen and examined. No acute issues. Patient walking in the room. Wants to go home. Creatinine starts improving Physical exam General: Alert, Oriented x3, Cooperative. Fatigue HEENT: Atraumatic, PERRLA, EOMI, Normocephalic Oral: No Gingival or Mucosal Lesions/ Ulcerations Neck: Supple, No JVD, Negative Carotid Bruits Chest wall/Lungs: Air entry diminished in bilateral lung bases. No crepitation/rhonchi Cardiovascular: Regular rate, Regular Rhythm, Normal S1, Normal S2, No M/G/R Abdomen: Bowel Sounds Present, Soft, Non Tender, Non-Distended : No dysuria. No renal angle tenderness. No suprapubic tenderness. Extremities: No edema, Capillary Refill Less than 3 Seconds Skin: No rashes, No breakdown Musculoskeletal: No Tenderness to Palpation of Joints or Extremities. Degenerative arthritis of hips joints. Neurological: Cranial nerves II-XII grossly intact, DTR 2+/4. No acute focal neurological deficit. Psych/Mental Status: Flat affect. Weight / BMI Weight Weight: 198 lb 6.656 oz Body Mass Index (BMI) 25.4 ABG / Lab / Microbiology Data 07/02/24 05:15 07/02/24 05:15 Laboratory: Laboratory Results - last 24 hr 07/02/24 05:15: WBC 9.6, RBC 3.11 L, Hgb 9.3 L, Hct 28.5 L, MCV 91.6, MCH 29.9, MCHC 32.6, RDW Std Deviation 48.2 H, RDW Coeff of Mendel 14.3, Plt Count 134 L, MPV 10.2, Immature Gran % (Auto) 2.200 H, Neut % (Auto) 62.3, Lymph % (Auto) 21.3, Vilas % (Auto) 8.0, Eos % (Auto) 5.8 H, Baso % (Auto) 0.4, Absolute Neuts (auto) 6.0, Absolute Lymphs (auto) 2.05, Nucleated RBC % 0, Sodium 140, Potassium 3.6, Chloride 111 H, Carbon Dioxide 22.0, Anion Gap 7, BUN 28 H, Creatinine 3.60 H, Estim Creat Clear Calc 21.56, Est GFR (MDRD) Af Amer 22 L, Est GFR (MDRD) Non-Af 18 L, BUN/Creatinine Ratio 7.8 L, Glucose 90, Calcium 8.0 L Microbiology: Microbiology 06/27/24 04:30 Blood Culture (Wb) - Right Wrist Blood Culture - Final No growth in 5 days. 06/28/24 04:10 Urine, Clean Catch Urine Culture - Final Presumptive E. coli 06/28/24 12:24 Mucosa - Nasopharyngeal Respiratory Panel (PCR) - Final 06/28/24 12:20 Nasal Secretion MRSA (PCR) - Final 06/27/24 07:00 Urine, Clean Catch Legionella Antigen - Final 06/27/24 07:00 Urine, Clean Catch Streptococcus pneumoniae Antigen (M - Final 06/27/24 03:30 Mucosa - Nose SARS-CoV-2, Influenza & RSV (PCR) - Final D/C Instructions Discharge Diet: Low fat / Low cholesterol and 2000 mg Sodium Diet Weight Bearing Status: Weight bearing as tolerated Call your doctor if you observe: Fever of 101 or Higher, Coldness, Increased Pain, Numbness or Tingling, Change in Color, Inability to urinate, Inability to have a bowel movement, Shortness of breath, Dizziness, Fainting spells, Swelling in the ankles, Chest pain, Prolonged hiccupping, Increased palpitations (irregular heartbeat) and Calf discomfort When: IN 2 WEEKS Meaningful Use Info Meaningful Use Meaningful Use Diagnoses (Choose all that apply): None applicable Ischemic Stroke Statin Dosing Therapy Reference: STATIN DOSE THERAPY REFERENCE: * Patients > 75 years receive moderate or high dose statin therapy. * Patients 75 years or YOUNGER should receive HIGH intensity statin dose unless contraindicated. You will be required to document reason for non-treatment if statin daily dose does not meet guidelines. HIGH DOSE STATIN THERAPY DAILY Atorvastatin > than or = to 40 mg Rosuvastatin > than or = to 20 mg Amlodipine + Atorvastatin > than or = to 2.5/40 mg Ezetimibe + Simvastatin 10/80 mg Simvastatin 80mg Discharge Plan Admission Admit Date/Time: 06/27/24 06:01 Primary Reason for Your Visit: SEPTIC Shock due to UTI Attending Provider: Valdo Anthony Primary Care Provider: Juvenal Chatman Consulting Providers: Leandro Brown; Yazmin Zuñiga; Prem Loyd; Mina Wallace Discharge Orders/Prescriptions Prescriptions: New hydralazine 50 mg tablet 50 mg PO BID 30 Days Qty: 60 0RF Rx Instructions: Hold for SBP less than 130 mmHg Continued ascorbic acid (vitamin C) 1,000 mg tablet extended release 1,000 mg PO DAILY fluticasone propionate [Flonase Allergy Relief] 50 mcg/actuation spray,suspension 1 spray INTRANASAL DAILY PRN (Reason: ALLERGIES) Rx Instructions: administer into each nostril diltiazem HCl 180 mg capsule,extended release 24hr 180 mg PO DAILY ferrous sulfate [FeroSul] 325 mg (65 mg iron) tablet 325 mg PO DAILY Xarelto 20 mg tablet 20 mg PO DAILY Rx Instructions: must administer with evening meal atorvastatin 10 mg tablet 10 mg PO DAILY hydrocodone-acetaminophen 1 EACH tablet 1 ea PO Q4H PRN (Reason: pain ) loratadine 10 MG tablet 10 mg PO DAILY cholecalciferol (vitamin D3) 1,000 UNIT tablet 1,000 unit PO DAILY hyoscyamine sulfate 0.125 mg tablet, sublingual 0.125 mg sublingual DAILY PRN (Reason: ESOPHOGEAL SPASMS) diclofenac sodium [Arthritis Pain (diclofenac)] 1 % gel topical Held losartan 100 mg tablet 100 mg PO DAILY Qty: 90 3RF Hold Instructions: Hold for 1 month. Discontinued azithromycin 250 mg tablet 250 mg PO DAILY Qty: 4 0RF amoxicillin-pot clavulanate 875-125 mg tablet 875 mg PO Q12H Qty: 13 0RF Referrals / Follow Up: Juvenal Chatman MD [Primary Care Provider] - 07/07/24 9:40 am Angelita Elmore MD [Med Staff - Consulting] - Within 1 Month Disposition Disposition (needs filled in before D/C Order can be placed): Home, Self Care Charges/Coding Visit Charges Inpatient E&M: 67687 Disch Hosp >30min
== END 2024-07-02 12:35 | disposition home or self-care (01) | DRG 871 ==
LOC: ED 03:48 → ICU 06:07
PROVIDERS: Family Medicine; Internal Medicine; Internal Medicine Critical Care Medicine; Nurse Practitioner Adult Health; Emergency Provider Emergency Medicine; PCP Family Medicine; Visit Provider Internal Medicine
DX: A41.9 Sepsis, unspecified organism (principal); R65.21 Severe sepsis with septic shock; N17.0 Acute kidney failure with tubular necrosis; E87.20 Acidosis, unspecified; J44.0 Chronic obstructive pulmonary disease with (acute) lower respiratory infection; J90 Pleural effusion, not elsewhere classified; M62.82 Rhabdomyolysis; J98.11 Atelectasis; N39.0 Urinary tract infection, site not specified; D69.6 Thrombocytopenia, unspecified; I48.0 Paroxysmal atrial fibrillation; E86.1 Hypovolemia; N18.31 Chronic kidney disease, stage 3a; I12.9 Hypertensive chronic kidney disease with stage 1 through stage 4 chronic kidney disease, or unspecified chronic kidney disease; I25.10 Atherosclerotic heart disease of native coronary artery without angina pectoris; I25.2 Old myocardial infarction; M25.552 Pain in left hip; Z79.01 Long term (current) use of anticoagulants; Z79.891 Long term (current) use of opiate analgesic; R09.02 Hypoxemia; Z87.891 Personal history of nicotine dependence; Z86.711 Personal history of pulmonary embolism; B96.20 Unspecified Escherichia coli [E. coli] as the cause of diseases classified elsewhere
CPT/HCPCS: 36415; 36569; 71046; 71250; 73502; 76770; 80048; 80053; 81001; 82550; 82570; 83605; 83690; 83735; 84300; 84484; 85025; 87040; 87086; 87088; 87449; 87631; 87633; 87641; 93005; 97162; 97165; 97530; 97802; 99285; J7030; J7040; J7120; A4216; J2405

== ENCOUNTER 2024-07-03 03:16 | Emergency (ER) | payer MEDICARE, OTHER, SELFPAY ==
[2024-07-03] VITALS (11 sets, daily range): BP systolic 147–170; BP diastolic 60–92; PULSE 67–102; RESP 16–22; TEMP 36.6–37.1; O2SAT 94–98; BMI 26.2
--- NOTE | 2024-07-03 03:43 | CT_ITS ---
EXAM: CT CHEST WITHOUT INTRAVENOUS CONTRAST CLINICAL INDICATION: SOB TECHNIQUE: Helically acquired images were obtained of the chest without intravenous contrast. This CT exam was performed using one or more of the following dose reduction techniques: automated exposure control, adjustment of the mA and/or kV according to patient size, and/or use of iterative reconstruction technique. RADIATION DOSE: CTDIvol = 15.40 mGy, DLP = 609.39 mGy-cm COMPARISON: CT scan of the chest 06/27/2024. FINDINGS: LUNGS AND PLEURAL SPACES: Mild fibrocalcific changes in the lung apices bilaterally. Small bilateral pleural effusions new since the previous examination. Subsegmental atelectasis in the lung bases bilaterally. No mass. No pneumothorax. HEART: Unremarkable. Heart size is normal. No pericardial effusion. No significant coronary artery calcifications. MEDIASTINUM: Unremarkable. No mediastinal or hilar adenopathy. Esophagus is unremarkable. No hiatal hernia. THYROID: Unremarkable. No thyroid lesions. BONES/JOINTS: Unremarkable. No suspicious lytic or blastic abnormality. VASCULATURE: Unremarkable. Thoracic aorta is non-dilated. CT/Chest without Contrast IMPRESSION: 1. Small bilateral pleural effusions new since the previous examination. 2. Mild fibrocalcific changes in the lung apices bilaterally. 3. Subsegmental atelectasis in the lung bases bilaterally. Electronically Signed: Wu Farr MD at 5:38 EDT ,
--- NOTE | 2024-07-03 03:43 | EKG12_ITS ---
Test Reason : DYSRHYTHMIA Blood Pressure : / mmHG Vent. Rate : 092 BPM Atrial Rate : 092 BPM P-R Int : 120 ms QRS Dur : 092 ms QT Int : 408 ms P-R-T Axes : 029 036 062 degrees QTc Int : 504 ms Normal sinus rhythm Nonspecific ST abnormality Prolonged QT Abnormal ECG Confirmed by ERASMO BROWN, GANGA ([id number]), editorial specialist MIKE JARA ([id number]) on 07/06/2024 8:46:13 AM Referred By: CLAIRE Confirmed By:SYDNEY ZIMMERMAN MD
[2024-07-03 03:53] LABS: Absolute Lymphocyte Count 2.49 X10^3/uL (0.83-4.51); Absolute Neutrophil Count 7.4 X10^3/uL (2.0-7.7); Basophil# 0.06 X10^3/uL; Basophil% 0.5 % (0-1); Eosinophils% 4.3 % (0-5); Hematocrit 32.7 % (40-54); Hemoglobin 10.9 g/dL (13.0-16.5); Lymphocyte # 2.49 X10^3/ul (0.83-4.51); Lymphocyte % 21.3 % (19-41); Mean Corp Hgb Conc 33.3 g/dL (32-36); Mean Corpuscular Volume 90.1 fL (80-94); Mean Platelet Vol. 10.4 fl (6.2-12.0); Monocyte% 8.5 % (0-10); NRBC Flagged by Analyzer 0 % (0-5); Neutrophil # 7.41 X10^3/uL (2.7-7.7); Neutrophil % 63.3 % (47-70); Platelet Count 248 K/mm3 (150-450); RBC Distribution Width CV 14.1 % (11.6-14.6); RBC Distribution Width SD 46.6 fl (35.1-43.9); Red Blood Count 3.63 M/mm3 (4.6-6.2); White Blood Count 11.7 K/mm3 (4.4-11.0)
--- NOTE | 2024-07-03 03:56 | EX.ED.DYSGE1 ---
HPI History of Present Illness Chief Complaint: Shortness of Breath Informant: patient and spouse/S.O. Narrative Narrative: Patient is a 73-year-old male with past medical history of hypertension paroxysmal A-fib and previous pulmonary embolism currently on Xarelto. He was recently admitted to the hospital secondary to sepsis from a urinary source and developed acute kidney injury. He was discharged home not even 24 hours ago. He states when he arrived home he took a shower and he weighed himself prior to getting in the shower as is his routine. He states that after his recent admission he now weighs 25 pounds more than when he came into the hospital. He states he laid down and try to go to sleep but kept having increasing shortness of breath and secondary to this persistent dyspnea sensation presents for evaluation [facility] Medical History (Updated 07/03/24 @ 07:[address] Pierre Mohamud, ) Hx of pulmonary embolus Non-STEMI (non-ST elevated myocardial infarction) (09/19/21) PAF (paroxysmal atrial fibrillation) CKD (chronic kidney disease) stage 3, GFR 30-59 ml/min History of pilonidal cyst IBS (irritable bowel syndrome) Essential hypertension Asthma COPD (chronic obstructive pulmonary disease) Home Medications ?Medication ?Instructions ?Recorded ?Last Taken ?Type cholecalciferol (vitamin D3) 25 1,000 unit PO DAILY 04/01/19 09/19/21 History mcg (1,000 unit) tablet hydrocodone-acetaminophen 5-325mg 1 ea PO Q4H PRN pain 04/01/19 2 Days Ago History 5mg-325mg ~09/17/21 loratadine 10 mg tablet 10 mg PO DAILY allergies 04/01/19 09/19/21 History ascorbic acid (vitamin C) 1,000 mg 1,000 mg PO DAILY 08/29/20 09/19/21 History tablet,extended release fluticasone propionate 50 1 spray intranasal DAILY PRN 08/29/20 09/18/21 History mcg/actuation nasal ALLERGIES spray,suspension (Flonase Allergy Relief) diltiazem HCl 180 mg 180 mg PO DAILY 06/26/21 09/19/21 History capsule,extended release 24 hr ferrous sulfate 325 mg (65 mg 325 mg PO DAILY 06/26/21 09/19/21 History iron) tablet (FeroSul) hyoscyamine sulfate 0.125 mg 0.125 mg sublingual DAILY PRN 06/26/21 Unknown History sublingual tablet ESOPHOGEAL SPASMS losartan 100 mg tablet 100 mg PO DAILY #90 tabs 04/11/22 Unknown Rx rivaroxaban 20 mg tablet (Xarelto) 20 mg PO DAILY 05/11/22 Unknown History atorvastatin 10 mg tablet 10 mg PO DAILY 07/10/23 Unknown History diclofenac sodium 1 % topical gel 2 g topical PRN PRN knee/shoulder 06/29/24 06/24/24 History (Arthritis Pain (diclofenac)) pain hydralazine 50 mg tablet 50 mg PO BID 1 month #60 tabs 07/02/24 Unknown Rx Allergy/AdvReac Type Severity Reaction Status Date / Time albuterol AdvReac palpitation Verified 07/03/24 03:17 s amitriptyline (From Elavil) AdvReac Other Verified 07/03/24 03:17 amoxapine AdvReac Other Verified 07/03/24 03:17 buspirone AdvReac Other Verified 07/03/24 03:17 duloxetine (From Cymbalta) AdvReac Other Verified 07/03/24 03:17 fluticasone (From Advair AdvReac Other Verified 07/03/24 03:17 Diskus) gabapentin AdvReac Other Verified 07/03/24 03:17 gemfibrozil AdvReac Other Verified 07/03/24 03:17 hydroxyzine AdvReac Other Verified 07/03/24 03:17 naproxen AdvReac Other Verified 07/03/24 03:17 nortriptyline AdvReac Other Verified 07/03/24 03:17 salmeterol (From Advair AdvReac Other Verified 07/03/24 03:17 Diskus) sertraline (From Zoloft) AdvReac Other Verified 07/03/24 03:17 tiotropium (From Spiriva AdvReac Other Verified 07/03/24 03:17 with HandiHaler) trazodone AdvReac Other Verified 07/03/24 03:17 zolpidem (From Ambien) AdvReac Other Verified 07/03/24 03:17 Family History Mother Colon cancer Alzheimer disease Father Cancer Prostate Grandfather Colon cancer Grandfather Myocardial infarction Surgical History History of bilateral cataract extraction History of shoulder surgery History of arthroscopy of right knee History of cholecystectomy Social History (Updated 07/03/24 @ 06:[address] Shabnam Prasad MD) household members: spouse Smoking Status: Former smoker alcohol intake: current details: rare substance use type: does not use caffeine: No ROS ROS ED Constitutional Constitutional ED: Reports other Details: Positive weight gain ; Denies chills or fever(s) Eyes Eyes: Denies blurry vision or change in vision ENT ENT ED: Denies rhinorrhea or sore throat Cardiovascular Cardiovascular: Reports orthopnea; Denies chest pain, palpitations or racing heartbeat Respiratory/Chest Respiratory/Chest: Reports cough, dyspnea and orthopnea Gastrointestinal Gastrointestinal: Denies abdominal pain, diarrhea, nausea or vomiting Genitourinary Genitourinary ED: Denies dysuria Musculoskeletal Musculoskeletal: Denies myalgias Integumentary Denies rash Neurologic Neurologic: Reports weakness; Denies headache(s) Hematologic/Lymphatic Hematologic/Lymphatic: Reports easy bleeding and easy bruising Allergic/Immunologic Allergic/Immunologic ED: Denies mouth swelling or tongue swelling EXAM Physical Exam Const Vital Signs: 07/03/24 03:17 07/03/24 03:21 07/03/24 03:21 Temperature 97.9 F 97.9 F Temperature Source Oral Oral Pulse Rate 102 H 100 Respiratory Rate 22 H 22 H Respiratory Effort Short of Breath Labored Blood Pressure 160/90 H 160/90 H Blood Pressure Mean 113 113 Pulse Ox 98 98 Oxygen Delivery Method Room Air Room Air Room Air 07/03/24 04:21 07/03/24 04:55 07/03/24 05:34 Temperature 98.1 F 98.8 F Temperature Source Oral Temporal Pulse Rate 98 98 89 Respiratory Rate 18 18 17 Respiratory Effort Blood Pressure 148/71 H 148/71 H 147/86 H Blood Pressure Mean 96 96 106 Pulse Ox 96 98 95 Oxygen Delivery Method Room Air Room Air Room Air 07/03/24 07:00 Temperature Temperature Source Pulse Rate 90 Respiratory Rate 16 Respiratory Effort Blood Pressure 170/92 H Blood Pressure Mean 118 Pulse Ox 97 Oxygen Delivery Method Room Air Positive well nourished and well developed General Appearance ED: well developed and pallor HEENT HEENT Narrative: No tongue or lip swelling no oral lesions no airway edema or compromise No secondary findings in the posterior pharynx to suggest infection Eyes PERRL and EOMs intact bilaterally General Eye ED: Yes pale conjunctiva; Negative for scleral icterus Neck supple Neck Narrative: Mild JVD noted bilaterally Chest Wall palpation of chest normal Chest Narrative: No bony deformity or crepitance noted Resp Resp Narrative: Patient is tachypneic and breath sounds are diminished throughout. There are crackles noted in the right and left lower to mid lung. No nasal flaring or retractions. Patient does have accessory muscle use however. Positive orthopnea. Cardio regular rate and regular rhythm GI normal to inspection, nondistended, normoactive bowel sounds, non-tender, non-distended and no masses GI Narrative: No voluntary guarding or rigidity or pulsatile mass Auscultation: normoactive bowel sounds Palpation: soft Extremity Extremity Narrative: +1 pitting edema to the bilateral lower extremities that extends from the dorsum of the feet to just below the knee that is equal and symmetric Negative Homans' sign bilaterally Neuro oriented x3, CN's II-XII intact bilaterally and no sensory deficits noted Sensorium / Orientation: alert Psych mental status grossly normal Skin no rashes or lesions noted General Skin Exam: pallor; Negative for jaundice MDM MDM MDM Narrative Medical decision making narrative: Patient arrived to the ER hypertensive but otherwise satting in the mid to high 90s on room air. He had just been discharged from the hospital roughly 12 hours ago secondary to urosepsis and acute kidney injury. Chart review reveals that he had a CT scan of his chest without contrast on the third which showed small bilateral pleural effusions. As the patient reports he had a 25 pound weight gain and is increased shortness of breath while trying to lay down and sleep this is most likely pleural effusion/congestive heart failure. In order to ensure that his kidney function is not worsening or that his shortness of breath is not due to acute blood loss anemia I did elect to perform repeat laboratory studies. Labs shows creatinine is holding stable and his hemoglobin is actually improved from his previous visit. CT scan shows that his pleural effusions have worsened but they are still small in nature. The patient was ambulated and his pulse ox remained above 92% on room air. Therefore at this time his labs do not suggest acute on chronic kidney injury acute blood loss anemia secondary infection and the pleural effusions are not leading to hypoxia or need for supplemental oxygen. The patient however reported that he felt too weak and too short of breath to return home. Therefore I had the hospitalist evaluate him in the ER. They agree that from emergency standpoint he is stable and feel he would benefit from placement in transitional care unit versus readmission. Therefore the patient will be evaluated by social work when they arrive at the hospital later today. The plan of care is to admit to transitional care unit as his workup in the ER and vitals reveal no new or acute finding. However if there is no bed available then he can be placed underneath the hospitalist care secondary to his persistent sensation of shortness of breath and generalized weakness History & Record Review Discussion w/independent historian: Patient and Significant other Lab Data Attestation: I reviewed the patient's lab results. Labs: Laboratory Results - last 24 hr 07/03/24 03:24 WBC 11.7 H RBC 3.63 L Hgb 10.9 L Hct 32.7 L MCV 90.1 MCH 30.0 MCHC 33.3 RDW Std Deviation 46.6 H RDW Coeff of Mendel 14.1 Plt Count 248 MPV 10.4 Immature Gran % (Auto) 2.100 H Neut % (Auto) 63.3 Lymph % (Auto) 21.3 Fountain % (Auto) 8.5 Eos % (Auto) 4.3 Baso % (Auto) 0.5 Absolute Neuts (auto) 7.4 Absolute Lymphs (auto) 2.49 Nucleated RBC % 0 Sodium 139 Potassium 3.5 Chloride 110 H Carbon Dioxide 22.0 Anion Gap 7 BUN 28 H Creatinine 3.54 H Estim Creat Clear Calc 21.93 Est GFR (MDRD) Af Amer 22 L Est GFR (MDRD) Non-Af 18 L BUN/Creatinine Ratio 7.9 L Glucose 96 Calcium 8.5 Magnesium 1.6 Radiography Diagnostic Testing: Clinical Impression(s) from Imaging Studies Chest CT 07/03/24 03:43 IMPRESSION: 1. Small bilateral pleural effusions new since the previous examination. 2. Mild fibrocalcific changes in the lung apices bilaterally. 3. Subsegmental atelectasis in the lung bases bilaterally. 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 anticoagulation, Adult failure to thrive Prescriptions: No Action ascorbic acid (vitamin C) 1,000 mg tablet extended release 1,000 mg PO DAILY fluticasone propionate [Flonase Allergy Relief] 50 mcg/actuation spray,suspension 1 spray INTRANASAL DAILY PRN (Reason: ALLERGIES) Rx Instructions: administer into each nostril diltiazem HCl 180 mg capsule,extended release 24hr 180 mg PO DAILY ferrous sulfate [FeroSul] 325 mg (65 mg iron) tablet 325 mg PO DAILY Xarelto 20 mg tablet 20 mg PO DAILY Rx Instructions: must administer with evening meal atorvastatin 10 mg tablet 10 mg PO DAILY hydrocodone-acetaminophen 1 EACH tablet 1 ea PO Q4H PRN (Reason: pain ) loratadine 10 MG tablet 10 mg PO DAILY cholecalciferol (vitamin D3) 1,000 UNIT tablet 1,000 unit PO DAILY hyoscyamine sulfate 0.125 mg tablet, sublingual 0.125 mg sublingual DAILY PRN (Reason: ESOPHOGEAL SPASMS) diclofenac sodium [Arthritis Pain (diclofenac)] 1 % gel 2 g topical PRN PRN (Reason: knee/shoulder pain) hydralazine 50 mg tablet 50 mg PO BID 30 Days Qty: 60 0RF Rx Instructions: Hold for SBP less than 130 mmHg losartan 100 mg tablet 100 mg PO DAILY Qty: 90 3RF Primary Care Provider: Juvenal Chatman Referrals: Juvenal Chatman MD [Primary Care Provider] - Print Language: Swedish
[2024-07-03 04:05] LABS: Anion Gap 7 (5-15); BUN 28 mg/dL (7-18); BUN/Creat Ratio 7.9 RATIO (10-20); Calcium,Total 8.5 mg/dL (8.5-10.1); Chloride 110 mmol/L (98-107); Creatinine, Serum 3.54 mg/dL (0.70-1.30); EST Glomerular Filtration Rate 18 mL/min (>60); Est Glom Filt Rate - Afr Amer 22 mL/min (>60); Estimated Creatinine Clearance 21.93 ml/min; Glucose 96 mg/dL (74-106); Magnesium 1.6 mg/dL (1.6-2.6); Potassium 3.5 mmol/L (3.5-5.1); Sodium Level 139 mmol/L (136-145)
--- NOTE | 2024-07-03 05:15 | ED.RN ---
Per Dr. Oneida parikh to complete sepsis screen.
--- NOTE | 2024-07-03 06:10 | PCM.HP.STD ---
HPI - General General Date of Admission: 07/03/24 Date of Service: 07/03/24 Chief Complaint: Dyspnea. HPI Narrative The patient is a 73 y/o M w/ PMHx: PAF, Hx VTE (DVT, PE), CKD stage III unclear subtype, COPD/Asthma, IBS, HTN, HLD, Former tobacco use, admission 06/27/2024 with recent 07/02/24 discharge following treatment and evaluation for septic shock secondary to probable UTI with completed course of IV cefepime 07/01/2024 with ID consulted and following with associated acute kidney injury felt likely prerenal secondary to shock with BUN/creatinine at discharge 28/3.6 with plan for hold on losartan for at least 1 month, initiation of hydralazine with plan follow-up renal function/BMP with PCP in 1 week with incidentally noted left hip pain with unremarkable plain film felt likely musculoskeletal who now represents to the [facility] ED on 07/03/2024 with complaints of shortness of breath with exertion in his house with weakness and difficulty performing all his ADLs noting that his is having difficulty caring for him and he is interested potentially in placement. Patient in the ED very concerned about the fact that his weight has increased so drastically but discussed at length and given his aggressive hydration because of acute kidney injury he understands that this is not surprising but at this point preference to avoid diuresing and not necessarily enough fluid to consider thoracentesis but discussed importance of aggressive mobilization. Workup in the ED included T97.9, heart rate 102, BP 160/90, respiratory rate 22, 98% on room air with most recent repeat vitals T98.8, heart rate 89, BP 147/86, respiratory rate 17, 95% on room air, CBC with WBC 11.7, hemoglobin 10.9, MCV 90.1, platelet 248 with mildly increased immature granulocytes, BMP with chloride 110, BUN/creatinine 28/3.54, CT of the chest with small bilateral pleural effusions, mild fibrocalcific changes in the lung apices bilaterally, subsegmental atelectasis in the lung bases bilaterally. [facility] Medical History (Updated 07/03/24 @ 06:[address] Shabnam Prasad MD) Hx of pulmonary embolus Non-STEMI (non-ST elevated myocardial infarction) (09/19/21) PAF (paroxysmal atrial fibrillation) CKD (chronic kidney disease) stage 3, GFR 30-59 ml/min History of pilonidal cyst IBS (irritable bowel syndrome) Essential hypertension Asthma COPD (chronic obstructive pulmonary disease) Home Medications ?Medication ?Instructions ?Recorded ?Last Taken ?Type cholecalciferol (vitamin D3) 25 1,000 unit PO DAILY 04/01/19 09/19/21 History mcg (1,000 unit) tablet hydrocodone-acetaminophen 5-325mg 1 ea PO Q4H PRN pain 04/01/19 2 Days Ago History 5mg-325mg ~09/17/21 loratadine 10 mg tablet 10 mg PO DAILY allergies 04/01/19 09/19/21 History ascorbic acid (vitamin C) 1,000 mg 1,000 mg PO DAILY 08/29/20 09/19/21 History tablet,extended release fluticasone propionate 50 1 spray intranasal DAILY PRN 08/29/20 09/18/21 History mcg/actuation nasal ALLERGIES spray,suspension (Flonase Allergy Relief) diltiazem HCl 180 mg 180 mg PO DAILY 06/26/21 09/19/21 History capsule,extended release 24 hr ferrous sulfate 325 mg (65 mg 325 mg PO DAILY 06/26/21 09/19/21 History iron) tablet (FeroSul) hyoscyamine sulfate 0.125 mg 0.125 mg sublingual DAILY PRN 06/26/21 Unknown History sublingual tablet ESOPHOGEAL SPASMS losartan 100 mg tablet 100 mg PO DAILY #90 tabs 04/11/22 Unknown Rx rivaroxaban 20 mg tablet (Xarelto) 20 mg PO DAILY 05/11/22 Unknown History atorvastatin 10 mg tablet 10 mg PO DAILY 07/10/23 Unknown History diclofenac sodium 1 % topical gel 2 g topical PRN PRN knee/shoulder 06/29/24 06/24/24 History (Arthritis Pain (diclofenac)) pain hydralazine 50 mg tablet 50 mg PO BID 1 month #60 tabs 07/02/24 Unknown Rx Allergy/AdvReac Type Severity Reaction Status Date / Time albuterol AdvReac palpitation Verified 07/03/24 03:17 s amitriptyline (From Elavil) AdvReac Other Verified 07/03/24 03:17 amoxapine AdvReac Other Verified 07/03/24 03:17 buspirone AdvReac Other Verified 07/03/24 03:17 duloxetine (From Cymbalta) AdvReac Other Verified 07/03/24 03:17 fluticasone (From Advair AdvReac Other Verified 07/03/24 03:17 Diskus) gabapentin AdvReac Other Verified 07/03/24 03:17 gemfibrozil AdvReac Other Verified 07/03/24 03:17 hydroxyzine AdvReac Other Verified 07/03/24 03:17 naproxen AdvReac Other Verified 07/03/24 03:17 nortriptyline AdvReac Other Verified 07/03/24 03:17 salmeterol (From Advair AdvReac Other Verified 07/03/24 03:17 Diskus) sertraline (From Zoloft) AdvReac Other Verified 07/03/24 03:17 tiotropium (From Spiriva AdvReac Other Verified 07/03/24 03:17 with HandiHaler) trazodone AdvReac Other Verified 07/03/24 03:17 zolpidem (From Ambien) AdvReac Other Verified 07/03/24 03:17 Family History Mother Colon cancer Alzheimer disease Father Cancer Prostate Grandfather Colon cancer Grandfather Myocardial infarction Surgical History History of bilateral cataract extraction History of shoulder surgery History of arthroscopy of right knee History of cholecystectomy Social History (Updated 07/03/24 @ 06:[address] Shabnam Prasad MD) household members: spouse Smoking Status: Former smoker alcohol intake: current details: rare substance use type: does not use caffeine: No ROS ROS Narrative Admission Review of Systems: CONSTITUTIONAL: No weight loss, fever, chills, + weakness or fatigue. HEENT: Eyes: No visual loss, blurred vision, double vision or yellow sclerae. Ears, Nose, Throat: No hearing loss, sneezing, congestion, runny nose or sore throat. SKIN: No rash or itching, lesions, wounds. CARDIOVASCULAR: No chest pain, chest pressure or chest discomfort, palpitations, edema, orthopnea, syncopal events. RESPIRATORY: + Dyspnea, worse with exertion. No marked cough or sputum, wheezing, hemoptysis. GASTROINTESTINAL: No anorexia, nausea, vomiting or diarrhea, abdominal pain, melena, BRBPR. GENITOURINARY: No dysuria, frequency, urgency or retention. NEUROLOGICAL: No headache, dizziness, syncope, paralysis, ataxia, numbness or tingling in the extremities, focal weakness, change in bowel or bladder control, seizure. MUSCULOSKELETAL: + muscle, back pain, joint pain or stiffness. HEMATOLOGIC: + Chronic anemia, easy bleeding/bruising. LYMPHATICS: No enlarged nodes. No history of splenectomy. PSYCHIATRIC: + History of anxiety and depression. ENDOCRINOLOGIC: No reports of sweating, cold or heat intolerance. No polyuria or polydipsia. ALLERGIES: + Asthma with allergic rhinitis. Vital Signs Vital Signs Vital Signs: 07/03/24 03:17 07/03/24 03:21 07/03/24 03:21 Temperature 97.9 F 97.9 F Temperature Source Oral Oral Pulse Rate 102 H 100 Respiratory Rate 22 H 22 H Respiratory Effort Short of Breath Labored Blood Pressure 160/90 H 160/90 H Blood Pressure Mean 113 113 Pulse Ox 98 98 Oxygen Delivery Method Room Air Room Air Room Air 07/03/24 04:21 07/03/24 04:55 07/03/24 05:34 Temperature 98.1 F 98.8 F Temperature Source Oral Temporal Pulse Rate 98 98 89 Respiratory Rate 18 18 17 Respiratory Effort Blood Pressure 148/71 H 148/71 H 147/86 H Blood Pressure Mean 96 96 106 Pulse Ox 96 98 95 Oxygen Delivery Method Room Air Room Air Room Air Weight Weight: 203 lb 14.841 oz Body Mass Index (BMI) 26.2 Physical Exam Narrative Physical Examination: General: Awake, alert, oriented x 3 and cooperative, seated upright in the ED bed, appears fatigued and anxious. Skin: Normal color, normal turgor, no icterus, no cyanosis except occasional staged ecchymoses likely lab draws. HEENT: AT/NC, EOMI, PERRLA, MMM, no carotid bruits or JVD noted. Lungs: Mildly increased respiratory rate but no distress, mildly diminished bases, no evidence of any respiratory distress, no rales, ronchi or wheezing. Heart: Regular rate and rhythm; no gallop, rub audible. Abdomen: Soft, NTTP, ND, normal BS, no appreciated HSM. Extremities: No cyanosis, no clubbing, no marked peripheral edema. Neurological: Patient awake, alert, oriented as noted, cognitive function intact; pupils equally reactive to light and accommodation, cranial nerves grossly normal, moving all 4 extremities, no focal deficits, strength moderately to severely globally decreased. Psychiatric: Affect appears fatigued otherwise normal, no acute evidence of depressive or anxiety feelings but does have underlying history. Results Lab / Micro Data 07/03/24 03:24 07/03/24 03:24 Labs: Laboratory Results - last 24 hr 07/03/24 03:24: WBC 11.7 H, RBC 3.63 L, Hgb 10.9 L, Hct 32.7 L, MCV 90.1, MCH 30.0, MCHC 33.3, RDW Std Deviation 46.6 H, RDW Coeff of Mendel 14.1, Plt Count 248, MPV 10.4, Immature Gran % (Auto) 2.100 H, Neut % (Auto) 63.3, Lymph % (Auto) 21.3, [place] % (Auto) 8.5, Eos % (Auto) 4.3, Baso % (Auto) 0.5, Absolute Neuts (auto) 7.4, Absolute Lymphs (auto) 2.49, Nucleated RBC % 0, Sodium 139, Potassium 3.5, Chloride 110 H, Carbon Dioxide 22.0, Anion Gap 7, BUN 28 H, Creatinine 3.54 H, Estim Creat Clear Calc 21.93, Est GFR (MDRD) Af Amer 22 L, Est GFR (MDRD) Non-Af 18 L, BUN/Creatinine Ratio 7.9 L, Glucose 96, Calcium 8.5, Magnesium 1.6 Imaging Radiology Impression Chest CT 07/03/24 03:43 IMPRESSION: 1. Small bilateral pleural effusions new since the previous examination. 2. Mild fibrocalcific changes in the lung apices bilaterally. 3. Subsegmental atelectasis in the lung bases bilaterally. Electronically Signed: Wu Farr MD at 5:38 EDT , Assessment & Plan Assessment/Plan (1) Adult failure to thrive: PLAN: Plan The patient is a 73 y/o M w/ PMHx: PAF, Hx VTE (DVT, PE), CKD stage III unclear subtype, COPD/Asthma, IBS, HTN, HLD, Former tobacco use, admission 06/27/2024 with recent 07/02/24 discharge following treatment and evaluation for septic shock secondary to probable UTI with completed course of IV cefepime 07/01/2024 with ID consulted and following with associated acute kidney injury felt likely prerenal secondary to shock with BUN/creatinine at discharge 28/3.6 with plan for hold on losartan for at least 1 month, initiation of hydralazine with plan follow-up renal function/BMP with PCP in 1 week with incidentally noted left hip pain with unremarkable plain film felt likely musculoskeletal who now represents to the [facility] ED on 07/03/2024 with complaints of shortness of breath with exertion in his house with weakness and difficulty performing all his ADLs noting that his is having difficulty caring for him and he is interested potentially in placement. #1. Adult failure to thrive, debility, weakness, unable to care for self in the home setting: Will admit to medical surgical floor, encourage strongly aggressive incentive spirometry and continued activity despite his sensation of dyspnea with with activity and his quick fatigue, will consult PT/OT/case management for discharge planning as patient at this point prefers to consider TCU until clinically last week and then return to home at that point. #2. Dyspnea, worse with exertion with small bilateral pleural effusions: Patient does have new effusions on CT imaging and given recent presentation did increase in weight from 06/27/2478 pounds to current weight of 203 pounds with significant IV hydration but at this time given renal function and acute kidney injury just plateauing would loath to give patient any diuretic therapy. Encouraged continued aggressive mobilization and incentive spirometry. #3. FILIPPO superimposed on CKD stage IIIa: Recent acute kidney injury felt likely secondary to hypovolemia with decreased circulating volume/hypotension with urosepsis with creatinine 1.5 upon admission which is near baseline however increased to 3.6 with renal ultrasound with no acute findings, current presentation admission BUN/creatinine 28/2.54, improving, would expect given plateaued to now slowly continue to trend to improve. If necessary may reinvolve nephrology but given improving may continue to trend. #4. Recent septic shock with presumed acute complicated urinary tract infection as etiology: CBC with no marked WBC elevation, still mild increased immature granulocytes but patient clinically appears well and is afebrile, appears resolved, completed IV antibiotic therapy prior to recent discharge. #5. Chronic COPD/asthma with allergic rhinitis: Will maintain on oxygen with wean as tolerated to room air/home oxygen supplementation, will hold home inhalers in the interim maintain on ATC budesonide therapy, PRN albuterol, HOB, IS parameters, we will continue patient home fluticasone home regimen. #6. Chronic normocytic anemia/iron deficiency anemia: Admission hemoglobin 10.9, MCV 90.1, baseline hemoglobin more recently 9-10, continue to trend CBC, continue to trend iron supplementation. #7. PAF: We will continue patient home diltiazem and renally dosed Xarelto regimen. #8. History of VTE: Patient with history of DVT, bilateral PE: We will continue Xarelto but will renally dose regimen. #9. Hypertension: Continue home regimen including diltiazem, hydralazine, PRN hydralazine. #10. Hyperlipidemia: We will continue patient on statin therapy. #12. Former tobacco use: Encourage continued tobacco cessation. #13. DVT prophylaxis: We will continue patient home Xarelto regimen but will decrease to renal dose of 15 mg p.o. daily. Charges/Coding Visit Charges Inpatient E&M: 38160 Init Hosp L2
--- NOTE | 2024-07-03 07:52 | ED.RN ---
Spoke with Evelina ROMO. She has already spoken to the clinical research nurse coordinator for TCU. She will look at it in a bit and make a decision. Evelina will let us know when a decision is made. Azam HALL aware
--- NOTE | 2024-07-03 11:18 | PCM.HOSP.N ---
Hospitalist Note The patient was not admitted at this time. He directly went to TCU from ED without inpatient admission to the floor. Needs rehab
--- NOTE | 2024-07-03 13:04 | CM.ED ---
Social Work Received consult from Dr. Prasad regarding possible SNF placement from the ED. Per physician, patient was just discharged from [facility] on 07.02.2024 and back today. Patient interested in [facility]. Chart reviewed and noted patient has traditional Medicare and did have a 3 night inpatient stay from 06.27.2024 - 07.02.2024. Met with patient in room. Patient reports I should never have gone home. Patient reports is disabled, not able to help the patient, and patient reports to feel weak and not able to manage on own at this time. Patient confirms wish to go to [facility] TCU. This advertising writer offered a list of choices, though patient reports preference is [facility] TCU. Also noted, this was facility of choice during inpatient stay, as at one point SNF level of care was being considered. Referral to Carlyn in admissions at [facility]. Patient is able to be accepted. Updated patient, extractor operator helper Kasia, ED provider Dr. Kaye, and hospitalist Dr. Anthony. ED RN to call report to TCU when bed is ready (waiting on bed to be cleaned). Note, offered to call family about plan, and patient reports to have his own phone and can make the calls himself. Plan: Skilled level of care at [facility]. -JEAN CLAUDE Randolph MSW
== END 2024-07-03 11:34 ==
PROVIDERS: Emergency Medicine; Emergency Provider Internal Medicine; PCP Family Medicine; Visit Provider Internal Medicine
DX: R06.02 Shortness of breath (principal); J44.9 Chronic obstructive pulmonary disease, unspecified; I48.0 Paroxysmal atrial fibrillation; I10 Essential (primary) hypertension; I25.2 Old myocardial infarction; R62.7 Adult failure to thrive; N28.9 Disorder of kidney and ureter, unspecified; Z68.26 Body mass index [BMI] 26.0-26.9, adult; Z79.01 Long term (current) use of anticoagulants; Z79.899 Other long term (current) drug therapy; Z86.711 Personal history of pulmonary embolism; Z87.891 Personal history of nicotine dependence
CPT/HCPCS: 71250; 80048; 83735; 85025; 93005; 99283

== ENCOUNTER 2024-07-03 11:40 | Inpatient (IN) | payer MEDICARE, OTHER, SELFPAY ==
[2024-07-03 11:54] VITALS: BP 169/82; PULSE 95; RESP 17; TEMP 36.7; O2SAT 97; BMI 24.9
--- NOTE | 2024-07-03 14:00 | NURSING ---
Admitted to TCU today. Patient in good spirits and needs rehab to get better. Denies complaints other than occasional nausea. VS stable.
--- NOTE | 2024-07-03 14:31 | HP.PCM_ITS ---
HPI - General General Date of Admission: 07/03/24 Date of Service: 07/03/24 Chief Complaint: Here for rehabilitation. HPI Narrative 06/27/2024 SANTI ALDANA, is a 73 Male who presents to [facility] ED with generalized illness. Generalized weakness, laid on floor, unable to get up, despite help from . On Augmentin, Azithromycin for pneumonia. Dry heaving, vomiting, chest pain, low grade fever, left hip pain. Pulsox 89%, oxygen 2 liters nasal cannula applied. X-ray left hip negative, covid/flu/rsv negative. Rocephin iv for UTI, sepsis. Urine culture pending. 06/27/[address] [facility]. Rocephin, Azithromycin for sepsis, pneumonia. Rocephin IV for sepsis, UTI. IV fluids for acute kidney injury, sepsis fluid bolus ordered. 06/27/2024 No complaints. Change antibiotics for Zosyn IV, blood culture pending, sputum culture pending, urinary antigens pending. PT/OT for left hip pain. 06/28/2024 Nausea, dry heaving. Blood pressure holding, on normal saline 150mL/hour. Zosyn IV changed to Cefepime iv 2/2 elevated creatinine. Nephrology, renal ultrasound for creatinine 2.67. 06/29/2024 Dr. Loyd recommended continuing Cefepime for sepsis, UTI. Urine culture pending. 06/29/2024 Chlorpromazine for intractable cough, dry heaving. Too weak to sit up. Urine culture pending. FILIPPO 2/2 hypotension. 06/30/2024 SL Levsin for esophageal spasm. Weak. Urine culture growing < 1,000 E. Coli, but urine culture done after antibiotics. Creatinine 2.67 to 3.67. 07/01/2024 Cefepime IV for septic shock/UTI, finish Cefepime today. Creatinine 3.70, Nephrology consulted. 07/02/2024 Creatinine 3.60. Discharged home, weak, failed home discharge. 07/03/2024 Admit to TCU with debility here for rehabilitation, strengthening, prior to discharge home with . Weight up 20 pounds since admission [address] [facility]. Creatinine 3.54 today. [facility] Medical History Hx of pulmonary embolus Non-STEMI (non-ST elevated myocardial infarction) (09/19/21) PAF (paroxysmal atrial fibrillation) CKD (chronic kidney disease) stage 3, GFR 30-59 ml/min History of pilonidal cyst IBS (irritable bowel syndrome) Essential hypertension Asthma COPD (chronic obstructive pulmonary disease) Home Medications ?Medication ?Instructions ?Recorded ?Last Taken ?Type cholecalciferol (vitamin D3) 25 1,000 unit PO DAILY supplement 04/01/19 09/19/21 History mcg (1,000 unit) tablet hydrocodone-acetaminophen 5-325mg 1 ea PO Q4H PRN pain 04/01/19 2 Days Ago History 5mg-325mg ~09/17/21 loratadine 10 mg tablet 10 mg PO DAILY allergies 04/01/19 09/19/21 History ascorbic acid (vitamin C) 1,000 mg 1,000 mg PO DAILY supplement 08/29/20 09/19/21 History tablet,extended release fluticasone propionate 50 1 spray intranasal DAILY PRN 08/29/20 09/18/21 History mcg/actuation nasal ALLERGIES spray,suspension (Flonase Allergy Relief) diltiazem HCl 180 mg 180 mg PO DAILY heart 06/26/21 09/19/21 History capsule,extended release 24 hr ferrous sulfate 325 mg (65 mg 325 mg PO DAILY Supplement 06/26/21 09/19/21 History iron) tablet (FeroSul) hyoscyamine sulfate 0.125 mg 0.125 mg sublingual DAILY PRN 06/26/21 Unknown History sublingual tablet ESOPHOGEAL SPASMS losartan 100 mg tablet 100 mg PO DAILY BP #90 tabs 04/11/22 Unknown Rx rivaroxaban 20 mg tablet (Xarelto) 20 mg PO 1730 blood thinner 05/11/22 Unknown History atorvastatin 10 mg tablet 10 mg PO DAILY Cholesterol 07/10/23 Unknown History diclofenac sodium 1 % topical gel 2 g topical PRN PRN knee/shoulder 06/29/24 06/24/24 History (Arthritis Pain (diclofenac)) pain hydralazine 50 mg tablet 50 mg PO BID heart 1 month #60 tabs 07/02/24 Unknown Rx Allergy/AdvReac Type Severity Reaction Status Date / Time albuterol AdvReac palpitation Verified 07/03/24 03:17 s amitriptyline (From Elavil) AdvReac Other Verified 07/03/24 03:17 amoxapine AdvReac Other Verified 07/03/24 03:17 buspirone AdvReac Other Verified 07/03/24 03:17 duloxetine (From Cymbalta) AdvReac Other Verified 07/03/24 03:17 fluticasone (From Advair AdvReac Other Verified 07/03/24 03:17 Diskus) gabapentin AdvReac Other Verified 07/03/24 03:17 gemfibrozil AdvReac Other Verified 07/03/24 03:17 hydroxyzine AdvReac Other Verified 07/03/24 03:17 naproxen AdvReac Other Verified 07/03/24 03:17 nortriptyline AdvReac Other Verified 07/03/24 03:17 salmeterol (From Advair AdvReac Other Verified 07/03/24 03:17 Diskus) sertraline (From Zoloft) AdvReac Other Verified 07/03/24 03:17 tiotropium (From Spiriva AdvReac Other Verified 07/03/24 03:17 with HandiHaler) trazodone AdvReac Other Verified 07/03/24 03:17 zolpidem (From Ambien) AdvReac Other Verified 07/03/24 03:17 Family History Mother Colon cancer Alzheimer disease Father Cancer Prostate Grandfather Colon cancer Grandfather Myocardial infarction Surgical History History of bilateral cataract extraction History of shoulder surgery History of arthroscopy of right knee History of cholecystectomy Social History household members: spouse Smoking Status: Former smoker alcohol intake: current details: rare substance use type: does not use caffeine: No ROS Constitutional Constitutional: Denies chills, fever(s) or weight gain ENT HEENT: Denies headache(s), nasal congestion or nasal discharge Cardiovascular Cardiovascular: Denies chest pain or palpitations Respiratory/Chest Respiratory/Chest: Reports shortness of breath at rest and shortness of breath with exertion; Denies cough or excessive phlegm production Gastrointestinal Gastrointestinal: Denies abdominal pain, nausea or vomiting Genitourinary Genitourinary: Denies dysuria Musculoskeletal Musculoskeletal: Denies joint pain or joint swelling Integumentary Integumentary: Denies rash or wounds Neurologic Neurologic: Denies focal weakness, numbness or tingling Psychiatric Psychiatric: Denies anxiety, auditory hallucinations, depression, homicidal ideation or suicidal ideation Vital Signs Vital Signs Vital Signs: 07/03/24 11:54 Temperature 98.0 F Temperature Source Oral Pulse Rate 95 Respiratory Rate 17 Blood Pressure 169/82 H Blood Pressure Mean 111 Blood Pressure Source Monitor Blood Pressure Position Semi-Fowlers Blood Pressure Location Left Arm Pulse Ox 97 Oxygen Delivery Method Room Air Weight Weight: 88.9 kg Body Mass Index (BMI) 22.4 Physical Exam Const alert General Appearance: cooperative HEENT normocephalic Eyes PERRL and EOMs intact bilaterally Neck supple, no JVD and no carotid bruits Resp normal respiratory effort, normal air movement and clear to auscultation bilaterally Cardio regular rate and regular rhythm GI normal to inspection, nondistended, normoactive bowel sounds, non-tender and non-distended Extremity normal capillary refill General Extremity: edema bilateral (1+) Skin no rashes or lesions noted General Skin Exam: no breakdown Psych affect normal Appearance: appropriate Assessment & Plan Assessment/Plan (1) Debility: (2) Septic shock: (3) Urinary tract infection: (4) FILIPPO (acute kidney injury): (5) Chronic kidney disease, stage 3a: (6) Vitamin D deficiency: (7) Allergic rhinitis: (8) Essential (primary) hypertension: (9) Iron deficiency anemia: (10) Esophageal spasm: (11) Atrial fibrillation: (12) Hyperlipidemia: PLAN: Plan 73 year old male with below past medical history hospitalized for septic shock 2/2 E. Coli UTI, complicated by acute kidney injury, failed home discharge, admitted to TCU with debility, here for rehabilitation, strengthening, prior to discharge home with . * Debility - PT/OT. * Pain - Arthritis pain 2 clicks topical bid prn, Cucumber 5/325mg 1 tablet q4 prn pain (1-10). * Bowel - senna/colace 2 tablets bid, Dulcolax 10mg pr daily prn, Magnesium citrate 300ml po x 1 prn. * Adult immunization - Administer pneumonia vaccine, covid vaccine, flu vaccine as appropriate. * DVT prophylaxis - on Xarelto. * Acute kidney injury - Consult Nephrology. * Vitamin C deficiency - Vitamin C 1000mg daily. * Hyperlipidemia - Atorvastatin 10mg qhs. * Vitamin D deficiency - D3 25mcg daily. * Hypertension - Diltiazem 180mg daily, Hydralazine 50mg bid thru 08/02/2024. * Iron deficiency anemia - Ferrous sulfate 325mg daily. * Allergic rhinitis - Loratadine 10mg daily, Fluticasone 0.05% 1 spray nasal daily. * Esophageal spasm - Levsin 0.125mg daily prn. * Nausea - Zofran 8mg q8 prn. * Atrial fibrillation - Diltiazem 180mg daily, Xarelto 20mg daily.
[2024-07-03] MEDS: dilTIAZem CD 180 MG Capsule PO (15:05)
[2024-07-03] MEDS: Loratadine 10 MG Tablet PO (15:05)
[2024-07-03 15:06] VITALS: PULSE 75
[2024-07-03] MEDS: hydrALAZINE 50 MG Tablet PO ×2 (15:06→22:25)
[2024-07-03] MEDS: Cholecalciferol (VIT D3) 25 MCG TABLET (1,000 UNITS) PO (15:06)
--- NOTE | 2024-07-03 16:15 | CASEMGMT ---
Social Work- Met with pt to complete initial assessment. Introduced self and role. Verified and updated contacts. Pt confirmed status as full code. Educated to Medicare benefit and copay coverage. Pt goal is to return home with spouse. Pt shared his experience with ED physician; SW offered for Madhu, pt Advocate, to speak with pt. Pt will consider. Pt expressed appreciation for Dr Larkin and his care in ED and in the transition to TCU. SW will continue to follow for d/c planning. LORRAINE Carballo
[2024-07-03] MEDS: Rivaroxaban 20 MG Tablet PO (16:35)
[2024-07-03] MEDS: Ondansetron ODT 4 MG Tablet 8 MG PO (18:49)
[2024-07-03 22:20] VITALS: BP 148/72; PULSE 93
[2024-07-03 22:25] VITALS: BP 148/72; PULSE 93
--- NOTE | 2024-07-03 23:05 | NURSING ---
Patient requesting that Atorvastatin be D/C'd, states it affects kidney function. Dr. Larkin updated via communication board.
[2024-07-04] MEDS: Ondansetron ODT 4 MG Tablet 8 MG PO ×3 (03:17→18:55)
[2024-07-04 06:00] VITALS: BMI 24.7
[2024-07-04 06:02] LABS: Absolute Lymphocyte Count 2.22 X10^3/uL (0.83-4.51); Basophil# 0.04 X10^3/uL; Basophil% 0.3 % (0-1); Eosinophil# 0.38 X10^3/uL; Hematocrit 29.1 % (40-54); Hemoglobin 9.5 g/dL (13.0-16.5); Lymphocyte # 2.22 X10^3/ul (0.83-4.51); Lymphocyte % 17.2 % (19-41); Mean Corp Hgb Conc 32.6 g/dL (32-36); Mean Corpuscular Volume 91.8 fL (80-94); Mean Platelet Vol. 10.1 fl (6.2-12.0); Monocyte# 1.04 X10^3/uL; Monocyte% 8.1 % (0-10); NRBC Flagged by Analyzer 0 % (0-5); Neutrophil # 8.98 X10^3/uL (2.7-7.7); Neutrophil % 69.7 % (47-70); Platelet Count 267 K/mm3 (150-450); RBC Distribution Width CV 14.5 % (11.6-14.6); RBC Distribution Width SD 48.9 fl (35.1-43.9); Red Blood Count 3.17 M/mm3 (4.6-6.2); White Blood Count 12.9 K/mm3 (4.4-11.0)
[2024-07-04 06:48] LABS: Anion Gap 12 (5-15); BUN 29 mg/dL (7-18); Calcium,Total 8.4 mg/dL (8.5-10.1); Chloride 112 mmol/L (98-107); Creatinine, Serum 3.22 mg/dL (0.70-1.30); EST Glomerular Filtration Rate 20 mL/min (>60); Est Glom Filt Rate - Afr Amer 24 mL/min (>60); Estimated Creatinine Clearance 24.11 ml/min; Glucose 72 mg/dL (74-106); Potassium 3.6 mmol/L (3.5-5.1); Sodium Level 142 mmol/L (136-145)
[2024-07-04 08:41] VITALS: BP 145/74; PULSE 94
[2024-07-04] MEDS: Ferrous Sulfate 325 MG Tablet PO (08:41)
[2024-07-04] MEDS: hydrALAZINE 50 MG Tablet PO ×2 (08:41→21:39)
[2024-07-04] MEDS: dilTIAZem CD 180 MG Capsule PO (08:42)
[2024-07-04] MEDS: Loratadine 10 MG Tablet PO (08:43)
[2024-07-04] MEDS: Cholecalciferol (VIT D3) 25 MCG TABLET (1,000 UNITS) PO (08:44)
[2024-07-04] MEDS: Ascorbic Acid 500 MG Tablet 1000 MG PO (08:44)
[2024-07-04 10:00] VITALS: PULSE 94; RESP 16; O2SAT 97
[2024-07-04] MEDS: Tuberculin,Purif.prot.deriv. 50 TU/ML Vial 0.1 ML ID (10:35)
[2024-07-04 12:32] VITALS: BP 145/74; PULSE 94; RESP 16; TEMP 36.6; O2SAT 97
--- NOTE | 2024-07-04 14:31 | NURSING ---
Patient requesting Lipitor be D/C'd d/t kidneys and also requesting something for cough. Call placed to Dr. Larkin. New orders received.
[2024-07-04] MEDS: Rivaroxaban 20 MG Tablet PO (17:23)
[2024-07-04 21:39] VITALS: BP 145/74; PULSE 84
[2024-07-04] MEDS: Benzonatate 100 MG Capsule 200 MG PO (21:40)
[2024-07-04] MEDS: Fluticasone 0.05% 1 SPRAY NASAL.SRY NASAL (21:41)
[2024-07-04 21:47] VITALS: BP 145/74; PULSE 84
[2024-07-05] MEDS: Ondansetron ODT 4 MG Tablet 8 MG PO ×3 (05:40→23:46)
[2024-07-05] MEDS: Benzonatate 100 MG Capsule 200 MG PO ×3 (05:40→23:46)
[2024-07-05 06:00] VITALS: BMI 24.7
[2024-07-05 06:18] VITALS: PULSE 96; O2SAT 95
[2024-07-05 06:41] LABS: Anion Gap 7 (5-15); BUN 26 mg/dL (7-18); BUN/Creat Ratio 8.5 RATIO (10-20); Calcium,Total 8.4 mg/dL (8.5-10.1); Chloride 110 mmol/L (98-107); Creatinine, Serum 3.05 mg/dL (0.70-1.30); EST Glomerular Filtration Rate 22 mL/min (>60); Est Glom Filt Rate - Afr Amer 26 mL/min (>60); Estimated Creatinine Clearance 25.45 ml/min; Glucose 93 mg/dL (74-106); Potassium 3.5 mmol/L (3.5-5.1); Sodium Level 140 mmol/L (136-145)
[2024-07-05 11:23] VITALS: BP 160/89; PULSE 87
[2024-07-05] MEDS: hydrALAZINE 50 MG Tablet PO ×2 (11:23→22:28)
[2024-07-05] MEDS: Ascorbic Acid 500 MG Tablet 1000 MG PO (11:23)
[2024-07-05] MEDS: dilTIAZem CD 180 MG Capsule PO (11:23)
[2024-07-05] MEDS: Ferrous Sulfate 325 MG Tablet PO (11:23)
[2024-07-05] MEDS: Loratadine 10 MG Tablet PO (11:24)
[2024-07-05] MEDS: Cholecalciferol (VIT D3) 25 MCG TABLET (1,000 UNITS) PO (11:24)
[2024-07-05 16:00] VITALS: BP 160/89; PULSE 80; RESP 14; TEMP 36.8; O2SAT 97
[2024-07-05] MEDS: Rivaroxaban 20 MG Tablet PO (17:41)
[2024-07-05] MEDS: HYDROcodone Bitartrate/Apap 5/325 Tablet PO (20:10)
[2024-07-05 22:28] VITALS: BP 145/80; PULSE 85
[2024-07-06] MEDS: Benzonatate 100 MG Capsule 200 MG PO ×3 (05:51→21:18)
[2024-07-06 05:52] VITALS: BMI 24.4
[2024-07-06 06:28] LABS: Anion Gap 6 (5-15); BUN 24 mg/dL (7-18); BUN/Creat Ratio 8.4 RATIO (10-20); Calcium,Total 8.3 mg/dL (8.5-10.1); Chloride 109 mmol/L (98-107); Creatinine, Serum 2.86 mg/dL (0.70-1.30); EST Glomerular Filtration Rate 23 mL/min (>60); Est Glom Filt Rate - Afr Amer 28 mL/min (>60); Estimated Creatinine Clearance 27.14 ml/min; Glucose 89 mg/dL (74-106); Potassium 3.7 mmol/L (3.5-5.1); Sodium Level 140 mmol/L (136-145)
[2024-07-06 07:04] LABS: Absolute Lymphocyte Count 2.23 X10^3/uL (0.83-4.51); Absolute Neutrophil Count 7.7 X10^3/uL (2.0-7.7); Basophil# 0.05 X10^3/uL; Basophil% 0.5 % (0-1); Eosinophil# 0.32 X10^3/uL; Eosinophils% 2.9 % (0-5); Hematocrit 31.8 % (40-54); Hemoglobin 10.4 g/dL (13.0-16.5); Lymphocyte # 2.23 X10^3/ul (0.83-4.51); Lymphocyte % 20.3 % (19-41); Mean Corp Hgb Conc 32.7 g/dL (32-36); Mean Corpuscular Hgb 30.1 pg (27.0-32.0); Mean Corpuscular Volume 91.9 fL (80-94); Mean Platelet Vol. 9.4 fl (6.2-12.0); Monocyte# 0.61 X10^3/uL; Monocyte% 5.6 % (0-10); NRBC Flagged by Analyzer 0 % (0-5); Platelet Count 374 K/mm3 (150-450); RBC Distribution Width CV 14.8 % (11.6-14.6); RBC Distribution Width SD 49.3 fl (35.1-43.9); Red Blood Count 3.46 M/mm3 (4.6-6.2)
[2024-07-06 08:50] VITALS: PULSE 88
[2024-07-06] MEDS: hydrALAZINE 50 MG Tablet PO ×2 (08:50→21:19)
[2024-07-06] MEDS: Ascorbic Acid 500 MG Tablet 1000 MG PO (08:51)
[2024-07-06] MEDS: Cholecalciferol (VIT D3) 25 MCG TABLET (1,000 UNITS) PO (08:51)
[2024-07-06] MEDS: Loratadine 10 MG Tablet PO (08:53)
[2024-07-06] MEDS: Ferrous Sulfate 325 MG Tablet PO (08:55)
[2024-07-06] MEDS: dilTIAZem CD 180 MG Capsule PO (08:58)
--- NOTE | 2024-07-06 11:58 | NURSING ---
Control Engineer Note; Activity Asset: Carlos Lenz is independent in his choice of daily activities. He watches tv, reads, and has a smartphone he uses. Delfin stated he will be leaving tomorrow and is not in need of anything currently. Staff will respect his right to say no to activities and stay in his room if he wishes.
--- NOTE | 2024-07-06 12:20 | CASEMGMT ---
Social Work SW spoke with pt at bedside to discuss his request for DC home. SW reviewed therapy notes and pt is adlib with no device. SW inquired if pt felt medically ready to DC to avoid another quick ED readmission. Pt explained he is feeling better, his lingering symptoms have resolved, and he has regained his strength to return to baseline. SW offered to DC pt 07/07, per his request. Pt agreeable. SW offered OP PT. Pt denied stating he spoke with PT and OT and he has the machines at home that OP would offer. PT/OT provided pt with HEPs and pt will follow. No DME needs. Plan: DC home 07/07 with no needs Kiara Contreras MSW [employer]
--- NOTE | 2024-07-06 12:23 | CASEMGMT ---
Social Work BIMS () and PHQ-2 () completed for MDS assessment. Kiara Contreras MSW STAFF FORESTER
[2024-07-06 14:50] VITALS: BP 150/79; PULSE 103; RESP 16; TEMP 36.5; O2SAT 96
--- NOTE | 2024-07-06 15:52 | PCM.PN.DRR ---
Documented by User: Courtney Cortez 07/06/24 16:26 TCU RX Drug Regimen Review Subjective/Objective Subjective/Objective: Subjective: TCU Admission. 73 YOM presented to the ER with general illness. Hospitalized for septic shock 2/2 E. Coli UTI, complicated by acute kidney injury, failed home discharge. Admitted to TCU with debility for strengthening and rehabilitation. Objective: Allergies albuterol Adverse Reaction (Verified 07/03/24 03:17) palpitations amitriptyline (From Elavil) Adverse Reaction (Verified 07/03/24 03:17) Other amoxapine Adverse Reaction (Verified 07/03/24 03:17) Other buspirone Adverse Reaction (Verified 07/03/24 03:17) Other duloxetine (From Cymbalta) Adverse Reaction (Verified 07/03/24 03:17) Other fluticasone (From Advair Diskus) Adverse Reaction (Verified 07/03/24 03:17) Other HEART PALPITATIONS gabapentin Adverse Reaction (Verified 07/03/24 03:17) Other gemfibrozil Adverse Reaction (Verified 07/03/24 03:17) Other hydroxyzine Adverse Reaction (Verified 07/03/24 03:17) Other naproxen Adverse Reaction (Verified 07/03/24 03:17) Other nortriptyline Adverse Reaction (Verified 07/03/24 03:17) Other salmeterol (From Advair Diskus) Adverse Reaction (Verified 07/03/24 03:17) Other HEART PALPITATIONS sertraline (From Zoloft) Adverse Reaction (Verified 07/03/24 03:17) Other tiotropium (From Spiriva with HandiHaler) Adverse Reaction (Verified 07/03/24 03:17) Other trazodone Adverse Reaction (Verified 07/03/24 03:17) Other zolpidem (From Ambien) Adverse Reaction (Verified 07/03/24 03:17) Other SLEEP WALKING Current Medications Generic Name Dose Route Start Last Admin Trade Name Freq PRN Reason Stop Dose Admin Hydrocodone Bitart/Acetaminophen 1 tablet 07/03/24 12:10 07/05/24 20:10 Hydrocodone Bitartrate/Apap 5/325 Tablet PO 1 tablet Q4H PRN Administration PAIN 1-10 Ascorbic Acid 1,000 mg 07/04/24 10:00 07/06/24 08:51 Ascorbic Acid 500 Mg Tablet PO 1,000 mg DAILY EZ Administration Benzonatate 200 mg 07/04/24 22:00 07/06/24 14:28 Benzonatate 100 Mg Capsule PO 200 mg TID EZ Administration Bisacodyl 10 mg 07/03/24 12:07 Bisacodyl 10 Mg Suppository RC DAILY PRN PRN Constipation Cholecalciferol 25 mcg 07/03/24 13:00 07/06/24 08:51 Cholecalciferol (Vit D3) 25 Mcg Tablet (1,000 Units) PO 25 mcg DAILY EZ Administration Compound Med 2 click 07/03/24 14:09 Arthritis Pain Compound 60 Click Tube TOPICAL BID PRN Pain Score 1-10 Protocol Diltiazem HCl 180 mg 07/03/24 13:00 07/06/24 08:58 Diltiazem Cd 180 Mg Capsule PO 180 mg DAILY EZ Administration Protocol Ferrous Sulfate 325 mg 07/04/24 08:00 07/06/24 08:55 Ferrous Sulfate 325 Mg Tablet PO 325 mg DAILYCM [facility] Administration Fluticasone Propionate 1 spray 07/03/24 12:10 07/04/24 21:41 Fluticasone 0.05% 1 [place] Nasal.Sry NASAL 1 spray DAILY PRN Administration ALLERGIES Hydralazine HCl 50 mg 07/03/24 12:30 07/06/24 08:50 Hydralazine 50 Mg Tablet PO 08/02/24 12:31 50 mg BID EZ Administration Protocol Hyoscyamine Sulfate 0.125 mg 07/03/24 12:23 Hyoscyamine Sulfate 0.125 Mg Tablet PO DAILY PRN ESOPHOGEAL SPASMS Loratadine 10 mg 07/03/24 13:00 07/06/24 08:53 Loratadine 10 Mg Tablet PO 10 mg DAILY EZ Administration Magnesium Citrate 300 ml 07/03/24 12:07 Magnesium Citrate 300 Ml PO X1 PRN Constipation Ondansetron HCl 8 mg 07/03/24 14:10 07/05/24 23:46 Ondansetron Odt 4 Mg Tablet PO 8 mg Q8H PRN PRN Administration NAUSEA/VOMITING Rivaroxaban 20 mg 07/03/24 17:00 07/05/24 17:41 Rivaroxaban 20 Mg Tablet PO 20 mg DINNER [facility] Administration Senna/Docusate Sodium 2 tablet 07/03/24 22:00 07/06/24 08:56 Senna/Docusate Sodium 1 Tablet PO Not Given BID EZ Sodium Chloride 10 - 40 ml 07/03/24 11:54 0.9% Saline Lock 10 Ml Syringe IV UD PRN SALINE FLUSH Tuberculin PPD 0.1 ml 07/11/24 10:00 Tuberculin,Purif.Prot.Deriv. 50 Tu/Ml Vial ID 07/11/24 10:01 X1 ONE Problem List (Updated 07/03/24 @ 14:[address] Miller Larkin MD) Hyperlipidemia (Acute) Atrial fibrillation (Acute) Esophageal spasm (Acute) Iron deficiency anemia (Acute) Essential (primary) hypertension (Acute) Allergic rhinitis (Acute) Vitamin D deficiency (Acute) Chronic kidney disease, stage 3a (Chronic) Urinary tract infection (Acute) Septic shock (Acute) Debility (Acute) Vital Signs Temp Pulse Resp BP Pulse Ox O2 Del Method 97.7 F L 103 H 16 150/79 H 96 Room Air 07/06/24 14:50 07/06/24 14:50 07/06/24 14:50 07/06/24 14:50 07/06/24 14:50 07/06/24 14:50 Oxygen Delivery Method Room Air Weight: 86.3 kg Body Mass Index (BMI) 24.4 Sodium 140 mmol/L (136-145) 07/06/24 05:13 Potassium 3.7 mmol/L (3.5-5.1) 07/06/24 05:13 Chloride 109 mmol/L (98-107) H 07/06/24 05:13 Carbon Dioxide 25.0 mmol/L (21.0-32.0) 07/06/24 05:13 Anion Gap 6 (5-15) 07/06/24 05:13 BUN 24 mg/dL (7-18) H 07/06/24 05:13 Creatinine 2.86 mg/dL (0.70-1.30) H 07/06/24 05:13 Est GFR (MDRD) Af Amer 28 mL/min (>60) L 07/06/24 05:13 Est GFR (MDRD) Non-Af 23 mL/min (>60) L 07/06/24 05:13 BUN/Creatinine Ratio 8.4 RATIO (10-20) L 07/06/24 05:13 Glucose 89 mg/dL (74-106) 07/06/24 05:13 Assessment/Plan: 1. Pain: Arthritis pain compound 2 clicks topical BID PRN pain 1-10 and [place] 5/325mg 1T PO Q4H PRN pain 1-10. Resident has had 1 dose of [place] and no doses of arthritis compound. Please continue to monitor for increased pain, PRN usage, constipation and respiratory depression. Please consider noting which medication should be used first line for pain. Thanks. 2. Bowel: senna/docusate 2T PO BID, bisacodyl 10mg RC daily PRN constipation and magnesium citrate 300mL PO x1 PRN constipation. Resident has refused all doses of senna/docusate. Please consider changing to PRN. Thanks. Please continue to monitor for constipation and PRN usage. No PRN doses have been given. Last documented bowel movement was 07/05. 3. Atrial fibrillation/Hypertension: diltiazem 180mg PO daily, hydralazine 50mg PO BID thru 08/02/24, rivaroxaban 15mg PO daily (dose changed due to CrCl of 27 mL/min). Please continue to monitor for S/S of bleeding, hemoglobin (last 10.4g/dL), BP (last 150/79), HR (last 103). 4. Iron deficiency anemia: ferrous sulfate 325mg PO daily. Please consider ordering an iron study as there is no study in the chart. Thanks. Please continue to monitor hemoglobin, dark stools and constipation. 5. Allergic rhinitis: loratadine 10mg PO Q48 and fluticasone 0.05% nasal spray 1 spray nasal daily. Please continue to monitor for S/S of allergies, nasal irritation and renal function. 6. Esophageal spasm: hyoscyamine 0.125mg PO daily PRN esophageal spasms. Resident has not had any PRN doses. Please continue to monitor for esophageal spasms and PRN usage. 7. Nausea: ondansetron ODT 8mg PO Q8H PRN nausea/vomiting. Resident has had 7 doses. Please continue to monitor for PRN doses and nausea/vomiting. 8. Vitamin C/D deficiencies: ascorbic acid 1000mg PO daily and cholecalciferol 25mcg PO daily. Please consider ordering a vitamin D level as there is no level in the chart. Thanks. 9. Cough: benzonatate 200mg PO TID. Please continue to monitor for cough. Assessment/Plan for indications treated with psychotropic medications: None Medical chart and medication regimen reviewed. The following medication irregularities or issues were identified: 1. Arthritis pain compound 2 clicks topical BID PRN pain 1-10 and [place] 5/325mg 1T PO Q4H PRN pain 1-10. Please consider noting which medication should be used first line for pain. Thanks. 2. Ferrous sulfate 325mg PO daily. Please consider ordering an iron study as there is no study in the chart if clinically appropriate. Thanks. 3. Cholecalciferol 25mcg PO daily. Please consider ordering a vitamin D level as there is no level in the chart. Thanks. Date Date of Note:: 07/06/24 Documented by User: Dr. Miller Larkin MD 07/06/24 17:40 TCU RX Drug Regimen Review Provider Comments Provider responsibility Provider Comments to Recommendations by Pharmacy: Agree
[2024-07-06] MEDS: Rivaroxaban 15 MG Tablet PO (16:32)
[2024-07-06 20:00] VITALS: PULSE 88; O2SAT 95
--- NOTE | 2024-07-06 20:55 | DS.PCM_ITS ---
Providers Date of Admission: 07/03/24 Primary Care Physician: Dr. Juvenal Chatman MD Consultations 07/03/24 14:57 Consult: Nephrology Routine Consulting Provider: Aretha Wallace Reason for Consult: Acute kidney injury. EMERGENT Consult: No MD Notified: Yes Date Notified: 07/03/24 Time Notified: 14:57 Method of Notification: Answering Service Reason For Visit: DYSPNEA Diagnosis Discharge Diagnosis (1) Debility: Status: Acute Code(s): R53.81 - Other malaise (2) Septic shock: Status: Acute Code(s): A41.9 - Sepsis, unspecified organism; R65.21 - Severe sepsis with septic shock (3) Urinary tract infection: Status: Acute Code(s): N39.0 - Urinary tract infection, site not specified (4) FILIPPO (acute kidney injury): Status: Inactive Code(s): N17.9 - Acute kidney failure, unspecified (5) Chronic kidney disease, stage 3a: Status: Chronic Code(s): N18.31 - Chronic kidney disease, stage 3a (6) Vitamin D deficiency: Status: Acute Code(s): E55.9 - Vitamin D deficiency, unspecified (7) Allergic rhinitis: Status: Acute Code(s): J30.9 - Allergic rhinitis, unspecified (8) Essential (primary) hypertension: Status: Acute Code(s): I10 - Essential (primary) hypertension (9) Iron deficiency anemia: Status: Acute Code(s): D50.9 - Iron deficiency anemia, unspecified (10) Esophageal spasm: Status: Acute Code(s): K22.4 - Dyskinesia of esophagus (11) Atrial fibrillation: Status: Acute Code(s): I48.91 - Unspecified atrial fibrillation (12) Hyperlipidemia: Status: Acute Code(s): E78.5 - Hyperlipidemia, unspecified Plan 73 year old male with below past medical history hospitalized for septic shock 2/2 E. Coli UTI, complicated by acute kidney injury, failed home discharge, admitted to TCU with debility, here for rehabilitation, strengthening, prior to discharge home with . * Debility - PT/OT. * Pain - Arthritis pain 2 clicks topical bid prn, [place] 5/325mg 1 tablet q4 prn pain (1-10). * Bowel - senna/colace 2 tablets bid, Dulcolax 10mg pr daily prn, Magnesium citrate 300ml po x 1 prn. * Adult immunization - Administer pneumonia vaccine, covid vaccine, flu vaccine as appropriate. * DVT prophylaxis - on Xarelto. * Acute kidney injury - Consult Nephrology. * Vitamin C deficiency - Vitamin C 1000mg daily. * Hyperlipidemia - Atorvastatin 10mg qhs. * Vitamin D deficiency - D3 25mcg daily. * Hypertension - Diltiazem 180mg daily, Hydralazine 50mg bid thru 08/02/2024. * Iron deficiency anemia - Ferrous sulfate 325mg daily. * Allergic rhinitis - Loratadine 10mg daily, Fluticasone 0.05% 1 spray nasal daily. * Esophageal spasm - Levsin 0.125mg daily prn. * Nausea - Zofran 8mg q8 prn. * Atrial fibrillation - Diltiazem 180mg daily, Xarelto 20mg daily. Medications at Discharge Home Medications cholecalciferol (vitamin D3) 25 mcg (1,000 unit) tablet 1,000 unit PO DAILY supplement 04/01/19 loratadine 10 mg tablet 10 mg PO DAILY allergies 04/01/19 ascorbic acid (vitamin C) 1,000 mg tablet,extended release 1,000 mg PO DAILY supplement 08/29/20 fluticasone propionate 50 mcg/actuation nasal spray,suspension (Flonase Allergy Relief) 1 spray intranasal DAILY PRN ALLERGIES 08/29/20 diltiazem HCl 180 mg capsule,extended release 24 hr 180 mg PO DAILY heart 06/26/21 ferrous sulfate 325 mg (65 mg iron) tablet (FeroSul) 325 mg PO DAILY Supplement 06/26/21 hyoscyamine sulfate 0.125 mg sublingual tablet 0.125 mg sublingual DAILY PRN ESOPHOGEAL SPASMS 06/26/21 diclofenac sodium 1 % topical gel (Arthritis Pain (diclofenac)) 2 g topical PRN PRN knee/shoulder pain 06/29/24 hydralazine 50 mg tablet 50 mg PO BID 30 days #60 tabs 07/06/24 rivaroxaban 15 mg tablet (Xarelto) 15 mg PO DINNER 30 days #30 tabs 07/06/24 Hospital Course Operations None Procedures None Summary of Care Provided Minutes Spent on Discharge: 35 Hospital Course: 73 year old male with below past medical history hospitalized for septic shock 2/2 E. Coli UTI, complicated by acute kidney injury, failed home discharge, admitted to TCU with debility, here for rehabilitation, strengthening, prior to discharge home with . Discharge home 07/07/2024, No needs. Physical Exam Const alert General Appearance: cooperative HEENT normocephalic Eyes PERRL and EOMs intact bilaterally Neck supple, no JVD and no carotid bruits Resp normal respiratory effort, normal air movement and clear to auscultation bilaterally Cardio regular rate and regular rhythm GI normal to inspection, nondistended, normoactive bowel sounds, non-tender and non-distended Extremity normal capillary refill General Extremity: Negative for edema Skin no rashes or lesions noted General Skin Exam: no breakdown Psych affect normal Appearance: appropriate Weight / BMI Weight Weight: 86.3 kg Body Mass Index (BMI) 24.4 ABG / Lab / Microbiology Data 07/06/24 06:54 07/06/24 05:13 Laboratory: Laboratory Results - last 24 hr 07/06/24 05:13: Sodium 140, Potassium 3.7, Chloride 109 H, Carbon Dioxide 25.0, Anion Gap 6, BUN 24 H, Creatinine 2.86 H, Estim Creat Clear Calc 27.14, Est GFR (MDRD) Af Amer 28 L, Est GFR (MDRD) Non-Af 23 L, BUN/Creatinine Ratio 8.4 L, Glucose 89, Calcium 8.3 L 07/06/24 06:54: WBC 11.0, RBC 3.46 L, Hgb 10.4 L, Hct 31.8 L, MCV 91.9, MCH 30.1, MCHC 32.7, RDW Std Deviation 49.3 H, RDW Coeff of Mendel 14.8 H, Plt Count 374, MPV 9.4, Immature Gran % (Auto) 0.700, Neut % (Auto) 70.0, Lymph % (Auto) 20.3, [place] % (Auto) 5.6, Eos % (Auto) 2.9, Baso % (Auto) 0.5, Absolute Neuts (auto) 7.7, Absolute Lymphs (auto) 2.23, Nucleated RBC % 0 D/C Instructions Discharge Diet: No restrictions Discharge Activity: Return to Normal Activity, May Shower and Use Walker Weight Bearing Status: Weight bearing as tolerated Call your doctor if you observe: Fever of 101 or Higher, Inability to urinate, Inability to have a bowel movement, Shortness of breath, Dizziness, Fainting spells, Swelling in the ankles, Chest pain and Uncontrolled pain Additional Instructions: Discharge home 07/07/2024, No needs. Meaningful Use Info Meaningful Use Meaningful Use Diagnoses (Choose all that apply): None applicable Ischemic Stroke Statin Dosing Therapy Reference: STATIN DOSE THERAPY REFERENCE: * Patients > 75 years receive moderate or high dose statin therapy. * Patients 75 years or YOUNGER should receive HIGH intensity statin dose unless contraindicated. You will be required to document reason for non-treatment if statin daily dose does not meet guidelines. HIGH DOSE STATIN THERAPY DAILY Atorvastatin > than or = to 40 mg Rosuvastatin > than or = to 20 mg Amlodipine + Atorvastatin > than or = to 2.5/40 mg Ezetimibe + Simvastatin 10/80 mg Simvastatin 80mg Discharge Plan Admission Admit Date/Time: 07/03/24 11:40 Primary Reason for Your Visit: Debility. Attending Provider: Miller Larkin Chi Primary Care Provider: Juvenal Chatman Consulting Providers: Aretha Wallace Instructions Additional Instructions / Restrictions: Discharge home 07/07/2024, No needs. Discharge Orders/Prescriptions Prescriptions: New hydralazine 50 mg Tablet 50 mg PO BID 30 Days Qty: 60 0RF Xarelto 15 mg Tablet 15 mg PO DINNER 30 Days Qty: 30 0RF Continued ascorbic acid (vitamin C) 1,000 mg tablet extended release 1,000 mg PO DAILY fluticasone propionate [Flonase Allergy Relief] 50 mcg/actuation spray,suspension 1 spray INTRANASAL DAILY PRN (Reason: ALLERGIES) Rx Instructions: administer into each nostril diltiazem HCl 180 mg capsule,extended release 24hr 180 mg PO DAILY ferrous sulfate [FeroSul] 325 mg (65 mg iron) tablet 325 mg PO DAILY loratadine 10 MG tablet 10 mg PO DAILY cholecalciferol (vitamin D3) 1,000 UNIT tablet 1,000 unit PO DAILY hyoscyamine sulfate 0.125 mg tablet, sublingual 0.125 mg sublingual DAILY PRN (Reason: ESOPHOGEAL SPASMS) diclofenac sodium [Arthritis Pain (diclofenac)] 1 % gel 2 g topical PRN PRN (Reason: knee/shoulder pain) Discontinued Xarelto 20 mg tablet 20 mg PO 1730 Rx Instructions: must administer with evening meal atorvastatin 10 mg tablet 10 mg PO DAILY hydrocodone-acetaminophen 1 EACH tablet 1 ea PO Q4H PRN (Reason: pain ) hydralazine 50 mg tablet 50 mg PO BID 30 Days Qty: 60 0RF Rx Instructions: Hold for SBP less than 130 mmHg losartan 100 mg tablet 100 mg PO DAILY Qty: 90 3RF Referrals / Follow Up: Juvenal Chatman MD [Primary Care Provider] - Disposition Disposition (needs filled in before D/C Order can be placed): Home, Self Care
[2024-07-06 20:59] VITALS: BP 126/62; PULSE 91; RESP 14; TEMP 36.8; O2SAT 97
[2024-07-06] MEDS: Fluticasone 0.05% 1 SPRAY NASAL.SRY NASAL (21:16)
[2024-07-06 21:19] VITALS: BP 139/64; PULSE 87
[2024-07-06] MEDS: HYDROcodone Bitartrate/Apap 5/325 Tablet PO (21:21)
[2024-07-06 21:37] VITALS: BP 139/64; PULSE 87; O2SAT 95
[2024-07-07 02:55] VITALS: PULSE 94; O2SAT 95
[2024-07-07 05:17] LABS: Iron 41 ug/dL (65-175)
[2024-07-07] MEDS: Benzonatate 100 MG Capsule 200 MG PO (05:42)
[2024-07-07 07:55] VITALS: BP 126/62
[2024-07-07] MEDS: Ascorbic Acid 500 MG Tablet 1000 MG PO (08:02)
[2024-07-07] MEDS: dilTIAZem CD 180 MG Capsule PO (08:02)
[2024-07-07] MEDS: Cholecalciferol (VIT D3) 25 MCG TABLET (1,000 UNITS) PO (08:02)
[2024-07-07] MEDS: Fluticasone 0.05% 1 SPRAY NASAL.SRY NASAL (08:02)
[2024-07-07] MEDS: Ferrous Sulfate 325 MG Tablet PO (08:03)
--- NOTE | 2024-07-15 14:21 | MDS.RN ---
Information for the MDS was obtained from review of the clinical record, interview of resident, staff, and direct observation of resident?s care.
== END 2024-07-07 09:45 | disposition home or self-care (01) | DRG 690 ==
PROVIDERS: Admitting Provider Family Medicine Geriatric Medicine; PCP Family Medicine; Visit Provider Family Medicine Geriatric Medicine
DX: N39.0 Urinary tract infection, site not specified (principal); N17.9 Acute kidney failure, unspecified; N18.31 Chronic kidney disease, stage 3a; J44.89 Other specified chronic obstructive pulmonary disease; D50.9 Iron deficiency anemia, unspecified; I12.9 Hypertensive chronic kidney disease with stage 1 through stage 4 chronic kidney disease, or unspecified chronic kidney disease; I48.0 Paroxysmal atrial fibrillation; E55.9 Vitamin D deficiency, unspecified; J30.9 Allergic rhinitis, unspecified; E78.5 Hyperlipidemia, unspecified; Z87.891 Personal history of nicotine dependence; Z79.01 Long term (current) use of anticoagulants; B96.20 Unspecified Escherichia coli [E. coli] as the cause of diseases classified elsewhere; Z79.899 Other long term (current) drug therapy; Z87.01 Personal history of pneumonia (recurrent)
CPT/HCPCS: 36415; 80048; 82652; 83540; 85025; 97110; 97116; 97162; 97165; 97530; 97535; 97802

== ENCOUNTER 2024-07-10 09:45 | Observation (INO) | payer MEDICARE, OTHER, SELFPAY ==
[2024-07-10] VITALS (8 sets, daily range): BP systolic 134–148; BP diastolic 70–93; PULSE 77–113; RESP 14–18; TEMP 36.6–37.1; O2SAT 95–97; BMI 23.9; BMI 23.8
--- NOTE | 2024-07-10 09:47 | ED.RN ---
PT FRUSTRATED BECAUSE SOMEONE ELSE WAS BEING TRIAGE UPON HIS ARRIVAL. PT FELT THAT HE SHOULD TAKE PRIORITY.
--- NOTE | 2024-07-10 09:54 | EKG12_ITS ---
Test Reason : CHEST TIGHTNESS Blood Pressure : / mmHG Vent. Rate : 103 BPM Atrial Rate : 103 BPM P-R Int : 154 ms QRS Dur : 082 ms QT Int : 384 ms P-R-T Axes : 060 041 071 degrees QTc Int : 503 ms Sinus tachycardia Otherwise normal ECG Confirmed by Wu Evans ([id number]), acquisitions editor RUY ZHANG ([id number]) on 07/13/2024 9:18:23 AM Referred By: Confirmed By:Wu Evans
--- NOTE | 2024-07-10 10:00 | RAD_ITS ---
INDICATION: Dyspnea, orthopnea EXAMINATION/TECHNIQUE: X-RAY - XR Chest 2 Views COMPARISON: Prior study dated: 06/27/2024 FINDINGS: LINES/DEVICES: None. LUNGS: The lungs are somewhat hyperinflated. Blunting of the costophrenic angles bilaterally new since previous exam. No focal consolidation. MEDIASTINUM AND CARDIOVASCULAR STRUCTURES: Cardiac silhouette not enlarged. Central airways and mediastinal contour are unremarkable. BONES AND SOFT TISSUES: Unremarkable. RAD/Chest PA and Lateral IMPRESSION: Blunting of the costophrenic angles suggestive of small bilateral pleural effusions. No new infiltrate is seen. Electronically Signed: Jhonny Ma MD at 10:40 EDT ,
[2024-07-10 10:07] LABS: Absolute Lymphocyte Count 2.04 X10^3/uL (0.83-4.51); Absolute Neutrophil Count 4.6 X10^3/uL (2.0-7.7); Basophil# 0.05 X10^3/uL; Basophil% 0.7 % (0-1); Eosinophil# 0.22 X10^3/uL; Eosinophils% 2.9 % (0-5); Hematocrit 30.1 % (40-54); Hemoglobin 9.7 g/dL (13.0-16.5); Lymphocyte # 2.04 X10^3/ul (0.83-4.51); Lymphocyte % 27.3 % (19-41); Mean Corp Hgb Conc 32.2 g/dL (32-36); Mean Corpuscular Volume 93.2 fL (80-94); Mean Platelet Vol. 9.5 fl (6.2-12.0); Monocyte% 6.7 % (0-10); NRBC Flagged by Analyzer 0 % (0-5); Neutrophil # 4.64 X10^3/uL (2.7-7.7); Platelet Count 421 K/mm3 (150-450); RBC Distribution Width CV 15.3 % (11.6-14.6); RBC Distribution Width SD 52.3 fl (35.1-43.9); Red Blood Count 3.23 M/mm3 (4.6-6.2); White Blood Count 7.5 K/mm3 (4.4-11.0)
[2024-07-10 10:28] LABS: Anion Gap 5 (5-15); BUN 23 mg/dL (7-18); BUN/Creat Ratio 10.3 RATIO (10-20); Calcium,Total 8.5 mg/dL (8.5-10.1); Chloride 110 mmol/L (98-107); Creatinine, Serum 2.23 mg/dL (0.70-1.30); EST Glomerular Filtration Rate 31 mL/min (>60); Est Glom Filt Rate - Afr Amer 37 mL/min (>60); Estimated Creatinine Clearance 34.81 ml/min; Glucose 116 mg/dL (74-106); Potassium 3.5 mmol/L (3.5-5.1); Sodium Level 141 mmol/L (136-145); Troponin-I HS (w/2H Reflex) 103 pg/mL (3.0-78.0)
[2024-07-10 12:02] LABS: Reflex Troponin-HS? (from REC) Y
[2024-07-10 12:31] LABS: Troponin-I HS 104 pg/mL (3.0-78.0)
--- NOTE | 2024-07-10 13:39 | ED.VIS.DYS ---
HPI History of Present Illness Chief Complaint: Shortness of Breath Detail of Chief Complaint: Patient presents with shortness of breath since discharge from the hospital Informant: patient Onset/Context/Timing Onset: Days Context: sudden Timing: Continuous Quality: Positive for Dyspnea on exertion and Orthopnea; Negative for PND or Wheezing Current Severity: Mild Maximum Severity: Severe (He is unable to walk across the room today.) Worsened by: Exertion and Lying flat Relieved by: Nothing Associated Symptoms Negative for cough, rhinorrhea, post nasal drip, ear pain, fever, sore throat, subjective, chills, sweats, clear sputum, white sputum, yellow sputum or green sputum Chest Pain: Positive for Continuous and Pressure Narrative Narrative: Patient is a 73-year-old male. Patient was admitted for sepsis. The discharge summary was reviewed. There was presumption he had a urinary tract infection. He was seen 2 days prior that with presumption he had a pneumonia. Patient states he gained significant mount of weight because amount of fluids he was given. States for the past several days has had to sleep in a lazy boy upright. Patient reports increased fluid in his legs. Patient had a BNP at the [facility] which was greater than 2000. The pain he experienced when he was in the hospital was on the left side and pleuritic. The pain he is experiencing now is in the middle of his chest. PE Risk Factors: Positive for Recent immobilization; Negative for Cancer, OCP + Smoking + > 35, Prior DVT or PE, Recent surgery or Recent travel Prior similar symptoms: No Recent Illness/Hospitalization: Yes PFSH [facility] Medical History Hx of pulmonary embolus Non-STEMI (non-ST elevated myocardial infarction) (09/19/21) PAF (paroxysmal atrial fibrillation) CKD (chronic kidney disease) stage 3, GFR 30-59 ml/min History of pilonidal cyst IBS (irritable bowel syndrome) Essential hypertension Asthma COPD (chronic obstructive pulmonary disease) Home Medications ?Medication ?Instructions ?Recorded ?Last Taken ?Type cholecalciferol (vitamin D3) 25 1,000 unit PO DAILY supplement 04/01/19 09/19/21 History mcg (1,000 unit) tablet ascorbic acid (vitamin C) 1,000 mg 1,000 mg PO DAILY supplement 08/29/20 09/19/21 History tablet,extended release fluticasone propionate 50 1 spray intranasal DAILY PRN 08/29/20 09/18/21 History mcg/actuation nasal ALLERGIES spray,suspension (Flonase Allergy Relief) diltiazem HCl 180 mg 180 mg PO DAILY heart 06/26/21 09/19/21 History capsule,extended release 24 hr ferrous sulfate 325 mg (65 mg 325 mg PO DAILY Supplement 06/26/21 09/19/21 History iron) tablet (FeroSul) hyoscyamine sulfate 0.125 mg 0.125 mg sublingual DAILY PRN 06/26/21 Unknown History sublingual tablet ESOPHOGEAL SPASMS diclofenac sodium 1 % topical gel 2 g topical PRN PRN knee/shoulder 06/29/24 06/24/24 History (Arthritis Pain (diclofenac)) pain hydralazine 50 mg tablet 50 mg PO BID 30 days #60 tabs 07/06/24 Unknown Rx atorvastatin 10 mg tablet 10 mg PO DAILY 07/10/24 Unknown History benzonatate 100 mg capsule 100 mg PO Q6H PRN cough 07/10/24 Unknown History hydrocodone-acetaminophen 5-325mg 1 tab PO BID PRN PRN pain 07/10/24 Unknown History 5mg-325mg rivaroxaban 15 mg tablet (Xarelto) 15 mg PO Q24H 07/10/24 07/10/24 History Allergy/AdvReac Type Severity Reaction Status Date / Time albuterol AdvReac palpitation Verified 07/10/24 09:45 s amitriptyline (From Elavil) AdvReac Other Verified 07/10/24 09:45 amoxapine AdvReac Other Verified 07/10/24 09:45 buspirone AdvReac Other Verified 07/10/24 09:45 duloxetine (From Cymbalta) AdvReac Other Verified 07/10/24 09:45 fluticasone (From Advair AdvReac Other Verified 07/10/24 09:45 Diskus) gabapentin AdvReac Other Verified 07/10/24 09:45 gemfibrozil AdvReac Other Verified 07/10/24 09:45 hydroxyzine AdvReac Other Verified 07/10/24 09:45 naproxen AdvReac Other Verified 07/10/24 09:45 nortriptyline AdvReac Other Verified 07/10/24 09:45 salmeterol (From Advair AdvReac Other Verified 07/10/24 09:45 Diskus) sertraline (From Zoloft) AdvReac Other Verified 07/10/24 09:45 tiotropium (From Spiriva AdvReac Other Verified 07/10/24 09:45 with HandiHaler) trazodone AdvReac Other Verified 07/10/24 09:45 zolpidem (From Ambien) AdvReac Other Verified 07/10/24 09:45 Family History Mother Colon cancer Alzheimer disease Father Cancer Prostate Grandfather Colon cancer Grandfather Myocardial infarction Surgical History History of bilateral cataract extraction History of shoulder surgery History of arthroscopy of right knee History of cholecystectomy Social History household members: spouse Smoking Status: Former smoker alcohol intake: current details: rare substance use type: does not use caffeine: No ROS ROS ED Constitutional Constitutional ED: Reports chills, fever(s) and other Details: Patient reports 20 pound weight gain ; Denies sweats or weight loss Eyes Eyes: Denies blurry vision or change in vision ENT ENT ED: Denies ear pain, rhinorrhea or sore throat Cardiovascular Cardiovascular: Reports chest pain, orthopnea and palpitations; Denies paroxysmal nocturnal dyspnea or racing heartbeat Respiratory/Chest Respiratory/Chest: Reports dyspnea, dyspnea on exertion and orthopnea; Denies cough or paroxysmal nocturnal dyspnea Gastrointestinal Gastrointestinal: Denies abdominal pain, nausea or vomiting Genitourinary Genitourinary ED: Denies dysuria, hematuria or urinary frequency Musculoskeletal Musculoskeletal: Denies arthralgias or myalgias Integumentary Denies rash Neurologic Neurologic: Denies headache(s) or paresthesias Psychiatric Psychiatric: Denies anxiety or depression Hematologic/Lymphatic Hematologic/Lymphatic: Denies easy bleeding or easy bruising EXAM Physical Exam Const Vital Signs: 07/10/24 09:45 07/10/24 11:45 07/10/24 13:00 Temperature 98 F 98.6 F Temperature Source Temporal Temporal Pulse Rate 113 H 84 77 Respiratory Rate 18 14 16 Blood Pressure 134/93 H 146/75 H 143/70 H Blood Pressure Mean 106 98 94 Pulse Ox 97 96 95 Oxygen Delivery Method Room Air Room Air Room Air Positive well nourished and well developed Constitutional Narrative: Patient appears pale and ill. His breathing is slightly rapid. General Appearance ED: well developed and pallor; Negative for NAD HEENT Reports moist mucous membranes HEENT Narrative: Head is normocephalic. Ears normal. Nares patent. Posterior pharynx is normal. atraumatic Eyes PERRL and EOMs intact bilaterally Neck no lymphadenopathy, supple, no meningeal signs and no JVD Resp normal respiratory effort and clear to auscultation bilaterally Resp Narrative: Possibly decreased breath sounds at both bases. There is no dullness to percussion. Auscultation: Negative for rales, rhonchi or wheezes Cardio regular rate, regular rhythm, S1 normal heart sound, S2 normal heart sound and no murmurs GI non-tender, non-distended and no masses Palpation: soft Back/Spine no CVA tenderness Extremity Extremity Narrative: Marked edema of the lower extremities. General Extremety ED: Yes edema General Extremity: edema Neuro oriented x3, CN's II-XII intact bilaterally and no sensory deficits noted Maryse Coma Scale: document GCS findings Spontaneous Obeys Commands Oriented 15 Sensorium / Orientation: alert Psych mental status grossly normal Psych Narrative: Initially patient was upset because he believed his problem was caused by administration of too much fluids. Skin no wounds and skin turgor normal General Skin Exam: pallor Lesions: no lesions Rashes: no rashes MDM MDM MDM Narrative Medical decision making narrative: Differential diagnosis includes cardiac ischemia, new onset heart failure, fluid overload because of excess fluid with renal disease, clinically appears pale. Will obtain CBC, troponin, Lab Data Attestation: I reviewed the patient's lab results. Lab results narrative: Patient's H&H is slightly lower than 4 days ago. Patient's renal function has improved.. On the there was 2.86. Today it is 2.23. Troponin is elevated to 103 104 with a delta of 1. This is elevated compared to Prior. Prior was 59. Labs: Laboratory Results - last 24 hr 07/10/24 07/10/24 09:55 12:06 WBC 7.5 RBC 3.23 L Hgb 9.7 L Hct 30.1 L MCV 93.2 MCH 30.0 MCHC 32.2 RDW Std Deviation 52.3 H RDW Coeff of Mendel 15.3 H Plt Count 421 MPV 9.5 Immature Gran % (Auto) 0.400 Neut % (Auto) 62.0 Lymph % (Auto) 27.3 [place] % (Auto) 6.7 Eos % (Auto) 2.9 Baso % (Auto) 0.7 Absolute Neuts (auto) 4.6 Absolute Lymphs (auto) 2.04 Nucleated RBC % 0 Sodium 141 Potassium 3.5 Chloride 110 H Carbon Dioxide 26.0 Anion Gap 5 BUN 23 H Creatinine 2.23 H Estim Creat Clear Calc 34.81 Est GFR (MDRD) Af Amer 37 L Est GFR (MDRD) Non-Af 31 L BUN/Creatinine Ratio 10.3 Glucose 116 H Calcium 8.5 Troponin I High Sens 103 H 104 H Radiography Chest X-Ray - ED: 2 View and Read by ED Physician (Small right and left pleural effusion. There is no infiltrate or evidence of CHF i.e. cephalization and curly B-lines. Cardiac silhouette and size normal. Hilum is normal. Osseous structures unremarkable.) Diagnostic Testing: Clinical Impression(s) from Imaging Studies Chest X-Ray 07/10/24 10:00 IMPRESSION: Blunting of the costophrenic angles suggestive of small bilateral pleural effusions. No new infiltrate is seen. Electronically Signed: Jhonny Ma MD at 10:40 EDT Reading Location ID and State: 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, Iron deficiency anemia, Hyperlipidemia, Elevated troponin, Elevated blood pressure reading with diagnosis of hypertension Prescriptions: No Action ascorbic acid (vitamin C) 1,000 mg tablet extended release 1,000 mg PO DAILY fluticasone propionate [Flonase Allergy Relief] 50 mcg/actuation spray,suspension 1 spray INTRANASAL DAILY PRN (Reason: ALLERGIES) Rx Instructions: administer into each nostril diltiazem HCl 180 mg capsule,extended release 24hr 180 mg PO DAILY ferrous sulfate [FeroSul] 325 mg (65 mg iron) tablet 325 mg PO DAILY loratadine 10 MG tablet 10 mg PO DAILY cholecalciferol (vitamin D3) 1,000 UNIT tablet 1,000 unit PO DAILY hyoscyamine sulfate 0.125 mg tablet, sublingual 0.125 mg sublingual DAILY PRN (Reason: ESOPHOGEAL SPASMS) atorvastatin 10 mg tablet 10 mg PO DAILY losartan 100 mg tablet 100 mg PO DAILY diclofenac sodium [Arthritis Pain (diclofenac)] 1 % gel 2 g topical PRN PRN (Reason: knee/shoulder pain) hydralazine 50 mg Tablet 50 mg PO BID 30 Days Qty: 60 0RF Xarelto 15 mg Tablet 15 mg PO DINNER 30 Days Qty: 30 0RF Primary Care Provider: Juvenal Chatman Referrals: Juvenal Chatman MD [Primary Care Provider] - Print Language: Czech Disposition Disposition: Acute Care Hospital [facility]
--- NOTE | 2024-07-10 13:57 | NURSING ---
DR ACE DAWKINS
--- NOTE | 2024-07-10 14:05 | HP.PCM.HOS_ITS ---
HPI - General General Date of Admission: 07/10/24 Date of Service: 07/10/24 Chief Complaint: shortness of breath HPI Narrative SANTI ALDANA, is a 73 M who presents [facility] Medical History (Updated 07/10/24 @ 14:[address] Zo Mejia, DO) Iron deficiency anemia Hx of pulmonary embolus Non-STEMI (non-ST elevated myocardial infarction) (09/19/21) PAF (paroxysmal atrial fibrillation) CKD (chronic kidney disease) stage 3, GFR 30-59 ml/min History of pilonidal cyst IBS (irritable bowel syndrome) Essential hypertension Asthma COPD (chronic obstructive pulmonary disease) Home Medications ?Medication ?Instructions ?Recorded ?Last Taken ?Type cholecalciferol (vitamin D3) 25 1,000 unit PO DAILY supplement 04/01/19 07/10/24 History mcg (1,000 unit) tablet ascorbic acid (vitamin C) 1,000 mg 1,000 mg PO DAILY supplement 08/29/20 07/10/24 History tablet,extended release fluticasone propionate 50 1 spray intranasal DAILY PRN 08/29/20 07/09/24 History mcg/actuation nasal ALLERGIES spray,suspension (Flonase Allergy Relief) diltiazem HCl 180 mg 180 mg PO DAILY heart 06/26/21 07/10/24 History capsule,extended release 24 hr ferrous sulfate 325 mg (65 mg 325 mg PO DAILY Supplement 06/26/21 07/10/24 History iron) tablet (FeroSul) hyoscyamine sulfate 0.125 mg 0.125 mg sublingual DAILY PRN 06/26/21 Unknown History sublingual tablet ESOPHOGEAL SPASMS diclofenac sodium 1 % topical gel 2 g topical PRN PRN knee/shoulder 06/29/24 06/24/24 History (Arthritis Pain (diclofenac)) pain hydralazine 50 mg tablet 50 mg PO BID 30 days #60 tabs 07/06/24 07/10/24 Rx atorvastatin 10 mg tablet 10 mg PO DAILY 07/10/24 Unknown History benzonatate 100 mg capsule 100 mg PO Q6H PRN cough 07/10/24 Unknown History hydrocodone-acetaminophen 5-325mg 1 tab PO BID PRN PRN pain 07/10/24 Unknown History 5mg-325mg rivaroxaban 15 mg tablet (Xarelto) 15 mg PO Q24H 07/10/24 07/10/24 History Allergy/AdvReac Type Severity Reaction Status Date / Time albuterol AdvReac palpitation Verified 07/10/24 09:45 s amitriptyline (From Elavil) AdvReac Other Verified 07/10/24 09:45 amoxapine AdvReac Other Verified 07/10/24 09:45 buspirone AdvReac Other Verified 07/10/24 09:45 duloxetine (From Cymbalta) AdvReac Other Verified 07/10/24 09:45 fluticasone (From Advair AdvReac Other Verified 07/10/24 09:45 Diskus) gabapentin AdvReac Other Verified 07/10/24 09:45 gemfibrozil AdvReac Other Verified 07/10/24 09:45 hydroxyzine AdvReac Other Verified 07/10/24 09:45 naproxen AdvReac Other Verified 07/10/24 09:45 nortriptyline AdvReac Other Verified 07/10/24 09:45 salmeterol (From Advair AdvReac Other Verified 07/10/24 09:45 Diskus) sertraline (From Zoloft) AdvReac Other Verified 07/10/24 09:45 tiotropium (From Spiriva AdvReac Other Verified 07/10/24 09:45 with HandiHaler) trazodone AdvReac Other Verified 07/10/24 09:45 zolpidem (From Ambien) AdvReac Other Verified 07/10/24 09:45 Family History Mother Colon cancer Alzheimer disease Father Cancer Prostate Grandfather Colon cancer Grandfather Myocardial infarction Surgical History History of bilateral cataract extraction History of shoulder surgery History of arthroscopy of right knee History of cholecystectomy Social History household members: spouse Smoking Status: Former smoker alcohol intake: current details: rare substance use type: does not use caffeine: No Vital Signs Vital Signs Vital Signs: 07/10/24 09:45 07/10/24 11:45 07/10/24 13:00 Temperature 98 F 98.6 F Temperature Source Temporal Temporal Pulse Rate 113 H 84 77 Respiratory Rate 18 14 16 Blood Pressure 134/93 H 146/75 H 143/70 H Blood Pressure Mean 106 98 94 Pulse Ox 97 96 95 Oxygen Delivery Method Room Air Room Air Room Air Weight Weight: 84.7 kg Body Mass Index (BMI) 23.9 Results Lab / Micro Data 07/10/24 09:55 07/10/24 09:55 Labs: Laboratory Results - last 24 hr 07/10/24 09:55: WBC 7.5, RBC 3.23 L, Hgb 9.7 L, Hct 30.1 L, MCV 93.2, MCH 30.0, MCHC 32.2, RDW Std Deviation 52.3 H, RDW Coeff of Mendel 15.3 H, Plt Count 421, MPV 9.5, Immature Gran % (Auto) 0.400, Neut % (Auto) 62.0, Lymph % (Auto) 27.3, [place] % (Auto) 6.7, Eos % (Auto) 2.9, Baso % (Auto) 0.7, Absolute Neuts (auto) 4.6, Absolute Lymphs (auto) 2.04, Nucleated RBC % 0, Sodium 141, Potassium 3.5, C hloride 110 H, Carbon Dioxide 26.0, Anion Gap 5, BUN 23 H, Creatinine 2.23 H, Estim Creat Clear Calc 34.81, Est GFR (MDRD) Af Amer 37 L, Est GFR (MDRD) Non-Af 31 L, BUN/Creatinine Ratio 10.3, Glucose 116 H, Calcium 8.5, Troponin I High Sens 103 H 07/10/24 12:06: Troponin I High Sens 104 H Imaging Radiology Impression Chest X-Ray 07/10/24 10:00 IMPRESSION: Blunting of the costophrenic angles suggestive of small bilateral pleural effusions. No new infiltrate is seen. Electronically Signed: Jhonny Ma MD at 10:40 EDT , Assessment & Plan Assessment/Plan (1) Bilateral pleural effusion: (2) Elevated troponin: (3) Congestive heart failure of unknown etiology: PLAN: Plan PAF -Continue diltiazem -Patient follows with Dr. Hunt as an outpatient -Last echo was from 2019 and showed an EF of 50% with mild LVH and mild global hypokinesis of the LV, RV pressures and pulmonary artery pressures were unable to be assessed at that time History of pneumothorax -Stable at this time -No signs of pneumothorax on CTA of the chest Hypertension -Continue home medication except for losartan which is on hold secondary to kidney injury -Clear if this is acute or chronic Suspected CKD stage III -Baseline serum creatinine is unknown -Continue to monitor -We will hold losartan at this time and reevaluate -If stable would restart losartan tomorrow Seasonal allergies -Continue as needed nasal sprays DVT prophylaxis -Full anticoagulation with heparin CODE STATUS -Full code Charges/Coding Visit Charges Inpatient E&M: 50838 Init Hosp L3
--- NOTE | 2024-07-10 14:05 | PCM.HP.STD ---
HPI - General General Date of Admission: 07/10/24 Date of Service: 07/10/24 Chief Complaint: shortness of breath HPI Narrative SANTI ALDANA, is a 73 M who presented to the emergency department at [facility] on 07/10/2024 with a chief complaint of shortness of breath. The patient had a recent long admission here for sepsis from 06/27/2024 through 07/02/2024. He suffered from septic shock due to probable UTI and had FILIPPO on CKD stage IIIa. His renal function slowly recovered and did not require MOLECULAR GENETICIST but nephrology was involved. He stated that since he was discharged on and off he has had some shortness of breath. He returned to the emergency department because he was having some debility issues on 07/03/2024 and had a brief stay over at [facility]. He was discharged from there on 07/06/2024 and has just been having on and off shortness of breath since that point in time. He is chronically anticoagulated with Xarelto for history of atrial fibrillation. He complains of weight gain up to a total of 25 pounds however he has auto diuresed about 15 pounds of his weight change and currently is about 185 pounds with a baseline weight of about 175 pounds. Through the night he developed some orthopnea and required sleeping in a chair and significant exertional dyspnea however he states he feels somewhat better now. He states his legs are significantly swollen compared to baseline. He was hoping that he would be able to mobilize fluid on his own but has not been able to do so as of yet. He saw his primary care physician yesterday and she directed him to come emergency department because he had symptoms and his BNP in the outpatient setting was greater than 2000. Vital signs on presentation emergency department showed temperature of 98, heart rate 113, respiratory rate 18, blood pressure was 134/93, pulse ox was 97% on room air. Heart rate did improve to 77 on repeat exam. CBC shows a chronic stable anemia with a hemoglobin of 9.7 but was otherwise unremarkable. Chemistry showed a BUN of 23 and a serum creatinine of 2.23 which is steadily improving and improved from his last assessment on 07/06/2020 for which time his serum creatinine was 2.86. He had a peak of 3.70 during his admission for septic shock. Initial troponin was 303 with repeat at 304. A BNP was not done here however there is documentation of the BNP being done in his outpatient office at [facility] and it being greater than 2000. Clinically the patient looks markedly volume overloaded with significant bilateral lower extremity edema. Chest x-ray shows very trace bilateral basilar effusions. EKG is unchanged from previous. He was given 1 dose of IV Lasix in the emergency department 40 mg and admission for observation status was made. [facility], [facility] Medical History Iron deficiency anemia Hx of pulmonary embolus Non-STEMI (non-ST elevated myocardial infarction) (09/19/21) PAF (paroxysmal atrial fibrillation) CKD (chronic kidney disease) stage 3, GFR 30-59 ml/min History of pilonidal cyst IBS (irritable bowel syndrome) Essential hypertension Asthma COPD (chronic obstructive pulmonary disease) Home Medications ?Medication ?Instructions ?Recorded ?Last Taken ?Type cholecalciferol (vitamin D3) 25 1,000 unit PO DAILY supplement 04/01/19 07/10/24 History mcg (1,000 unit) tablet ascorbic acid (vitamin C) 1,000 mg 1,000 mg PO DAILY supplement 08/29/20 07/10/24 History tablet,extended release fluticasone propionate 50 1 spray intranasal DAILY PRN 08/29/20 07/09/24 History mcg/actuation nasal ALLERGIES spray,suspension (Flonase Allergy Relief) diltiazem HCl 180 mg 180 mg PO DAILY heart 06/26/21 07/10/24 History capsule,extended release 24 hr ferrous sulfate 325 mg (65 mg 325 mg PO DAILY Supplement 06/26/21 07/10/24 History iron) tablet (FeroSul) hyoscyamine sulfate 0.125 mg 0.125 mg sublingual DAILY PRN 06/26/21 Unknown History sublingual tablet ESOPHOGEAL SPASMS diclofenac sodium 1 % topical gel 2 g topical PRN PRN knee/shoulder 06/29/24 06/24/24 History (Arthritis Pain (diclofenac)) pain hydralazine 50 mg tablet 50 mg PO BID 30 days #60 tabs 07/06/24 07/10/24 Rx atorvastatin 10 mg tablet 10 mg PO DAILY 07/10/24 Unknown History benzonatate 100 mg capsule 100 mg PO Q6H PRN cough 07/10/24 Unknown History hydrocodone-acetaminophen 5-325mg 1 tab PO BID PRN PRN pain 07/10/24 Unknown History 5mg-325mg rivaroxaban 15 mg tablet (Xarelto) 15 mg PO Q24H 07/10/24 07/10/24 History Allergy/AdvReac Type Severity Reaction Status Date / Time albuterol AdvReac palpitation Verified 07/10/24 09:45 s amitriptyline (From Elavil) AdvReac Other Verified 07/10/24 09:45 amoxapine AdvReac Other Verified 07/10/24 09:45 buspirone AdvReac Other Verified 07/10/24 09:45 duloxetine (From Cymbalta) AdvReac Other Verified 07/10/24 09:45 fluticasone (From Advair AdvReac Other Verified 07/10/24 09:45 Diskus) gabapentin AdvReac Other Verified 07/10/24 09:45 gemfibrozil AdvReac Other Verified 07/10/24 09:45 hydroxyzine AdvReac Other Verified 07/10/24 09:45 naproxen AdvReac Other Verified 07/10/24 09:45 nortriptyline AdvReac Other Verified 07/10/24 09:45 salmeterol (From Advair AdvReac Other Verified 07/10/24 09:45 Diskus) sertraline (From Zoloft) AdvReac Other Verified 07/10/24 09:45 tiotropium (From Spiriva AdvReac Other Verified 07/10/24 09:45 with HandiHaler) trazodone AdvReac Other Verified 07/10/24 09:45 zolpidem (From Ambien) AdvReac Other Verified 07/10/24 09:45 Family History Mother Colon cancer Alzheimer disease Father Cancer Prostate Grandfather Colon cancer Grandfather Myocardial infarction Surgical History History of bilateral cataract extraction History of shoulder surgery History of arthroscopy of right knee History of cholecystectomy Social History household members: spouse Smoking Status: Former smoker alcohol intake: current details: rare substance use type: does not use caffeine: No ROS Constitutional Constitutional: Reports fatigue and weakness; Denies anorexia, change in weight, chills, fever(s), malaise, night sweats or other Eyes Eyes: Denies blurry vision, change in eye color, change in vision, discharge from eye(s), double vision, erythema, eye pain, loss of vision or other ENT HEENT: Denies abnormal hearing, dysphagia, ear pain, epistaxis, headache(s), hearing loss, nasal congestion, nasal discharge, post nasal drip, sinus pressure, sore throat or other Cardiovascular Cardiovascular: Reports dyspnea on exertion, edema and orthopnea; Denies chest pain, claudication, lightheadedness, palpitations, paroxysmal nocturnal dyspnea, rapid heart rate, syncope or other Respiratory/Chest Respiratory/Chest: Reports cough and shortness of breath with exertion; Denies dyspnea, excessive phlegm production, hemoptysis, productive cough, shortness of breath at rest, wheezing or other Gastrointestinal Gastrointestinal: Denies abdominal pain, coffee ground emesis, constipation, diarrhea, dyspepsia, hematemesis, hematochezia, loose stools, melena, nausea, vomiting or other Genitourinary Genitourinary: Denies burning urination, difficulty urinating, dysuria, hematuria, nocturia, urinary frequency, urinary hesitancy, urinary incontinence, urinary urgency or other Musculoskeletal Musculoskeletal: Denies arthralgias, back pain, joint pain, joint stiffness, joint swelling, myalgias, neck pain or other Neurologic Neurologic: Denies abnormal gait, abnormal speech, confusion, disequilibrium, dizziness, focal weakness, headache(s), numbness, paresthesias, seizure-like activity, seizures, syncope, tingling, tremor(s) or other Psychiatric Psychiatric: Denies anxiety, depression, homicidal ideation, suicidal ideation or other Endocrine Endocrinology: Denies change in body appearance, cold intolerance, excessive sweating, heat intolerance, polydipsia, polyuria or other Hematologic/Lymphatic Hematologic/Lymphatic: Reports easy bleeding and easy bruising; Denies anemia, lymphadenopathy or other Allergic/Immunologic Allergic/Immunologic: Denies rhinitis, hives, eczemia, asthma or other Vital Signs Vital Signs Vital Signs: 07/10/24 09:45 07/10/24 11:45 07/10/24 13:00 Temperature 98 F 98.6 F Temperature Source Temporal Temporal Pulse Rate 113 H 84 77 Respiratory Rate 18 14 16 Blood Pressure 134/93 H 146/75 H 143/70 H Blood Pressure Mean 106 98 94 Pulse Ox 97 96 95 Oxygen Delivery Method Room Air Room Air Room Air Weight Weight: 84.7 kg Body Mass Index (BMI) 23.9 Physical Exam Const alert, oriented x3, no apparent distress, average body habitus and well nourished Constitutional Narrative: Older, white male, sitting up in bed, appears comfortable at this time, does not appear toxic, oxygen saturations are stable and patient is not in any signs of extremis on room air General Appearance: cooperative HEENT normocephalic, head/scalp atraumatic, hearing grossly normal bilaterally and moist oral mucous membranes HEENT Narrative: Mallampati 2, no thrush, dentition is good for age Eyes PERRL, EOMs intact bilaterally and conjunctivae normal Eyes Narrative: No scleral icterus Neck no lymphadenopathy and supple Neck Narrative: Trachea midline, no thyroid enlargement Resp normal respiratory effort, no retractions and no use of accessory muscles Resp Narrative: Slightly diminished at bases with few scattered crackles at bases but otherwise clear Auscultation: crackles; Negative for rhonchi or wheezes Cardio regular rate, regular rhythm, S1 normal heart sound, S2 normal heart sound, no murmurs, no rub, no gallops and no clicks GI normal to inspection, nondistended, normoactive bowel sounds, soft to palpation and non-tender Extremity Extremity Narrative: 2-3+ bilateral lower extremity pitting edema, no cyanosis or clubbing present Neuro oriented x3, moves all extremities and no focal motor deficits Speech: speech normal Psych affect normal Psych Narrative: Interacts appropriately, eye contact is good Results Lab / Micro Data 07/10/24 09:55 07/10/24 09:55 Labs: Laboratory Results - last 24 hr 07/10/24 09:55: WBC 7.5, RBC 3.23 L, Hgb 9.7 L, Hct 30.1 L, MCV 93.2, MCH 30.0, MCHC 32.2, RDW Std Deviation 52.3 H, RDW Coeff of Mendel 15.3 H, Plt Count 421, MPV 9.5, Immature Gran % (Auto) 0.400, Neut % (Auto) 62.0, Lymph % (Auto) 27.3, Heard % (Auto) 6.7, Eos % (Auto) 2.9, Baso % (Auto) 0.7, Absolute Neuts (auto) 4.6, Absolute Lymphs (auto) 2.04, Nucleated RBC % 0, Sodium 141, Potassium 3.5, Chloride 110 H, Carbon Dioxide 26.0, Anion Gap 5, BUN 23 H, Creatinine 2.23 H, Estim Creat Clear Calc 34.81, Est GFR (MDRD) Af Amer 37 L, Est GFR (MDRD) Non-Af 31 L, BUN/Creatinine Ratio 10.3, Glucose 116 H, Calcium 8.5, Troponin I High Sens 103 H 07/10/24 12:06: Troponin I High Sens 104 H Imaging Radiology Impression Chest X-Ray 07/10/24 10:00 IMPRESSION: Blunting of the costophrenic angles suggestive of small bilateral pleural effusions. No new infiltrate is seen. Electronically Signed: Jhonny Ma MD at 10:40 EDT , Assessment & Plan Assessment/Plan (1) Bilateral pleural effusion: (2) Elevated troponin: (3) Congestive heart failure of unknown etiology: PLAN: Plan SEVILLA/orthopnea/edema secondary to CHF-unknown type -Outpatient BNP was greater than 2000 with repeat pending here -Chest x-ray shows small bilateral pleural effusions -Recent hospitalization where patient did receive quite a bit of volume and weight is up about 10 pounds from his baseline currently -Check daily weights -Strict I's and O's -Sodium restricted diet -Fluid restricted diet -Check echocardiogram -Lower extremity Dopplers to rule out DVT and if negative Sammy bandages bilateral lower extremities -Patient is not hypoxic but would recommend ambulatory pulse ox prior to discharge to make sure he does not have any dyspnea on exertion no hypoxia with exertion Elevated serum troponin -Likely related to CHF/elevated creatinine with decreased clearance -Patient not experiencing any chest pain -No EKG changes concerning for acute ischemia -Check echocardiogram -Cycle cardiac enzymes -Add aspirin 81 mg daily for now but discontinue if no changes on echocardiogram -Check lipids Small bilateral pleural effusion -Likely related to volume -Diuresis as above -Not enough volume to perform thoracentesis Iron deficiency anemia -Hemoglobin is stable and I suspect a little bit lower than actual number due to volume overload -Continue home iron supplementation -Repeat CBC in a.m. PAF -Continue diltiazem -Continue Xarelto -Last echo was from 05/2022 and showed an EF of 60%, trivial mitral valve, aortic valve, pulmonic valve insufficiency, mild tricuspid valve insufficiency, right ventricular systolic pressure estimated at 39 mmHg and no evidence of diastolic dysfunction History of pneumothorax -Stable at this time -No signs of pneumothorax chest x-ray Hypertension -Continue home diltiazem -Continue home hydralazine Hyperlipidemia -Continue home atorvastatin FILIPPO on CKD stage IIIa -Prior to his septic shock his baseline serum creatinine appears to be running between 1.4 and 1.6 -Current serum creatinine is 2.23 down from a peak of 3.7 during his sepsis and improved from 2.86 from 07/06/2024 -It appears his renal function continues to improve -Currently appears volume overloaded so will utilize some Lasix for diuresis but monitor renal function closely -Patient is very concerned so we will have nephrology involved Seasonal allergies -Continue as needed nasal sprays DVT prophylaxis -Continue home Xarelto CODE STATUS -Full code Charges/Coding Visit Charges Inpatient E&M: 45788 Init Hosp L3
[2024-07-10] MEDS: Furosemide 40 MG/4 ML Vial IV ×2 (14:16→20:04)
--- NOTE | 2024-07-10 14:31 | NURSING ---
PCU CHF, ELEVATED TROP ACE
[2024-07-10 14:57] LABS: BNP,B-Type NATRIURETIC PEPTIDE 123.9 pg/mL (0-100)
--- NOTE | 2024-07-10 15:04 | ECHOD_ITS ---
Reason For Study: CHF Procedure This was a 2D Doppler, Color Flow transthoracic echocardiogram. The study was technically difficult. D/T respiratiory interference. Exam performed portable in patient room. Left Ventricle Normal LV size. The estimated ejection fraction is 60 %. No evidence for diastolic dysfunction. No regional wall motion abnormalities noted. Right Ventricle Normal RV size. Normal systolic function. Atria The left and right atria are normal. No doppler evidence for ASD. Mitral Valve There is no mitral valve stenosis. No mitral valve insufficiency. Tricuspid Valve There is no tricuspid stenosis. Unable to estimate RV systolic pressure due to insufficient tricuspid regurgitant envelope. Trivial tricuspid valve insufficiency. Aortic Valve Trisinus/trileaflet aortic valve. There is no aortic stenosis. No aortic valve insufficiency. Pulmonic Valve There is no pulmonic valvular stenosis. No pulmonic valve insufficiency. Great Vessels Normal aortic root. Pericardium/Pleural No pericardial effusion. MMode/2D Measurements & Calculations LVIDd: 5.3 cm IVSd: 0.99 cm LVOT diam: 2.4 cm LVIDs: 3.7 cm LVPWd: 0.95 cm LVOT area: 4.6 cm2 RVDd: 3.2 cm FS: 29.8 % LA dimension: 2.6 cm LVAd ap4: 29.0 cm2 LVAd ap2: 23.6 cm2 LVLd ap4: 7.6 cm LVLd ap2: 8.0 cm EDV(MOD-sp4): 91.1 ml EDV(MOD-sp2): 57.7 ml EDV(sp4-el): 93.5 ml EDV(sp2-el): 59.4 ml LVAs ap4: 17.5 cm2 LVAs ap2: 14.7 cm2 LVLs ap4: 6.7 cm LVLs ap2: 6.9 cm ESV(MOD-sp4): 40.8 ml ESV(MOD-sp2): 27.4 ml ESV(sp4-el): 38.9 ml ESV(sp2-el): 26.5 ml EF(MOD-sp4): 55.2 % EF(MOD-sp2): 52.4 % EF(sp4-el): 58.4 % SV(MOD-sp4): 50.3 ml SV(MOD-sp2): 30.3 ml SV(sp4-el): 54.6 ml TAPSE: 2.2 cm Time Measurements MV dec time: 0.10 sec Doppler Measurements & Calculations MV E max abran: 72.0 cm/sec Lat Peak E' Abran: 9.4 cm/sec Med Peak E' Abran: 8.3 cm/sec MV A max abran: 81.0 cm/sec E/E' lat: 7.7 E/E' med: 8.7 MV E/A: 0.89 MV V2 max: 77.3 cm/sec Ao V2 max: 177.9 cm/sec LV V1 max: 90.1 cm/sec MV max P.4 mmHg Ao max P.7 mmHg LV V1 max P.3 mmHg MV V2 mean: 43.6 cm/sec Ao V2 mean: 121.5 cm/sec LV V1 mean P.5 mmHg MV mean P.88 mmHg Ao mean P.4 mmHg LV V1 mean: 58.8 cm/sec MV V2 VTI: 12.9 cm Ao V2 VTI: 34.1 cm LV V1 VTI: 17.2 cm MVA(VTI): 6.1 cm2 AV (velocity ratio): 0.50 SEBASTIAN(I,D): 2.3 cm2 SEBASTIAN(V,D): 2.3 cm2 SV(LVOT): 79.3 ml PA V2 max: 105.9 cm/sec TR max abran: 219.8 cm/sec PA V2 mean: 72.5 cm/sec TR max P.5 mmHg ECHO/Echo Complete Interpretation Summary The estimated ejection fraction is 60 %. No evidence for diastolic dysfunction. Ordering Physician: Zo Mejia Referring Physician: Juvenal Chatman Performed By: Willow Galeana, LORETTA, RVT
[2024-07-10 16:36] LABS: Troponin-I HS 119 pg/mL (3.0-78.0)
[2024-07-10] MEDS: Benzonatate 100 MG Capsule PO (18:08)
[2024-07-10] MEDS: HYDROcodone Bitartrate/Apap 5/325 Tablet PO (19:54)
[2024-07-10] MEDS: hydrALAZINE 50 MG Tablet PO (21:13)
[2024-07-11] VITALS (7 sets, daily range): BP systolic 103–144; BP diastolic 68–77; PULSE 80–109; RESP 20; TEMP 36.3–36.8; O2SAT 96–98; BMI 22.4
[2024-07-11] MEDS: Furosemide 40 MG/4 ML Vial IV (06:06)
[2024-07-11 06:10] LABS: Absolute Lymphocyte Count 1.99 X10^3/uL (0.83-4.51); Absolute Neutrophil Count 3.4 X10^3/uL (2.0-7.7); Basophil# 0.04 X10^3/uL; Basophil% 0.6 % (0-1); Eosinophil# 0.24 X10^3/uL; Eosinophils% 3.9 % (0-5); Hematocrit 26.9 % (40-54); Hemoglobin 8.8 g/dL (13.0-16.5); Lymphocyte # 1.99 X10^3/ul (0.83-4.51); Mean Corp Hgb Conc 32.7 g/dL (32-36); Mean Corpuscular Hgb 30.2 pg (27.0-32.0); Mean Corpuscular Volume 92.4 fL (80-94); Mean Platelet Vol. 10.1 fl (6.2-12.0); Monocyte# 0.54 X10^3/uL; Monocyte% 8.7 % (0-10); NRBC Flagged by Analyzer 0 % (0-5); Neutrophil # 3.39 X10^3/uL (2.7-7.7); Neutrophil % 54.5 % (47-70); Platelet Count 402 K/mm3 (150-450); RBC Distribution Width CV 15.3 % (11.6-14.6); RBC Distribution Width SD 51.8 fl (35.1-43.9); Red Blood Count 2.91 M/mm3 (4.6-6.2); White Blood Count 6.2 K/mm3 (4.4-11.0)
[2024-07-11] MEDS: Benzonatate 100 MG Capsule PO (06:10)
[2024-07-11 07:03] LABS: ALB/GLOB Ratio 0.8 RATIO (0.9-2.4); AST(SGOT) 23 U/L (15-37); Alanine Aminotransfer ALT/SGPT 12 U/L (16-61); Albumin, Serum 2.6 g/dL (3.2-5.0); Alkaline Phosphatase 29 U/L (45-117); Anion Gap 6 (5-15); BUN 25 mg/dL (7-18); BUN/Creat Ratio 11.9 RATIO (10-20); Calcium,Total 8.3 mg/dL (8.5-10.1); Chloride 105 mmol/L (98-107); Cholesterol 138 mg/dL (200); EST Glomerular Filtration Rate 33 mL/min (>60); Est Glom Filt Rate - Afr Amer 40 mL/min (>60); Globulin 3.4 g/dL (2.2-4.2); Glucose 97 mg/dL (74-106); High Density Lipoprotein 41 mg/dL; Magnesium 1.5 mg/dL (1.6-2.6); Phosphorus 3.4 mg/dL (2.5-4.9); Potassium 3.4 mmol/L (3.5-5.1); Sodium Level 140 mmol/L (136-145); Triglycerides 129 mg/dL; Very Low Density Lipoprotein 26 mg/dL (5-40)
[2024-07-11] MEDS: Potassium Chloride Oral Tablet 20 MEQ 40 MEQ PO (09:07)
[2024-07-11] MEDS: Magnesium Sulfate 4gm/100mL 4 GM/100 ML IV.SOLN. IV (09:09)
[2024-07-11] MEDS: Ascorbic Acid 500 MG Tablet 1000 MG PO (09:09)
[2024-07-11] MEDS: Aspirin 81 MG TAB.CHEW PO (09:10)
[2024-07-11] MEDS: hydrALAZINE 50 MG Tablet PO (09:10)
[2024-07-11] MEDS: Ferrous Sulfate 325 MG Tablet PO (09:11)
[2024-07-11] MEDS: Cholecalciferol (VIT D3) 25 MCG TABLET (1,000 UNITS) PO (09:11)
[2024-07-11] MEDS: dilTIAZem CD 180 MG Capsule PO (09:11)
--- NOTE | 2024-07-11 13:27 | PCM.DC.SUM ---
Providers Date of Admission: 07/10/24 Date of Discharge: 07/11/24 Primary Care Physician: Dr. Juvenal Chatman MD Consultations 07/10/24 15:04 Consult: Nephrology Routine Consulting Provider: Angelita Elmore Reason for Consult: CKD pt very concerned about getting lasix but in CHF with BNP>2000 EMERGENT Consult: No MD Notified: Yes Date Notified: 07/10/24 Time Notified: 13:58 Method of Notification: Answering Service Reason For Visit: EDEMA [employer] SEVILL[facility] Diagnosis Discharge Diagnosis (1) Bilateral pleural effusion: Status: Acute Code(s): J90 - Pleural effusion, not elsewhere classified (2) Elevated troponin: Status: Acute Code(s): R79.89 - Other specified abnormal findings of blood chemistry Plan # Fluid overload # Elevated serum troponin secondary to fluid overload # Paroxysmal atrial fibrillation # Hypertension # FILIPPO on CKD stage IIIa Medications at Discharge Home Medications cholecalciferol (vitamin D3) 25 mcg (1,000 unit) tablet 1,000 unit PO DAILY supplement 04/01/19 ascorbic acid (vitamin C) 1,000 mg tablet,extended release 1,000 mg PO DAILY supplement 08/29/20 fluticasone propionate 50 mcg/actuation nasal spray,suspension (Flonase Allergy Relief) 1 spray intranasal DAILY PRN ALLERGIES 08/29/20 diltiazem HCl 180 mg capsule,extended release 24 hr 180 mg PO DAILY heart 06/26/21 ferrous sulfate 325 mg (65 mg iron) tablet (FeroSul) 325 mg PO DAILY Supplement 06/26/21 hyoscyamine sulfate 0.125 mg sublingual tablet 0.125 mg sublingual DAILY PRN ESOPHOGEAL SPASMS 06/26/21 diclofenac sodium 1 % topical gel (Arthritis Pain (diclofenac)) 2 g topical PRN PRN knee/shoulder pain 06/29/24 hydralazine 50 mg tablet 50 mg PO BID 30 days #60 tabs 07/06/24 atorvastatin 10 mg tablet 10 mg PO DAILY 07/10/24 benzonatate 100 mg capsule 100 mg PO Q6H PRN cough 07/10/24 hydrocodone-acetaminophen 5-325mg 5mg-325mg 1 tab PO BID PRN PRN pain 07/10/24 rivaroxaban 15 mg tablet (Xarelto) 15 mg PO Q24H 07/10/24 Hospital Course Summary of Care Provided Minutes Spent on Discharge: 28 Hospital Course: Per HPI: ASNTI ALDANA, is a 73 M who presented to the emergency department at [facility] on 07/10/2024 with a chief complaint of shortness of breath. The patient had a recent long admission here for sepsis from 06/27/2024 through 07/02/2024. He suffered from septic shock due to probable UTI and had FILIPPO on CKD stage IIIa. 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 He stated that since he was discharged on and off he has had some shortness of breath. He returned to the emergency department because he was having some debility issues on 07/03/2024 and had a brief stay over at [facility]. He was discharged from there on 07/06/2024 and has just been having on and off shortness of breath since that point in time. He is chronically anticoagulated with Xarelto for history of atrial fibrillation. He complains of weight gain up to a total of 25 pounds however he has auto diuresed about 15 pounds of his weight change and currently is about 185 pounds with a baseline weight of about 175 pounds. Through the night he developed some orthopnea and required sleeping in a chair and significant exertional dyspnea however he states he feels somewhat better now. He states his legs are significantly swollen compared to baseline. He was hoping that he would be able to mobilize fluid on his own but has not been able to do so as of yet. He saw his primary care physician yesterday and she directed him to come emergency department because he had symptoms and his BNP in the outpatient setting was greater than 2000. Vital signs on presentation emergency department showed temperature of 98, heart rate 113, respiratory rate 18, blood pressure was 134/93, pulse ox was 97% on room air. Heart rate did improve to 77 on repeat exam. CBC shows a chronic stable anemia with a hemoglobin of 9.7 but was otherwise unremarkable. Chemistry showed a BUN of 23 and a serum creatinine of 2.23 which is steadily improving and improved from his last assessment on 07/06/2020 for which time his serum creatinine was 2.86. He had a peak of 3.70 during his admission for septic shock. Initial troponin was 303 with repeat at 304. A BNP was not done here however there is documentation of the BNP being done in his outpatient office at [facility] and it being greater than 2000. Clinically the patient looks markedly volume overloaded with significant bilateral lower extremity edema. Chest x-ray shows very trace bilateral basilar effusions. EKG is unchanged from previous. He was given 1 dose of IV Lasix in the emergency department 40 mg and admission for observation status was made. INTERVAL HISTORY: Patient diuresed very well with IV Lasix back to home weight, echocardiogram within normal limits, kidney function improved. Patient feeling well this a.m. with no new or acute complaints, significantly decreased edema. Patient comfortable with plan for discharge and follow-up closely with his outpatient provider. Physical Exam Narrative General: Alert, oriented, no apparent distress HEENT: Atraumatic, normocephalic Eyes: Anicteric, normal conjunctiva, extraocular movements grossly intact Neck: Supple Respiratory: Clear to auscultation bilaterally, normal respiratory effort Cardiovascular: Regular rate GI: Soft, nontender, nondistended Extremities: Trace lower extremity edema Musculoskeletal: Moving all extremities Neuro: No overt focal neurological deficits Skin: No rashes appreciated Psych: Cooperative Weight / BMI Weight Weight: 79.379 kg Body Mass Index (BMI) 22.4 ABG / Lab / Microbiology Data 07/11/24 05:30 07/11/24 05:30 Laboratory: Laboratory Results - last 24 hr 07/10/24 09:55: B-Natriuretic Peptide 123.9 H 07/10/24 16:00: Troponin I High Sens 119 H 07/11/24 05:30: WBC 6.2, RBC 2.91 L, Hgb 8.8 L, Hct 26.9 L, MCV 92.4, MCH 30.2, MCHC 32.7, RDW Std Deviation 51.8 H, RDW Coeff of Mendel 15.3 H, Plt Count 402, MPV 10.1, Immature Gran % (Auto) 0.300, Neut % (Auto) 54.5, Lymph % (Auto) 32.0, Dodge % (Auto) 8.7, Eos % (Auto) 3.9, Baso % (Auto) 0.6, Absolute Neuts (auto) 3.4, Absolute Lymphs (auto) 1.99, Nucleated RBC % 0, Sodium 140, Potassium 3.4 L, Chloride 105, Carbon Dioxide 29.0, Anion Gap 6, BUN 25 H, Creatinine 2.10 H, Estim Creat Clear Calc 35.70, Est GFR (MDRD) Af Amer 40 L, Est GFR (MDRD) Non-Af 33 L, BUN/Creatinine Ratio 11.9, Glucose 97, Calcium 8.3 L, Phosphorus 3.4, Magnesium 1.5 L, Total Bilirubin 0.70, AST 23, ALT 12 L, Alkaline Phosphatase 29 L, Total Protein 6.0 L, Albumin 2.6 L, Globulin 3.4, Albumin/Globulin Ratio 0.8 L, Triglycerides 129, Cholesterol 138, LDL Cholesterol 71, VLDL Cholesterol 26, HDL Cholesterol 41, TSH 2.160 Radiography Diagnostic Testing: Radiology Impression Echocardiogram 07/10/24 15:04 Interpretation Summary The estimated ejection fraction is 60 %. No evidence for diastolic dysfunction. Ordering Physician: Zo Mejia Referring Physician: Juvenal Chatman Performed By: Willow Galeana RDCS, RVT D/C Instructions Discharge Diet: - (Resume previous diet) Meaningful Use Info Meaningful Use Meaningful Use Diagnoses (Choose all that apply): None applicable Ischemic Stroke Statin Dosing Therapy Reference: STATIN DOSE THERAPY REFERENCE: * Patients > 75 years receive moderate or high dose statin therapy. * Patients 75 years or YOUNGER should receive HIGH intensity statin dose unless contraindicated. You will be required to document reason for non-treatment if statin daily dose does not meet guidelines. HIGH DOSE STATIN THERAPY DAILY Atorvastatin > than or = to 40 mg Rosuvastatin > than or = to 20 mg Amlodipine + Atorvastatin > than or = to 2.5/40 mg Ezetimibe + Simvastatin 10/80 mg Simvastatin 80mg Discharge Plan Admission Admit Date/Time: 07/10/24 13:51 Primary Reason for Your Visit: Fluid overload Attending Provider: Divya Porter Primary Care Provider: Juvenal Chatman Consulting Providers: Angelita Elmore; Zo Mejia Instructions Patient Instructions: AFib Dc Additional Instructions / Restrictions: -Please follow-up with your primary care provider's office on Saturday as previously scheduled -For any concerning signs or symptoms please call 911 or proceed to the nearest emergency department Discharge Orders/Prescriptions Prescriptions: Continued ascorbic acid (vitamin C) 1,000 mg tablet extended release 1,000 mg PO DAILY fluticasone propionate [Flonase Allergy Relief] 50 mcg/actuation spray,suspension 1 spray INTRANASAL DAILY PRN (Reason: ALLERGIES) Rx Instructions: administer into each nostril diltiazem HCl 180 mg capsule,extended release 24hr 180 mg PO DAILY ferrous sulfate [FeroSul] 325 mg (65 mg iron) tablet 325 mg PO DAILY cholecalciferol (vitamin D3) 1,000 UNIT tablet 1,000 unit PO DAILY hyoscyamine sulfate 0.125 mg tablet, sublingual 0.125 mg sublingual DAILY PRN (Reason: ESOPHOGEAL SPASMS) hydrocodone-acetaminophen 5-325 mg tablet 1 tab PO BID PRN PRN (Reason: pain) Xarelto 15 mg Tablet 15 mg PO Q24H benzonatate 100 mg capsule 100 mg PO Q6H PRN (Reason: cough) diclofenac sodium [Arthritis Pain (diclofenac)] 1 % gel 2 g topical PRN PRN (Reason: knee/shoulder pain) hydralazine 50 mg Tablet 50 mg PO BID 30 Days Qty: 60 0RF Held atorvastatin 10 mg tablet 10 mg PO DAILY Hold Instructions: Resume on 07/11/24. Reported to be on hold on day of admission Referrals / Follow Up: Juvenal Chatman MD [Primary Care Provider] - Disposition Disposition (needs filled in before D/C Order can be placed): Home, Self Care Charges/Coding Visit Charges Inpatient E&M: 44072 Disch Hosp
== END 2024-07-11 13:27 | disposition home or self-care (01) ==
LOC: ED 13:58 → PCU 14:30
PROVIDERS: Admitting Provider Internal Medicine; Emergency Provider Emergency Medicine; PCP Family Medicine; Visit Provider Internal Medicine
DX: I12.9 Hypertensive chronic kidney disease with stage 1 through stage 4 chronic kidney disease, or unspecified chronic kidney disease (principal); I27.20 Pulmonary hypertension, unspecified; J44.9 Chronic obstructive pulmonary disease, unspecified; I48.0 Paroxysmal atrial fibrillation; N18.31 Chronic kidney disease, stage 3a; J90 Pleural effusion, not elsewhere classified; E78.5 Hyperlipidemia, unspecified; Z87.891 Personal history of nicotine dependence; D50.9 Iron deficiency anemia, unspecified; R79.89 Other specified abnormal findings of blood chemistry; Z79.01 Long term (current) use of anticoagulants; N17.9 Acute kidney failure, unspecified; Z86.711 Personal history of pulmonary embolism; Z79.899 Other long term (current) drug therapy
CPT/HCPCS: 36415; 71046; 80048; 80053; 80061; 83735; 83880; 84100; 84443; 84484; 85025; 93005; 93306; 93970; 96374; 96376; 99221; 99252; 99285; Q9957; A4216; G0378; G0463; J1940

== ENCOUNTER → 2024-07-20 | Outpatient (CLI) | payer MEDICARE, OTHER, SELFPAY ==
[2024-07-20 12:12] LABS: Absolute Lymphocyte Count 1.84 X10^3/uL (0.83-4.51); Absolute Neutrophil Count 4.6 X10^3/uL (2.0-7.7); Basophil# 0.07 X10^3/uL; Eosinophil# 0.22 X10^3/uL; Hemoglobin 10.5 g/dL (13.0-16.5); Lymphocyte # 1.84 X10^3/ul (0.83-4.51); Lymphocyte % 25.2 % (19-41); Mean Corp Hgb Conc 31.8 g/dL (32-36); Mean Corpuscular Volume 94.3 fL (80-94); Mean Platelet Vol. 10.3 fl (6.2-12.0); Monocyte# 0.51 X10^3/uL; NRBC Flagged by Analyzer 0 % (0-5); Neutrophil # 4.63 X10^3/uL (2.7-7.7); Neutrophil % 63.4 % (47-70); Platelet Count 299 K/mm3 (150-450); RBC Distribution Width CV 14.4 % (11.6-14.6); RBC Distribution Width SD 49.3 fl (35.1-43.9); White Blood Count 7.3 K/mm3 (4.4-11.0)
[2024-07-20 13:19] LABS: Anion Gap 8 (5-15); BUN 27 mg/dL (7-18); BUN/Creat Ratio 14.6 RATIO (10-20); Calcium,Total 10.1 mg/dL (8.5-10.1); Chloride 107 mmol/L (98-107); Creatinine, Serum 1.85 mg/dL (0.70-1.30); EST Glomerular Filtration Rate 38 mL/min (>60); Est Glom Filt Rate - Afr Amer 46 mL/min (>60); Glucose 103 mg/dL (74-106); Potassium 4.4 mmol/L (3.5-5.1); Sodium Level 137 mmol/L (136-145); Thyroid Stim Hormone (TSH) 0.912 uIU/mL (0.358-3.740)
== END | disposition home or self-care (01) ==
PROVIDERS: PCP Family Medicine; Referring Provider Nurse Practitioner Gerontology; Visit Provider Nurse Practitioner Gerontology
DX: R53.83 Other fatigue (principal)
CPT/HCPCS: 36415; 80048; 84443; 85025